=== PATIENT | female | born 1955 | race Caucasian/White ===

== ENCOUNTER → 2016-06-04 | Outpatient (REF) | payer OTHER ==
[~2016-06-04] MED LIST: /BACL20TA; /BACL20TA OR; /ESCI20TA OR; /ESOM40CA; /ROPI5TA PO; /SUCR1TA OR; ABIL5TAB; ADV250INH INH; ADVAIR INH; ALBU83IN INH; AMLO10TAB OR; AZEL0.055; BABY81CH OR; BACT800T5 PO; BUDESONIDE; BUSP10TA2 OR; CALC600T7 PO; CLON0.5T OR; DEXI30CA PO; DEXILANT OR; DIOV160T5 OR; DIOV80TA OR; DULO20CA; EPI PEN; EPI PEN INJ; EPIN0.3I6 INJ; FLECTOR PATCH; GINKGO BILOBA PO; HYDR-3713 PO; IBUP800T; IMIT100T OR; K-TA10TA OR; KAPIDEX OR; KLON0.5T PO; LASI40TA PO; LEVO112T3 OR; LEVO88TA2 PO; LIDO1DIS2 TD; LIDO5DIS; LORA2TAB; MAGN400C2 PO; MICR10CA PO; NAPR500T OR; NAPR500T81 PO; NASONEX; NEUR300C OR; NEUR600T PO; PAXI10TA OR; POTA75TA PO; PROAAER INH; PROAIR INH; SAVE25TA PO; SUMA100T2 PO; Savella OR; TOPI100T OR; TOPR50TA OR; TORS20TA2 PO; TRAM100T13 PO; TYLE650T30 PO; TYLENOL #3 OR; ULTR200T; ULTR300T OR; ULTR50TA PO; VERA180T9 OR; VICO5TAB16 PO; VIT D 2000 OR; VITA500C OR; VITAMIN D50000 UNT OR; VOLT1GEL EX; ZOFR20TA PO; ZONI100C2 PO; [UNRECOGNIZED DRUG - CODE] PO; [UNRECOGNIZED DRUG - OTHER]; pro air INH; quinine PO
[2016-06-04 14:02] LABS: BACTERIA, URINE SMALL AMOUNT; CALCIUM OXALATE CRYSTALS,URINE MOD AMOUNT /hpf; HYALINE CAST, URINE NONE SEEN /lpf (0-1); RBC, URINE NONE SEEN /hpf (0-3); SQUAMOUS EPITHELIAL CELL URINE MOD AMOUNT /hpf (SMALL AMT); WBC, URINE NONE SEEN /hpf (0-3)
[2016-06-04 14:03] LABS: MICROSCOPIC EXAM PERFORMED
== END ==
LOC: M LAB REF 13:25
PROVIDERS: ATTEND Internal Medicine Nephrology
DX: R30.0 Dysuria (principal)

== ENCOUNTER → 2016-08-04 | Outpatient (CLI) | payer MEDICARE, OTHER | LOC: M WHC 15:04 | PROVIDERS: ATTEND Internal Medicine | DX: M81.0 Age-related osteoporosis without current pathological fracture (principal) ==

== ENCOUNTER → 2016-10-21 | Outpatient (REF) | payer MEDICARE, OTHER ==
[2016-10-21 20:19] LABS: FREE T4 1.16 NG/DL (0.76-1.46)
== END ==
LOC: M LAB REF 17:02
PROVIDERS: ATTEND Internal Medicine Nephrology
DX: R25.1 Tremor, unspecified (principal)

== ENCOUNTER → 2017-01-11 | Outpatient (CLI) | payer MEDICARE, OTHER ==
[~2017-01-11] MED LIST changes: +METHACHOLINE KIT (J7674) INH ONE
--- NOTE | 2017-01-11 09:06 | PFTRPT ---
Tech: Chrystal SUGGS RRT Age: 61 Sex: Female Race: Height: 64.00 Inches Weight: 243.00 Lbs BSA: 2.12 Diagnosis: R06.02 METHACHOLINE CHALLENGE REPORT ORDERING PROVIDER: PIERO Hunter DATE OF SERVICE: 01/11/17 INTERPRETATION: Excellent technical quality. Under protocol, methacholine was administered. At a dose of 0.25 mg (1.375 CDUs), a 23% decline in the FEV1 was noted. The PC20 of 0.09 is significant. Flow rates did return to baseline post bronchodilator administration. IMPRESSION: Positive methacholine challenge study. MTDD
== END ==
LOC: M CARPUL 07:59
PROVIDERS: ATTEND Nurse Practitioner Adult Health
DX: R06.02 Shortness of breath (principal)
CPT/HCPCS: 94070; 95070; J7674

== ENCOUNTER 2017-04-04 16:24 | Emergency (ER) | payer MEDICARE, OTHER | END 2017-04-04 19:00 | disposition home or self-care (01) | LOC: M ED 16:24 | DX: R59.0 Localized enlarged lymph nodes (principal); L02.214 Cutaneous abscess of groin; J44.9 Chronic obstructive pulmonary disease, unspecified; J45.909 Unspecified asthma, uncomplicated; I10 Essential (primary) hypertension; G43.909 Migraine, unspecified, not intractable, without status migrainosus; R56.9 Unspecified convulsions; E03.9 Hypothyroidism, unspecified; F32.9 Major depressive disorder, single episode, unspecified; F41.9 Anxiety disorder, unspecified; Z91.041 Radiographic dye allergy status; Z88.2 Allergy status to sulfonamides; Z88.1 Allergy status to other antibiotic agents; Z88.0 Allergy status to penicillin; Z88.8 Allergy status to other drugs, medicaments and biological substances; Z91.013 Allergy to seafood; Z91.030 Bee allergy status; Z79.899 Other long term (current) drug therapy; Z79.82 Long term (current) use of aspirin | CPT/HCPCS: 76857 ==

== ENCOUNTER → 2017-06-10 | Outpatient (CLI) | payer MEDICARE, OTHER | LOC: M RAD 15:45 | DX: I12.9 Hypertensive chronic kidney disease with stage 1 through stage 4 chronic kidney disease, or unspecified chronic kidney disease (principal); N18.3 Chronic kidney disease, stage 3 (moderate); R39.11 Hesitancy of micturition | CPT/HCPCS: 76857 ==

== ENCOUNTER → 2017-06-16 | Outpatient (REF) | payer MEDICARE, OTHER | LOC: M SFHCPLAZ 11:52 | DX: A49.02 Methicillin resistant Staphylococcus aureus infection, unspecified site (principal) | CPT/HCPCS: 87081 ==

== ENCOUNTER → 2017-07-21 | Outpatient (REF) | payer MEDICARE, OTHER | LOC: M SFHCPLAZ 13:05 | DX: A49.02 Methicillin resistant Staphylococcus aureus infection, unspecified site (principal); Z22.322 Carrier or suspected carrier of Methicillin resistant Staphylococcus aureus | CPT/HCPCS: 87186 ==

== ENCOUNTER → 2017-08-29 | Outpatient (REF) | payer MEDICARE | LOC: M SFHCPLAZ 11:35 | DX: A49.02 Methicillin resistant Staphylococcus aureus infection, unspecified site (principal) | CPT/HCPCS: 87081 ==

== ENCOUNTER → 2017-11-07 | Outpatient (REF) | payer MEDICARE, OTHER | LOC: M SFHCPLAZ 12:11 | DX: Z22.322 Carrier or suspected carrier of Methicillin resistant Staphylococcus aureus (principal) | CPT/HCPCS: 87081 ==

== ENCOUNTER → 2017-11-14 | Outpatient (REF) | payer MEDICARE, OTHER ==
[2017-11-16 14:44] LABS: HPV HYBRID CAPTURE II Negative (Negative)
== END ==
LOC: M LAB REF 18:17
DX: Z12.72 Encounter for screening for malignant neoplasm of vagina (principal)
CPT/HCPCS: G0123

== ENCOUNTER 2018-02-22 06:43 | Day surgery (SDC) | payer MEDICARE, OTHER ==
[~2018-02-22] VITALS: Ht 162.6 cm; Wt 112.0 kg
[~2018-02-22 06:43] MED LIST changes: +ABIL1TAB13 PO; +ALIG4CAP PO; +AMLO10TA5 PO; +ARIP240S PO; +ASPI81CH32 PO; +ATOR1TAB19 PO; +ATOR1TAB21 PO; +BACL10TA2 PO; +BREO1INH3 INH; +CALCTAB29 PO; +CLON0.5T8 PO; +CYCL10TA PO; +EPIP0.3I2 IJ; +FISH1000 PO; +GABA600T4 PO; +HYDR12.55 PO; +IMIT100T PO; +IRBE150T12 PO; +LIDO5CRE6 EX; +LIDO5TD TD; +LOVA1CAP17 PO; -METHACHOLINE KIT (J7674) INH ONE; +METO25TA4 PO; +MULT1TAB19 PO; +OMEP20CA3 PO; +PRIM250T8 PO; +PRIM50TA6 PO; +PROAAER10 INH; +RABE1TAB PO; +SPIR-10 PO; +TETR1CAP2 PO; +TOPI100T9 PO; +TRAM50TA2 PO; +VITA200048 PO; +VOLT1GEL15 TD; -ZOFR20TA PO; +ZOFR4TAB16 PO; +duoneb INH
[2018-02-22] MEDS ORDERED: NS 1,000 ML IV SCH (06:45)
[2018-02-22] MEDS ORDERED: LIDOCAINE 2% INJ 100 MG/5 ML SDV (FOR ANES.) As Ordered ONE (07:38)
[2018-02-22] MEDS ORDERED: PROPOFOL 200 MG/20 ML VIAL As Ordered ONE (07:38)
[2018-02-22] MEDS ORDERED: fentaNYL 100 MCG/2 ML INJECTION (J3010) As Ordered ONE (07:38)
--- NOTE | 2018-02-22 07:46 | ROOR ---
Patient Name: Kelli Black Procedure Date: 02/22/2018 7:30 AM Date of : 1955 Age: 62 Room: [facility] Gender: Female Note Status: Finalized Procedure: Upper Endoscopy + Biopsies Indications: Heartburn, Exclusion of Day's esophagus Providers: Karri Grayson MD Referring MD: DOROTHY DE LA CRUZ MD Requesting Provider: Medicines: Monitored Anesthesia Care Complications: No immediate complications. Procedure: Pre-Anesthesia Assessment: - The heart rate, respiratory rate, oxygen saturations, blood pressure, adequacy of pulmonary ventilation, and response to care were monitored throughout the procedure. The Endoscope was introduced through the mouth, and advanced to the second part of duodenum. The upper GI endoscopy was accomplished without difficulty. The patient tolerated the procedure well. Findings: The Z-line was regular and was found 40 cm from the incisors. Multiple biopsies were obtained with cold forceps for evaluation to rule out Day's Esophagus randomly at the gastroesophageal junction. No other significant abnormalities were identified in a careful examination of the stomach. The exam of the duodenum was otherwise normal. Impression: - Z-line regular, 40 cm from the incisors. - Multiple biopsies were obtained at the gastroesophageal junction. - The examination was otherwise normal. Recommendation: - Patient has a contact number available for emergencies. The signs and symptoms of potential delayed complications were discussed with the patient. Return to normal activities tomorrow. Written discharge instructions were provided to the patient. - High fiber diet. - Discharge patient to home. - Continue present medications. - Await pathology results. - Telephone GI clinic for pathology results in 1 week. - Check Portal Online for Path [email or web address] - Return to referring physician. - The findings and recommendations were discussed with the patient's family. Karri Grayson MD Karri Grayson MD 02/22/2018 7:45:49 AM This report has been signed electronically. Number of Addenda: 0 Note Initiated On: 02/22/2018 7:30 AM Estimated Blood Loss: Estimated blood loss: none.
--- NOTE | 2018-02-22 08:01 | ROOR ---
Patient Name: Kelli Black Procedure Date: 02/22/2018 7:32 AM Date of : 1955 Age: 62 Room: [facility] Gender: Female Note Status: Finalized Procedure: Total Colonoscopy to Cecum Indications: High risk colon cancer surveillance: Personal history of colonic polyps Providers: Karri Grayson MD Referring MD: DOROTHY DE LA CRUZ MD Requesting Provider: Medicines: Monitored Anesthesia Care Complications: No immediate complications. Procedure: Pre-Anesthesia Assessment: - The heart rate, respiratory rate, oxygen saturations, blood pressure, adequacy of pulmonary ventilation, and response to care were monitored throughout the procedure. The Colonoscope was introduced through the anus and advanced to the cecum, identified by appendiceal orifice and ileocecal valve. The colonoscopy was performed without difficulty. The patient tolerated the procedure well. The quality of the bowel preparation was excellent. Findings: The perianal and digital rectal examinations were normal. Non-bleeding internal hemorrhoids were found during retroflexion. The hemorrhoids were small and Grade I (internal hemorrhoids that do not prolapse). No other significant abnormalities were identified in a careful examination of the remainder of the colon. The exam was otherwise without abnormality on direct and retroflexion views. Impression: - Non-bleeding internal hemorrhoids. - The examination was otherwise normal on direct and retroflexion views. - No specimens collected. - The exam was otherwise normal to the cecum. Recommendation: - Patient has a contact number available for emergencies. The signs and symptoms of potential delayed complications were discussed with the patient. Return to normal activities tomorrow. Written discharge instructions were provided to the patient. - High fiber diet. - Discharge patient to home. - Continue present medications. - Repeat colonoscopy in 5 years for surveillance. - Return to referring physician. - Telephone GI clinic for pathology results in 1 week. - Check Portal Online for Path Results.([email or web address]) - The findings and recommendations were discussed with the patient's family. Karri Grayson MD Karri Grayson MD 02/22/2018 8:01:38 AM This report has been signed electronically. Number of Addenda: 0 Note Initiated On: 02/22/2018 7:32 AM Estimated Blood Loss: Estimated blood loss: none.
[2018-02-22 08:30] VITALS: BP 144/78
== END 2018-02-22 08:43 | disposition home or self-care (01) ==
LOC: M OPP 06:43
PROVIDERS: ATTEND Internal Medicine Gastroenterology
DX: Z86.010 Personal history of colon polyps (principal); K64.0 First degree hemorrhoids; R12 Heartburn; I10 Essential (primary) hypertension; M12.9 Arthropathy, unspecified; G43.909 Migraine, unspecified, not intractable, without status migrainosus; G47.9 Sleep disorder, unspecified; Z79.82 Long term (current) use of aspirin; Z79.899 Other long term (current) drug therapy; Z88.0 Allergy status to penicillin; Z88.1 Allergy status to other antibiotic agents; Z88.2 Allergy status to sulfonamides; Z88.6 Allergy status to analgesic agent; Z88.8 Allergy status to other drugs, medicaments and biological substances; Z91.040 Latex allergy status; Z91.041 Radiographic dye allergy status; Z91.013 Allergy to seafood
CPT/HCPCS: 36415; 43239; 84132; 88305; G0105; J3010

== ENCOUNTER 2018-08-23 22:09 | Emergency (ER) | payer MEDICARE, OTHER ==
[~2018-08-23] VITALS: Ht 162.6 cm; Wt 108.2 kg
[~2018-08-23 22:09] MED LIST changes: -/BACL20TA; -/BACL20TA OR; -/ESCI20TA OR; -/ESOM40CA; -/ROPI5TA PO; -/SUCR1TA OR; -ASPI81CH32 PO; +ASPI81CH33 PO; +BACL1TAB9; +BACL1TAB9 OR; +CYMB1CAP4; -DULO20CA; +EPIN0.3A INJ; -EPIN0.3I6 INJ; +LEXA1TAB2 OR; +METO-743 OR; +NEXI1CAP3; -OMEP20CA3 PO; +OMEP20CA4 PO; +REQU1TAB15 PO; +SUCR1TAB56 OR; -TOPR50TA OR; -VICO5TAB16 PO; +VICO5TAB17 PO
[2018-08-23 22:51] LABS: BASO % 0.2 % (0.0-1.0); HEMATOCRIT 40.8 % (36.0-47.0); HEMOGLOBIN 14.2 g/dl (12.0-15.5); LYMPH # 0.5 10^3/uL (1.5-4.5); LYMPH % 8.6 % (24.0-44.0); MEAN CORPUSCULAR HEMOGLOBIN 32.6 pg (27.0-33.0); MEAN CORPUSCULAR HGB CONC 34.8 g/dl (32.0-36.5); MEAN CORPUSCULAR VOLUME 93.6 fl (80.0-96.0); MONO # 0.1 10^3/uL (0.0-0.8); MONO % 1.2 % (0.0-5.0); NEUTROPHILS # 5.2 10^3/uL (1.8-7.7); NEUTROPHILS % 89.7 % (36.0-66.0); PLATELET COUNT, AUTOMATED 174 10^3/uL (150-450); RED BLOOD COUNT 4.36 10^6/uL (4.00-5.40); WHITE BLOOD COUNT 5.8 10^3/uL (4.0-10.0)
[2018-08-23] MEDS ORDERED: NS 1,000 ML IV SCH (22:52)
[2018-08-23] MEDS ORDERED: MORPHINE 4 MG/ML 1ML VIAL/SYRINGE (J2270) IV ONE ×2 (23:00→23:45)
[2018-08-23 23:15] LABS: ALBUMIN 3.7 GM/DL (3.2-5.2); ALT/SGPT 54 U/L (12-78); AMYLASE 48 U/L (25-115); BILIRUBIN,DIRECT 0.2 MG/DL (0.0-0.2); BILIRUBIN,TOTAL 0.5 MG/DL (0.2-1.0); BLOOD UREA NITROGEN 13 MG/DL (7-18); CALCIUM LEVEL 9.3 MG/DL (8.8-10.2); CARBON DIOXIDE LEVEL 25 MEQ/L (21-32); CHLORIDE LEVEL 105 MEQ/L (98-107); CPK CREATINE PHOSPHOKINASE 222 U/L (26-192); GLOMERULAR FILTRATION RATE 48.5 (>45); GLUCOSE, FASTING 144 MG/DL (70-100); LIPASE 269 U/L (73-393); MB/CK RELATIVE INDEX 1.35 (< OR =4); POTASSIUM SERUM 3.6 MEQ/L (3.5-5.1); SODIUM LEVEL 140 MEQ/L (136-145); TOTAL PROTEIN 6.9 GM/DL (6.4-8.2); TROPONIN I < 0.02 NG/ML (< 0.10)
[2018-08-23] MEDS ORDERED: PANTOPRAZOLE 40MG INJ (PROTONIX) (C9113) IV ONE (23:45)
--- NOTE | 2018-08-24 01:05 | REPVR ---
EXAM: CT Abdomen and Pelvis Without Contrast EXAM DATE/TIME: 08/23/2018 11:27 PM CLINICAL HISTORY: 63 years old, female; Abdominal pain; Generalized; Additional Info: epigastric pain rad to back TECHNIQUE: Imaging protocol: Axial computed tomography images of the abdomen and pelvis without contrast. Coronal and sagittal reformatted images were created and reviewed. Radiation optimization: All CT scans at this facility use at least one of these dose optimization techniques: automated exposure control; mA and/or kV adjustment per patient size (includes targeted exams where dose is matched to clinical indication); or iterative reconstruction. COMPARISON: CT ABD PELVIS W/O CONTRAST 09/24/2013 11:24 PM FINDINGS: Liver: Normal. No mass. Gallbladder and bile ducts: Status post cholecystectomy. No biliary ductal dilatation. Pancreas: Normal. No ductal dilation. Spleen: Normal. No splenomegaly. Adrenals: Normal. No mass. Kidneys and ureters: No hydronephrosis. Hypodense lesion in the upper pole left kidney measuring 9 mm. Consistent with cyst. Stomach and bowel: Normal. No obstruction. No mucosal thickening. Appendix: The appendix is not seen. However, there is no evidence of appendicitis. Intraperitoneal space: Normal. No free air. No significant fluid collection. Vasculature: Mild atherosclerotic disease. No aortic aneurysm. Lymph nodes: Normal. No enlarged lymph nodes. Bladder: Unremarkable as visualized. Reproductive: Status post hysterectomy. Bones/joints: No acute fracture. No dislocation. Mild degenerative spine. Soft tissues: Unremarkable. IMPRESSION: 1. No CT evidence to suggest source of epigastric pain. 2. Cyst in the upper pole of the left kidney. No change from prior. No followup is necessary. 3. Additional findings as described. COMMENT: Consistent with the [place] [employer]'s Incidental Findings Committee Report (J Am Lilibeth Radiol 2010): Unless the patient's specific circumstances suggest otherwise, any liver lesion 0.5 cm or less, any cystic kidney lesion less than 1.0 cm, and/or any adrenal lesion 1.0 cm or less not otherwise characterized in this report as possessing suspicious or indeterminate imaging features is/are highly likely to be benign and do not require follow-up imaging or biopsy. Electronically signed by: Kriss Willett On 08/24/2018 01:05:21 AM
[2018-08-24 02:09] VITALS: BP 133/62
--- NOTE | 2018-08-24 05:43 | ECGEPIP ---
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
== END 2018-08-24 02:11 | disposition home or self-care (01) ==
LOC: M ED 22:09
DX: R10.13 Epigastric pain (principal); R00.1 Bradycardia, unspecified; K85.90 Acute pancreatitis without necrosis or infection, unspecified; N28.1 Cyst of kidney, acquired; I10 Essential (primary) hypertension; E55.9 Vitamin D deficiency, unspecified; J45.909 Unspecified asthma, uncomplicated; N25.81 Secondary hyperparathyroidism of renal origin; M51.26 Other intervertebral disc displacement, lumbar region; F44.5 Conversion disorder with seizures or convulsions; Z79.82 Long term (current) use of aspirin; Z79.899 Other long term (current) drug therapy; Z91.041 Radiographic dye allergy status; Z88.0 Allergy status to penicillin; Z88.2 Allergy status to sulfonamides; Z88.8 Allergy status to other drugs, medicaments and biological substances; Z91.030 Bee allergy status; Z91.013 Allergy to seafood; Z88.1 Allergy status to other antibiotic agents; Z91.89 Other specified personal risk factors, not elsewhere classified
CPT/HCPCS: 36415; 74176; 74183; 80048; 80076; 82150; 82550; 82553; 83690; 84484; 85025; 93005; 93041; 96374; 96375; 99285; A9576; C9113; J2270

== ENCOUNTER → 2018-08-24 | Outpatient (CLI) | payer MEDICARE, OTHER ==
[~2018-08-24] MED LIST changes: +PROHANCE 279.3MG/ML 5ML VIAL (A9576) As Ordered ONE
== END ==
LOC: M RAD 12:57
PROVIDERS: ATTEND Internal Medicine Gastroenterology
DX: K85.90 Acute pancreatitis without necrosis or infection, unspecified (principal)

== ENCOUNTER 2018-09-20 11:33 | Day surgery (SDC) | payer MEDICARE, OTHER ==
[~2018-09-20] VITALS: Ht 162.6 cm; Wt 101.6 kg
[~2018-09-20 11:33] MED LIST changes: +BUPR150T3 PO; +MULT1TAB55 PO; +NS 1,000 ML IV ONE; +OYST500C PO; -PROHANCE 279.3MG/ML 5ML VIAL (A9576) As Ordered ONE
[2018-09-20] MEDS ORDERED: LIDOCAINE 2% INJ 100 MG/5 ML SDV (FOR ANES.) As Ordered ONE (12:36)
[2018-09-20] MEDS ORDERED: PROPOFOL 200 MG/20 ML VIAL As Ordered ONE (12:36)
[2018-09-20] MEDS ORDERED: fentaNYL 100 MCG/2 ML INJECTION (J3010) As Ordered ONE (12:37)
--- NOTE | 2018-09-20 12:55 | ROOR ---
Patient Name: Kelli Black Procedure Date: 09/20/2018 12:39 PM Date of : 1955 Age: 63 Room: [facility] Gender: Female Note Status: Digital Forensic Analyst Override Procedure: Upper Endoscopy + Biopsies Indications: Dysphagia Providers: Karri Grayson MD Referring MD: GEORGI GLOVER MD Requesting Provider: Medicines: Monitored Anesthesia Care Complications: No immediate complications. Procedure: Pre-Anesthesia Assessment: - The heart rate, respiratory rate, oxygen saturations, blood pressure, adequacy of pulmonary ventilation, and response to care were monitored throughout the procedure. The Endoscope was introduced through the mouth, and advanced to the second part of duodenum. The upper GI endoscopy was accomplished without difficulty. The patient tolerated the procedure well. Findings: The Z-line was variable and was found 40 cm from the incisors. Multiple biopsies were obtained with cold forceps for evaluation to rule out Day's Esophagus randomly at the gastroesophageal junction. No other significant abnormalities were identified in a careful examination of the stomach. Biopsies were taken with a cold forceps in the gastric antrum for Helicobacter pylori testing. The exam of the duodenum was otherwise normal. Impression: - Z-line variable, 40 cm from the incisors. - Multiple biopsies were obtained at the gastroesophageal junction. - Biopsies were taken with a cold forceps for Helicobacter pylori testing. - The examination was otherwise normal. Recommendation: - Patient has a contact number available for emergencies. The signs and symptoms of potential delayed complications were discussed with the patient. Return to normal activities tomorrow. Written discharge instructions were provided to the patient. - High fiber diet. - Discharge patient to home. - Continue present medications. - Await pathology results. - Telephone GI clinic for pathology results in 1 week. - Return to referring physician. - The findings and recommendations were discussed with the patient's family. Karri Grayson MD Karri Grayson MD 09/20/2018 12:55:10 PM Electronically signed by Karri Grayson MD Number of Addenda: 0 Note Initiated On: 09/20/2018 12:39 PM Estimated Blood Loss: Estimated blood loss: none.
[2018-09-20 13:20] VITALS: BP 125/82
== END 2018-09-20 13:29 | disposition home or self-care (01) ==
LOC: M OPP 11:33
PROVIDERS: ATTEND Internal Medicine Gastroenterology
DX: K22.8 Other specified diseases of esophagus (principal); R13.10 Dysphagia, unspecified; Z79.82 Long term (current) use of aspirin; Z79.891 Long term (current) use of opiate analgesic; Z79.899 Other long term (current) drug therapy; Z88.0 Allergy status to penicillin; Z88.2 Allergy status to sulfonamides; Z88.1 Allergy status to other antibiotic agents; Z88.8 Allergy status to other drugs, medicaments and biological substances; Z91.041 Radiographic dye allergy status; Z91.030 Bee allergy status; Z91.048 Other nonmedicinal substance allergy status; Z91.013 Allergy to seafood
CPT/HCPCS: 43239; 88305; J3010

== ENCOUNTER → 2018-12-04 | Outpatient (REF) | payer MEDICARE, OTHER ==
[~2018-12-04] MED LIST changes: -NS 1,000 ML IV ONE
[2018-12-04 12:51] LABS: HEMOGLOBIN A1c 5.6 %
[2018-12-04 13:09] LABS: ALBUMIN 3.7 GM/DL (3.2-5.2); ALT/SGPT 45 U/L (12-78); BILIRUBIN,TOTAL 0.7 MG/DL (0.2-1.0); BLOOD UREA NITROGEN 18 MG/DL (7-18); CALCIUM LEVEL 10.1 MG/DL (8.8-10.2); CARBON DIOXIDE LEVEL 31 MEQ/L (21-32); CHLORIDE LEVEL 106 MEQ/L (98-107); CREATININE FOR GFR 1.18 MG/DL (0.55-1.30); GLOMERULAR FILTRATION RATE 49.4 (>45); GLUCOSE, FASTING 72 MG/DL (70-100); IMMUNOGLOBULIN G 766 MG/DL (681-1648); IMMUNOGLOBULIN M 38.6 MG/DL (40-230); POTASSIUM SERUM 4.1 MEQ/L (3.5-5.1); SODIUM LEVEL 141 MEQ/L (136-145)
[2018-12-04 16:38] LABS: HIV 1&2 SCREEN CENTAUR NEGATIVE (NEGATIVE)
== END ==
LOC: M SFHCPLAZ 10:29
PROVIDERS: ATTEND Internal Medicine Infectious Disease
DX: B37.2 Candidiasis of skin and nail (principal)
CPT/HCPCS: 36415; 80053; 82784; 83036; 87389; G0463

== ENCOUNTER → 2018-12-12 | Outpatient (CLI) | payer OTHER ==
--- NOTE | 2018-12-26 05:35 | ECWPNPC ---
PATIENT NAME: ROZINA HERNANDEZ : 1955 GENDER: FEMALE VISIT DATE: 12/12/2018 DISCHARGE DATE: 12/12/18 1615 VISIT LOCKED DATE TIME: PHYSICIAN: TRINO PEOPLES MD RESOURCE: TRINO PEOPLES MD REASON FOR APPOINTMENT 1. W/C LOW BACK HISTORY OF PRESENT ILLNESS PAIN SCREENING: PATIENT HAS A COMPLAINT OF ACUTE OR CHRONIC PAIN :YES 63 YEAR OLD FEMALE PATIENT WITH A HISTORY OF CHRONIC LOW BACK AND LEG PAIN. THE PATIENT DESCRIBES THE PAIN ACHING, BURNING, TENDER, SHARP, STABBING, SHOOTING, AND INTERMITTENT WITH A PAIN SCORE OF 6-10/10 DEPENDING ON PHYSICAL ACTIVITY. 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 THE PATIENT SAYS WHEN SHE STOOD UP, SHE TRIPPED DUE TO HER FOOT BEING CAUGHT IN PURSE HANDLE THAT RESULTED IN HER BACK INJURY AND A BROKEN ANKLE. THE PATIENT SAYS SHE HAS TRIED PHYSICAL THERAPY IN THE PAST THAT HELPED WITH SOME OF HER PAIN. THE PATIENT STATES HER PAIN IS AFFECTING HER ABILITY TO PERFORM HER DAILY ACTIVITIES SUCH CLEANING, WORKING, AND WALKING. THE PATIENT SAYS SHE HAS DIFFICULTY SLEEPING AND OFTEN WAKES UP WITH SEVERE SPASMS AND ALSO DIFFICULTY MANEUVERING UP AND DOWN STAIRS, SO MUCH SO THAT THEY ARE NOW UPDATING HER HOUSE TO ACCOMMODATE FOR HER DOWNSTAIRS. PATIENT DENIES UNEXPLAINABLE WEIGHT LOSS, FEVER, CHILLS, NEW CHANGES ON HER URINARY OR BOWEL CONTROL. THE PATIENT MENTIONS SHE HAS STAGE 3 KIDNEY DISEASE. FALL RISK SCREENING: SCREENING :NO FALLS REPORTED IN THE LAST YEAR CURRENT MEDICATIONS TAKING LIDODERM 5 % PATCH DIRECTED EXTERNALLY (WORKERS COMP) APPLY 1 PATCH TO PAINFUL AREA OF LOW BACK ON 12 HRS OFF 12 HOURS PRN PAIN. TAKING VITAMIN D 2000 UNIT TABLET 1 CAPSULE ORALLY ONCE DAILY TAKING EPIPEN 2-DUANE 0.3 MG/0.3ML SOLUTION AUTO-INJECTOR INJECTION DIRECTED TAKING CLONAZEPAM 0.5 MG TABLET 0.5 ORALLY 1/2 TAB IN AM AND 1/4 TAB IN PM TAKING IMITREX 100 MG TABLET 1 TABLET NEEDED ORALLY DIRECTED PRN MIGRAINES TAKING PROBIOTIC CAPSULE 1 TAB(S) ORALLY DAILY TAKING 28-0.8 MG TABLET ORALLY DAILY TAKING ASPIRIN EC 81 MG TABLET DELAYED RELEASE 1 TABLET ORALLY ONCE A DAY TAKING ARIPIPRAZOLE 2 MG TABLET 1 TABLET ORALLY ONCE A DAY TAKING ATORVASTATIN CALCIUM 10 MG TABLET 1 TABLET ORALLY ONCE A DAY TAKING LOVAZA 1 GM CAPSULE 2 CAPSULES ORALLY TWICE A DAY TAKING PRIMIDONE 50 MG TABLET ORALLY TAKING GABAPENTIN 600 MG TABLET 1 TABLET ORALLY THREE TIMES A DAY TAKING TRAMADOL HCL 50 MG TABLET 1 TAB ORALLY (CODE D FOR CHRONIC PAIN ) EVERY 4-6 HRS NEEDED MDD3 TAKING TOPIRAMATE 100 MG TABLET 1 TABLET ORALLY DAILY TAKING RABEPRAZOLE SODIUM 20 MG TABLET DELAYED RELEASE 1 TABLET ORALLY BID TAKING IRBESARTAN 150 MG TABLET 1 TABLET ORALLY ONCE A DAY TAKING SPIRONOLACTONE 25 MG TABLET 1 TABLET ORALLY TAKING BREO ELLIPTA 200-25 MCG/INH AEROSOL POWDER BREATH ACTIVATED 1 PUFF INHALATION ONCE A DAY TAKING CALCIUM + D 600-200 MG-UNIT TABLET 1 TABLET ORALLY TWICE A DAY TAKING TORSEMIDE 20 MG TABLET DIRECTED ORALLY TAKING BUPROPION HCL 100 MG TABLET EXTENDED RELEASE 1 TABLET ORALLY DAILY TAKING VOLTAREN 1 % GEL DIRECTED EXTERNALLY TAKING VENTOLIN HFA 90 MCG/ACT AEROSOL SOLUTION 2 PUFFS NEEDED INHALATION EVERY 6 HRS TAKING NYSTATIN [id number] UNIT/GM POWDER 1 APPLICATION TO AFFECTED AREA EXTERNALLY TWICE A DAY, NOTES: NONE RECENT TAKING FISH OIL DOUBLE STRENGTH 1200 MG CAPSULE 1 CAPSULE ORALLY THREE TIMES DAILY NOT-TAKING PROAIR HFA 108 (90 BASE) MCG/ACT AEROSOL SOLUTION 2 PUFFS NEEDED INHALATION QID PRN DISCONTINUED SUMATRIPTAN &CAPSAICIN-MENTHOL 100 & 0.0375-5 MG & % THERAPY PACK DIRECTED COMBINATION DISCONTINUED DIFLUCAN 100 MG TABLET 1 TABLET ORALLY DAILY MEDICATION LIST REVIEWED AND RECONCILED WITH THE PATIENT PAST MEDICAL HISTORY PRIMARY HTN,SECONDARY RENAL HYPERPARATHYROIDISM,CRI STAGE 3,VIT D DEFICIENT,HYPOMAGNISEMIA CKD3, 01/20 RENAL US WITH INCREASED ECHOGENICITY TRAVIS MARCOS EDEMA VIT D DEF HTN HYPOTHYROIDISM ASTHMA, DR [place] 2008, FELL WORKING FOOT TANGLED IN PURSE HANDLES FOR CP CLINIC, WEARS BRACE 05/22 LIVER US DIFFUSE FIBROFATTY INFILTRATION OF THE LIVER 03/22 MRI L SPINE - 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 EPIGASTRIC TENDERNESS - DR JARRETT GI SYR 04/21 L WRIST FX - FISH OBESITY PSEUDOSEIZURES - NEURO/ALI ALLERGIES IV DYE: ANAPHYLAXIS BACTRIM: ANAPHYLAXIS - ALLERGY ERYTHROMYCIN: ANAPHYLAXIS - ALLERGY PENICILLIN (FOR ALLERGIES USE ONLY): HIVES ZITHROMAX: HEADACHES - ALLERGY INDOCIN: HIVES,HEADACHE ZITHROMAX: HIVES IVP DYE: ANAPHYLAXIS - ALLERGY TORADOL: HIVES BEE STINGS: ANAPHYLAXIS - ALLERGY HARD SHELL SEAFOOD: ANAPHYLAXIS - ALLERGY BIAXIN: HALLUCINATIONS MUSCLE RELAXERS: SHAKES - SIDE EFFECTS SULFA (FOR ALLERGY USE ONLY): HIVES - ALLERGY LASIX: SWELLING - SIDE EFFECTS BACTROBAN OINTMENT: CAUSES YEAST INFECTION - SIDE EFFECTS SURGICAL HISTORY HYSTERECTOMY,CHOLECYSTECTOMY,INGUINAL HERNIA,RIGHT,COLONOSCOPY,POLYPECTOMYX2,TONSILLECTOMY TENDON REPAIR LEFT WRIST/L THUMB 05/04/2016 RIGHT HAND CARPAL TUNNEL SURGERY 2019 FAMILY HISTORY FATHER: DIAGNOSED WITH DIABETES, HYPERTENSION, UNSPECIFIED HEART DISEASE MOTHER: DIABETES, HYPERTENSION, UNSPECIFIED HEART DISEASE SIBLINGS: DIABETES SOCIAL HISTORY GENERAL: TOBACCO USE ARE YOU A:NONSMOKER HIV / HEP-C SCREENING HIV TEST OFFERED TO PATIENT:NO HEP-C TEST OFFERED TO PATIENT:NO OTHERS AT HOME: SPOUSE. EDUCATION LEVEL OF EDUCATION:COLLEGE DIET: REGULAR. LANGUAGE LANGUAGES SPOKEN:MALAYSIAN DOMESTIC VIOLENCE DO YOU FEEL SAFE IN YOUR ENVIRONMENT?YES RECREATIONAL DRUG USE DRUG USE?NO EXERCISE: NONE. LEARNING BARRIERS / SPECIAL NEEDS BARRIERS TO LEARNING?NO HEARING IMPAIRED?NO VISION IMPAIRED?YES COGNITIVELY IMPAIRED?NO :CORRECTIVE LENSES READINESS TO LEARN?YES LEARNING PREFERENCES?NO LEARNING CAPABILITIES PRESENT?YES EMOTIONAL BARRIERS?NO SPECIAL DEVICES?YES :CANE PEARL PELLER NEEDED?NO PAIN CLINIC PFS, CLERGY, PUBLIC HEALTH REFERRALS PFS REFERRAL NEEDED?NO CLERGY REFERRAL NEEDED?NO PUBLIC HEALTH REFERRAL NEEDED?NO WAS THE PROVIDER NOTIFIED OF ANY PERTINENT INFO?NO HAS THE PATIENT BEEN EDUCATED REGARDING HIS/HER PLAN OF CARE?YES HAS THE PATIENT BEEN EDUCATED REGARDING PAIN, THE RISK FOR PAIN, THE IMPORTANCE OF EFFECTIVE PAIN MANAGEMENT, AND THE PAIN ASSESSMENT PROCESS?YES LATEX QUESTIONNAIRE LATEX ALLERGY : HAVE YOU EVER DEVELOPED ANY TYPE OF REACTION AFTER HANDLING LATEX PRODUCTS SUCH RUBBER GLOVES, CONDOMS, DIAPHRAGMS, BALLOONS, SOCKS, OR UNDERWEAR?NO LATEX ALLERGY : HAVE YOU EVER DEVELOPED ANY TYPE OF REACTION DURING OR AFTER DENTAL APPOINTMENT, VAGINAL/RECTAL EXAMINATION, SURGICAL PROCEDURE, OR ANY OTHER EXPOSURE?NO LATEX RISK : HAVE YOU EVER HAD ANY DIFFICULTY BREATHING OR HIVES AFTER EATING OR HANDLING ANY FRUITS, OR VEGETABLES; SUCH KIWI, BANANAS, STONE FRUITS, OR CHESTNUTSNO LATEX RISK : DO YOU HAVE A PREVIOUS PERSONAL HISTORY OF MORE THAN NINE SURGERIES, SPINA BIFIDA, OR REPEATED CATHERIZATIONS? NO LATEX RISK : ARE YOU FREQUENTLY EXPOSED TO LATEX PRODUCTS IN YOUR OCCUPATION?NO DATE ASKED : 12/04/2018 CAFFEINE CAFFEINE USE?NO ADVANCE DIRECTIVE ADVANCE DIRECTIVE DISCUSSED WITH PATIENT:YES PT HAS HCP FOR LEVON HERNANDEZ RASTAFARIAN [id number] [facility] MARITAL STATUS: . ALCOHOL SCREENING DID YOU HAVE A DRINK CONTAINING ALCOHOL IN THE PAST YEAR?YES HOW OFTEN DID YOU HAVE SIX OR MORE DRINKS ON ONE OCCASION IN THE PAST YEAR?NEVER (0 POINTS) HOW MANY DRINKS DID YOU HAVE ON A TYPICAL DAY WHEN YOU WERE DRINKING IN THE PAST YEAR?1 OR 2 (0 POINTS) HOW OFTEN DID YOU HAVE A DRINK CONTAINING ALCOHOL IN THE PAST YEAR?MONTHLY OR LESS (1 POINT) POINTS1 INTERPRETATIONNEGATIVE OCCUPATION: RETIRED. SEXUAL HX HAD SEX IN THE LAST 12 MONTHS (VAGINAL, ORAL, OR ANAL)?YES WITHMEN ONLY HAVE YOU EVER HAD AN STD?NO HOSPITALIZATION/MAJOR DIAGNOSTIC PROCEDURE SURG RELATED REVIEW OF SYSTEMS REVIEWED BY: PROVIDER: TRINO PEOPLES MD . CONSTITUTIONAL: ANY CHANGE IN YOUR MEDICAL CONDITION? NO . CHILLS NO . FEVER NO . INFECTION: DO YOU HAVE NEW INFECTIONS? NO . DO YOU HAVE HISTORY OF MRSA? YES, PT HAS HISTORY OF MRSA A FEW YEARS AGO IN WOUND IN GROIN AREA. , STATES SHE WAS TREATED BY DR. REHMAN, AND WAS CLEARED AFTER TESTING X3. . MUSCULOSKELETAL: ANY NEW PATTERNS OF PAIN OR NUMBNESS? YES, PT COMPLAINS OF INCREASING INTENSITY OF PAIN AND ALSO INCREASING NUMBER OF "MERLY HORSE CRAMPING" . SYTEMIC LUPUS NO . GASTROENTEROLOGY: ANY NEW CHANGE IN BOWEL CONTROL? NO . BARRETTS ESOPHAGUS NO . CIRRHOSIS NO . HEPATITIS NO . LIVER FAILURE NO . ACID REFLUX NO . UNEXPLAINED WEIGHT LOSS NO . GENITOURINARY: ANY NEW CHANGE IN BLADDER CONTROL? NO . IS THERE A CHANCE YOU COULD BE ? NO . HEMATOLOGY/LYMPH: DO YOU TAKE ANY BLOOD THINNERS? (FOR EXAMPLE- COUMADIN, PLAVIX, AGGRENOX, PLATEL, PRADAXA, OR XARELTO) NO . WHEN WAS YOUR LAST DOSE? DATE: TIME: . LOW PLATELET COUNT NO . SICKLE CELL DISEASE NO . VON WILLIEBRANDS NO . FACTOR V LEIDEN NO . THALLASEMIA NO . ANEMIA NO . EASY BRUISING NO . NEUROLOGY: HAVE YOU FALLEN IN THE PAST 12 MONTHS? NO . ANY NEW EXTREMITY NUMBNESS OR WEAKNESS? NO . HEAD INJURY NO . DEMENTIA NO . CEREBRAL PALSY NO . MULTIPLE SCLEROSIS NO . DIZZINESS NO . HEADACHE PT STATES SHE GETS FREQUENT HEADACHES . STROKES NO . VERTIGO NO . CARDIOLOGY: DO YOU HAVE A PACEMAKER OR DEFIBRILLATOR? NO . ANGINA NO . HEART ATTACK NO . HEART SURGERY NO . CONGESTIVE HEART FAILURE/FLUID OVERLOAD NO . CHEST PAIN NO . HIGH BLOOD PRESSURE NO . IRREGULAR HEART BEAT NO . RESPIRATORY: HAVE YOU BEEN SICK IN THE PAST WEEK? NO . FEVER NO . FLU LIKE SYMPTOMS? NO . CPAP YES, PT STATES SHE IS RECENTLY DIAGNOSED WITH SLEEP APNEA AND HAS CPAP MACHINE THAT SHE GOT 4 DAYS AGO, AND STATES SHE HAS BEEN USING IT NIGHTLY . BYPAP NO . ASTHMA YES . EMPHYSEMA NO . CHRONIC LUNG DISEASES NO . SHORTNESS OF BREATH ON EXERTION NO . COUGH NO . SNORING NO . INTEGUMENTARY: DO YOU HAVE ANY RASHES OR OPEN SORES? NO . ALLERGIC/IMMUNO: ARE YOU ALLERGIC TO IV DYE? YES . ANY NEW ALLERGIES? NO . PSYCHIATRIC: DO YOU HAVE THOUGHTS OF HURTING YOURSELF OR SOMEONE ELSE? NO . ARE YOU ABUSED, NEGLECTED, OR IN AN UNSAFE ENVIRONMENT? NO . ENDOCRINOLOGY: ARE YOU DIABETIC? NO . THYROID DISORDER NO . OTHER: DO YOU NEED ANY PRESCRIPTIONS? YES, LIDODERM PATCHES . IF YES, PLEASE LIST: ____ . ANY NEW PROBLEMS WITH YOUR MEDICATIONS? NO . WHEN DID YOU LAST EAT? ____ . WHEN DID YOU LAST DRINK? ____ . WHAT DID YOU LAST DRINK? ____ . NAME OF PERSON DRIVING YOU HOME? ____ . DO YOU HAVE ANY OTHER QUESTIONS OR CONCERNS NO . VITAL SIGNS WT 226.8 LBS, HT 64 IN, BMI 38.93 INDEX, BP 129/71 MM HG, HR 78 /MIN, RR 18 /MIN, TEMP 97.0 F, OXYGEN SAT % 98%, NA INITIALS SC 14:04, REVIEWED BY: BV. EXAMINATION GENERAL EXAMINATION: PATIENT IS ALERT O X 3 AND COOPERATIVE. ANTALGIC WALK. PATIENT IS LIMPING FROM THE LEFT LEG. SEVERE TENDERNESS OVER THE LOW BACK. PAIN INCREASES OVER THE LUMBAR FACET JOINTS WITH EXTENSION AND LATERAL ROTATION OF THE BACK. MRI OF THE LUMBAR SPINE DONE ON 10/23/2015 SHOWS FACET ARTHROPATHY CHANGES. ASSESSMENTS SPONDYLOSIS WITHOUT MYELOPATHY OR RADICULOPATHY, LUMBAR REGION - M47.816 (PRIMARY) TREATMENT SPONDYLOSIS WITHOUT MYELOPATHY OR RADICULOPATHY, LUMBAR REGION CLINICAL NOTES: WE DISCUSSED SEVERAL ISSUES WITH MS. HERNANDEZ'S PAIN MANAGEMENT CASE. THE PATIENT IS HAVING DIFFICULTY SLEEPING AT NIGHT DUE TO INCREASING PAIN AND SPASTICITY. DUE TO THE LUMBAR SPONDYLOSIS AND ACUTE PAIN OVER THE LAST MONTH, I WOULD LIKE TO MOVE FORWARD WITH A BILATERAL L4-L5 AND L5-S1 THERAPEUTIC LUMBAR FACET BLOCK AT THIS TIME. WE DISCUSSED THE BENEFITS, RISKS, AND ALTERNATIVES OF THE INJECTION AND THE PATIENT WOULD LIKE TO PROCEED. THE PATIENT WILL FOLLOW UP IN SEVERAL WEEKS AFTER HER INJECTION TO SEE HOW IT IS HELPING WITH HER PAIN. DEPENDING ON THE RESULTS OF THE PROCEDURE, I MAY CONSIDER REQUESTING AN UPDATED MRI IN THE FUTURE. I WILL START THE PATIENT ON TIZANIDINE 2 MG 1-2 TABLETS TO BE TAKEN AT NIGHT TO HELP WITH INCREASING ACUTE PAIN AND SPASTICITY. THE PATIENT WILL CONTINUE WITH 2-3 LIDODERM PATCHES DAILY THAT IS HELPING WITH HER PAIN. THE PATIENT WILL FOLLOW UP WITH THE NURSE PRACTITIONER IN 6 WEEKS TO SEE HOW THE INJECTION IS HELPING WITH HER PAIN. INSTRUCTIONS WERE GIVEN, QUESTIONS WERE ANSWERED, PATIENT REPORTS UNDERSTANDING AND AGREES WITH THE PLAN. I, SANIA MALONE, DOCUMENTED THE ABOVE INFORMATION ACTING A SCRIBE FOR DR. PEOPLES. I HAVE REVIEWED THE ABOVE DOCUMENT, WRITTEN BY SANIA CAMPOS AND I VERIFY THAT IT IS ACCURATE. . OTHERS START TIZANIDINE HCL TABLET, 2 MG, 1 TABLET NEEDED, ORALLY FOR SPAMS AND PAIN, BEFORE BEDTIME MAY REPEAT IN 4 HRS MDD2 (WORKERS COMP), 15 DAYS, 25, REFILLS 0 CONTINUE LIDODERM PATCH, 5 %, DIRECTED, EXTERNALLY (WORKERS COMP), APPLY 3 PATCH TO PAINFUL AREA OF LOW BACK ON 12 HRS OFF 12 HOURS PRN PAIN., 30 DAYS, 90, REFILLS 1 PROCEDURES PN WORKMANS' COMP OPINION IN YOUR OPINION, WAS THE INCIDENT THAT THE PATIENT DESCRIBED THE COMPETENT MEDICAL CAUSE OF THIS INJURY/ILLNESS? YES ARE THE PATIENT'S COMPLAINTS CONSISTENT WITH HIS/HER HISTORY OF THE INJURY/ILLNESS? YES IS THE PATIENT'S HISTORY OF THE INJURY/ILLNESS CONSISTENT WITH YOUR OBJECTIVE FINDING? YES WHAT IS THE PERCENTAGE OF TEMPORARY IMPAIRMENT? MARKED = 75% IS THE PATIENT WORKING? NO DOCTOR ON SITE: TRINO BYRD MD PREVENTIVE MEDICINE PAIN CLINIC TEACHING: MEDICATIONS PRINTED INFORMATION ON TIZANIDINE GIVEN TO AND REVIEWED WITH PT AND SHE VERBALIZED UNDERSTANDING. AD. PROCEDURE TEACHING PT DECLINED PRINTED INFORMATION ON THERAPEUTIC FACET BLOCK STATING SHE HAS HAD THEM AND IS FAMILIAR WITH IT. PRINTED PRE-PROCEDURE INSTRUCTIONS GIVEN TO AND REVIEWED WITH PT AND SHE VERBALIZED UNDERSTANDING.. PROCEDURE CODES FA211 ESTABILISHED PATIENT [facility] FACILITY CHARGE [id number] CURRENT MEDS W/DOSAGES DOCUMENTED [id number] PAIN ASSESS POS TOOL F/U PLAN DOC DISPOSITION & COMMUNICATION FOLLOW UP REASON: JANE L4-L5, L5-S1 LTFB, F/U TECHNICAL ILLUSTRATOR 6 WEEKS ELECTRONICALLY SIGNED BY TRINO PEOPLES MD, MD ON 12/25/2018 AT 05:27 PM EST DISCLAIMER : THIS IS A VISIT SUMMARY EXTRACTED FROM THE [employer] CHART. IT IS NOT A COPY OF THE [employer] PROGRESS NOTE. HARRIET
== END ==
LOC: M PAIN 14:00
PROVIDERS: ATTEND Anesthesiology
DX: M47.816 Spondylosis without myelopathy or radiculopathy, lumbar region (principal); G89.29 Other chronic pain; I10 Essential (primary) hypertension; E55.9 Vitamin D deficiency, unspecified; J45.909 Unspecified asthma, uncomplicated; Z88.0 Allergy status to penicillin; Z88.1 Allergy status to other antibiotic agents; Z88.2 Allergy status to sulfonamides; Z88.6 Allergy status to analgesic agent; Z88.8 Allergy status to other drugs, medicaments and biological substances; Z91.041 Radiographic dye allergy status; Z86.14 Personal history of Methicillin resistant Staphylococcus aureus infection; Z79.82 Long term (current) use of aspirin; Z79.51 Long term (current) use of inhaled steroids; Z79.899 Other long term (current) drug therapy

== ENCOUNTER → 2019-01-18 | Outpatient (CLI) | payer OTHER ==
[~2019-01-18] MED LIST changes: +CLON0.5T2 PO; -CLON0.5T8 PO; +OMEP-172 PO; -OMEP20CA4 PO
--- NOTE | 2019-01-20 03:48 | ECWPNPC ---
PATIENT NAME: ROZINA HERNANDEZ : 1955 GENDER: FEMALE VISIT DATE: 01/18/2019 DISCHARGE DATE: 01/18/19 1234 VISIT LOCKED DATE TIME: PHYSICIAN: LEVON GLOVER RESOURCE: LEVON GLOVER REASON FOR APPOINTMENT 1. W/C LOW BACK HISTORY OF PRESENT ILLNESS HISTORY OF PRESENT ILLNESS: PAIN THE PATIENT DESCRIBES THE PAIN... FALL RISK SCREENING: SCREENING :NO FALLS REPORTED IN THE LAST YEAR PAIN SCREENING: PATIENT HAS A COMPLAINT OF ACUTE OR CHRONIC PAIN :YES 63 YEAR OLD FEMALE PATIENT WITH A HISTORY OF CHRONIC LOW BACK AND LEG PAIN. THE PATIENT DESCRIBES THE PAIN ACHING, SORE SHOOTING,TENDER AND CONTINOUS WITH A PAIN SCORE OF 9/10 DEPENDING ON PHYSICAL ACTIVITY. 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 THE PATIENT SAYS WHEN SHE STOOD UP, SHE TRIPPED DUE TO HER FOOT BEING CAUGHT IN PURSE HANDLE THAT RESULTED IN HER BACK INJURY AND A BROKEN ANKLE. THE PATIENT SAYS SHE HAS TRIED PHYSICAL THERAPY IN THE PAST THAT HELPED WITH SOME OF HER PAIN. THE PATIENT STATES HER PAIN IS AFFECTING HER ABILITY TO PERFORM HER DAILY ACTIVITIES SUCH CLEANING, WORKING, AND WALKING. THE PATIENT SAYS SHE HAS DIFFICULTY SLEEPING AND OFTEN WAKES UP WITH SEVERE SPASMS AND ALSO DIFFICULTY MANEUVERING UP AND DOWN STAIRS, SO MUCH SO THAT THEY ARE NOW UPDATING HER HOUSE TO ACCOMMODATE FOR HER DOWNSTAIRS. PATIENT DENIES UNEXPLAINABLE WEIGHT LOSS, FEVER, CHILLS, NEW CHANGES ON HER URINARY OR BOWEL CONTROL. THE PATIENT MENTIONS SHE HAS STAGE 3 KIDNEY DISEASE. CURRENT MEDICATIONS TAKING VITAMIN D 2000 UNIT TABLET 1 CAPSULE ORALLY ONCE DAILY TAKING EPIPEN 2-DUANE 0.3 MG/0.3ML SOLUTION AUTO-INJECTOR INJECTION DIRECTED TAKING CLONAZEPAM 0.5 MG TABLET 0.5 ORALLY 1/2 TAB IN AM AND 1/4 TAB IN PM TAKING IMITREX 100 MG TABLET 1 TABLET NEEDED ORALLY DIRECTED PRN MIGRAINES TAKING PROBIOTIC CAPSULE 1 TAB(S) ORALLY DAILY TAKING 28-0.8 MG TABLET ORALLY DAILY TAKING ASPIRIN EC 81 MG TABLET DELAYED RELEASE 1 TABLET ORALLY ONCE A DAY TAKING ARIPIPRAZOLE 2 MG TABLET 1 TABLET ORALLY ONCE A DAY TAKING ATORVASTATIN CALCIUM 10 MG TABLET 1 TABLET ORALLY ONCE A DAY TAKING LOVAZA 1 GM CAPSULE 2 CAPSULES ORALLY TWICE A DAY TAKING PRIMIDONE 50 MG TABLET ORALLY TAKING GABAPENTIN 600 MG TABLET 1 TABLET ORALLY THREE TIMES A DAY TAKING TRAMADOL HCL 50 MG TABLET 1 TAB ORALLY (CODE D FOR CHRONIC PAIN ) EVERY 4-6 HRS NEEDED MDD3 TAKING TOPIRAMATE 100 MG TABLET 1 TABLET ORALLY DAILY TAKING RABEPRAZOLE SODIUM 20 MG TABLET DELAYED RELEASE 1 TABLET ORALLY BID TAKING IRBESARTAN 150 MG TABLET 1 TABLET ORALLY ONCE A DAY TAKING SPIRONOLACTONE 25 MG TABLET 1 TABLET ORALLY TAKING BREO ELLIPTA 200-25 MCG/INH AEROSOL POWDER BREATH ACTIVATED 1 PUFF INHALATION ONCE A DAY TAKING CALCIUM + D 600-200 MG-UNIT TABLET 1 TABLET ORALLY TWICE A DAY TAKING TORSEMIDE 20 MG TABLET DIRECTED ORALLY TAKING BUPROPION HCL 100 MG TABLET EXTENDED RELEASE 1 TABLET ORALLY DAILY TAKING VOLTAREN 1 % GEL DIRECTED EXTERNALLY TAKING VENTOLIN HFA 90 MCG/ACT AEROSOL SOLUTION 2 PUFFS NEEDED INHALATION EVERY 6 HRS TAKING NYSTATIN [id number] UNIT/GM POWDER 1 APPLICATION TO AFFECTED AREA EXTERNALLY TWICE A DAY, NOTES: NONE RECENT TAKING FISH OIL DOUBLE STRENGTH 1200 MG CAPSULE 1 CAPSULE ORALLY THREE TIMES DAILY TAKING TIZANIDINE HCL 2 MG TABLET 1 TABLET NEEDED ORALLY FOR SPAMS AND PAIN BEFORE BEDTIME MAY REPEAT IN 4 HRS MDD2 (WORKERS COMP) TAKING LIDODERM 5 % PATCH DIRECTED EXTERNALLY (WORKERS COMP) APPLY 3 PATCH TO PAINFUL AREA OF LOW BACK ON 12 HRS OFF 12 HOURS PRN PAIN. NOT-TAKING PROAIR HFA 108 (90 BASE) MCG/ACT AEROSOL SOLUTION 2 PUFFS NEEDED INHALATION QID PRN MEDICATION LIST REVIEWED AND RECONCILED WITH THE PATIENT PAST MEDICAL HISTORY PRIMARY HTN,SECONDARY RENAL HYPERPARATHYROIDISM,CRI STAGE 3,VIT D DEFICIENT,HYPOMAGNISEMIA CKD3, 01/20 RENAL US WITH INCREASED ECHOGENICITY TRAVIS MARCOS EDEMA VIT D DEF HTN HYPOTHYROIDISM ASTHMA, DR CILNTON 2008, FELL WORKING FOOT TANGLED IN PURSE HANDLES FOR CP CLINIC, WEARS BRACE 05/22 LIVER US DIFFUSE FIBROFATTY INFILTRATION OF THE LIVER 03/22 MRI L SPINE - 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 EPIGASTRIC TENDERNESS - DR JARRETT GI SYR 04/21 L WRIST FX - FISH OBESITY PSEUDOSEIZURES - NEURO/ALI ALLERGIES IV DYE: ANAPHYLAXIS BACTRIM: ANAPHYLAXIS - ALLERGY ERYTHROMYCIN: ANAPHYLAXIS - ALLERGY PENICILLIN (FOR ALLERGIES USE ONLY): HIVES ZITHROMAX: HEADACHES - ALLERGY INDOCIN: HIVES,HEADACHE ZITHROMAX: HIVES IVP DYE: ANAPHYLAXIS - ALLERGY TORADOL: HIVES BEE STINGS: ANAPHYLAXIS - ALLERGY HARD SHELL SEAFOOD: ANAPHYLAXIS - ALLERGY BIAXIN: HALLUCINATIONS MUSCLE RELAXERS: SHAKES - SIDE EFFECTS SULFA (FOR ALLERGY USE ONLY): HIVES - ALLERGY LASIX: SWELLING - SIDE EFFECTS BACTROBAN OINTMENT: CAUSES YEAST INFECTION - SIDE EFFECTS SURGICAL HISTORY HYSTERECTOMY,CHOLECYSTECTOMY,INGUINAL HERNIA,RIGHT,COLONOSCOPY,POLYPECTOMYX2,TONSILLECTOMY TENDON REPAIR LEFT WRIST/L THUMB 05/04/2016 RIGHT HAND CARPAL TUNNEL SURGERY 2019 FAMILY HISTORY FATHER: DIAGNOSED WITH DIABETES, HYPERTENSION, UNSPECIFIED HEART DISEASE MOTHER: DIABETES, HYPERTENSION, UNSPECIFIED HEART DISEASE SIBLINGS: DIABETES SOCIAL HISTORY GENERAL: TOBACCO USE ARE YOU A:NONSMOKER HIV / HEP-C SCREENING HIV TEST OFFERED TO PATIENT:NO HEP-C TEST OFFERED TO PATIENT:NO OTHERS AT HOME: SPOUSE. EDUCATION LEVEL OF EDUCATION:COLLEGE DIET: REGULAR. LANGUAGE LANGUAGES SPOKEN:WOLOF DOMESTIC VIOLENCE DO YOU FEEL SAFE IN YOUR ENVIRONMENT?YES RECREATIONAL DRUG USE DRUG USE?NO EXERCISE: NONE. 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 PAIN CLINIC PFS, CLERGY, PUBLIC HEALTH REFERRALS PFS REFERRAL NEEDED?NO CLERGY REFERRAL NEEDED?NO PUBLIC HEALTH REFERRAL NEEDED?NO WAS THE PROVIDER NOTIFIED OF ANY PERTINENT INFO?YES HAS THE PATIENT BEEN EDUCATED REGARDING HIS/HER PLAN OF CARE?YES HAS THE PATIENT BEEN EDUCATED REGARDING PAIN, THE RISK FOR PAIN, THE IMPORTANCE OF EFFECTIVE PAIN MANAGEMENT, AND THE PAIN ASSESSMENT PROCESS?YES LATEX QUESTIONNAIRE LATEX ALLERGY : HAVE YOU EVER DEVELOPED ANY TYPE OF REACTION AFTER HANDLING LATEX PRODUCTS SUCH RUBBER GLOVES, CONDOMS, DIAPHRAGMS, BALLOONS, SOCKS, OR UNDERWEAR?NO LATEX ALLERGY : HAVE YOU EVER DEVELOPED ANY TYPE OF REACTION DURING OR AFTER DENTAL APPOINTMENT, VAGINAL/RECTAL EXAMINATION, SURGICAL PROCEDURE, OR ANY OTHER EXPOSURE?NO LATEX RISK : HAVE YOU EVER HAD ANY DIFFICULTY BREATHING OR HIVES AFTER EATING OR HANDLING ANY FRUITS, OR VEGETABLES; SUCH KIWI, BANANAS, STONE FRUITS, OR CHESTNUTSNO LATEX RISK : DO YOU HAVE A PREVIOUS PERSONAL HISTORY OF MORE THAN NINE SURGERIES, SPINA BIFIDA, OR REPEATED CATHERIZATIONS? NO LATEX RISK : ARE YOU FREQUENTLY EXPOSED TO LATEX PRODUCTS IN YOUR OCCUPATION?NO DATE ASKED : 01/18/2019 CAFFEINE CAFFEINE USE?NO ADVANCE DIRECTIVE ADVANCE DIRECTIVE DISCUSSED WITH PATIENT:YES PT HAS HCP FOR LEVON HERNANDEZ YAZDANISM [id number] [facility] MARITAL STATUS: . ALCOHOL SCREENING DID YOU HAVE A DRINK CONTAINING ALCOHOL IN THE PAST YEAR?YES HOW OFTEN DID YOU HAVE SIX OR MORE DRINKS ON ONE OCCASION IN THE PAST YEAR?NEVER (0 POINTS) HOW MANY DRINKS DID YOU HAVE ON A TYPICAL DAY WHEN YOU WERE DRINKING IN THE PAST YEAR?1 OR 2 (0 POINTS) HOW OFTEN DID YOU HAVE A DRINK CONTAINING ALCOHOL IN THE PAST YEAR?MONTHLY OR LESS (1 POINT) POINTS1 INTERPRETATIONNEGATIVE OCCUPATION: RETIRED. SEXUAL HX HAD SEX IN THE LAST 12 MONTHS (VAGINAL, ORAL, OR ANAL)?YES WITHMEN ONLY HAVE YOU EVER HAD AN STD?NO REVIEWED WITH PATIENT DS 01-18-19. HOSPITALIZATION/MAJOR DIAGNOSTIC PROCEDURE SURG RELATED REVIEW OF SYSTEMS REVIEWED BY: PROVIDER: JULIUS LORA . CONSTITUTIONAL: ANY CHANGE IN YOUR MEDICAL CONDITION? YES, PT HAVING SHOULDER SURGERY DUE TO TENDON TEAR WITH DR WEATHERS IN THE NEXT MONTH . CHILLS NO . FEVER NO . INFECTION: DO YOU HAVE NEW INFECTIONS? NO . DO YOU HAVE HISTORY OF MRSA? NO . MUSCULOSKELETAL: ANY NEW PATTERNS OF PAIN OR NUMBNESS? NO . GASTROENTEROLOGY: ANY NEW CHANGE IN BOWEL CONTROL? NO . GENITOURINARY: ANY NEW CHANGE IN BLADDER CONTROL? NO . IS THERE A CHANCE YOU COULD BE ? NO . HEMATOLOGY/LYMPH: DO YOU TAKE ANY BLOOD THINNERS? (FOR EXAMPLE- COUMADIN, PLAVIX, AGGRENOX, PLATEL, PRADAXA, OR XARELTO) YES ASA 81 MG . WHEN WAS YOUR LAST DOSE? DATE: TIME: . NEUROLOGY: HAVE YOU FALLEN IN THE PAST 12 MONTHS? NO . ANY NEW EXTREMITY NUMBNESS OR WEAKNESS? YES, PT STATES THAT SHE IS HAVING NEW PAIN IN LOW BACK RADIATING DOWN BOTH LEGS AND CAUSING CRAMPING IN BOTH TOES . CARDIOLOGY: DO YOU HAVE A PACEMAKER OR DEFIBRILLATOR? NO . RESPIRATORY: HAVE YOU BEEN SICK IN THE PAST WEEK? NO . FEVER NO . FLU LIKE SYMPTOMS? NO . COUGH NO . INTEGUMENTARY: DO YOU HAVE ANY RASHES OR OPEN SORES? NO . ALLERGIC/IMMUNO: ARE YOU ALLERGIC TO IV DYE? YES . ANY NEW ALLERGIES? NO NO NEW ALLERGIES . PSYCHIATRIC: DO YOU HAVE THOUGHTS OF HURTING YOURSELF OR SOMEONE ELSE? NO . ARE YOU ABUSED, NEGLECTED, OR IN AN UNSAFE ENVIRONMENT? NO . ENDOCRINOLOGY: ARE YOU DIABETIC? NO . OTHER: DO YOU NEED ANY PRESCRIPTIONS? NO . IF YES, PLEASE LIST: ____ . ANY NEW PROBLEMS WITH YOUR MEDICATIONS? NO . WHEN DID YOU LAST EAT? ____ . WHEN DID YOU LAST DRINK? ____ . WHAT DID YOU LAST DRINK? ____ . NAME OF PERSON DRIVING YOU HOME? ____ . DO YOU HAVE ANY OTHER QUESTIONS OR CONCERNS PT STATES THAT SHE IS RECEIVING INJECTIONS FROM MD PELAEZ IN HEAD FOR MIGRAINES, STEROIDS AND BOTOX . VITAL SIGNS WT 248.0 LBS, HT 64 IN, BMI 42.56 INDEX, BP 143/66 MM HG, HR 54 /MIN, RR 18 /MIN, TEMP 96.8 F, OXYGEN SAT % 100%, SAFE IN ENV? (Y/N) Y, NA INITIALS AW 1157, REVIEWED BY: VINEET. EXAMINATION GENERAL EXAMINATION: GENERALNO ACUTE DISTRESS, WELL NOURISHED AND HYDRATED. PSYCHAPPROPRIATE MOOD AND AFFECT . LUNGS:CLEAR TO AUSCULTATION BILATERALLY, NO WHEEZES, RHONCHI, RALES. HEART:NO MURMURS, REGULAR RATE AND RHYTHM. ASSESSMENTS INTERVERTEBRAL DISC DISORDERS WITH RADICULOPATHY, LUMBAR REGION - M51.16 (PRIMARY) TREATMENT INTERVERTEBRAL DISC DISORDERS WITH RADICULOPATHY, LUMBAR REGION REFILL TIZANIDINE HCL TABLET, 2 MG, 1 TABLET NEEDED, ORALLY FOR SPAMS AND PAIN, BEFORE BEDTIME MAY REPEAT IN 4 HRS MDD2 (WORKERS COMP), 15 DAYS, 25, REFILLS 0 REFILL LIDODERM PATCH, 5 %, DIRECTED, EXTERNALLY (WORKERS COMP), APPLY 3 PATCH TO PAINFUL AREA OF LOW BACK ON 12 HRS OFF 12 HOURS PRN PAIN., 30 DAYS, 90, REFILLS 1 CLINICAL NOTES: 63-YEAR-OLD FEMALE IN FOR WORKER'S COMP. CHRONIC PAIN FOLLOW-UP. GIVEN PRESENTING SYMPTOMS AND RESULTS OF PHYSICAL EXAMINATION RECOMMENDED CONTINUATION CURRENT MEDICATION REGIMEN WITH FOLLOW-UP IN 2 MONTHS. PATIENT HAS EXPRESSED UNDERSTANDING OF AND WAS IN AGREEMENT WITH TREATMENT PLAN. GIVEN TIME TO ASK QUESTIONS AND EXPRESS CONCERNS. PROCEDURES PN WORKMANS' COMP OPINION IN YOUR OPINION, WAS THE INCIDENT THAT THE PATIENT DESCRIBED THE COMPETENT MEDICAL CAUSE OF THIS INJURY/ILLNESS? YES ARE THE PATIENT'S COMPLAINTS CONSISTENT WITH HIS/HER HISTORY OF THE INJURY/ILLNESS? YES IS THE PATIENT'S HISTORY OF THE INJURY/ILLNESS CONSISTENT WITH YOUR OBJECTIVE FINDING? YES WHAT IS THE PERCENTAGE OF TEMPORARY IMPAIRMENT? MARKED = 75% IS THE PATIENT WORKING? NO DOCTOR ON SITE: TRINO BYRD MD [facility] PAIN CLINIC TEACHING: MEDITATION DISCUSSED AND REVIEWED MEDICATION ROUTINE WITH PT, PT ACKNOWLEDGED UNDERSTANING AND WILL CONTINUE WITH CURRENT MED PLAN. THE PATIENT HAS BEEN EDUCATED REGARDING PAIN, THE RISK FOR PAIN, THE IMPORTANCE OF EFFECTIVE PAIN MANAGEMENT, AND THE PAIN ASSESSMENT PROCESS. : REVIEWED AND DISCUSSED PLAN OF CARE WITH PT, PT ACKNOWLEDGED UNDERSTANDING. PT IS TO POSTPONE LOW BACK INJECTIONS FOR 1 MONTH AFTER SHOULDER SURGERY AND HAVE CLEARANCE FROM SURGEON TO RECEIVE INJECTIONS. PROCEDURE CODES FA211 ESTABILISHED PATIENT [facility] CHARGE DISPOSITION & COMMUNICATION FOLLOW UP 2 MONTHS (REASON: BACK PAIN WORKER'S COMP.) ELECTRONICALLY SIGNED BY JERRY SARAVIA ON 01/19/2019 AT 03:22 PM EST DISCLAIMER : THIS IS A VISIT SUMMARY EXTRACTED FROM THE [employer] CHART. IT IS NOT A COPY OF THE [employer] PROGRESS NOTE. HARRIET
== END ==
LOC: M PAIN 11:00
PROVIDERS: ATTEND Family Medicine
DX: M51.16 Intervertebral disc disorders with radiculopathy, lumbar region (principal); G89.29 Other chronic pain; I10 Essential (primary) hypertension; E55.9 Vitamin D deficiency, unspecified; J45.909 Unspecified asthma, uncomplicated; Z88.0 Allergy status to penicillin; Z88.1 Allergy status to other antibiotic agents; Z88.2 Allergy status to sulfonamides; Z88.6 Allergy status to analgesic agent; Z88.8 Allergy status to other drugs, medicaments and biological substances; Z91.013 Allergy to seafood; Z91.030 Bee allergy status; Z91.041 Radiographic dye allergy status; E66.01 Morbid (severe) obesity due to excess calories; Z68.41 Body mass index [BMI] 40.0-44.9, adult; Z79.82 Long term (current) use of aspirin; Z79.51 Long term (current) use of inhaled steroids; Z79.899 Other long term (current) drug therapy

== ENCOUNTER → 2019-01-19 | Outpatient (REF) | payer MEDICARE, OTHER | LOC: M LAB REF 13:05 | PROVIDERS: ATTEND Otolaryngology | DX: R49.0 Dysphonia (principal) ==

== ENCOUNTER 2019-02-02 11:01 | Outpatient (RCR) | payer MEDICARE, OTHER | END 2019-02-06 | LOC: M ST 11:01 | PROVIDERS: ATTEND Otolaryngology | DX: Z51.89 Encounter for other specified aftercare (principal); R49.0 Dysphonia ==

== ENCOUNTER → 2019-02-12 | Outpatient (CLI) | payer MEDICARE, OTHER ==
--- NOTE | 2019-02-13 10:49 | REP ---
COOKIE SWALLOW The procedure was performed under the direct supervision of Dr. Oseguera. The procedure was performed with Kellie Navarro from speech pathology present. 5 ml aliquots of thin, pudding, mixed fruit, soft and solid consistency barium was administered. With thin consistency barium there is laryngeal penetration. The detailed report of this examination will be provided by speech pathology. 1.4 minutes of fluoroscopy time was utilized for this procedure. Electronically Signed by HOWARD Dudley 02/13/2019 08:16 A Electronically Signed by Riccardo Oseguera MD 02/13/2019 10:40 A
== END ==
LOC: M ST 11:09
PROVIDERS: ATTEND Otolaryngology
DX: R49.0 Dysphonia (principal)

== ENCOUNTER 2019-02-13 13:00 | Outpatient (RCR) | payer MEDICARE, OTHER ==
[~2019-02-13 13:00] MED LIST changes: -OMEP-172 PO; +OMEP1CAP73 PO; +ZONI100C17 PO; -ZONI100C2 PO
== END 2019-03-09 ==
LOC: M ST 13:00
PROVIDERS: ATTEND Otolaryngology
DX: R49.0 Dysphonia (principal)

== ENCOUNTER → 2019-03-16 | Outpatient (CLI) | payer MEDICARE, OTHER ==
[~2019-03-16] MED LIST changes: +PROHANCE 279.3MG/ML 5ML VIAL (A9576) As Ordered ONE
--- NOTE | 2019-03-19 08:48 | REP ---
MRI abdomen pancreas without and with intravenous gadolinium: History: Recurrent pancreatitis. Comparison CT study August 23, 2018. Comparison MRI exam August 24, 2018. Technique: Axial and coronal T1 and T2-weighted scans include spin-echo, fast spin echo, in and [id number], and dynamically acquired sequential post contrast images. Contrast enhancement dose is 10 ml of intravenous ProHance. MRI findings: T2-weighted scans demonstrate several small cortical cysts affecting the kidneys. The largest of these is at the upper pole on the left measuring 14 mm. These are unchanged. There is a proteinaceous cyst in the upper pole on the right measuring 7 mm. This is also unchanged and is seen SFA hyperdense cyst on CT study. No renal mass lesion is observed. The spleen is normal in size homogeneous in texture. No liver mass lesion is visible. There is no evidence of ascites. Normal adrenal glands are seen bilaterally. No biliary ductal dilation is observed. Gallbladder surgically absent. The pancreatic duct is normal in caliber course. No evidence pancreatic mass or cyst is seen. No peripancreatic edema is observed. Dynamically acquired sequential post contrast images show no area of abnormal enhancement in the pancreas. No retroperitoneal mass or adenopathy. Impression: No evidence of pancreatic lesion or peripancreatic edema. No biliary or pancreatic ductal dilation. Multiple small cortical renal cysts bilaterally as before. Electronically Signed by Riccardo Oseguera MD 03/19/2019 05:23 P
== END ==
LOC: M RAD 16:57
PROVIDERS: ATTEND Internal Medicine
DX: R10.10 Upper abdominal pain, unspecified (principal); K85.90 Acute pancreatitis without necrosis or infection, unspecified; N28.1 Cyst of kidney, acquired
CPT/HCPCS: 74183; A9576

== ENCOUNTER 2019-04-02 08:30 | Outpatient (RCR) | payer MEDICARE, OTHER ==
[~2019-04-02 08:30] MED LIST changes: -IRBE150T12 PO; +IRBE150T7 PO; -PROHANCE 279.3MG/ML 5ML VIAL (A9576) As Ordered ONE
== END 2019-04-07 ==
LOC: M ST 08:30
PROVIDERS: ATTEND Otolaryngology
DX: R49.0 Dysphonia (principal); Z47.89 Encounter for other orthopedic aftercare

== ENCOUNTER → 2019-04-04 | Outpatient (CLI) | payer MEDICARE, OTHER ==
[~2019-04-04] MED LIST changes: +E-Z-GAS II EFFERVESCENT PACKET (SODIUM BICARB./CITRIC ACID/SIMETHICONE) As Ordered ONE; +E-Z-HD 98% w/w 340GM SUSP BTL As Ordered ONE; +E-Z-PAQUE 96% w/w SUSP 176GM BTL As Ordered ONE
--- NOTE | 2019-04-04 19:34 | REP ---
Examination Requested: Esophagram Barium Swallow Reason For Exam/Comment: Dysphonia Esophagram: The procedure was performed HOWARD Loving, under the direct supervision of Dr. Oseguera. The images were reviewed with Dr. Oseguera. A single PA chest x-ray is submitted as a sprayer operator film. The superior mediastinal structures are midline. The heart size is within normal limits. The lungs are clear. Liquid barium and gas producing granules were given in the erect position as well as liquid barium in the prone oblique position, in order to perform a double contrast esophagram examination. Oral and pharyngeal stages of the examination were unremarkable. Esophageal transport is efficient and there is no esophagitis, stricture, or mucosal ring noted. There is no hiatal hernia noted. Gastroesophageal reflux was not visualized throughout the course of the exam. Impression: 1. Unremarkable esophagram. 0.4 minutes of fluoroscopy time was utilized for this procedure. Some fluoroscopic images are performed with last image hold technology. These images require no additional radiation. Reviewed by HOWARD Sidhu 04/04/2019 03:21 P Electronically Signed by Riccardo Oseguera MD 04/04/2019 07:25 P
== END ==
LOC: M RAD 07:23
PROVIDERS: ATTEND Otolaryngology
DX: R49.0 Dysphonia (principal)

== ENCOUNTER 2019-04-10 12:08 | Outpatient (RCR) | payer MEDICARE, OTHER ==
[~2019-04-10 12:08] MED LIST changes: +CYCL-707 PO; -CYCL10TA PO; -E-Z-GAS II EFFERVESCENT PACKET (SODIUM BICARB./CITRIC ACID/SIMETHICONE) As Ordered ONE; -E-Z-HD 98% w/w 340GM SUSP BTL As Ordered ONE; -E-Z-PAQUE 96% w/w SUSP 176GM BTL As Ordered ONE
== END 2019-05-08 ==
LOC: M ST 12:08
PROVIDERS: ATTEND Otolaryngology
DX: R49.0 Dysphonia (principal)

== ENCOUNTER → 2019-04-19 | Outpatient (CLI) | payer OTHER ==
[~2019-04-19] MED LIST changes: +BUPIVACAINE HCL 0.25% 30 ML VIAL As Ordered ONE; -CYCL-707 PO; +CYCL10TA PO; +LIDOCAINE 1% SDV INJ 30 ML VIAL As Ordered ONE; +TRIAMCINOLONE ACETONIDE SUSP 40 MG/ML VIAL (J3301) As Ordered ONE; +diazePAM 5 MG TAB As Ordered ONE; +oxyCODONE 5MG TAB As Ordered ONE
--- NOTE | 2019-04-19 13:50 | REP ---
Partial lumbar spine series: Four views . History: Injection procedure for pain. 24 seconds of fluoroscopy time is reported. Findings: A sequence of four fluoroscopically obtained last image hold procedural spot radiographs of the lumbar spine document needle position and contrast injection associated with injection procedure. Electronically Signed by Riccardo Oseguera MD 04/19/2019 01:41 P
--- NOTE | 2019-05-01 04:27 | ECWPNPC ---
PATIENT NAME: ROZINA HERNANDEZ : 1955 GENDER: FEMALE VISIT DATE: 04/19/2019 DISCHARGE DATE: 04/19/19 1404 VISIT LOCKED DATE TIME: PHYSICIAN: TRINO PEOPLES MD RESOURCE: TRINO PEOPLES MD REASON FOR APPOINTMENT 1. BILATERAL THERAPEUTIC FACET W/C HISTORY OF PRESENT ILLNESS HISTORY OF PRESENT ILLNESS: PAIN THE PATIENT DESCRIBES THE PAIN... FALL RISK SCREENING: SCREENING :NO FALLS REPORTED IN THE LAST YEAR CURRENT MEDICATIONS TAKING VITAMIN D 25 MCG (1000 UT) TABLET 1 CAPSULE ORALLY ONCE DAILY, NOTES: 04/18 799 TAKING EPIPEN 2-DUANE 0.3 MG/0.3ML SOLUTION AUTO-INJECTOR INJECTION DIRECTED, NOTES: NONE RECENT TAKING CLONAZEPAM 0.5 MG TABLET 0.5 ORALLY 1/2 TAB IN AM AND 1/4 TAB IN PM, NOTES: 04/17 1499 TAKING IMITREX 100 MG TABLET 1 TABLET NEEDED ORALLY DIRECTED PRN MIGRAINES, NOTES: NONE RECENT TAKING PROBIOTIC CAPSULE 1 TAB(S) ORALLY DAILY, NOTES: 04/18 799 TAKING 28-0.8 MG TABLET ORALLY DAILY, NOTES: 04/18 799 TAKING ASPIRIN EC 81 MG TABLET DELAYED RELEASE 1 TABLET ORALLY ONCE A DAY, NOTES: 04/19 399 TAKING ATORVASTATIN CALCIUM 10 MG TABLET 1 TABLET ORALLY ONCE A DAY, NOTES: 04/18 1999 TAKING LOVAZA 1 GM CAPSULE 2 CAPSULES ORALLY TWICE A DAY, NOTES: 04/18 1999 TAKING PRIMIDONE 50 MG TABLET ORALLY BID, NOTES: 04/18 1999 TAKING TOPIRAMATE 100 MG TABLET 1 TABLET ORALLY DAILY, NOTES: 04/18 1999 TAKING RABEPRAZOLE SODIUM 20 MG TABLET DELAYED RELEASE 1 TABLET ORALLY 2 TBS IN ,/1 TAB IN PM, NOTES: 04/18 1999 TAKING IRBESARTAN 150 MG TABLET 1 TABLET ORALLY ONCE A DAY, NOTES: 04/18 1999 TAKING SPIRONOLACTONE 25 MG TABLET 1 TABLET ORALLY DAILY, NOTES: 04/18 799 TAKING CALCIUM + D 600-200 MG-UNIT TABLET 1 TABLET ORALLY TWICE A DAY, NOTES: 04/18 799 TAKING TORSEMIDE 20 MG TABLET DIRECTED ORALLY 1 TAB Q OTHER DAY,1/2 TAB Q OTHER DAY, NOTES: 04/17 1499 TAKING VOLTAREN 1 % GEL DIRECTED EXTERNALLY PRN, NOTES: 04/17 1499 TAKING VENTOLIN HFA 90 MCG/ACT AEROSOL SOLUTION 2 PUFFS NEEDED INHALATION EVERY 6 HRS, NOTES: NONE RECENT TAKING NYSTATIN [id number] UNIT/GM POWDER 1 APPLICATION TO AFFECTED AREA EXTERNALLY TWICE A DAY, NOTES: NONE RECENT TAKING FISH OIL DOUBLE STRENGTH 1200 MG CAPSULE 1 CAPSULE ORALLY THREE TIMES DAILY, NOTES: 04/18 799 TAKING TIZANIDINE HCL 2 MG TABLET 1 TABLET NEEDED ORALLY FOR SPAMS AND PAIN BEFORE BEDTIME MAY REPEAT IN 4 HRS MDD2 (WORKERS COMP), NOTES: NONE RECENT TAKING TRAMADOL HCL 50 MG TABLET 1 TAB ORALLY (CODE D FOR CHRONIC PAIN ) EVERY 4-6 HRS NEEDED MDD3, NOTES: NONE RECENT TAKING LIDODERM 5 % PATCH DIRECTED EXTERNALLY (WORKERS COMP) APPLY 3 PATCH TO PAINFUL AREA OF LOW BACK ON 12 HRS OFF 12 HOURS PRN PAIN., NOTES: 04/16 TAKING LYRICA 75 MG CAPSULE 1 CAPSULE ORALLY BID, NOTES: 04/19 399 TAKING VITAMIN E 400 UNIT CAPSULE 1 CAPSULE ORALLY ONCE A DAY, NOTES: 04/18 799 TAKING IPRATROPIUM-ALBUTEROL 0.5-2.5 (3) MG/3ML SOLUTION 3 ML NEEDED INHALATION EVERY 6 HRS, NOTES: NONE RECENT TAKING ADVAIR HFA 230-21 MCG/ACT AEROSOL 2 PUFFS INHALATION TWICE A DAY, NOTES: 04/19 399 TAKING BUSPIRONE HCL 5 MG TABLET 1 TABLET ORALLY DAILY, NOTES: 04/18 799 NOT-TAKING ARIPIPRAZOLE 2 MG TABLET 1 TABLET ORALLY ONCE A DAY NOT-TAKING GABAPENTIN 600 MG TABLET 1 TABLET ORALLY THREE TIMES A DAY NOT-TAKING BREO ELLIPTA 200-25 MCG/INH AEROSOL POWDER BREATH ACTIVATED 1 PUFF INHALATION ONCE A DAY NOT-TAKING BUPROPION HCL 100 MG TABLET EXTENDED RELEASE 1 TABLET ORALLY DAILY DISCONTINUED PROAIR HFA 108 (90 BASE) MCG/ACT AEROSOL SOLUTION 2 PUFFS NEEDED INHALATION QID PRN, NOTES: DUPLICATE MEDICATION LIST REVIEWED AND RECONCILED WITH THE PATIENT PAST MEDICAL HISTORY PRIMARY HTN,SECONDARY RENAL HYPERPARATHYROIDISM,CRI STAGE 3,VIT D DEFICIENT,HYPOMAGNISEMIA CKD3, 01/20 RENAL US WITH INCREASED ECHOGENICITY TRAVIS MARCOS EDEMA VIT D DEF HTN HYPOTHYROIDISM ASTHMA, DR [place] 2008, FELL WORKING FOOT TANGLED IN PURSE HANDLES FOR CP CLINIC, WEARS BRACE 05/22 LIVER US DIFFUSE FIBROFATTY INFILTRATION OF THE LIVER 03/22 MRI L SPINE - 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 EPIGASTRIC TENDERNESS - DR JARRETT GI SYR /15 L WRIST FX - FISH OBESITY PSEUDOSEIZURES - NEURO/ALI ALLERGIES IV DYE: ANAPHYLAXIS BACTRIM: ANAPHYLAXIS - ALLERGY ERYTHROMYCIN: ANAPHYLAXIS - ALLERGY PENICILLIN (FOR ALLERGIES USE ONLY): HIVES ZITHROMAX: HEADACHES - ALLERGY INDOCIN: HIVES,HEADACHE - ALLERGY ZITHROMAX: HIVES - ALLERGY IVP DYE: ANAPHYLAXIS - ALLERGY TORADOL: HIVES - ALLERGY BEE STINGS: ANAPHYLAXIS - ALLERGY HARD SHELL SEAFOOD: ANAPHYLAXIS - ALLERGY BIAXIN: HALLUCINATIONS - SIDE EFFECTS MUSCLE RELAXERS: SHAKES - SIDE EFFECTS SULFA (FOR ALLERGY USE ONLY): HIVES - ALLERGY LASIX: SWELLING - SIDE EFFECTS BACTROBAN OINTMENT: CAUSES YEAST INFECTION - SIDE EFFECTS LATEX: HIVES, BLISTERS - ALLERGY SURGICAL HISTORY HYSTERECTOMY,CHOLECYSTECTOMY,INGUINAL HERNIA,RIGHT,COLONOSCOPY,POLYPECTOMYX2,TONSILLECTOMY TENDON REPAIR LEFT WRIST/L THUMB 05/04/2016 RIGHT HAND CARPAL TUNNEL SURGERY/ TENDON REPAIR RIGHT WRIST/RIGHT THUMB 2019 ARTHROSCOPY LEFT SHOULDER 02/2019 FAMILY HISTORY FATHER: 84 YRS, DIAGNOSED WITH DIABETES, HYPERTENSION, UNSPECIFIED HEART DISEASE MOTHER: 77 YRS, COPD, DIABETES, HYPERTENSION SIBLINGS: , DIABETES 1DAUGHTER(S) - HEALTHY. 1 SISTER FORM BICYCLE ACCIDENT. SOCIAL HISTORY GENERAL: TOBACCO USE ARE YOU A:NONSMOKER HIV / HEP-C SCREENING HIV TEST OFFERED TO PATIENT:NO HEP-C TEST OFFERED TO PATIENT:NO OTHERS AT HOME: SPOUSE. EDUCATION LEVEL OF EDUCATION:COLLEGE DIET: REGULAR. LANGUAGE LANGUAGES SPOKEN:HEBREW DOMESTIC VIOLENCE DO YOU FEEL SAFE IN YOUR ENVIRONMENT?YES RECREATIONAL DRUG USE DRUG USE?NO EXERCISE: NONE. 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 NEEDED?NO PAIN CLINIC PFS, CLERGY, PUBLIC HEALTH REFERRALS PFS REFERRAL NEEDED?NO CLERGY REFERRAL NEEDED?NO PUBLIC HEALTH REFERRAL NEEDED?NO HAS THE PATIENT BEEN EDUCATED REGARDING HIS/HER PLAN OF CARE?YES HAS THE PATIENT BEEN EDUCATED REGARDING PAIN, THE RISK FOR PAIN, THE IMPORTANCE OF EFFECTIVE PAIN MANAGEMENT, AND THE PAIN ASSESSMENT PROCESS?YES LATEX QUESTIONNAIRE LATEX ALLERGY : HAVE YOU EVER DEVELOPED ANY TYPE OF REACTION AFTER HANDLING LATEX PRODUCTS SUCH RUBBER GLOVES, CONDOMS, DIAPHRAGMS, BALLOONS, SOCKS, OR UNDERWEAR?YES KNOWN LATEX ALLERGY - PLEASE INDICATE : HIVES FROM LATEX LATEX ALLERGY : HAVE YOU EVER DEVELOPED ANY TYPE OF REACTION DURING OR AFTER DENTAL APPOINTMENT, VAGINAL/RECTAL EXAMINATION, SURGICAL PROCEDURE, OR ANY OTHER EXPOSURE?NO LATEX RISK : HAVE YOU EVER HAD ANY DIFFICULTY BREATHING OR HIVES AFTER EATING OR HANDLING ANY FRUITS, OR VEGETABLES; SUCH KIWI, BANANAS, STONE FRUITS, OR CHESTNUTSNO LATEX RISK : DO YOU HAVE A PREVIOUS PERSONAL HISTORY OF MORE THAN NINE SURGERIES, SPINA BIFIDA, OR REPEATED CATHERIZATIONS? NO LATEX RISK : ARE YOU FREQUENTLY EXPOSED TO LATEX PRODUCTS IN YOUR OCCUPATION?NO DATE ASKED : 04/19/2019 CAFFEINE CAFFEINE USE?NO ADVANCE DIRECTIVE ADVANCE DIRECTIVE DISCUSSED WITH PATIENT:YES PT HAS HCP FOR LEVON HERNANDEZ [facility] [id number] [facility] MARITAL STATUS: . ALCOHOL SCREENING DID YOU HAVE A DRINK CONTAINING ALCOHOL IN THE PAST YEAR?YES HOW OFTEN DID YOU HAVE SIX OR MORE DRINKS ON ONE OCCASION IN THE PAST YEAR?NEVER (0 POINTS) HOW MANY DRINKS DID YOU HAVE ON A TYPICAL DAY WHEN YOU WERE DRINKING IN THE PAST YEAR?1 OR 2 (0 POINTS) HOW OFTEN DID YOU HAVE A DRINK CONTAINING ALCOHOL IN THE PAST YEAR?MONTHLY OR LESS (1 POINT) POINTS1 INTERPRETATIONNEGATIVE OCCUPATION: RETIRED. SEXUAL HX HAD SEX IN THE LAST 12 MONTHS (VAGINAL, ORAL, OR ANAL)?YES WITHMEN ONLY HAVE YOU EVER HAD AN STD?NO REVIEWED WITH PATIENT DS REVIEWED WITH PT. AD. HOSPITALIZATION/MAJOR DIAGNOSTIC PROCEDURE SURG RELATED REVIEW OF SYSTEMS REVIEWED BY: PROVIDER: . CONSTITUTIONAL: ANY CHANGE IN YOUR MEDICAL CONDITION? YES, SURGERY ON LEFT SHOULDER IN FEB 2019 . CHILLS NO . FEVER NO . INFECTION: DO YOU HAVE NEW INFECTIONS? NO . DO YOU HAVE HISTORY OF MRSA? YES, RIGHT GROIN 2 YEARS AGO, HAS HAD 3 NEG CULTURES . MUSCULOSKELETAL: ANY NEW PATTERNS OF PAIN OR NUMBNESS? YES,DUE TO SUGERY IN LEFT SHOULDER AND BILATERAL WRISTS . GASTROENTEROLOGY: ANY NEW CHANGE IN BOWEL CONTROL? NO . GENITOURINARY: ANY NEW CHANGE IN BLADDER CONTROL? NO . IS THERE A CHANCE YOU COULD BE ? NO . HEMATOLOGY/LYMPH: DO YOU TAKE ANY BLOOD THINNERS? (FOR EXAMPLE- COUMADIN, PLAVIX, AGGRENOX, PLATEL, PRADAXA, OR XARELTO) NO . WHEN WAS YOUR LAST DOSE? DATE: TIME: . NEUROLOGY: HAVE YOU FALLEN IN THE PAST 12 MONTHS? NO . ANY NEW EXTREMITY NUMBNESS OR WEAKNESS? NO . CARDIOLOGY: DO YOU HAVE A PACEMAKER OR DEFIBRILLATOR? NO . RESPIRATORY: HAVE YOU BEEN SICK IN THE PAST WEEK? NO . FEVER NO . FLU LIKE SYMPTOMS? NO . COUGH NO . INTEGUMENTARY: DO YOU HAVE ANY RASHES OR OPEN SORES? NO . ALLERGIC/IMMUNO: ARE YOU ALLERGIC TO IV DYE? YES . ANY NEW ALLERGIES? YES, LASIX . PSYCHIATRIC: DO YOU HAVE THOUGHTS OF HURTING YOURSELF OR SOMEONE ELSE? NO . ARE YOU ABUSED, NEGLECTED, OR IN AN UNSAFE ENVIRONMENT? NO . ENDOCRINOLOGY: ARE YOU DIABETIC? NO . OTHER: DO YOU NEED ANY PRESCRIPTIONS? NO . IF YES, PLEASE LIST: ____ . ANY NEW PROBLEMS WITH YOUR MEDICATIONS? NO . WHEN DID YOU LAST EAT? 04/17 2029 . WHEN DID YOU LAST DRINK? 04/19 399 . WHAT DID YOU LAST DRINK? WATER . NAME OF PERSON DRIVING YOU HOME? LEVON- . DO YOU HAVE ANY OTHER QUESTIONS OR CONCERNS NO . VITAL SIGNS WT 225.4 LBS, HT 64 IN, BMI 38.69 INDEX, BP 135/60 MM HG, HR 55 /MIN, RR 18 /MIN, TEMP 96.0 F, OXYGEN SAT % 99%, NA INITIALS AW 1103, REVIEWED BY: AD. ASSESSMENTS SPONDYLOSIS WITHOUT MYELOPATHY OR RADICULOPATHY, LUMBAR REGION - M47.816 (PRIMARY) SPONDYLOSIS WITHOUT MYELOPATHY OR RADICULOPATHY, LUMBOSACRAL REGION - M47.817 TREATMENT SPONDYLOSIS WITHOUT MYELOPATHY OR RADICULOPATHY, LUMBAR REGION [facility] FACET BLOCK (PAIN)[id number] PROCEDURES PN WORKMANS' COMP OPINION IN YOUR OPINION, WAS THE INCIDENT THAT THE PATIENT DESCRIBED THE COMPETENT MEDICAL CAUSE OF THIS INJURY/ILLNESS? YES ARE THE PATIENT'S COMPLAINTS CONSISTENT WITH HIS/HER HISTORY OF THE INJURY/ILLNESS? YES IS THE PATIENT'S HISTORY OF THE INJURY/ILLNESS CONSISTENT WITH YOUR OBJECTIVE FINDING? YES WHAT IS THE PERCENTAGE OF TEMPORARY IMPAIRMENT? MARKED = 75% IS THE PATIENT WORKING? NO DOCTOR ON SITE: TRINO BYRD MD PN LUMBAR FACET BLOCK THERAPEUTIC PRE PROCEDURE DIAGNOSIS LUMBAR SPONDYLOSIS, LUMBOSACRAL SPONDYLOSIS POST PROCEDURE DIAGNOSIS LUMBAR SPONDYLOSIS, LUMBOSACRAL SPONDYLOSIS PROCEDURE BILATERAL L4-L5 AND L5-S1 LUMBAR FACET THERAPEUTIC BLOCK SURGEON DR. TRINO PEOPLES YEAST TENDER NONE ANESTHESIA LOCAL PRE PROCEDURE NOTE THE PATIENT HAS A HISTORY OF CHRONIC LOW BACK PAIN. I EVALUATED THE PATIENT AND REVIEWED THE CHART. I WENT OVER THE RISKS, ALTERNATIVES, AND BENEFITS ASSOCIATED WITH THIS PROCEDURE. THE PATIENT WOULD LIKE TO PROCEED AND GIVES CONSENT TO PERFORM THE PROCEDURE. THE PATIENT DENIES UNEXPLAINABLE WEIGHT LOSS, FEVER, CHILLS, OR NEW CHANGES IN URINARY OR BOWEL CONTROL DESCRIPTION OF PROCEDURE THE PATIENT WAS BROUGHT TO THE PROCEDURE ROOM AND PLACED IN THE PRONE POSITION. THE LUMBOSACRAL AREA WAS CLEANED WITH CHLORAPREP SOLUTION AND DRAPED ASEPTICALLY. THE PROCEDURE WAS DONE UNDER STERILE CONDITIONS. I CHECKED LATERALITY AND THE LEVEL WHERE THE PROCEDURE WAS GOING TO BE PERFORMED WITH THE PATIENT AND THE SUPPORTING STAFF AT THE MOMENT OF THE TIME OUT IN THE PROCEDURE ROOM. UNDER FLUOROSCOPIC GUIDANCE, THE TARGET POINT WAS SELECTED AT THE RIGHT AND LEFT L4-L5 AND RIGHT AND LEFT L5-S1 FACET JOINTS. TARGET POINT WAS SELECTED AFTER LATERAL ROTATION AND TILT OF THE MAGNIFIER OF THE C-ARM. LIDOCAINE 0.5% WAS USED TO NUMB THE SKIN AND THE SUBCUTANEOUS TISSUE BELOW IT. SPINAL NEEDLES, 22-GAUGE, WERE ADVANCED UNDER FLUOROSCOPIC GUIDANCE AND FOLLOWING PATIENT FEEDBACK UNTIL THE TARGETS WERE TOUCHED. THE POSITION OF THE NEEDLES WAS VERIFIED WITH AP AND LATERAL VIEWS. AFTER PROPER POSITION OF THE NEEDLES WAS ACHIEVED, ISOVUE-M DYE 30% 0.1 ML WAS INJECTED SHOWING ADEQUATE SPREAD OF THE DYE. THEN A SOLUTION OF 1.9 ML OF BUPIVACAINE 0.125% OF KENALOG 10 MG WAS INJECTED AT EACH SITE. THERE WAS NO EVIDENCE OF BLOOD, PARESTHESIA OR CEREBROSPINAL FLUID DURING THE PROCEDURE. THE PATIENT WAS SENT TO THE RECOVERY ROOM. THE PATIENT WAS MOVING THE EXTREMITIES AND DOING WELL. THERE WAS NO COMPLICATION DURING THE PROCEDURE. FLUOROSCOPY TIME WAS 24 SECONDS POST PROCEDURE NOTE THE PATIENT WILL BE SEEN IN A FOLLOW UP IN THE NEXT FEW WEEKS. I AM LOOKING FOR LONG LASTING PAIN RELIEF FOR THE PATIENT WITH THIS PROCEDURE. INSTRUCTIONS WERE GIVEN, QUESTIONS WERE ANSWERED, AND THE PATIENT EXPRESSED UNDERSTANDING AND AGREES WITH THE PLAN. I, SANIA MAOLNE, DOCUMENTED THE ABOVE INFORMATION ACTING A SCRIBE FOR DR. PEOPLES. I HAVE REVIEWED THE ABOVE DOCUMENT, WRITTEN BY SANIA MALONE SCRIBEnzo AND I VERIFY THAT IT IS ACCURATE. PROCEDURE CODES 61643 INJ PARAVERT F JNT L/S 1 LEV, MODIFIERS: 50 [id number] INJ PARAVERT F JNT L/S 2 LEV, MODIFIERS: 50 [id number] RADXPS IN END [id number] PXD DISPOSITION & COMMUNICATION FOLLOW UP 3 WEEKS ELECTRONICALLY SIGNED BY TRINO PEOPLES MD, MD ON 04/30/2019 AT 01:13 PM EDT DISCLAIMER : THIS IS A VISIT SUMMARY EXTRACTED FROM THE [employer] CHART. IT IS NOT A COPY OF THE [employer] PROGRESS NOTE. MTDD
== END ==
LOC: M PAIN 10:30
PROVIDERS: ATTEND Anesthesiology
DX: M47.816 Spondylosis without myelopathy or radiculopathy, lumbar region (principal); M47.817 Spondylosis without myelopathy or radiculopathy, lumbosacral region; I12.9 Hypertensive chronic kidney disease with stage 1 through stage 4 chronic kidney disease, or unspecified chronic kidney disease; N18.9 Chronic kidney disease, unspecified; E03.9 Hypothyroidism, unspecified; Z79.82 Long term (current) use of aspirin; Z79.891 Long term (current) use of opiate analgesic; Z79.899 Other long term (current) drug therapy; Z88.0 Allergy status to penicillin; Z88.1 Allergy status to other antibiotic agents; Z88.2 Allergy status to sulfonamides; Z88.8 Allergy status to other drugs, medicaments and biological substances; Z91.013 Allergy to seafood; Z91.030 Bee allergy status; Z91.040 Latex allergy status; Z91.041 Radiographic dye allergy status
CPT/HCPCS: 64493; 64494; J3301

== ENCOUNTER → 2019-05-03 | Outpatient (CLI) | payer OTHER ==
[~2019-05-03] MED LIST changes: -BUPIVACAINE HCL 0.25% 30 ML VIAL As Ordered ONE; -LIDOCAINE 1% SDV INJ 30 ML VIAL As Ordered ONE; -TRIAMCINOLONE ACETONIDE SUSP 40 MG/ML VIAL (J3301) As Ordered ONE; -diazePAM 5 MG TAB As Ordered ONE; -oxyCODONE 5MG TAB As Ordered ONE
--- NOTE | 2019-05-10 03:41 | ECWPNPC ---
PATIENT NAME: ROZINA HERNANDEZ : 1955 GENDER: FEMALE VISIT DATE: 05/03/2019 DISCHARGE DATE: 05/03/19 1056 VISIT LOCKED DATE TIME: PHYSICIAN: LEVON GLOVER RESOURCE: LEVON GLOVER REASON FOR APPOINTMENT 1. POST W/C HISTORY OF PRESENT ILLNESS HISTORY OF PRESENT ILLNESS: PAIN THE PATIENT DESCRIBES THE PAIN... 63-YEAR-OLD FEMALE IN FOR FACET BLOCK FOLLOW-UP. SHE RATES HER PAIN PREPROCEDURE 7-10 OUT OF 10 AND POST PROCEDURE AT A 0 OUT OF 10. SHE FURTHER STATES THE PROCEDURE CONTINUES TO HELP HER TODAY. 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 THE PATIENT SAYS WHEN SHE STOOD UP, SHE TRIPPED DUE TO HER FOOT BEING CAUGHT IN PURSE HANDLE THAT RESULTED IN HER BACK INJURY AND A BROKEN ANKLE. THE PATIENT SAYS SHE HAS TRIED PHYSICAL THERAPY IN THE PAST THAT HELPED WITH SOME OF HER PAIN. THE PATIENT STATES HER PAIN IS AFFECTING HER ABILITY TO PERFORM HER DAILY ACTIVITIES SUCH CLEANING, WORKING, AND WALKING. FALL RISK SCREENING: SCREENING :NO FALLS REPORTED IN THE LAST YEAR CURRENT MEDICATIONS TAKING VITAMIN D 25 MCG (1000 UT) TABLET 1 CAPSULE ORALLY ONCE DAILY TAKING EPIPEN 2-DUANE 0.3 MG/0.3ML SOLUTION AUTO-INJECTOR INJECTION DIRECTED TAKING CLONAZEPAM 0.5 MG TABLET 0.5 ORALLY 1/2 TAB IN AM AND 1/4 TAB IN PM TAKING IMITREX 100 MG TABLET 1 TABLET NEEDED ORALLY DIRECTED PRN MIGRAINES TAKING PROBIOTIC CAPSULE 1 TAB(S) ORALLY DAILY TAKING 28-0.8 MG TABLET ORALLY DAILY TAKING ASPIRIN EC 81 MG TABLET DELAYED RELEASE 1 TABLET ORALLY ONCE A DAY TAKING ATORVASTATIN CALCIUM 10 MG TABLET 1 TABLET ORALLY ONCE A DAY TAKING LOVAZA 1 GM CAPSULE 2 CAPSULES ORALLY TWICE A DAY TAKING PRIMIDONE 50 MG TABLET ORALLY BID TAKING TOPIRAMATE 100 MG TABLET 1 TABLET ORALLY DAILY TAKING RABEPRAZOLE SODIUM 20 MG TABLET DELAYED RELEASE 1 TABLET ORALLY 2 TBS IN ,/1 TAB IN PM TAKING IRBESARTAN 150 MG TABLET 1 TABLET ORALLY ONCE A DAY TAKING SPIRONOLACTONE 25 MG TABLET 1 TABLET ORALLY DAILY TAKING CALCIUM + D 600-200 MG-UNIT TABLET 1 TABLET ORALLY TWICE A DAY TAKING TORSEMIDE 20 MG TABLET DIRECTED ORALLY 1 TAB Q OTHER DAY,1/2 TAB Q OTHER DAY TAKING VOLTAREN 1 % GEL DIRECTED EXTERNALLY PRN TAKING VENTOLIN HFA 90 MCG/ACT AEROSOL SOLUTION 2 PUFFS NEEDED INHALATION EVERY 6 HRS TAKING NYSTATIN [id number] UNIT/GM POWDER 1 APPLICATION TO AFFECTED AREA EXTERNALLY TWICE A DAY TAKING FISH OIL DOUBLE STRENGTH 1200 MG CAPSULE 1 CAPSULE ORALLY THREE TIMES DAILY TAKING TIZANIDINE HCL 2 MG TABLET 1 TABLET NEEDED ORALLY FOR SPAMS AND PAIN BEFORE BEDTIME MAY REPEAT IN 4 HRS MDD2 (WORKERS COMP) TAKING TRAMADOL HCL 50 MG TABLET 1 TAB ORALLY (CODE D FOR CHRONIC PAIN ) EVERY 4-6 HRS NEEDED MDD3 TAKING LIDODERM 5 % PATCH DIRECTED EXTERNALLY (WORKERS COMP) APPLY 3 PATCH TO PAINFUL AREA OF LOW BACK ON 12 HRS OFF 12 HOURS PRN PAIN. TAKING LYRICA 75 MG CAPSULE 1 CAPSULE ORALLY BID TAKING VITAMIN E 400 UNIT CAPSULE 1 CAPSULE ORALLY ONCE A DAY TAKING IPRATROPIUM-ALBUTEROL 0.5-2.5 (3) MG/3ML SOLUTION 3 ML NEEDED INHALATION EVERY 6 HRS TAKING ADVAIR HFA 230-21 MCG/ACT AEROSOL 2 PUFFS INHALATION TWICE A DAY TAKING BUSPIRONE HCL 5 MG TABLET 1 TABLET ORALLY DAILY NOT-TAKING ARIPIPRAZOLE 2 MG TABLET 1 TABLET ORALLY ONCE A DAY NOT-TAKING GABAPENTIN 600 MG TABLET 1 TABLET ORALLY THREE TIMES A DAY NOT-TAKING BREO ELLIPTA 200-25 MCG/INH AEROSOL POWDER BREATH ACTIVATED 1 PUFF INHALATION ONCE A DAY NOT-TAKING BUPROPION HCL 100 MG TABLET EXTENDED RELEASE 1 TABLET ORALLY DAILY MEDICATION LIST REVIEWED AND RECONCILED WITH THE PATIENT PAST MEDICAL HISTORY PRIMARY HTN,SECONDARY RENAL HYPERPARATHYROIDISM,CRI STAGE 3,VIT D DEFICIENT,HYPOMAGNISEMIA CKD3, 01/20 RENAL US WITH INCREASED ECHOGENICITY TRAVIS MARCOS EDEMA VIT D DEF HTN HYPOTHYROIDISM ASTHMA, DR [place] 2008, FELL WORKING FOOT TANGLED IN PURSE HANDLES FOR CP CLINIC, WEARS BRACE 05/22 LIVER US DIFFUSE FIBROFATTY INFILTRATION OF THE LIVER 03/22 MRI L SPINE - 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 EPIGASTRIC TENDERNESS - DR JARRETT GI SYR 04/21 L WRIST FX - FISH OBESITY PSEUDOSEIZURES - NEURO/ALI ALLERGIES IV DYE: ANAPHYLAXIS BACTRIM: ANAPHYLAXIS - ALLERGY ERYTHROMYCIN: ANAPHYLAXIS - ALLERGY PENICILLIN (FOR ALLERGIES USE ONLY): HIVES ZITHROMAX: HEADACHES - ALLERGY INDOCIN: HIVES,HEADACHE - ALLERGY ZITHROMAX: HIVES - ALLERGY IVP DYE: ANAPHYLAXIS - ALLERGY TORADOL: HIVES - ALLERGY BEE STINGS: ANAPHYLAXIS - ALLERGY HARD SHELL SEAFOOD: ANAPHYLAXIS - ALLERGY BIAXIN: HALLUCINATIONS - SIDE EFFECTS MUSCLE RELAXERS: SHAKES - SIDE EFFECTS SULFA (FOR ALLERGY USE ONLY): HIVES - ALLERGY LASIX: SWELLING - SIDE EFFECTS BACTROBAN OINTMENT: CAUSES YEAST INFECTION - SIDE EFFECTS LATEX: HIVES, BLISTERS - ALLERGY SURGICAL HISTORY HYSTERECTOMY,CHOLECYSTECTOMY,INGUINAL HERNIA,RIGHT,COLONOSCOPY,POLYPECTOMYX2,TONSILLECTOMY TENDON REPAIR LEFT WRIST/L THUMB 05/04/2016 RIGHT HAND CARPAL TUNNEL SURGERY/ TENDON REPAIR RIGHT WRIST/RIGHT THUMB 2019 ARTHROSCOPY LEFT SHOULDER 02/2019 FAMILY HISTORY FATHER: 84 YRS, DIAGNOSED WITH HYPERTENSION, UNSPECIFIED HEART DISEASE, DIABETES MOTHER: 77 YRS, COPD, DIABETES, HYPERTENSION SIBLINGS: , DIABETES 1DAUGHTER(S) - HEALTHY. 1 SISTER FORM BICYCLE ACCIDENT. SOCIAL HISTORY GENERAL: TOBACCO USE ARE YOU A:NONSMOKER HIV / HEP-C SCREENING HIV TEST OFFERED TO PATIENT:NO HEP-C TEST OFFERED TO PATIENT:NO OTHERS AT HOME: SPOUSE. EDUCATION LEVEL OF EDUCATION:COLLEGE DIET: REGULAR. LANGUAGE LANGUAGES SPOKEN:SYRIAN DOMESTIC VIOLENCE DO YOU FEEL SAFE IN YOUR ENVIRONMENT?YES NEW PATIENT PAIN DIARY TODAY'S VISIT 05/03/2019 PATIENT DESCRIBES PAIN :OTHER NO PAIN CURRENTLY IS THERE A CHANCE YOU COULD BE ?NO HAVE YOU BEEN SICK IN THE LAST WEEK (COLD, COUGH, FEVER, FLU, ETC)NO DO YOU TAKE ANY BLOOD THINNERS?NO DO YOU HAVE ANY RASHES OR OPEN SORES?NO ANY CHANGE IN BOWEL OR BLADDER CONTROL?NO ARE YOU ALLERGIC TO SHELLFISH OR IV DYE?YES ARE YOU DIABETIC?NO DO YOU HAVE A PACEMAKER OR DEFIBRILLATOR?NO ANY NEW PROBLEMS WITH MEDICINES OR NEW ALLERGIESNO ANY NEW PATTERNS OF PAIN OR NUMBNESS?NO ANY CHANGE IN YOUR MEDICAL CONDITION?NO HAVE YOU FALLEN IN THE LAST 6 MONTHS?NO DO YOU USE ANY TYPE OF TOBACCO (SMOKE, SMOKELESS, CHEW, ETC.)NO ARE YOU ABUSED, NEGLECTED, OR IN AN UNSAFE ENVIRONMENT?NO DO YOU HAVE THOUGHTS OF HURTING YOURSELF OR SOMEONE ELSE?NO DO YOU NEED ANY PRESCRIPTIONS?NO DO YOU HAVE ANY OTHER QUESTIONS OR CONCERNS?NO INTENSITY SCALE REVIEWEDNUMBER RECREATIONAL DRUG USE DRUG USE?NO EXERCISE: NONE. LEARNING BARRIERS / SPECIAL NEEDS BARRIERS TO LEARNING?NO HEARING IMPAIRED?NO VISION IMPAIRED?YES COGNITIVELY IMPAIRED?NO :CORRECTIVE LENSES READINESS TO LEARN?YES LEARNING PREFERENCES?NO LEARNING CAPABILITIES PRESENT?YES EMOTIONAL BARRIERS?NO SPECIAL DEVICES?YES :CANE, BRACE LEFT ANLKLE BRACE DIVERSITY SPECIALIST NEEDED?NO PAIN CLINIC PFS, CLERGY, PUBLIC HEALTH REFERRALS PFS REFERRAL NEEDED?NO CLERGY REFERRAL NEEDED?NO PUBLIC HEALTH REFERRAL NEEDED?NO WAS THE PROVIDER NOTIFIED OF ANY PERTINENT INFO?YES HAS THE PATIENT BEEN EDUCATED REGARDING HIS/HER PLAN OF CARE?YES HAS THE PATIENT BEEN EDUCATED REGARDING PAIN, THE RISK FOR PAIN, THE IMPORTANCE OF EFFECTIVE PAIN MANAGEMENT, AND THE PAIN ASSESSMENT PROCESS?YES LATEX QUESTIONNAIRE LATEX ALLERGY : HAVE YOU EVER DEVELOPED ANY TYPE OF REACTION AFTER HANDLING LATEX PRODUCTS SUCH RUBBER GLOVES, CONDOMS, DIAPHRAGMS, BALLOONS, SOCKS, OR UNDERWEAR?YES KNOWN LATEX ALLERGY - PLEASE INDICATE : HIVES FROM LATEX LATEX ALLERGY : HAVE YOU EVER DEVELOPED ANY TYPE OF REACTION DURING OR AFTER DENTAL APPOINTMENT, VAGINAL/RECTAL EXAMINATION, SURGICAL PROCEDURE, OR ANY OTHER EXPOSURE?NO LATEX RISK : HAVE YOU EVER HAD ANY DIFFICULTY BREATHING OR HIVES AFTER EATING OR HANDLING ANY FRUITS, OR VEGETABLES; SUCH KIWI, BANANAS, STONE FRUITS, OR CHESTNUTSNO LATEX RISK : DO YOU HAVE A PREVIOUS PERSONAL HISTORY OF MORE THAN NINE SURGERIES, SPINA BIFIDA, OR REPEATED CATHERIZATIONS? NO LATEX RISK : ARE YOU FREQUENTLY EXPOSED TO LATEX PRODUCTS IN YOUR OCCUPATION?NO DATE ASKED : 05/03/2019 CAFFEINE CAFFEINE USE?NO ADVANCE DIRECTIVE ADVANCE DIRECTIVE DISCUSSED WITH PATIENT:YES PT HAS HCP FOR LEVON HERNANDEZ BUDDHIST [id number] [facility] W[facility] MARITAL STATUS: . ALCOHOL SCREENING DID YOU HAVE A DRINK CONTAINING ALCOHOL IN THE PAST YEAR?YES HOW OFTEN DID YOU HAVE SIX OR MORE DRINKS ON ONE OCCASION IN THE PAST YEAR?NEVER (0 POINTS) HOW MANY DRINKS DID YOU HAVE ON A TYPICAL DAY WHEN YOU WERE DRINKING IN THE PAST YEAR?1 OR 2 (0 POINTS) HOW OFTEN DID YOU HAVE A DRINK CONTAINING ALCOHOL IN THE PAST YEAR?MONTHLY OR LESS (1 POINT) POINTS1 INTERPRETATIONNEGATIVE OCCUPATION: RETIRED. SEXUAL HX HAD SEX IN THE LAST 12 MONTHS (VAGINAL, ORAL, OR ANAL)?YES WITHMEN ONLY HAVE YOU EVER HAD AN STD?NO HOSPITALIZATION/MAJOR DIAGNOSTIC PROCEDURE SURG RELATED REVIEW OF SYSTEMS REVIEWED BY: PROVIDER: JULIUS GLOVER GRAPHIC DESIGN SPECIALIST-C . CONSTITUTIONAL: ANY CHANGE IN YOUR MEDICAL CONDITION? NO . CHILLS NO . FEVER NO . INFECTION: DO YOU HAVE NEW INFECTIONS? NO . DO YOU HAVE HISTORY OF MRSA? NO . MUSCULOSKELETAL: ANY NEW PATTERNS OF PAIN OR NUMBNESS? NO . GASTROENTEROLOGY: ANY NEW CHANGE IN BOWEL CONTROL? NO . GENITOURINARY: ANY NEW CHANGE IN BLADDER CONTROL? NO . IS THERE A CHANCE YOU COULD BE ? NO . HEMATOLOGY/LYMPH: DO YOU TAKE ANY BLOOD THINNERS? (FOR EXAMPLE- COUMADIN, PLAVIX, AGGRENOX, PLATEL, PRADAXA, OR XARELTO) NO . WHEN WAS YOUR LAST DOSE? DATE: TIME: . NEUROLOGY: HAVE YOU FALLEN IN THE PAST 12 MONTHS? NO . ANY NEW EXTREMITY NUMBNESS OR WEAKNESS? NO . CARDIOLOGY: DO YOU HAVE A PACEMAKER OR DEFIBRILLATOR? NO . RESPIRATORY: HAVE YOU BEEN SICK IN THE PAST WEEK? NO . FEVER NO . FLU LIKE SYMPTOMS? NO . COUGH NO . INTEGUMENTARY: DO YOU HAVE ANY RASHES OR OPEN SORES? NO . ALLERGIC/IMMUNO: ARE YOU ALLERGIC TO IV DYE? NO . ANY NEW ALLERGIES? LATEX SENSITIVITY . PSYCHIATRIC: DO YOU HAVE THOUGHTS OF HURTING YOURSELF OR SOMEONE ELSE? NO . ARE YOU ABUSED, NEGLECTED, OR IN AN UNSAFE ENVIRONMENT? NO . ENDOCRINOLOGY: ARE YOU DIABETIC? NO . OTHER: DO YOU NEED ANY PRESCRIPTIONS? NO . IF YES, PLEASE LIST: ____ . ANY NEW PROBLEMS WITH YOUR MEDICATIONS? NO . WHEN DID YOU LAST EAT? ____ . WHEN DID YOU LAST DRINK? ____ . WHAT DID YOU LAST DRINK? ____ . NAME OF PERSON DRIVING YOU HOME? ____ . DO YOU HAVE ANY OTHER QUESTIONS OR CONCERNS NO . EXAMINATION GENERAL EXAMINATION: GENERALNO ACUTE DISTRESS, WELL NOURISHED AND HYDRATED. PSYCHAPPROPRIATE MOOD AND AFFECT . LUNGS:CLEAR TO AUSCULTATION BILATERALLY, NO WHEEZES, RHONCHI, RALES. HEART:NO MURMURS, REGULAR RATE AND RHYTHM. ASSESSMENTS SPONDYLOSIS WITHOUT MYELOPATHY OR RADICULOPATHY, LUMBOSACRAL REGION - M47.817 (PRIMARY) TREATMENT SPONDYLOSIS WITHOUT MYELOPATHY OR RADICULOPATHY, LUMBOSACRAL REGION CLINICAL NOTES: 61-YEAR-OLD FEMALE IN FOR POST FACET BLOCK FOLLOW-UP. GIVEN PRESENTING SYMPTOMS AND RESULTS OF PHYSICAL EXAMINATION RECOMMEND FOLLOW UP IN 2 MONTHS. WILL START PATIENT ON TRAMADOL NEEDED FOR PAIN. PATIENT HAS EXPRESSED UNDERSTANDING OF AND WAS IN AGREEMENT WITH TREATMENT PLAN. GIVEN TIME TO ASK QUESTIONS AND EXPRESS CONCERNS., ISTOP REGISTRY REVIEWED AND DEMONSTRATES COMPLLIANCE. (REF # [id number] ) BRINGS IN MEDICATIONS WHICH IS APPROPRIATE FOR WHAT WAS DISPENSED. RECENT URINE TOXICOLOGY REVIEWED. NO UNAUTHORIZED MEDICATIONS. NO ILLICIT SUBSTANCES AND PRESCRIBED MEDICATIONS WERE PRESENT. OTHERS START TRAMADOL HCL TABLET, 50 MG, 1 TAB, ORALLY (CODE D FOR CHRONIC PAIN ), DAILY NEEDED, 30 DAYS, 30 PROCEDURES PN WORKMANS' COMP OPINION IN YOUR OPINION, WAS THE INCIDENT THAT THE PATIENT DESCRIBED THE COMPETENT MEDICAL CAUSE OF THIS INJURY/ILLNESS? YES ARE THE PATIENT'S COMPLAINTS CONSISTENT WITH HIS/HER HISTORY OF THE INJURY/ILLNESS? YES IS THE PATIENT'S HISTORY OF THE INJURY/ILLNESS CONSISTENT WITH YOUR OBJECTIVE FINDING? YES WHAT IS THE PERCENTAGE OF TEMPORARY IMPAIRMENT? MARKED = 75% IS THE PATIENT WORKING? NO DOCTOR ON SITE: TRINO BYRD MD PREVENTIVE MEDICINE PAIN CLINIC TEACHING: THE PATIENT HAS BEEN EDUCATED REGARDING PAIN, THE RISK FOR PAIN, THE IMPORTANCE OF EFFECTIVE PAIN MANAGEMENT, AND THE PAIN ASSESSMENT PROCESS. : REVIEWED WRITTEN AND VERBAL INSTRUCTIONS FOR TRAMADOL AND DISCHARGE INSTRUCTIONS, PT ACKNOWLEDGED UNDERSTANING. DS PROCEDURE CODES [id number] ESTABILISHED PATIENT [facility] CHARGE DISPOSITION & COMMUNICATION FOLLOW UP 2 MONTHS (REASON: BACK PAIN WORKERS COMP) ELECTRONICALLY SIGNED BY JERRY SARAVIA ON 05/09/2019 AT 12:58 PM EDT DISCLAIMER : THIS IS A VISIT SUMMARY EXTRACTED FROM THE [employer] CHART. IT IS NOT A COPY OF THE [employer] PROGRESS NOTE. HARRIET
== END ==
LOC: M PAIN 09:30
PROVIDERS: ATTEND Family Medicine
DX: M47.817 Spondylosis without myelopathy or radiculopathy, lumbosacral region (principal); I12.9 Hypertensive chronic kidney disease with stage 1 through stage 4 chronic kidney disease, or unspecified chronic kidney disease; N18.3 Chronic kidney disease, stage 3 (moderate); N25.81 Secondary hyperparathyroidism of renal origin; E55.9 Vitamin D deficiency, unspecified; E83.42 Hypomagnesemia; E03.9 Hypothyroidism, unspecified; J45.909 Unspecified asthma, uncomplicated; E66.9 Obesity, unspecified; Z79.82 Long term (current) use of aspirin; Z79.891 Long term (current) use of opiate analgesic; Z79.899 Other long term (current) drug therapy; Z88.1 Allergy status to other antibiotic agents; Z88.2 Allergy status to sulfonamides; Z88.0 Allergy status to penicillin; Z88.8 Allergy status to other drugs, medicaments and biological substances; Z91.030 Bee allergy status

== ENCOUNTER → 2019-05-08 | Outpatient (REF) | payer MEDICARE | LOC: M LAB REF 12:30 | PROVIDERS: ATTEND Internal Medicine Endocrinology, Diabetes & Metabolism | DX: E04.2 Nontoxic multinodular goiter (principal) ==

== ENCOUNTER → 2019-06-21 | Outpatient (CLI) | payer OTHER ==
[~2019-06-21] MED LIST changes: +CYCL-707 PO; -CYCL10TA PO
--- NOTE | 2019-06-23 00:47 | ECWPNPC ---
PATIENT NAME: ROZINA HERNANDEZ : 1955 GENDER: FEMALE VISIT DATE: 06/21/2019 DISCHARGE DATE: 06/21/19 1015 VISIT LOCKED DATE TIME: PHYSICIAN: LEVON GLOVER RESOURCE: LEVON GLOVER REASON FOR APPOINTMENT 1. 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 64-YEAR-OLD FEMALE IN FOR CHRONIC PAIN FOLLOW-UP. SHE RATES HER PAIN CURRENTLY AT A 6 OUT OF 10 AND DESCRIBES IT SHARP, AND ACHING. SHE FEELS HER MEDICATIONS ARE WORKING WELL AND DENIES MED SIDE EFFECTS AT THIS TIME. 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 THE PATIENT SAYS WHEN SHE STOOD UP, SHE TRIPPED DUE TO HER FOOT BEING CAUGHT IN PURSE HANDLE THAT RESULTED IN HER BACK INJURY AND A BROKEN ANKLE. FALL RISK SCREENING: SCREENING :NO FALLS REPORTED IN THE LAST YEAR CURRENT MEDICATIONS TAKING VITAMIN D 25 MCG (1000 UT) TABLET 1 CAPSULE ORALLY ONCE DAILY TAKING EPIPEN 2-DUANE 0.3 MG/0.3ML SOLUTION AUTO-INJECTOR INJECTION DIRECTED TAKING CLONAZEPAM 0.5 MG TABLET 0.5 ORALLY 1/2 TAB IN AM AND 1/4 TAB IN PM TAKING IMITREX 100 MG TABLET 1 TABLET NEEDED ORALLY DIRECTED PRN MIGRAINES TAKING PROBIOTIC CAPSULE 1 TAB(S) ORALLY DAILY TAKING 28-0.8 MG TABLET ORALLY DAILY TAKING ASPIRIN EC 81 MG TABLET DELAYED RELEASE 1 TABLET ORALLY ONCE A DAY TAKING ATORVASTATIN CALCIUM 10 MG TABLET 1 TABLET ORALLY ONCE A DAY TAKING LOVAZA 1 GM CAPSULE 2 CAPSULES ORALLY TWICE A DAY TAKING PRIMIDONE 50 MG TABLET ORALLY BID TAKING TOPIRAMATE 100 MG TABLET 1 TABLET ORALLY DAILY TAKING RABEPRAZOLE SODIUM 20 MG TABLET DELAYED RELEASE 1 TABLET ORALLY 2 TBS IN ,/1 TAB IN PM TAKING IRBESARTAN 150 MG TABLET 1 TABLET ORALLY ONCE A DAY TAKING SPIRONOLACTONE 25 MG TABLET 1 TABLET ORALLY DAILY TAKING CALCIUM + D 600-200 MG-UNIT TABLET 1 TABLET ORALLY TWICE A DAY TAKING TORSEMIDE 20 MG TABLET DIRECTED ORALLY 1 TAB Q OTHER DAY,1/2 TAB Q OTHER DAY TAKING VOLTAREN 1 % GEL DIRECTED EXTERNALLY PRN TAKING VENTOLIN HFA 90 MCG/ACT AEROSOL SOLUTION 2 PUFFS NEEDED INHALATION EVERY 6 HRS TAKING NYSTATIN 552259 UNIT/GM POWDER 1 APPLICATION TO AFFECTED AREA EXTERNALLY TWICE A DAY TAKING FISH OIL DOUBLE STRENGTH 1200 MG CAPSULE 1 CAPSULE ORALLY THREE TIMES DAILY TAKING TIZANIDINE HCL 2 MG TABLET 1 TABLET NEEDED ORALLY FOR SPAMS AND PAIN BEFORE BEDTIME MAY REPEAT IN 4 HRS MDD2 (WORKERS COMP) TAKING LIDODERM 5 % PATCH DIRECTED EXTERNALLY (WORKERS COMP) APPLY 3 PATCH TO PAINFUL AREA OF LOW BACK ON 12 HRS OFF 12 HOURS PRN PAIN. TAKING LYRICA 100 MG CAPSULE 1 CAPSULE ORALLY BID TAKING VITAMIN E 400 UNIT CAPSULE 1 CAPSULE ORALLY ONCE A DAY TAKING IPRATROPIUM-ALBUTEROL 0.5-2.5 (3) MG/3ML SOLUTION 3 ML NEEDED INHALATION EVERY 6 HRS TAKING ADVAIR HFA 230-21 MCG/ACT AEROSOL 2 PUFFS INHALATION TWICE A DAY TAKING BUSPIRONE HCL 5 MG TABLET 1 TABLET ORALLY DAILY TAKING TRAMADOL HCL 50 MG TABLET 1 TAB ORALLY (CODE D FOR CHRONIC PAIN ) DAILY NEEDED NOT-TAKING ARIPIPRAZOLE 2 MG TABLET 1 TABLET ORALLY ONCE A DAY NOT-TAKING GABAPENTIN 600 MG TABLET 1 TABLET ORALLY THREE TIMES A DAY NOT-TAKING BREO ELLIPTA 200-25 MCG/INH AEROSOL POWDER BREATH ACTIVATED 1 PUFF INHALATION ONCE A DAY NOT-TAKING BUPROPION HCL 100 MG TABLET EXTENDED RELEASE 1 TABLET ORALLY DAILY MEDICATION LIST REVIEWED AND RECONCILED WITH THE PATIENT PAST MEDICAL HISTORY PRIMARY HTN,SECONDARY RENAL HYPERPARATHYROIDISM,CRI STAGE 3,VIT D DEFICIENT,HYPOMAGNISEMIA CKD3, 01/20 RENAL US WITH INCREASED ECHOGENICITY TRAVIS MARCOS EDEMA VIT D DEF HTN HYPOTHYROIDISM ASTHMA, DR [place] 2008, FELL WORKING FOOT TANGLED IN PURSE HANDLES FOR CP CLINIC, WEARS BRACE 05/22 LIVER US DIFFUSE FIBROFATTY INFILTRATION OF THE LIVER 03/22 MRI L SPINE - 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 EPIGASTRIC TENDERNESS - DR JARRETT GI SYR 04/21 L WRIST FX - FISH OBESITY PSEUDOSEIZURES - NEURO/ALI ALLERGIES IV DYE: ANAPHYLAXIS BACTRIM: ANAPHYLAXIS - ALLERGY ERYTHROMYCIN: ANAPHYLAXIS - ALLERGY PENICILLIN (FOR ALLERGIES USE ONLY): HIVES ZITHROMAX: HEADACHES - ALLERGY INDOCIN: HIVES,HEADACHE - ALLERGY ZITHROMAX: HIVES - ALLERGY IVP DYE: ANAPHYLAXIS - ALLERGY TORADOL: HIVES - ALLERGY BEE STINGS: ANAPHYLAXIS - ALLERGY HARD SHELL SEAFOOD: ANAPHYLAXIS - ALLERGY BIAXIN: HALLUCINATIONS - SIDE EFFECTS MUSCLE RELAXERS: SHAKES - SIDE EFFECTS SULFA (FOR ALLERGY USE ONLY): HIVES - ALLERGY LASIX: SWELLING - SIDE EFFECTS BACTROBAN OINTMENT: CAUSES YEAST INFECTION - SIDE EFFECTS LATEX: HIVES, BLISTERS - ALLERGY SURGICAL HISTORY HYSTERECTOMY,CHOLECYSTECTOMY,INGUINAL HERNIA,RIGHT,COLONOSCOPY,POLYPECTOMYX2,TONSILLECTOMY TENDON REPAIR LEFT WRIST/L THUMB 05/04/2016 RIGHT HAND CARPAL TUNNEL SURGERY/ TENDON REPAIR RIGHT WRIST/RIGHT THUMB 2019 ARTHROSCOPY LEFT SHOULDER 02/2019 FAMILY HISTORY FATHER: 84 YRS, DIAGNOSED WITH DIABETES, HYPERTENSION, UNSPECIFIED HEART DISEASE MOTHER: 77 YRS, COPD, DIABETES, HYPERTENSION SIBLINGS: , DIABETES 1DAUGHTER(S) - HEALTHY. 1 SISTER FORM BICYCLE ACCIDENT. SOCIAL HISTORY GENERAL: TOBACCO USE ARE YOU A:NONSMOKER LATEX QUESTIONNAIRE LATEX ALLERGY : HAVE YOU EVER DEVELOPED ANY TYPE OF REACTION AFTER HANDLING LATEX PRODUCTS SUCH RUBBER GLOVES, CONDOMS, DIAPHRAGMS, BALLOONS, SOCKS, OR UNDERWEAR?YES KNOWN LATEX ALLERGY LATEX ALLERGY : HAVE YOU EVER DEVELOPED ANY TYPE OF REACTION DURING OR AFTER DENTAL APPOINTMENT, VAGINAL/RECTAL EXAMINATION, SURGICAL PROCEDURE, OR ANY OTHER EXPOSURE?NO - PLEASE INDICATE : HIVES FROM LATEX DATE ASKED : 05/03/2019 LATEX RISK : HAVE YOU EVER HAD ANY DIFFICULTY BREATHING OR HIVES AFTER EATING OR HANDLING ANY FRUITS, OR VEGETABLES; SUCH KIWI, BANANAS, STONE FRUITS, OR CHESTNUTSNO LATEX RISK : DO YOU HAVE A PREVIOUS PERSONAL HISTORY OF MORE THAN NINE SURGERIES, SPINA BIFIDA, OR REPEATED CATHERIZATIONS? NO LATEX RISK : ARE YOU FREQUENTLY EXPOSED TO LATEX PRODUCTS IN YOUR OCCUPATION?NO ALCOHOL SCREENING DID YOU HAVE A DRINK CONTAINING ALCOHOL IN THE PAST YEAR?YES HOW OFTEN DID YOU HAVE SIX OR MORE DRINKS ON ONE OCCASION IN THE PAST YEAR?NEVER (0 POINTS) HOW MANY DRINKS DID YOU HAVE ON A TYPICAL DAY WHEN YOU WERE DRINKING IN THE PAST YEAR?1 OR 2 (0 POINTS) HOW OFTEN DID YOU HAVE A DRINK CONTAINING ALCOHOL IN THE PAST YEAR?MONTHLY OR LESS (1 POINT) POINTS1 INTERPRETATIONNEGATIVE RECREATIONAL DRUG USE DRUG USE?NO CAFFEINE CAFFEINE USE?NO SEXUAL HX HAD SEX IN THE LAST 12 MONTHS (VAGINAL, ORAL, OR ANAL)?YES WITHMEN ONLY HAVE YOU EVER HAD AN STD?NO HIV / HEP-C SCREENING HIV TEST OFFERED TO PATIENT:NO HEP-C TEST OFFERED TO PATIENT:NO SHINTO [id number] TENRIISM LANGUAGE LANGUAGES SPOKEN:LATVIAN EDUCATION LEVEL OF EDUCATION:COLLEGE LEARNING BARRIERS / SPECIAL NEEDS BARRIERS TO LEARNING?NO HEARING IMPAIRED?NO VISION IMPAIRED?YES COGNITIVELY IMPAIRED?NO :CORRECTIVE LENSES READINESS TO LEARN?YES LEARNING PREFERENCES?NO LEARNING CAPABILITIES PRESENT?YES EMOTIONAL BARRIERS?NO SPECIAL DEVICES?YES :CANE, BRACE LEFT ANLKLE BRACE LEGAL RECEPTIONIST NEEDED?NO 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 DIET: REGULAR. EXERCISE: NONE. MARITAL STATUS: . OTHERS AT HOME: SPOUSE. NEW PATIENT PAIN DIARY TODAY'S VISIT 05/03/2019 PATIENT DESCRIBES PAIN :OTHER NO PAIN CURRENTLY IS THERE A CHANCE YOU COULD BE ?NO HAVE YOU BEEN SICK IN THE LAST WEEK (COLD, COUGH, FEVER, FLU, ETC)NO DO YOU TAKE ANY BLOOD THINNERS?NO DO YOU HAVE ANY RASHES OR OPEN SORES?NO ANY CHANGE IN BOWEL OR BLADDER CONTROL?NO ARE YOU ALLERGIC TO SHELLFISH OR IV DYE?YES ARE YOU DIABETIC?NO DO YOU HAVE A PACEMAKER OR DEFIBRILLATOR?NO ANY NEW PROBLEMS WITH MEDICINES OR NEW ALLERGIESNO ANY NEW PATTERNS OF PAIN OR NUMBNESS?NO ANY CHANGE IN YOUR MEDICAL CONDITION?NO HAVE YOU FALLEN IN THE LAST 6 MONTHS?NO DO YOU USE ANY TYPE OF TOBACCO (SMOKE, SMOKELESS, CHEW, ETC.)NO ARE YOU ABUSED, NEGLECTED, OR IN AN UNSAFE ENVIRONMENT?NO DO YOU HAVE THOUGHTS OF HURTING YOURSELF OR SOMEONE ELSE?NO DO YOU NEED ANY PRESCRIPTIONS?NO DO YOU HAVE ANY OTHER QUESTIONS OR CONCERNS?NO INTENSITY SCALE REVIEWEDNUMBER PAIN CLINIC PFS, CLERGY, PUBLIC HEALTH REFERRALS PFS REFERRAL NEEDED?NO CLERGY REFERRAL NEEDED?NO PUBLIC HEALTH REFERRAL NEEDED?NO WAS THE PROVIDER NOTIFIED OF ANY PERTINENT INFO?YES HAS THE PATIENT BEEN EDUCATED REGARDING HIS/HER PLAN OF CARE?YES HAS THE PATIENT BEEN EDUCATED REGARDING PAIN, THE RISK FOR PAIN, THE IMPORTANCE OF EFFECTIVE PAIN MANAGEMENT, AND THE PAIN ASSESSMENT PROCESS?YES ADVANCE DIRECTIVE ADVANCE DIRECTIVE DISCUSSED WITH PATIENT:YES PT HAS HCP FOR [facility] HOSPITALIZATION/MAJOR DIAGNOSTIC PROCEDURE SURG RELATED REVIEW OF SYSTEMS REVIEWED BY: PROVIDER: JULIUS GLOVER CT MRI TECHNOLOGIST-C . CONSTITUTIONAL: ANY CHANGE IN YOUR MEDICAL CONDITION? NO . CHILLS NO . FEVER NO . INFECTION: DO YOU HAVE NEW INFECTIONS? NO . DO YOU HAVE HISTORY OF MRSA? NO . MUSCULOSKELETAL: ANY NEW PATTERNS OF PAIN OR NUMBNESS? NO . GASTROENTEROLOGY: ANY NEW CHANGE IN BOWEL CONTROL? NO . GENITOURINARY: ANY NEW CHANGE IN BLADDER CONTROL? NO . IS THERE A CHANCE YOU COULD BE ? NO . HEMATOLOGY/LYMPH: DO YOU TAKE ANY BLOOD THINNERS? (FOR EXAMPLE- COUMADIN, PLAVIX, AGGRENOX, PLATEL, PRADAXA, OR XARELTO) NO . WHEN WAS YOUR LAST DOSE? DATE: TIME: . NEUROLOGY: HAVE YOU FALLEN IN THE PAST 12 MONTHS? NO . ANY NEW EXTREMITY NUMBNESS OR WEAKNESS? NO . CARDIOLOGY: DO YOU HAVE A PACEMAKER OR DEFIBRILLATOR? NO . RESPIRATORY: HAVE YOU BEEN SICK IN THE PAST WEEK? NO . FEVER NO . FLU LIKE SYMPTOMS? NO . COUGH NO . INTEGUMENTARY: DO YOU HAVE ANY RASHES OR OPEN SORES? NO . ALLERGIC/IMMUNO: ARE YOU ALLERGIC TO IV DYE? YES, IODINE CONTRAST . ANY NEW ALLERGIES? NO . PSYCHIATRIC: DO YOU HAVE THOUGHTS OF HURTING YOURSELF OR SOMEONE ELSE? NO . ARE YOU ABUSED, NEGLECTED, OR IN AN UNSAFE ENVIRONMENT? NO . ENDOCRINOLOGY: ARE YOU DIABETIC? NO . OTHER: DO YOU NEED ANY PRESCRIPTIONS? YES, REFILL TRAMADOL . IF YES, PLEASE LIST: ____ . ANY NEW PROBLEMS WITH YOUR MEDICATIONS? NO . WHEN DID YOU LAST EAT? ____ . WHEN DID YOU LAST DRINK? ____ . WHAT DID YOU LAST DRINK? ____ . NAME OF PERSON DRIVING YOU HOME? ____ . DO YOU HAVE ANY OTHER QUESTIONS OR CONCERNS NO . EXAMINATION GENERAL EXAMINATION: GENERALNO ACUTE DISTRESS, WELL NOURISHED AND HYDRATED. PSYCHAPPROPRIATE MOOD AND AFFECT , ORIENTED X 3. ASSESSMENTS SPONDYLOSIS WITHOUT MYELOPATHY OR RADICULOPATHY, LUMBOSACRAL REGION - M47.817 (PRIMARY) TREATMENT SPONDYLOSIS WITHOUT MYELOPATHY OR RADICULOPATHY, LUMBOSACRAL REGION REFILL TRAMADOL HCL TABLET, 50 MG, 1 TAB, ORALLY (CODE D FOR CHRONIC PAIN ), DAILY NEEDED, 30 DAYS, 30 CLINICAL NOTES: 64-YEAR-OLD FEMALE IN FOR CHRONIC PAIN FOLLOW-UP. GIVEN PRESENTING SYMPTOMS RECOMMEND FOLLOW-UP IN CLINIC IN ONE MONTH TO DISCUSS FACET BLOCK. PATIENT HAS EXPRESSED UNDERSTANDING OF AND WAS IN AGREEMENT WITH TREATMENT PLAN. GIVEN TIME TO ASK QUESTIONS AND EXPRESS CONCERNS. , [employer] REGISTRY REVIEWED AND DEMONSTRATES COMPLLIANCE. (REF # [id number]) BRINGS IN MEDICATIONS WHICH IS APPROPRIATE FOR WHAT WAS DISPENSED. RECENT URINE TOXICOLOGY REVIEWED. NO UNAUTHORIZED MEDICATIONS. NO ILLICIT SUBSTANCES AND PRESCRIBED MEDICATIONS WERE PRESENT. OTHERS NOTES: [id number] NOT OBTAINED DUE TO VIRTUAL VISIT, PRE-SCREENING COMPLETED 06/20/19, NA. PROCEDURES PN WORKMANS' COMP OPINION IN YOUR OPINION, WAS THE INCIDENT THAT THE PATIENT DESCRIBED THE COMPETENT MEDICAL CAUSE OF THIS INJURY/ILLNESS? YES ARE THE PATIENT'S COMPLAINTS CONSISTENT WITH HIS/HER HISTORY OF THE INJURY/ILLNESS? YES IS THE PATIENT'S HISTORY OF THE INJURY/ILLNESS CONSISTENT WITH YOUR OBJECTIVE FINDING? YES WHAT IS THE PERCENTAGE OF TEMPORARY IMPAIRMENT? MARKED = 75% IS THE PATIENT WORKING? NO DOCTOR ON SITE: TRINO BYRD MD DISPOSITION & COMMUNICATION FOLLOW UP 4 WEEKS (REASON: BACK PAIN, IN CLINIC) ELECTRONICALLY SIGNED BY JERRY SARAVIA ON 06/22/2019 AT 08:25 AM EDT DISCLAIMER : THIS IS A VISIT SUMMARY EXTRACTED FROM THE [employer] CHART. IT IS NOT A COPY OF THE [employer] PROGRESS NOTE. HARRIET
== END ==
LOC: M PAIN 09:15 → M TMPAIN 09:15
PROVIDERS: ATTEND Family Medicine
DX: M47.817 Spondylosis without myelopathy or radiculopathy, lumbosacral region (principal); Z79.82 Long term (current) use of aspirin; Z79.891 Long term (current) use of opiate analgesic; Z79.899 Other long term (current) drug therapy; Z88.0 Allergy status to penicillin; Z88.1 Allergy status to other antibiotic agents; Z88.2 Allergy status to sulfonamides; Z88.5 Allergy status to narcotic agent; Z88.8 Allergy status to other drugs, medicaments and biological substances; Z91.013 Allergy to seafood; Z91.030 Bee allergy status; Z91.040 Latex allergy status

== ENCOUNTER → 2019-07-17 | Outpatient (CLI) | payer OTHER ==
--- NOTE | 2019-07-19 02:13 | ECWPNPC ---
PATIENT NAME: ROZINA HERNANDEZ : 1955 GENDER: FEMALE VISIT DATE: 07/17/2019 DISCHARGE DATE: 07/17/19 1052 VISIT LOCKED DATE TIME: PHYSICIAN: LEVON GLOVER RESOURCE: LEVON GLOVER REASON FOR APPOINTMENT 1. W/C BACK PAIN-IN CLINIC HISTORY OF PRESENT ILLNESS GENERAL: -. PAIN SCREENING: PATIENT HAS A COMPLAINT OF ACUTE OR CHRONIC PAIN :YES LOCATION OF PAIN:LOW BACK INTENSITY OF PAIN (SCALE OF 1 TO 10):6 WHAT DOES YOUR PAIN FEEL LIKE:ACHING, BURNING, SHARP, STABBING DURATION:CONTINOUS, CONSTANT, ALL DAY PAIN IS INCREASED BY:ACTIVITIES, PROLONGED STANDING PAIN IS DECREASED BY:USE OF PAIN MEDICATIONS ICE PACK PAIN HAS INTERFERED WITH THE FOLLOWING:BATHING/DRESSING, MOOD, WALKING ABILITY, HOUSEWORK, RELATIONSHIP WITH OTHERS, ENJOYMENT OF LIFE PLAN/GOALS/TREATMENT/INTERVENTION/FOLLOW UP:SEE PLAN FALL RISK SCREENING: SCREENING :NO FALLS REPORTED IN THE LAST YEAR NURSING NOTE: -. DEPRESSION SCREENING: PHQ-2 (2015 EDITION) LITTLE INTEREST OR PLEASURE IN DOING THINGS?NOT AT ALL FEELING DOWN, DEPRESSED, OR HOPELESS?NOT AT ALL TOTAL SCORE0 PAIN CENTER INTAKE QUESTIONS: DO YOU HAVE A HISTORY OF MRSA? :NO DO YOU TAKE A BLOOD THINNERS? :NO DO YOU HAVE ANY BLEEDING DISORDERS? :NO ANY NEW NUMBNESS OR WEAKNESS IN YOUR LEGS OR ARMS? :NO ANY PACEMAKER,DEFIBRILLATOR, OR DORSAL COLUMN STIMULATOR? :NO DO YOU HAVE ANY RASHES OR OPEN SORES? :NO ARE YOU ALLERGIC TO IV DYE? :NO ARE YOU DIABETIC? :NO ANY NEW PROBLEMS WITH YOUR MEDICATIONS? :NO HAVE YOU RECEIVED A VACCINE IN THE PAST 30 DAYS? :NO DO YOU PLAN TO RECEIVE A VACCINE IN THE NEXT 21 DAYS? :NO DO YOU NEED ANY PRESCRIPTION? :NO DO YOU TAKE ANY IMMUNOSUPPRESSIVE MEDICATIONS? :NO IS THERE A CHANCE YOU COULD BE ? :NO ARE YOU BREAST FEEDING? :NO HISTORY OF PRESENT ILLNESS: PAIN THE PATIENT DESCRIBES THE PAINDURING THE LAST MONTH SEVERITY - PAIN SCORE OF5/10, 6/10 LOCATIONSLOWER BACK QUALITYACHING , SHARP DURATIONCONSTANT, INTERMITTENT PAIN IS INCREASED BY:ACTIVITIES, PROLONGED STANDING PAIN IS DECREASED BY:USE OF PAIN MEDICATIONS, SITTING TYLENOL, TRAMADOL, HEATING PAD 64-YEAR-OLD FEMALE IN FOR CHRONIC PAIN FOLLOW-UP. SHE RATES HER PAIN CURRENTLY AT A 6 OUT OF 10 AND DESCRIBES IT SHARP, ACHING, AND BURNING. SHE FEELS HER MEDICATIONS ARE WORKING WELL AND DENIES MED SIDE EFFECTS AT THIS TIME. PATIENT HAS HAD LUMBAR THERAPEUTIC FACET BLOCKS IN THE PAST WITH GOOD RESULTS TO INCLUDE INCREASED FUNCTIONALITY AND A DECREASE IN PAIN. 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 THE PATIENT SAYS WHEN SHE STOOD UP, SHE TRIPPED DUE TO HER FOOT BEING CAUGHT IN PURSE HANDLE THAT RESULTED IN HER BACK INJURY AND A BROKEN ANKLE. CURRENT MEDICATIONS TAKING VITAMIN D 25 MCG (1000 UT) TABLET 1 CAPSULE ORALLY ONCE DAILY TAKING EPIPEN 2-DUANE 0.3 MG/0.3ML SOLUTION AUTO-INJECTOR INJECTION DIRECTED TAKING CLONAZEPAM 0.5 MG TABLET 0.5 ORALLY 1/2 TAB IN AM AND 1/4 TAB IN PM TAKING IMITREX 100 MG TABLET 1 TABLET NEEDED ORALLY DIRECTED PRN MIGRAINES TAKING PROBIOTIC CAPSULE 1 TAB(S) ORALLY DAILY TAKING 28-0.8 MG TABLET ORALLY DAILY TAKING ASPIRIN EC 81 MG TABLET DELAYED RELEASE 1 TABLET ORALLY ONCE A DAY TAKING ATORVASTATIN CALCIUM 10 MG TABLET 1 TABLET ORALLY ONCE A DAY TAKING LOVAZA 1 GM CAPSULE 2 CAPSULES ORALLY TWICE A DAY TAKING PRIMIDONE 50 MG TABLET ORALLY BID TAKING TOPIRAMATE 100 MG TABLET 1 TABLET ORALLY DAILY TAKING RABEPRAZOLE SODIUM 20 MG TABLET DELAYED RELEASE 1 TABLET ORALLY 2 TBS IN ,/1 TAB IN PM TAKING IRBESARTAN 150 MG TABLET 1 TABLET ORALLY ONCE A DAY TAKING SPIRONOLACTONE 25 MG TABLET 1 TABLET ORALLY DAILY TAKING CALCIUM + D 600-200 MG-UNIT TABLET 1 TABLET ORALLY TWICE A DAY TAKING TORSEMIDE 20 MG TABLET DIRECTED ORALLY 1 TAB Q OTHER DAY,1/2 TAB Q OTHER DAY TAKING VOLTAREN 1 % GEL DIRECTED EXTERNALLY PRN TAKING VENTOLIN HFA 90 MCG/ACT AEROSOL SOLUTION 2 PUFFS NEEDED INHALATION EVERY 6 HRS TAKING NYSTATIN 328166 UNIT/GM POWDER 1 APPLICATION TO AFFECTED AREA EXTERNALLY TWICE A DAY TAKING FISH OIL DOUBLE STRENGTH 1200 MG CAPSULE 1 CAPSULE ORALLY THREE TIMES DAILY TAKING TIZANIDINE HCL 2 MG TABLET 1 TABLET NEEDED ORALLY FOR SPAMS AND PAIN BEFORE BEDTIME MAY REPEAT IN 4 HRS MDD2 (WORKERS COMP) TAKING LIDODERM 5 % PATCH DIRECTED EXTERNALLY (WORKERS COMP) APPLY 3 PATCH TO PAINFUL AREA OF LOW BACK ON 12 HRS OFF 12 HOURS PRN PAIN. TAKING LYRICA 100 MG CAPSULE 1 CAPSULE ORALLY BID TAKING VITAMIN E 400 UNIT CAPSULE 1 CAPSULE ORALLY ONCE A DAY TAKING IPRATROPIUM-ALBUTEROL 0.5-2.5 (3) MG/3ML SOLUTION 3 ML NEEDED INHALATION EVERY 6 HRS TAKING ADVAIR HFA 230-21 MCG/ACT AEROSOL 2 PUFFS INHALATION TWICE A DAY TAKING BUSPIRONE HCL 5 MG TABLET 1 TABLET ORALLY DAILY TAKING TRAMADOL HCL 50 MG TABLET 1 TAB ORALLY (CODE D FOR CHRONIC PAIN ) DAILY NEEDED NOT-TAKING ARIPIPRAZOLE 2 MG TABLET 1 TABLET ORALLY ONCE A DAY NOT-TAKING GABAPENTIN 600 MG TABLET 1 TABLET ORALLY THREE TIMES A DAY NOT-TAKING BREO ELLIPTA 200-25 MCG/INH AEROSOL POWDER BREATH ACTIVATED 1 PUFF INHALATION ONCE A DAY NOT-TAKING BUPROPION HCL 100 MG TABLET EXTENDED RELEASE 1 TABLET ORALLY DAILY MEDICATION LIST REVIEWED AND RECONCILED WITH THE PATIENT PAST MEDICAL HISTORY PRIMARY HTN,SECONDARY RENAL HYPERPARATHYROIDISM,CRI STAGE 3,VIT D DEFICIENT,HYPOMAGNISEMIA CKD3, 01/20 RENAL US WITH INCREASED ECHOGENICITY TRAVIS MARCOS EDEMA VIT D DEF HTN HYPOTHYROIDISM ASTHMA, DR [place] 2008, FELL WORKING FOOT TANGLED IN PURSE HANDLES FOR CP CLINIC, WEARS BRACE 05/22 LIVER US DIFFUSE FIBROFATTY INFILTRATION OF THE LIVER 03/22 MRI L SPINE - 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 EPIGASTRIC TENDERNESS - DR JARRETT GI SYR 04/21 L WRIST FX - FISH OBESITY PSEUDOSEIZURES - NEURO/ALI ALLERGIES IV DYE: ANAPHYLAXIS BACTRIM: ANAPHYLAXIS - ALLERGY ERYTHROMYCIN: ANAPHYLAXIS - ALLERGY PENICILLIN (FOR ALLERGIES USE ONLY): HIVES ZITHROMAX: HEADACHES - ALLERGY INDOCIN: HIVES,HEADACHE - ALLERGY ZITHROMAX: HIVES - ALLERGY IVP DYE: ANAPHYLAXIS - ALLERGY TORADOL: HIVES - ALLERGY BEE STINGS: ANAPHYLAXIS - ALLERGY HARD SHELL SEAFOOD: ANAPHYLAXIS - ALLERGY BIAXIN: HALLUCINATIONS - SIDE EFFECTS MUSCLE RELAXERS: SHAKES - SIDE EFFECTS SULFA (FOR ALLERGY USE ONLY): HIVES - ALLERGY LASIX: SWELLING - SIDE EFFECTS BACTROBAN OINTMENT: CAUSES YEAST INFECTION - SIDE EFFECTS LATEX: HIVES, BLISTERS - ALLERGY SURGICAL HISTORY HYSTERECTOMY,CHOLECYSTECTOMY,INGUINAL HERNIA,RIGHT,COLONOSCOPY,POLYPECTOMYX2,TONSILLECTOMY TENDON REPAIR LEFT WRIST/L THUMB 05/04/2016 RIGHT HAND CARPAL TUNNEL SURGERY/ TENDON REPAIR RIGHT WRIST/RIGHT THUMB 2019 ARTHROSCOPY LEFT SHOULDER 02/2019 FAMILY HISTORY FATHER: 84 YRS, DIAGNOSED WITH DIABETES, HYPERTENSION, UNSPECIFIED HEART DISEASE MOTHER: 77 YRS, COPD, DIABETES, HYPERTENSION SIBLINGS: , DIABETES 1DAUGHTER(S) - HEALTHY. 1 SISTER FORM BICYCLE ACCIDENT. SOCIAL HISTORY GENERAL: TOBACCO USE ARE YOU A:NONSMOKER LATEX QUESTIONNAIRE LATEX ALLERGY : HAVE YOU EVER DEVELOPED ANY TYPE OF REACTION AFTER HANDLING LATEX PRODUCTS SUCH RUBBER GLOVES, CONDOMS, DIAPHRAGMS, BALLOONS, SOCKS, OR UNDERWEAR?YES KNOWN LATEX ALLERGY - PLEASE INDICATE : HIVES FROM LATEX LATEX ALLERGY : HAVE YOU EVER DEVELOPED ANY TYPE OF REACTION DURING OR AFTER DENTAL APPOINTMENT, VAGINAL/RECTAL EXAMINATION, SURGICAL PROCEDURE, OR ANY OTHER EXPOSURE?NO LATEX RISK : HAVE YOU EVER HAD ANY DIFFICULTY BREATHING OR HIVES AFTER EATING OR HANDLING ANY FRUITS, OR VEGETABLES; SUCH KIWI, BANANAS, STONE FRUITS, OR CHESTNUTSNO LATEX RISK : DO YOU HAVE A PREVIOUS PERSONAL HISTORY OF MORE THAN NINE SURGERIES, SPINA BIFIDA, OR REPEATED CATHERIZATIONS? NO LATEX RISK : ARE YOU FREQUENTLY EXPOSED TO LATEX PRODUCTS IN YOUR OCCUPATION?NO DATE ASKED : 07/17/2019 ALCOHOL SCREENING DID YOU HAVE A DRINK CONTAINING ALCOHOL IN THE PAST YEAR?YES HOW OFTEN DID YOU HAVE SIX OR MORE DRINKS ON ONE OCCASION IN THE PAST YEAR?NEVER (0 POINTS) HOW MANY DRINKS DID YOU HAVE ON A TYPICAL DAY WHEN YOU WERE DRINKING IN THE PAST YEAR?1 OR 2 (0 POINTS) HOW OFTEN DID YOU HAVE A DRINK CONTAINING ALCOHOL IN THE PAST YEAR?MONTHLY OR LESS (1 POINT) POINTS1 INTERPRETATIONNEGATIVE RECREATIONAL DRUG USE DRUG USE?NO CAFFEINE CAFFEINE USE?NO SEXUAL HX HAD SEX IN THE LAST 12 MONTHS (VAGINAL, ORAL, OR ANAL)?YES WITHMEN ONLY HAVE YOU EVER HAD AN STD?NO HIV / HEP-C SCREENING HIV TEST OFFERED TO PATIENT:NO HEP-C TEST OFFERED TO PATIENT:NO [facility] [id number] LANGUAGE LANGUAGES SPOKEN:LAO EDUCATION LEVEL OF EDUCATION:COLLEGE LEARNING BARRIERS / SPECIAL NEEDS BARRIERS TO LEARNING?NO HEARING IMPAIRED?NO VISION IMPAIRED?YES COGNITIVELY IMPAIRED?NO :CORRECTIVE LENSES READINESS TO LEARN?YES LEARNING PREFERENCES?NO LEARNING CAPABILITIES PRESENT?YES EMOTIONAL BARRIERS?NO SPECIAL DEVICES?YES :CANE, BRACE LEFT ANLKLE BRACE CUT IN WORKER NEEDED?NO 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 DIET: REGULAR. EXERCISE: NONE. MARITAL STATUS: . OTHERS AT HOME: SPOUSE. NEW PATIENT PAIN DIARY TODAY'S VISIT 05/03/2019 PATIENT DESCRIBES PAIN :OTHER NO PAIN CURRENTLY IS THERE A CHANCE YOU COULD BE ?NO HAVE YOU BEEN SICK IN THE LAST WEEK (COLD, COUGH, FEVER, FLU, ETC)NO DO YOU TAKE ANY BLOOD THINNERS?NO DO YOU HAVE ANY RASHES OR OPEN SORES?NO ANY CHANGE IN BOWEL OR BLADDER CONTROL?NO ARE YOU ALLERGIC TO SHELLFISH OR IV DYE?YES ARE YOU DIABETIC?NO DO YOU HAVE A PACEMAKER OR DEFIBRILLATOR?NO ANY NEW PROBLEMS WITH MEDICINES OR NEW ALLERGIESNO ANY NEW PATTERNS OF PAIN OR NUMBNESS?NO ANY CHANGE IN YOUR MEDICAL CONDITION?NO HAVE YOU FALLEN IN THE LAST 6 MONTHS?NO DO YOU USE ANY TYPE OF TOBACCO (SMOKE, SMOKELESS, CHEW, ETC.)NO ARE YOU ABUSED, NEGLECTED, OR IN AN UNSAFE ENVIRONMENT?NO DO YOU HAVE THOUGHTS OF HURTING YOURSELF OR SOMEONE ELSE?NO DO YOU NEED ANY PRESCRIPTIONS?NO DO YOU HAVE ANY OTHER QUESTIONS OR CONCERNS?NO INTENSITY SCALE REVIEWEDNUMBER PAIN CLINIC PFS, CLERGY, PUBLIC HEALTH REFERRALS PFS REFERRAL NEEDED?NO CLERGY REFERRAL NEEDED?NO PUBLIC HEALTH REFERRAL NEEDED?NO WAS THE PROVIDER NOTIFIED OF ANY PERTINENT INFO?YES HAS THE PATIENT BEEN EDUCATED REGARDING HIS/HER PLAN OF CARE?YES HAS THE PATIENT BEEN EDUCATED REGARDING PAIN, THE RISK FOR PAIN, THE IMPORTANCE OF EFFECTIVE PAIN MANAGEMENT, AND THE PAIN ASSESSMENT PROCESS?YES ADVANCE DIRECTIVE ADVANCE DIRECTIVE DISCUSSED WITH PATIENT:YES PT HAS HCP FOR [facility] H[facility]IZATION/MAJOR DIAGNOSTIC PROCEDURE SURG RELATED REVIEW OF SYSTEMS CONSTITUTIONAL: ANY RECENT FEVER OR ILLNESS NO . CHILLS NO . GASTROENTEROLOGY: BOWEL INCONTINENCE NO . ANY NEW CHANGE IN BOWEL CONTROL? NO . ABDOMINAL PAIN NO . CONSTIPATION NO . GENITOURINARY: ANY NEW CHANGE IN BLADDER CONTROL? NO . IS THERE A CHANCE YOU COULD BE ? NO . URINARY INCONTINENCE NO . CARDIOLOGY: CHEST PRESSURE NO . CHEST PAIN NO . RESPIRATORY: COUGH NO . SHORTNESS OF BREATH NO . VITAL SIGNS WT 229.8 LBS, HT 64 IN, BMI 39.44 INDEX, BP 136/63 MM HG, HR 52 /MIN, RR 18 /MIN, TEMP 96.9 F, OXYGEN SAT % 100%, SAFE IN ENV? (Y/N) YES, NA INITIALS IL 10:17, REVIEWED BY: CAR HERNANDEZ LPN. EXAMINATION GENERAL EXAMINATION: GENERALNO ACUTE DISTRESS, WELL NOURISHED AND HYDRATED. PSYCHAPPROPRIATE MOOD AND AFFECT . LUNGS:CLEAR TO AUSCULTATION BILATERALLY, NO WHEEZES, RHONCHI, RALES. HEART:NO MURMURS, REGULAR RATE AND RHYTHM. BACK:POINT TENDER ALONG LUMBAR SPINE, SURROUNDING SKIN SHOWS NO ERYTHEMA, ECCHYMOSIS, INCREASED WARMTH, AND/OR SKIN ERUPTIONS NOTED. . MUSCULOSKELETAL:EQUAL STRENGTH OF THE LOWER EXTREMITIES BILATERALLY . ASSESSMENTS SPONDYLOSIS WITHOUT MYELOPATHY OR RADICULOPATHY, LUMBOSACRAL REGION - M47.817 (PRIMARY) TREATMENT SPONDYLOSIS WITHOUT MYELOPATHY OR RADICULOPATHY, LUMBOSACRAL REGION NOTES: LUMBAR THERAPEUTIC FACET BLOCK BILATERAL L4-L5 L5-S1. CLINICAL NOTES: 64-YEAR-OLD FEMALE IN FOR CHRONIC PAIN FOLLOW-UP. GIVEN PRESENTING SYMPTOMS AND RESULTS OF PHYSICAL EXAMINATION RECOMMENDED BILATERAL THERAPEUTIC FACET BLOCK L4-L5 L5-S1 WITH POSTPROCEDURAL FOLLOW-UP. PATIENT HAS EXPRESSED UNDERSTANDING OF AND WAS IN AGREEMENT WITH TREATMENT PLAN. GIVEN TIME TO ASK QUESTIONS AND EXPRESS CONCERNS. , ISTOP REGISTRY REVIEWED AND DEMONSTRATES COMPLLIANCE. (REF # [id number] ) BRINGS IN MEDICATIONS WHICH IS APPROPRIATE FOR WHAT WAS DISPENSED. RECENT URINE TOXICOLOGY REVIEWED. NO UNAUTHORIZED MEDICATIONS. NO ILLICIT SUBSTANCES AND PRESCRIBED MEDICATIONS WERE PRESENT. OTHERS NOTES: FACET JOINT INJECTION MATERIAL WAS PRINTED,FACET JOINT INJECTION MATERIAL WAS PRINTED. PROCEDURES PN WORKMANS' COMP OPINION IN YOUR OPINION, WAS THE INCIDENT THAT THE PATIENT DESCRIBED THE COMPETENT MEDICAL CAUSE OF THIS INJURY/ILLNESS? YES ARE THE PATIENT'S COMPLAINTS CONSISTENT WITH HIS/HER HISTORY OF THE INJURY/ILLNESS? YES IS THE PATIENT'S HISTORY OF THE INJURY/ILLNESS CONSISTENT WITH YOUR OBJECTIVE FINDING? YES WHAT IS THE PERCENTAGE OF TEMPORARY IMPAIRMENT? MARKED = 75% IS THE PATIENT WORKING? NO DOCTOR ON SITE: TRINO BYRD MD DISPOSITION & COMMUNICATION FOLLOW UP POSTPROCEDURE (REASON: BILATERAL THERAPEUTIC LUMBAR FACET L4-L5 L5-S1) ELECTRONICALLY SIGNED BY JERRY SARAVIA ON 07/18/2019 AT 02:08 PM EDT DISCLAIMER : THIS IS A VISIT SUMMARY EXTRACTED FROM THE [employer] CHART. IT IS NOT A COPY OF THE [employer] PROGRESS NOTE. HARRIET
== END ==
LOC: M PAIN 10:00
PROVIDERS: ATTEND Family Medicine
DX: M47.817 Spondylosis without myelopathy or radiculopathy, lumbosacral region (principal)

== ENCOUNTER → 2019-07-31 | Outpatient (CLI) | payer OTHER | LOC: M LABSMTC 10:48 | PROVIDERS: ATTEND Anesthesiology | DX: Z03.818 Encounter for observation for suspected exposure to other biological agents ruled out (principal); Z11.59 Encounter for screening for other viral diseases | CPT/HCPCS: C9803; U0003 ==

== ENCOUNTER → 2019-08-03 | Outpatient (CLI) | payer OTHER ==
[~2019-08-03] MED LIST changes: +BUPIVACAINE HCL 0.25% 30ML VIAL As Ordered ONE; +ISOVUE-M 300 61% 15ML VIAL As Ordered ONE; +LIDOCAINE 1% SDV 30ML VIAL As Ordered ONE; +TRIAMCINOLONE ACETONIDE SUSP 40 MG/ML VIAL (J3301) As Ordered ONE; +diazePAM 5 MG TAB As Ordered ONE; +oxyCODONE 5MG TAB As Ordered ONE
--- NOTE | 2019-08-03 14:31 | REP ---
C-ARM VIEWS LOWER LUMBAR SPINE: CLINICAL HISTORY: Pain. Four C-arm views of lower lumbar spine performed during bilateral lumbar facet injection by Dr. Lowery. Baldwin are seen along the lower lumbar facet joints. 16.4 seconds fluoroscopy time utilized. Electronically Signed by Rashaad Douglas MD 08/03/2019 03:20 P
--- NOTE | 2019-08-04 00:45 | ECWPNPC ---
PATIENT NAME: ROZINA HERNANDEZ : 1955 GENDER: FEMALE VISIT DATE: 08/03/2019 DISCHARGE DATE: 08/03/19 1232 VISIT LOCKED DATE TIME: PHYSICIAN: TRINO PEOPLES MD RESOURCE: TRINO PEOPLES MD REASON FOR APPOINTMENT 1. W/C JANE LFBT L4/L5, L5/S1 PAT DONE HISTORY OF PRESENT ILLNESS GENERAL: -. FALL RISK SCREENING: SCREENING :NO FALLS REPORTED IN THE LAST YEAR PAIN SCREENING: PATIENT HAS A COMPLAINT OF ACUTE OR CHRONIC PAIN :YES LOCATION OF PAIN:MID BACK, LOW BACK INTENSITY OF PAIN (SCALE OF 1 TO 10):6 WHAT DOES YOUR PAIN FEEL LIKE:ACHING, BURNING, CONTINOUS, SHARP, STABBING, TENDER, THROBBING, SORE, SHOOTING NURSING NOTE: -. PAIN CENTER INTAKE QUESTIONS: DO YOU HAVE A HISTORY OF MRSA? :YES HX 3-4 YEARS AGO, CYST IN GROIN, ORI CLEARED HER SINCE DO YOU TAKE A BLOOD THINNERS? :YES ASA 81MG DO YOU HAVE ANY BLEEDING DISORDERS? :NO ANY NEW NUMBNESS OR WEAKNESS IN YOUR LEGS OR ARMS? :NO ANY PACEMAKER,DEFIBRILLATOR, OR DORSAL COLUMN STIMULATOR? :NO DO YOU HAVE ANY RASHES OR OPEN SORES? :NO ARE YOU ALLERGIC TO IV DYE? :YES ARE YOU DIABETIC? :NO ANY NEW PROBLEMS WITH YOUR MEDICATIONS? :NO HAVE YOU RECEIVED A VACCINE IN THE PAST 30 DAYS? :NO DO YOU PLAN TO RECEIVE A VACCINE IN THE NEXT 21 DAYS? :NO DO YOU TAKE ANY IMMUNOSUPPRESSIVE MEDICATIONS? :NO ANY HISTORY OF SEIZURES? 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 :NO DO YOU HAVE SLEEP APNEA? :YES DO YOU WEAR A CPAP?YES ANY RECENT HEAD INJURY? :NO DO YOU HAVE ANY NEW INFECTIONS? :NO IS THERE A CHANCE YOU COULD BE ? :NO ARE YOU BREAST FEEDING? :NO WHEN DID YOU LAST EAT? : -08/02/19 2400 WHEN DID YOU LAST DRINK? : -08/03/2019 1000 WHAT DID YOU LAST DRINK? : -SIP WATER NAME OF PERSON DRIVING YOU HOME? : - - LEVON DO YOU HAVE ANY OTHER QUESTIONS OR CONCERNS? : - CURRENT MEDICATIONS TAKING VITAMIN D 25 MCG (1000 UT) TABLET 1 CAPSULE ORALLY ONCE DAILY, NOTES: 08/02 0430 TAKING EPIPEN 2-DUANE 0.3 MG/0.3ML SOLUTION AUTO-INJECTOR INJECTION DIRECTED, NOTES: > 1 YEAR TAKING CLONAZEPAM 0.5 MG TABLET 0.5 ORALLY 1/2 TAB IN AM AND 1/4 TAB IN PM, NOTES: 08/02 429 TAKING IMITREX 100 MG TABLET 1 TABLET NEEDED ORALLY DIRECTED PRN MIGRAINES, NOTES: > 4 MONTHS TAKING PROBIOTIC CAPSULE 1 TAB(S) ORALLY DAILY, NOTES: 08/02 429 TAKING 28-0.8 MG TABLET ORALLY DAILY, NOTES: 08/02 429 TAKING ASPIRIN EC 81 MG TABLET DELAYED RELEASE 1 TABLET ORALLY ONCE A DAY, NOTES: 08/02 429 TAKING ATORVASTATIN CALCIUM 10 MG TABLET 1 TABLET ORALLY ONCE A DAY, NOTES: 08/02 1999 TAKING LOVAZA 1 GM CAPSULE 2 CAPSULES ORALLY TWICE A DAY, NOTES: 08/02 429 TAKING PRIMIDONE 50 MG TABLET ORALLY BID, NOTES: 08/02 429 TAKING TOPIRAMATE 100 MG TABLET 1 TABLET ORALLY DAILY, NOTES: 08/02 1999 TAKING RABEPRAZOLE SODIUM 20 MG TABLET DELAYED RELEASE 1 TABLET ORALLY 2 TBS IN ,/1 TAB IN PM, NOTES: 08/01 1299 TAKING IRBESARTAN 150 MG TABLET 1 TABLET ORALLY ONCE A DAY, NOTES: 1999 TAKING SPIRONOLACTONE 25 MG TABLET 1 TABLET ORALLY DAILY, NOTES: 08/02 1299 TAKING CALCIUM + D 600-200 MG-UNIT TABLET 1 TABLET ORALLY TWICE A DAY, NOTES: 08/02 429 TAKING TORSEMIDE 20 MG TABLET DIRECTED ORALLY 1 TAB Q OTHER DAY,1/2 TAB Q OTHER DAY, NOTES: 08/02 429 TAKING VOLTAREN 1 % GEL DIRECTED EXTERNALLY PRN, NOTES: 07/29 TAKING VENTOLIN HFA 90 MCG/ACT AEROSOL SOLUTION 2 PUFFS NEEDED INHALATION EVERY 6 HRS, NOTES: > 2 MONTHS TAKING NYSTATIN [id number] UNIT/GM POWDER 1 APPLICATION TO AFFECTED AREA EXTERNALLY TWICE A DAY, NOTES: LAST WEEK TAKING FISH OIL DOUBLE STRENGTH 1200 MG CAPSULE 1 CAPSULE ORALLY THREE TIMES DAILY, NOTES: 08/02 429 TAKING TIZANIDINE HCL 2 MG TABLET 1 TABLET NEEDED ORALLY FOR SPAMS AND PAIN BEFORE BEDTIME MAY REPEAT IN 4 HRS MDD2 (WORKERS COMP), NOTES: > 3 WEEKS TAKING LIDODERM 5 % PATCH DIRECTED EXTERNALLY (WORKERS COMP) APPLY 3 PATCH TO PAINFUL AREA OF LOW BACK ON 12 HRS OFF 12 HOURS PRN PAIN., NOTES: 08/01 TAKING LYRICA 100 MG CAPSULE 1 CAPSULE ORALLY BID, NOTES: 08/02 429 TAKING VITAMIN E 400 UNIT CAPSULE 1 CAPSULE ORALLY ONCE A DAY, NOTES: 08/02 429 TAKING IPRATROPIUM-ALBUTEROL 0.5-2.5 (3) MG/3ML SOLUTION 3 ML NEEDED INHALATION EVERY 6 HRS, NOTES: > 6 MONTHS TAKING ADVAIR HFA 230-21 MCG/ACT AEROSOL 2 PUFFS INHALATION TWICE A DAY, NOTES: 08/02 499 TAKING BUSPIRONE HCL 5 MG TABLET 1 TABLET ORALLY DAILY, NOTES: 08/02 429 TAKING TRAMADOL HCL 50 MG TABLET 1 TAB ORALLY (CODE D FOR CHRONIC PAIN ) DAILY NEEDED, NOTES: 07/31 NOT-TAKING ARIPIPRAZOLE 2 MG TABLET 1 TABLET ORALLY ONCE A DAY NOT-TAKING GABAPENTIN 600 MG TABLET 1 TABLET ORALLY THREE TIMES A DAY NOT-TAKING BREO ELLIPTA 200-25 MCG/INH AEROSOL POWDER BREATH ACTIVATED 1 PUFF INHALATION ONCE A DAY NOT-TAKING BUPROPION HCL 100 MG TABLET EXTENDED RELEASE 1 TABLET ORALLY DAILY MEDICATION LIST REVIEWED AND RECONCILED WITH THE PATIENT PAST MEDICAL HISTORY PRIMARY HTN,SECONDARY RENAL HYPERPARATHYROIDISM,CRI STAGE 3,VIT D DEFICIENT,HYPOMAGNISEMIA CKD3, 01/20 RENAL US WITH INCREASED ECHOGENICITY TRAVIS MARCOS EDEMA VIT D DEF HTN HYPOTHYROIDISM ASTHMA, DR [place] 2008, FELL WORKING FOOT TANGLED IN PURSE HANDLES FOR CP CLINIC, WEARS BRACE 05/22 LIVER US DIFFUSE FIBROFATTY INFILTRATION OF THE LIVER 03/22 MRI L SPINE - 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 EPIGASTRIC TENDERNESS - DR JARRETT GI SYR 04/21 L WRIST FX - FISH OBESITY PSEUDOSEIZURES - NEURO/ALI ALLERGIES IV DYE: ANAPHYLAXIS BACTRIM: ANAPHYLAXIS - ALLERGY ERYTHROMYCIN: ANAPHYLAXIS - ALLERGY PENICILLIN (FOR ALLERGIES USE ONLY): HIVES ZITHROMAX: HEADACHES - ALLERGY INDOCIN: HIVES,HEADACHE - ALLERGY TORADOL: HIVES - ALLERGY BEE STINGS: ANAPHYLAXIS - ALLERGY HARD SHELL SEAFOOD: ANAPHYLAXIS - ALLERGY BIAXIN: HALLUCINATIONS - SIDE EFFECTS MUSCLE RELAXERS: SHAKES - SIDE EFFECTS SULFA (FOR ALLERGY USE ONLY): HIVES - ALLERGY LASIX: SWELLING - SIDE EFFECTS BACTROBAN OINTMENT: CAUSES YEAST INFECTION - SIDE EFFECTS LATEX: HIVES, BLISTERS - ALLERGY SURGICAL HISTORY HYSTERECTOMY,CHOLECYSTECTOMY,INGUINAL HERNIA,RIGHT,COLONOSCOPY,POLYPECTOMYX2,TONSILLECTOMY TENDON REPAIR LEFT WRIST/L THUMB 05/04/2016 RIGHT HAND CARPAL TUNNEL SURGERY/ TENDON REPAIR RIGHT WRIST/RIGHT THUMB 2019 ARTHROSCOPY LEFT SHOULDER 02/2019 FAMILY HISTORY FATHER: 84 YRS, DIAGNOSED WITH DIABETES, HYPERTENSION, UNSPECIFIED HEART DISEASE MOTHER: 77 YRS, COPD, DIABETES, HYPERTENSION SIBLINGS: , DIABETES 1DAUGHTER(S) - HEALTHY. 1 SISTER FORM BICYCLE ACCIDENT. SOCIAL HISTORY GENERAL: TOBACCO USE ARE YOU A:NONSMOKER LATEX QUESTIONNAIRE LATEX ALLERGY : HAVE YOU EVER DEVELOPED ANY TYPE OF REACTION AFTER HANDLING LATEX PRODUCTS SUCH RUBBER GLOVES, CONDOMS, DIAPHRAGMS, BALLOONS, SOCKS, OR UNDERWEAR?YES KNOWN LATEX ALLERGY - PLEASE INDICATE : HIVES FROM LATEX LATEX ALLERGY : HAVE YOU EVER DEVELOPED ANY TYPE OF REACTION DURING OR AFTER DENTAL APPOINTMENT, VAGINAL/RECTAL EXAMINATION, SURGICAL PROCEDURE, OR ANY OTHER EXPOSURE?NO LATEX RISK : HAVE YOU EVER HAD ANY DIFFICULTY BREATHING OR HIVES AFTER EATING OR HANDLING ANY FRUITS, OR VEGETABLES; SUCH KIWI, BANANAS, STONE FRUITS, OR CHESTNUTSNO LATEX RISK : DO YOU HAVE A PREVIOUS PERSONAL HISTORY OF MORE THAN NINE SURGERIES, SPINA BIFIDA, OR REPEATED CATHERIZATIONS? NO LATEX RISK : ARE YOU FREQUENTLY EXPOSED TO LATEX PRODUCTS IN YOUR OCCUPATION?NO DATE ASKED : 08/02/2019 ALCOHOL SCREENING DID YOU HAVE A DRINK CONTAINING ALCOHOL IN THE PAST YEAR?YES HOW OFTEN DID YOU HAVE SIX OR MORE DRINKS ON ONE OCCASION IN THE PAST YEAR?NEVER (0 POINTS) HOW MANY DRINKS DID YOU HAVE ON A TYPICAL DAY WHEN YOU WERE DRINKING IN THE PAST YEAR?1 OR 2 (0 POINTS) HOW OFTEN DID YOU HAVE A DRINK CONTAINING ALCOHOL IN THE PAST YEAR?MONTHLY OR LESS (1 POINT) POINTS1 INTERPRETATIONNEGATIVE RECREATIONAL DRUG USE DRUG USE?NO CAFFEINE CAFFEINE USE?NO SEXUAL HX HAD SEX IN THE LAST 12 MONTHS (VAGINAL, ORAL, OR ANAL)?YES WITHMEN ONLY HAVE YOU EVER HAD AN STD?NO HIV / HEP-C SCREENING HIV TEST OFFERED TO PATIENT:NO HEP-C TEST OFFERED TO PATIENT:NO ROMAN CATHOLIC [id number] CONGREGATIONAL LANGUAGE LANGUAGES SPOKEN:CONGOLESE EDUCATION LEVEL OF EDUCATION:COLLEGE LEARNING BARRIERS / SPECIAL NEEDS BARRIERS TO LEARNING?NO HEARING IMPAIRED?NO VISION IMPAIRED?YES COGNITIVELY IMPAIRED?NO :CORRECTIVE LENSES READINESS TO LEARN?YES LEARNING PREFERENCES?NO LEARNING CAPABILITIES PRESENT?YES EMOTIONAL BARRIERS?NO SPECIAL DEVICES?YES :CANE, BRACE LEFT ANLKLE BRACE CROSSCUTTER NEEDED?NO 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 DIET: REGULAR. EXERCISE: NONE. MARITAL STATUS: . OTHERS AT HOME: SPOUSE. PAIN CLINIC PFS, CLERGY, PUBLIC HEALTH REFERRALS PFS REFERRAL NEEDED?NO CLERGY REFERRAL NEEDED?NO PUBLIC HEALTH REFERRAL NEEDED?NO WAS THE PROVIDER NOTIFIED OF ANY PERTINENT INFO?YES HAS THE PATIENT BEEN EDUCATED REGARDING HIS/HER PLAN OF CARE?YES HAS THE PATIENT BEEN EDUCATED REGARDING PAIN, THE RISK FOR PAIN, THE IMPORTANCE OF EFFECTIVE PAIN MANAGEMENT, AND THE PAIN ASSESSMENT PROCESS?YES ADVANCE DIRECTIVE ADVANCE DIRECTIVE DISCUSSED WITH PATIENT:YES PT HAS HCP FOR [facility] HOSPITALIZATION/MAJOR DIAGNOSTIC PROCEDURE SURG RELATED VITAL SIGNS WT 230.0 LBS, HT 64 IN, BMI 39.48 INDEX, BP 136/61 MM HG, HR 53 /MIN, RR 18 /MIN, TEMP 96.5 F, OXYGEN SAT % 100%, NA INITIALS AW 1045. EXAMINATION GENERAL EXAMINATION: THE PATIENT IS ALERT, ORIENTED TIMES THREE AND COOPERATIVE. HEART SHOWS REGULAR RHYTHM, NO MURMURS AND NO GALLOPS. LUNGS ARE CLEAR TO AUSCULTATION. ASSESSMENTS SPONDYLOSIS WITHOUT MYELOPATHY OR RADICULOPATHY, LUMBAR REGION - M47.816 (PRIMARY) SPONDYLOSIS WITHOUT MYELOPATHY OR RADICULOPATHY, LUMBOSACRAL REGION - M47.817 TREATMENT SPONDYLOSIS WITHOUT MYELOPATHY OR RADICULOPATHY, LUMBAR REGION MEDICATION: VALIUM TAB 10MG ORALLY (DIAZEPAM)JOSH PRATT RN 08/03/2019 11:05:30 AM > VERIFIED ÁNGEL MEZA 08/03/2019 11:10:22 AM > LOT [id number], EXP 01/26 GIVEN LAS MEDICATION: OXYCODONE HCL TAB 10MG ORALLYJOSH PRATT RN 08/03/2019 11:05:53 AM > VERIFIED ÁNGEL MEZA 08/03/2019 11:11:21 AM > LOT [id number] , EXP 03/2021 GIVEN LAS SPONDYLOSIS WITHOUT MYELOPATHY OR RADICULOPATHY, LUMBOSACRAL REGION SMC FACET BLOCK (PAIN)[id number] PROCEDURES PAIN NURSING RECORD PRE-PROCEDURE IV SITE N/A : PT HAS AN ALLERGY TO IVP DYE AND SHELLFISH. DISCUSSED WITH DR. PEOPLES, HE WOULD LIKE TO CHECK WITH RADIOLOGY IF PATIENT HAD DYE DURING THE LAST PROCEDURE. 1142 DR. PEOPLES IN ROOM, VIEWED PREVIOUS STUDY OF 04/26 WHICH APPEARS THAT THERE WAS NO DYE USED AT THAT TIME. NO DYE TO BE USED PER DR. PEOPLES. PROCEDURE IN ROOM 1135, PHYSICIAN IN ROOM 1142, START 1149, FINISH 1154, PHYSICIAN OUT OF ROOM 1156, STEROID KENALOG, O2 N/A, ECG OTHER SINUS BRADYCARDIA, RATE 45-58, DR. PEOPLES NOTIFIED, PATIENT SHIELDED YES, SAFETY STRAP YES, PREP CHLOROPREP, DRESSING TEGADERM LOC: 1. ALERT, ORIENTED RESP: 1. REGULAR, NO DYSPNEA COLOR: 1. PINK SKIN: 1. WARM, DRY POSITION: 1. PRONE VITALS: 1139 48-16 98% 130/60 1145 51-16 96% 124/56 1200 47-16 100% 123/58 1220 52-16 98% 134/58 DISCHARGE: POST PAIN 0, DRESSING SITE DRY AND INTACT, IV N/A, GAIT STEADY, TEACHING COMPLETED, PATIENT ACKNOWLEDGES UNDERSTANDING YES, PATIENT DISCHARGED AT 1230 PN WORKMANS' COMP OPINION IN YOUR OPINION, WAS THE INCIDENT THAT THE PATIENT DESCRIBED THE COMPETENT MEDICAL CAUSE OF THIS INJURY/ILLNESS? YES ARE THE PATIENT'S COMPLAINTS CONSISTENT WITH HIS/HER HISTORY OF THE INJURY/ILLNESS? YES IS THE PATIENT'S HISTORY OF THE INJURY/ILLNESS CONSISTENT WITH YOUR OBJECTIVE FINDING? YES WHAT IS THE PERCENTAGE OF TEMPORARY IMPAIRMENT? MARKED = 75% . IS THE PATIENT WORKING? NO . DOCTOR ON SITE: TRINO BYRD MD PN LUMBAR FACET BLOCK THERAPEUTIC PRE PROCEDURE DIAGNOSIS LUMBAR SPONDYLOSIS, LUMBOSACRAL SPONDYLOSIS POST PROCEDURE DIAGNOSIS LUMBAR SPONDYLOSIS, LUMBOSACRAL SPONDYLOSIS PROCEDURE BILATERAL L4- L5 AND BILATERAL L5-S1 LUMBAR FACET THERAPEUTIC BLOCK SURGEON DR. TRINO PEOPLES VAULT CUSTODIAN NONE ANESTHESIA LOCAL PRE PROCEDURE NOTE THE PATIENT HAS A HISTORY OF CHRONIC LOW BACK PAIN. I EVALUATED THE PATIENT AND REVIEWED THE CHART. I WENT OVER THE RISKS, ALTERNATIVES, AND BENEFITS ASSOCIATED WITH THIS PROCEDURE. I DISCUSSED THAT THE USE OF STEROIDS MAY CONTRIBUTE TO IMMUNOSUPPRESSION OF THE PATIENT'S BODY AGAINST INFECTIONS SUCH COVID-19. THE PATIENT IS AWARE OF THE POTENTIAL COMPLICATIONS ASSOCIATED WITH THIS VIRUS, INCLUDING, BUT NOT LIMITED TO, . I DISCUSSED THE USE OF DEXAMETHASONE INSTEAD OF KENALOG; HOWEVER, THE PATIENT WOULD LIKE TO MOVE FORWARD WITH KENALOG. THE PATIENT WOULD LIKE TO PROCEED AND GIVES CONSENT TO PERFORM THE PROCEDURE. THE PATIENT DENIES UNEXPLAINABLE WEIGHT LOSS, FEVER, CHILLS, OR NEW CHANGES IN URINARY OR BOWEL CONTROL. THE PATIENT IS COVID-19 NEGATIVE DESCRIPTION OF PROCEDURE THE PATIENT WAS BROUGHT TO THE PROCEDURE ROOM AND PLACED IN THE PRONE POSITION. THE LUMBOSACRAL AREA WAS CLEANED WITH CHLORAPREP SOLUTION AND DRAPED ASEPTICALLY. THE PROCEDURE WAS DONE UNDER STERILE CONDITIONS. I CHECKED LATERALITY AND THE LEVEL WHERE THE PROCEDURE WAS GOING TO BE PERFORMED WITH THE PATIENT AND THE SUPPORTING STAFF AT THE MOMENT OF THE TIME OUT IN THE PROCEDURE ROOM. UNDER FLUOROSCOPIC GUIDANCE, THE TARGET POINT WAS SELECTED AT THE LEFT AND RIGHT L4-L5 AND LEFT AND RIGHT L5-S1 FACET JOINT. TARGET POINT WAS SELECTED AFTER LATERAL ROTATION AND TILT OF THE MAGNIFIER OF THE C-ARM. LIDOCAINE 0.5% WAS USED TO NUMB THE SKIN AND THE SUBCUTANEOUS TISSUE BELOW IT. SPINAL NEEDLES, 22-GAUGE, WERE ADVANCED UNDER FLUOROSCOPIC GUIDANCE AND FOLLOWING PATIENT FEEDBACK UNTIL THE TARGETS WERE TOUCHED. THE POSITION OF THE NEEDLES WAS VERIFIED WITH AP AND LATERAL VIEWS. THE PATIENT IS ALLERGIC TO DYE SO NO DYE WAS USED. A SOLUTION OF 1.0 ML OF BUPIVACAINE 0.125% OF KENALOG 40 MG WAS INJECTED AT EACH SITE. THERE WAS NO EVIDENCE OF BLOOD, PARESTHESIA OR CEREBROSPINAL FLUID DURING THE PROCEDURE. THE PATIENT WAS SENT TO THE RECOVERY ROOM. THE PATIENT WAS MOVING THE EXTREMITIES AND DOING WELL. THERE WAS NO COMPLICATION DURING THE PROCEDURE. EBL LESS THAN 5 ML. FLUOROSCOPY TIME WAS 16 SECONDS POST PROCEDURE NOTE THE PATIENT RUNS BRADYCARDIC, CONSIDER IV. CONSIDER AN EPIDURAL ON THE PATIENT. THE PATIENT WILL BE SEEN IN A FOLLOW UP IN THE NEXT FEW WEEKS. I AM LOOKING FOR LONG LASTING RELIEF FOR THE PATIENT WITH THIS INTERVENTION. INSTRUCTIONS WERE GIVEN, QUESTIONS WERE ANSWERED, AND THE PATIENT EXPRESSED UNDERSTANDING AND AGREES WITH THE PLAN. THE PATIENT IS AWARE TO STAY HOME FOR THE NEXT WEEK, IF POSSIBLE, DUE TO COVID-19. IANJALI, DOCUMENTED THE ABOVE INFORMATION ACTING A SCRIBE FOR DR. PEOPLES. I HAVE REVIEWED THE ABOVE DOCUMENT, WRITTEN BY ANJALI MOMIN, MANAGER INPATIENT, AND I VERIFY THAT IT IS ACCURATE PROCEDURE CODES 58369 INJ PARAVERT F JNT L/S 1 LEV, MODIFIERS: 50 [id number] INJ PARAVERT F JNT L/S 2 LEV, MODIFIERS: 50 DISPOSITION & COMMUNICATION FOLLOW UP F/UP WITH SEED SALES MANAGER (REASON: W/C POST JANE LFBT L4-L5, L5-S1) ELECTRONICALLY SIGNED BY TRINO PEOPLES MD, MD ON 08/03/2019 AT 05:16 PM EDT DISCLAIMER : THIS IS A VISIT SUMMARY EXTRACTED FROM THE [employer] Plan CHART. IT IS NOT A COPY OF THE [employer] PROGRESS NOTE. HARRIET
== END ==
LOC: M PAIN 10:30
PROVIDERS: ATTEND Anesthesiology
DX: M47.816 Spondylosis without myelopathy or radiculopathy, lumbar region (principal); M47.817 Spondylosis without myelopathy or radiculopathy, lumbosacral region; Z79.899 Other long term (current) drug therapy; Z79.891 Long term (current) use of opiate analgesic; Z88.0 Allergy status to penicillin; Z88.1 Allergy status to other antibiotic agents; Z88.2 Allergy status to sulfonamides; Z88.8 Allergy status to other drugs, medicaments and biological substances; Z91.013 Allergy to seafood; Z91.030 Bee allergy status; Z91.041 Radiographic dye allergy status
CPT/HCPCS: 64493; 64494; J3301; Q9967

== ENCOUNTER → 2019-08-16 | Outpatient (CLI) | payer OTHER ==
[~2019-08-16] MED LIST changes: -BUPIVACAINE HCL 0.25% 30ML VIAL As Ordered ONE; -ISOVUE-M 300 61% 15ML VIAL As Ordered ONE; -LIDOCAINE 1% SDV 30ML VIAL As Ordered ONE; -TRIAMCINOLONE ACETONIDE SUSP 40 MG/ML VIAL (J3301) As Ordered ONE; -diazePAM 5 MG TAB As Ordered ONE; -oxyCODONE 5MG TAB As Ordered ONE
--- NOTE | 2019-08-18 01:01 | ECWPNPC ---
PATIENT NAME: ROZINA HERNANDEZ : 1955 GENDER: FEMALE VISIT DATE: 08/16/2019 DISCHARGE DATE: 08/16/19 1013 VISIT LOCKED DATE TIME: PHYSICIAN: LEVON GLOVER RESOURCE: LEVON GLOVER REASON FOR APPOINTMENT 1. POST BILAT THERA FACET BLK HISTORY OF PRESENT ILLNESS GENERAL: - 64-YEAR-OLD FEMALE IN FOR POST BILATERAL THERAPEUTIC FACET BLOCK FOLLOW-UP. PATIENT FEELS THE PROCEDURE WAS SUCCESSFUL OVERALL RATING HER PAIN PREPROCEDURE AT A 10 OUT OF 10 AND POSTPROCEDURE AT A 0 OUT OF 10. PATIENT STATES THE PROCEDURE CONTINUES TO HELP HER TODAY RATING HER PAIN AT A 0 OUT OF 10. 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 THE PATIENT SAYS WHEN SHE STOOD UP, SHE TRIPPED DUE TO HER FOOT BEING CAUGHT IN PURSE HANDLE THAT RESULTED IN HER BACK INJURY AND A BROKEN ANKLE. FALL RISK SCREENING: SCREENING :NO FALLS REPORTED IN THE LAST YEAR PAIN SCREENING: PATIENT HAS A COMPLAINT OF ACUTE OR CHRONIC PAIN :NO [id number]/10, [id number]-4, TODAY-0/10 NURSING NOTE: -. PAIN CENTER INTAKE QUESTIONS: DO YOU HAVE A HISTORY OF MRSA? :NO DO YOU TAKE A BLOOD THINNERS? :NO DO YOU HAVE ANY BLEEDING DISORDERS? :NO ANY NEW NUMBNESS OR WEAKNESS IN YOUR LEGS OR ARMS? :NO ANY PACEMAKER,DEFIBRILLATOR, OR DORSAL COLUMN STIMULATOR? :NO DO YOU HAVE ANY RASHES OR OPEN SORES? :NO ARE YOU ALLERGIC TO IV DYE? :YES CT SCAN ARE YOU DIABETIC? :NO ANY NEW PROBLEMS WITH YOUR MEDICATIONS? :NO HAVE YOU RECEIVED A VACCINE IN THE PAST 30 DAYS? :NO DO YOU PLAN TO RECEIVE A VACCINE IN THE NEXT 21 DAYS? :NO DO YOU NEED ANY PRESCRIPTION? :YES TRAMADOL DO YOU TAKE ANY IMMUNOSUPPRESSIVE MEDICATIONS? :NO IS THERE A CHANCE YOU COULD BE ? :NO ARE YOU BREAST FEEDING? :NO CURRENT MEDICATIONS TAKING EPIPEN 2-DUANE 0.3 MG/0.3ML SOLUTION AUTO-INJECTOR INJECTION DIRECTED, NOTES: > 1 YEAR TAKING CLONAZEPAM 0.5 MG TABLET 0.5 ORALLY 1/2 TAB IN AM AND 1/4 TAB IN PM, NOTES: 08/02 429 TAKING IMITREX 100 MG TABLET 1 TABLET NEEDED ORALLY DIRECTED PRN MIGRAINES, NOTES: > 4 MONTHS TAKING PROBIOTIC CAPSULE 1 TAB(S) ORALLY DAILY, NOTES: 08/02 429 TAKING 28-0.8 MG TABLET ORALLY DAILY, NOTES: 08/02 429 TAKING ASPIRIN EC 81 MG TABLET DELAYED RELEASE 1 TABLET ORALLY ONCE A DAY, NOTES: 08/02 429 TAKING ATORVASTATIN CALCIUM 10 MG TABLET 1 TABLET ORALLY ONCE A DAY, NOTES: 08/02 1999 TAKING LOVAZA 1 GM CAPSULE 2 CAPSULES ORALLY TWICE A DAY, NOTES: 08/02 429 TAKING PRIMIDONE 50 MG TABLET ORALLY BID, NOTES: 08/02 429 TAKING TOPIRAMATE 100 MG TABLET 1 TABLET ORALLY DAILY, NOTES: 08/02 1999 TAKING RABEPRAZOLE SODIUM 20 MG TABLET DELAYED RELEASE 1 TABLET ORALLY 2 TBS IN ,/1 TAB IN PM, NOTES: 08/01 1299 TAKING IRBESARTAN 150 MG TABLET 1 TABLET ORALLY ONCE A DAY, NOTES: 1999 TAKING SPIRONOLACTONE 25 MG TABLET 1 TABLET ORALLY DAILY, NOTES: 08/02 1299 TAKING CALCIUM + D 600-200 MG-UNIT TABLET 1 TABLET ORALLY TWICE A DAY, NOTES: 08/02 429 TAKING TORSEMIDE 20 MG TABLET DIRECTED ORALLY 1 TAB Q OTHER DAY,1/2 TAB Q OTHER DAY, NOTES: 08/02 429 TAKING VOLTAREN 1 % GEL DIRECTED EXTERNALLY PRN, NOTES: 07/29 TAKING VENTOLIN HFA 90 MCG/ACT AEROSOL SOLUTION 2 PUFFS NEEDED INHALATION EVERY 6 HRS, NOTES: > 2 MONTHS TAKING NYSTATIN [id number] UNIT/GM POWDER 1 APPLICATION TO AFFECTED AREA EXTERNALLY TWICE A DAY, NOTES: LAST WEEK TAKING FISH OIL DOUBLE STRENGTH 1200 MG CAPSULE 1 CAPSULE ORALLY THREE TIMES DAILY, NOTES: 08/02 429 TAKING TIZANIDINE HCL 2 MG TABLET 1 TABLET NEEDED ORALLY FOR SPAMS AND PAIN BEFORE BEDTIME MAY REPEAT IN 4 HRS MDD2 (WORKERS COMP), NOTES: > 3 WEEKS TAKING LIDODERM 5 % PATCH DIRECTED EXTERNALLY (WORKERS COMP) APPLY 3 PATCH TO PAINFUL AREA OF LOW BACK ON 12 HRS OFF 12 HOURS PRN PAIN., NOTES: 08/01 TAKING LYRICA 100 MG CAPSULE 1 CAPSULE ORALLY BID, NOTES: 08/02 429 TAKING VITAMIN E 400 UNIT CAPSULE 1 CAPSULE ORALLY ONCE A DAY, NOTES: 08/02 429 TAKING IPRATROPIUM-ALBUTEROL 0.5-2.5 (3) MG/3ML SOLUTION 3 ML NEEDED INHALATION EVERY 6 HRS, NOTES: > 6 MONTHS TAKING ADVAIR HFA 230-21 MCG/ACT AEROSOL 2 PUFFS INHALATION TWICE A DAY, NOTES: 08/02 499 TAKING BUSPIRONE HCL 5 MG TABLET 1 TABLET ORALLY DAILY, NOTES: 08/02 429 TAKING TRAMADOL HCL 50 MG TABLET 1 TAB ORALLY (CODE D FOR CHRONIC PAIN ) DAILY NEEDED, NOTES: 07/31 NOT-TAKING VITAMIN D 25 MCG (1000 UT) TABLET 1 CAPSULE ORALLY ONCE DAILY, NOTES: 08/02 429 NOT-TAKING ARIPIPRAZOLE 2 MG TABLET 1 TABLET ORALLY ONCE A DAY NOT-TAKING GABAPENTIN 600 MG TABLET 1 TABLET ORALLY THREE TIMES A DAY NOT-TAKING BREO ELLIPTA 200-25 MCG/INH AEROSOL POWDER BREATH ACTIVATED 1 PUFF INHALATION ONCE A DAY NOT-TAKING BUPROPION HCL 100 MG TABLET EXTENDED RELEASE 1 TABLET ORALLY DAILY MEDICATION LIST REVIEWED AND RECONCILED WITH THE PATIENT PAST MEDICAL HISTORY PRIMARY HTN,SECONDARY RENAL HYPERPARATHYROIDISM,CRI STAGE 3,VIT D DEFICIENT,HYPOMAGNISEMIA CKD3, 01/20 RENAL US WITH INCREASED ECHOGENICITY TRAVIS MARCOS EDEMA VIT D DEF HTN HYPOTHYROIDISM ASTHMA, DR [place] 2008, FELL WORKING FOOT TANGLED IN PURSE HANDLES FOR CP CLINIC, WEARS BRACE 05/22 LIVER US DIFFUSE FIBROFATTY INFILTRATION OF THE LIVER 03/22 MRI L SPINE - 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 EPIGASTRIC TENDERNESS - DR JARRETT GI SYR 04/21 L WRIST FX - FISH OBESITY PSEUDOSEIZURES - NEURO/ALI ALLERGIES IV DYE: ANAPHYLAXIS BACTRIM: ANAPHYLAXIS - ALLERGY ERYTHROMYCIN: ANAPHYLAXIS - ALLERGY PENICILLIN (FOR ALLERGIES USE ONLY): HIVES ZITHROMAX: HEADACHES - ALLERGY INDOCIN: HIVES,HEADACHE - ALLERGY TORADOL: HIVES - ALLERGY BEE STINGS: ANAPHYLAXIS - ALLERGY HARD SHELL SEAFOOD: ANAPHYLAXIS - ALLERGY BIAXIN: HALLUCINATIONS - SIDE EFFECTS MUSCLE RELAXERS: SHAKES - SIDE EFFECTS SULFA (FOR ALLERGY USE ONLY): HIVES - ALLERGY LASIX: SWELLING - SIDE EFFECTS BACTROBAN OINTMENT: CAUSES YEAST INFECTION - SIDE EFFECTS LATEX: HIVES, BLISTERS - ALLERGY SURGICAL HISTORY HYSTERECTOMY,CHOLECYSTECTOMY,INGUINAL HERNIA,RIGHT,COLONOSCOPY,POLYPECTOMYX2,TONSILLECTOMY TENDON REPAIR LEFT WRIST/L THUMB 05/04/2016 RIGHT HAND CARPAL TUNNEL SURGERY/ TENDON REPAIR RIGHT WRIST/RIGHT THUMB 2019 ARTHROSCOPY LEFT SHOULDER 02/2019 FAMILY HISTORY FATHER: 84 YRS, DIAGNOSED WITH HYPERTENSION, UNSPECIFIED HEART DISEASE, DIABETES MOTHER: 77 YRS, COPD, HYPERTENSION, DIABETES SIBLINGS: , DIABETES 1DAUGHTER(S) - HEALTHY. 1 SISTER FORM BICYCLE ACCIDENT. SOCIAL HISTORY GENERAL: TOBACCO USE ARE YOU A:NONSMOKER LATEX QUESTIONNAIRE LATEX ALLERGY : HAVE YOU EVER DEVELOPED ANY TYPE OF REACTION AFTER HANDLING LATEX PRODUCTS SUCH RUBBER GLOVES, CONDOMS, DIAPHRAGMS, BALLOONS, SOCKS, OR UNDERWEAR?YES KNOWN LATEX ALLERGY - PLEASE INDICATE : HIVES FROM LATEX LATEX ALLERGY : HAVE YOU EVER DEVELOPED ANY TYPE OF REACTION DURING OR AFTER DENTAL APPOINTMENT, VAGINAL/RECTAL EXAMINATION, SURGICAL PROCEDURE, OR ANY OTHER EXPOSURE?NO LATEX RISK : HAVE YOU EVER HAD ANY DIFFICULTY BREATHING OR HIVES AFTER EATING OR HANDLING ANY FRUITS, OR VEGETABLES; SUCH KIWI, BANANAS, STONE FRUITS, OR CHESTNUTSNO LATEX RISK : DO YOU HAVE A PREVIOUS PERSONAL HISTORY OF MORE THAN NINE SURGERIES, SPINA BIFIDA, OR REPEATED CATHERIZATIONS? NO LATEX RISK : ARE YOU FREQUENTLY EXPOSED TO LATEX PRODUCTS IN YOUR OCCUPATION?NO DATE ASKED : 08/16/2019 ALCOHOL SCREENING DID YOU HAVE A DRINK CONTAINING ALCOHOL IN THE PAST YEAR?YES HOW OFTEN DID YOU HAVE SIX OR MORE DRINKS ON ONE OCCASION IN THE PAST YEAR?NEVER (0 POINTS) HOW MANY DRINKS DID YOU HAVE ON A TYPICAL DAY WHEN YOU WERE DRINKING IN THE PAST YEAR?1 OR 2 (0 POINTS) HOW OFTEN DID YOU HAVE A DRINK CONTAINING ALCOHOL IN THE PAST YEAR?MONTHLY OR LESS (1 POINT) POINTS1 INTERPRETATIONNEGATIVE RECREATIONAL DRUG USE DRUG USE?NO CAFFEINE CAFFEINE USE?NO SEXUAL HX HAD SEX IN THE LAST 12 MONTHS (VAGINAL, ORAL, OR ANAL)?YES WITHMEN ONLY HAVE YOU EVER HAD AN STD?NO HIV / HEP-C SCREENING HIV TEST OFFERED TO PATIENT:NO HEP-C TEST OFFERED TO PATIENT:NO MOSQUE [id number] WORSHIP LANGUAGE LANGUAGES SPOKEN:CHINESE EDUCATION LEVEL OF EDUCATION:COLLEGE LEARNING BARRIERS / SPECIAL NEEDS BARRIERS TO LEARNING?NO HEARING IMPAIRED?NO VISION IMPAIRED?YES COGNITIVELY IMPAIRED?NO :CORRECTIVE LENSES READINESS TO LEARN?YES LEARNING PREFERENCES?NO LEARNING CAPABILITIES PRESENT?YES EMOTIONAL BARRIERS?NO SPECIAL DEVICES?YES :CANE, BRACE LEFT ANLKLE BRACE PROCUREMENT AGENT NEEDED?NO 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 DIET: REGULAR. EXERCISE: NONE. MARITAL STATUS: . OTHERS AT HOME: SPOUSE. PAIN CLINIC PFS, CLERGY, PUBLIC HEALTH REFERRALS PFS REFERRAL NEEDED?NO CLERGY REFERRAL NEEDED?NO PUBLIC HEALTH REFERRAL NEEDED?NO WAS THE PROVIDER NOTIFIED OF ANY PERTINENT INFO?YES HAS THE PATIENT BEEN EDUCATED REGARDING HIS/HER PLAN OF CARE?YES HAS THE PATIENT BEEN EDUCATED REGARDING PAIN, THE RISK FOR PAIN, THE IMPORTANCE OF EFFECTIVE PAIN MANAGEMENT, AND THE PAIN ASSESSMENT PROCESS?YES ADVANCE DIRECTIVE ADVANCE DIRECTIVE DISCUSSED WITH PATIENT:YES PT HAS HCP FOR [facility] H[facility]PITALIZATION/MAJOR DIAGNOSTIC PROCEDURE SURG RELATED REVIEW OF SYSTEMS CONSTITUTIONAL: ANY RECENT FEVER NO . CHILLS NO . WEIGHT CHANGE OF UNKNOWN REASONS NO . GASTROENTEROLOGY: NEW UNEXPLAINABLE CHANGES IN BOWEL CONTROL NO . CONSTIPATION NO . GENITOURINARY: ANY NEW CHANGE IN BLADDER CONTROL? NO . NEUROLOGY: NEW ONSET DIZZINESS OR NEUROLOGICAL CHANGES NOT MENTIONED NO . NEW NUMBNESS OR PAIN PATTERNS NOT MENTIONED AND PERTINENT TO TODAY'S VISIT NO . CARDIOLOGY: NEW CHEST PRESSURE NO . NEW CHEST PAIN NO . RESPIRATORY: UNEXPLAINABLE COUGH NO . NEW SHORTNESS OF BREATH NO . VITAL SIGNS WT 227 LBS, HT 64 IN, BMI 38.96 INDEX, BP 116/58 MM HG, HR 52 /MIN, RR 17 /MIN, TEMP 96.7 F, OXYGEN SAT % 97, SAFE IN ENV? (Y/N) ESTER. YAKELIN MCDANIEL LPN II @ 9554. EXAMINATION GENERAL EXAMINATION: GENERALNO ACUTE DISTRESS, WELL NOURISHED AND HYDRATED. PSYCHAPPROPRIATE MOOD AND AFFECT . LUNGS:CLEAR TO AUSCULTATION BILATERALLY, NO WHEEZES, RHONCHI, RALES. HEART:NO MURMURS, REGULAR RATE AND RHYTHM. ASSESSMENTS SPONDYLOSIS WITHOUT MYELOPATHY OR RADICULOPATHY, LUMBOSACRAL REGION - M47.817 (PRIMARY) TREATMENT SPONDYLOSIS WITHOUT MYELOPATHY OR RADICULOPATHY, LUMBOSACRAL REGION CLINICAL NOTES: 64-YEAR-OLD FEMALE IN FOR THERAPY BILATERAL FACET BLOCK FOLLOW-UP. GIVEN PRESENTING SYMPTOMS RECOMMEND FOLLOW-UP IN 2 MONTHS. PATIENT HAS EXPRESSED UNDERSTANDING OF AND WAS IN AGREEMENT WITH TREATMENT PLAN. GIVEN TIME TO ASK QUESTIONS AND EXPRESS CONCERNS. , [employer] REGISTRY REVIEWED AND DEMONSTRATES COMPLLIANCE. (REF # [id number] ) BRINGS IN MEDICATIONS WHICH IS APPROPRIATE FOR WHAT WAS DISPENSED. RECENT URINE TOXICOLOGY REVIEWED. NO UNAUTHORIZED MEDICATIONS. NO ILLICIT SUBSTANCES AND PRESCRIBED MEDICATIONS WERE PRESENT. PROCEDURES PN WORKMANS' COMP OPINION IN YOUR OPINION, WAS THE INCIDENT THAT THE PATIENT DESCRIBED THE COMPETENT MEDICAL CAUSE OF THIS INJURY/ILLNESS? YES ARE THE PATIENT'S COMPLAINTS CONSISTENT WITH HIS/HER HISTORY OF THE INJURY/ILLNESS? YES IS THE PATIENT'S HISTORY OF THE INJURY/ILLNESS CONSISTENT WITH YOUR OBJECTIVE FINDING? YES WHAT IS THE PERCENTAGE OF TEMPORARY IMPAIRMENT? MARKED = 75% IS THE PATIENT WORKING? NO DOCTOR ON SITE: TRINO BYRD MD PROCEDURE CODES FA211 ESTABILISHED PATIENT [facility] FACILITY CHARGE DISPOSITION & COMMUNICATION FOLLOW UP 2 MONTHS (REASON: WORKER'S COMP. BACK PAIN) ELECTRONICALLY SIGNED BY JERRY SARAVIA ON 08/17/2019 AT 07:58 AM EDT DISCLAIMER : THIS IS A VISIT SUMMARY EXTRACTED FROM THE [employer] CHART. IT IS NOT A COPY OF THE [employer] PROGRESS NOTE. HARREIT
== END ==
LOC: M PAIN 09:30
PROVIDERS: ATTEND Family Medicine
DX: M47.817 Spondylosis without myelopathy or radiculopathy, lumbosacral region (principal)

== ENCOUNTER → 2019-09-21 | Outpatient (POV) | payer MEDICARE, OTHER ==
[~2019-09-21] MED LIST changes: -AMLO10TA5 PO; +AMLO1TAB25 PO; +BUPIVACAINE HCL 0.25% 10ML VIAL As Ordered ONE; +BUPIVACAINE HCL 0.25% 10ML VIAL ONE; +BUPIVACAINE HCL 0.25% 30ML VIAL As Ordered ONE; +BUPIVACAINE HCL 0.25% 30ML VIAL ONE; +TRIAMCINOLONE ACETONIDE SUSP 40 MG/ML VIAL (J3301) As Ordered ONE; +TRIAMCINOLONE ACETONIDE SUSP 40 MG/ML VIAL (J3301) ONE; +diazePAM 5 MG TAB As Ordered ONE; +diazePAM 5 MG TAB ONE; +oxyCODONE 5MG TAB As Ordered ONE; +oxyCODONE 5MG TAB ONE
== END ==
LOC: M PAIN 09:00
PROVIDERS: ATTEND Anesthesiology
DX: M79.18 Myalgia, other site (principal)

== ENCOUNTER → 2019-09-25 | Outpatient (CLI) | payer MEDICARE, OTHER ==
[~2019-09-25] MED LIST changes: -BUPIVACAINE HCL 0.25% 10ML VIAL As Ordered ONE; -BUPIVACAINE HCL 0.25% 10ML VIAL ONE; -BUPIVACAINE HCL 0.25% 30ML VIAL As Ordered ONE; -BUPIVACAINE HCL 0.25% 30ML VIAL ONE; -TRIAMCINOLONE ACETONIDE SUSP 40 MG/ML VIAL (J3301) As Ordered ONE; -TRIAMCINOLONE ACETONIDE SUSP 40 MG/ML VIAL (J3301) ONE; -diazePAM 5 MG TAB As Ordered ONE; -diazePAM 5 MG TAB ONE; -oxyCODONE 5MG TAB As Ordered ONE; -oxyCODONE 5MG TAB ONE
== END ==
LOC: M PAIN 13:00
PROVIDERS: ATTEND Family Medicine
DX: M46.1 Sacroiliitis, not elsewhere classified (principal)

== ENCOUNTER → 2019-09-26 | Outpatient (REF) ==
[2019-09-26 11:01] LABS: COLLAGEN ADP 87 SECONDS (56-103); COLLAGEN EPINEPHRINE 201 SECONDS (74-162)
== END ==
LOC: M LAB REF 09:12
DX: M46.1 Sacroiliitis, not elsewhere classified (principal)

== ENCOUNTER → 2019-10-11 | Outpatient (REF) | LOC: M LAB REF 11:42 | PROVIDERS: ATTEND Family Medicine | DX: R23.3 Spontaneous ecchymoses (principal) ==

== ENCOUNTER → 2019-10-19 | Outpatient (CLI) | payer MEDICARE, OTHER ==
[2019-10-11 12:18] LABS: COLLAGEN EPINEPHRINE 83 SECONDS (74-162)
== END ==
LOC: M LABSMTC 09:38
PROVIDERS: ATTEND Anesthesiology
DX: R23.3 Spontaneous ecchymoses (principal)
CPT/HCPCS: 85576; C9803; U0003

== ENCOUNTER → 2019-10-23 | Outpatient (CLI) | payer OTHER, MEDICARE | LOC: M PAIN 14:22 | PROVIDERS: ATTEND Family Medicine | DX: M79.18 Myalgia, other site (principal); E55.9 Vitamin D deficiency, unspecified; J45.909 Unspecified asthma, uncomplicated; Z88.0 Allergy status to penicillin; Z88.1 Allergy status to other antibiotic agents; Z88.2 Allergy status to sulfonamides; Z88.6 Allergy status to analgesic agent; Z88.8 Allergy status to other drugs, medicaments and biological substances; Z91.030 Bee allergy status; Z91.041 Radiographic dye allergy status; Z79.82 Long term (current) use of aspirin ==

== ENCOUNTER → 2019-10-24 | Outpatient (CLI) | payer MEDICARE, OTHER ==
[~2019-10-24] MED LIST changes: +BUPIVACAINE HCL 0.25% 30ML VIAL As Ordered ONE; +LIDOCAINE 1% SDV 30ML VIAL As Ordered ONE; +TRIAMCINOLONE ACETONIDE SUSP 40 MG/ML VIAL (J3301) As Ordered ONE; +diazePAM 5 MG TAB As Ordered ONE; +oxyCODONE 5MG TAB As Ordered ONE
--- NOTE | 2019-11-09 08:31 | REP ---
FLUORO GUIDED STUDY: 10/24/19 CLINICAL: Left sacroiliac joint injection. TECHNIQUE: Intraoperative fluoroscopic imaging using portable C-ARM technique. FINDINGS: Two images demonstrate catheter overlying the left sacroiliac joint. Total fluoroscopic time 37 seconds. IMPRESSION: Status post left sacroiliac joint injection. MTDD
== END ==
LOC: M PAIN 08:45
PROVIDERS: ATTEND Anesthesiology
DX: M46.1 Sacroiliitis, not elsewhere classified (principal)

== ENCOUNTER → 2019-11-12 | Outpatient (CLI) | payer MEDICARE, OTHER ==
[~2019-11-12] MED LIST changes: -BUPIVACAINE HCL 0.25% 30ML VIAL As Ordered ONE; -LIDOCAINE 1% SDV 30ML VIAL As Ordered ONE; -TRIAMCINOLONE ACETONIDE SUSP 40 MG/ML VIAL (J3301) As Ordered ONE; -diazePAM 5 MG TAB As Ordered ONE; -oxyCODONE 5MG TAB As Ordered ONE
--- NOTE | 2019-11-14 10:18 | ECWPNPC ---
PATIENT NAME: ROZINA HERNANDEZ : 1955 GENDER: FEMALE VISIT DATE: 11/12/2019 DISCHARGE DATE: 11/12/19 1400 VISIT LOCKED DATE TIME: PHYSICIAN: LEVON GLOVER RESOURCE: LEVON GLOVER REASON FOR APPOINTMENT 1. POST SIJ HISTORY OF PRESENT ILLNESS DEPRESSION SCREENING: PHQ-2 (2015 EDITION) LITTLE INTEREST OR PLEASURE IN DOING THINGS?NOT AT ALL FEELING DOWN, DEPRESSED, OR HOPELESS?NOT AT ALL TOTAL SCORE0 64-YEAR-OLD FEMALE IN FOR POST SIJ FOLLOW-UP. SHE FEELS THE PROCEDURE WAS SUCCESSFUL OVERALL RATING HER PAIN PREPROCEDURE AT A 7 OUT OF 10 AND POSTPROCEDURE AT A 0-2 OUT OF 10. SHE FURTHER STATES THE PROCEDURE CONTINUES TO HELP HER TODAY. 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 THE PATIENT SAYS WHEN SHE STOOD UP, SHE TRIPPED DUE TO HER FOOT BEING CAUGHT IN PURSE HANDLE THAT RESULTED IN HER BACK INJURY AND A BROKEN ANKLE. GENERAL: -. FALL RISK SCREENING: SCREENING :ONE FALL WITH INJURY IN THE PAST YEAR TRIPPED OVER HER DOG 1 WEEK AGO. SPRAINED LEFT ANKLE. PATIENT DID NOT SEEK MEDICAL TREATMENT. PAIN SCREENING: PATIENT HAS A COMPLAINT OF ACUTE OR CHRONIC PAIN :YES LOCATION OF PAIN:LOW BACK, LEFT HIP, RIGHT HIP INTENSITY OF PAIN (SCALE OF 1 TO 10):0 NURSING NOTE: -. PAIN CENTER INTAKE QUESTIONS: DO YOU HAVE A HISTORY OF MRSA? :NO DO YOU TAKE A BLOOD THINNERS? :NO DO YOU HAVE ANY BLEEDING DISORDERS? :NO ANY NEW NUMBNESS OR WEAKNESS IN YOUR LEGS OR ARMS? :NO ANY PACEMAKER,DEFIBRILLATOR, OR DORSAL COLUMN STIMULATOR? :NO DO YOU HAVE ANY RASHES OR OPEN SORES? :NO ARE YOU ALLERGIC TO IV DYE? :YES ARE YOU DIABETIC? :NO ANY NEW PROBLEMS WITH YOUR MEDICATIONS? :NO HAVE YOU RECEIVED A VACCINE IN THE PAST 30 DAYS? :NO DO YOU PLAN TO RECEIVE A VACCINE IN THE NEXT 21 DAYS? :NO DO YOU NEED ANY PRESCRIPTION? :YES JEANNETTE MASON DO YOU TAKE ANY IMMUNOSUPPRESSIVE MEDICATIONS? :NO IS THERE A CHANCE YOU COULD BE ? :NO ARE YOU BREAST FEEDING? :NO CURRENT MEDICATIONS TAKING EPIPEN 2-DUANE 0.3 MG/0.3ML SOLUTION AUTO-INJECTOR INJECTION DIRECTED, NOTES: > 1 YEAR TAKING CLONAZEPAM 0.5 MG TABLET 0.5 ORALLY 1/2 TAB IN AM AND 1/4 TAB IN PM, NOTES: 08/02 429 TAKING IMITREX 100 MG TABLET 1 TABLET NEEDED ORALLY DIRECTED PRN MIGRAINES, NOTES: > 4 MONTHS TAKING PROBIOTIC CAPSULE 1 TAB(S) ORALLY DAILY, NOTES: 08/02 429 TAKING 28-0.8 MG TABLET ORALLY DAILY, NOTES: 08/02 429 TAKING ASPIRIN EC 81 MG TABLET DELAYED RELEASE 1 TABLET ORALLY ONCE A DAY, NOTES: 08/02 429 TAKING ATORVASTATIN CALCIUM 10 MG TABLET 1 TABLET ORALLY ONCE A DAY, NOTES: 08/02 1999 TAKING LOVAZA 1 GM CAPSULE 2 CAPSULES ORALLY TWICE A DAY, NOTES: 08/02 429 TAKING PRIMIDONE 50 MG TABLET ORALLY BID, NOTES: 08/02 429 TAKING TOPIRAMATE 100 MG TABLET 1 TABLET ORALLY DAILY, NOTES: 08/02 1999 TAKING RABEPRAZOLE SODIUM 20 MG TABLET DELAYED RELEASE 1 TABLET ORALLY 2 TBS IN ,/1 TAB IN PM, NOTES: 08/01 1299 TAKING IRBESARTAN 150 MG TABLET 1 TABLET ORALLY ONCE A DAY, NOTES: 1999 TAKING SPIRONOLACTONE 25 MG TABLET 1 TABLET ORALLY DAILY, NOTES: 08/02 1299 TAKING CALCIUM + D 600-200 MG-UNIT TABLET 1 TABLET ORALLY TWICE A DAY, NOTES: 08/02 429 TAKING TORSEMIDE 20 MG TABLET DIRECTED ORALLY 1 TAB Q OTHER DAY,1/2 TAB Q OTHER DAY, NOTES: 08/02 429 TAKING VOLTAREN 1 % GEL DIRECTED EXTERNALLY PRN, NOTES: 07/29 TAKING VENTOLIN HFA 90 MCG/ACT AEROSOL SOLUTION 2 PUFFS NEEDED INHALATION EVERY 6 HRS, NOTES: > 2 MONTHS TAKING NYSTATIN [id number] UNIT/GM POWDER 1 APPLICATION TO AFFECTED AREA EXTERNALLY TWICE A DAY, NOTES: LAST WEEK TAKING FISH OIL DOUBLE STRENGTH 1200 MG CAPSULE 1 CAPSULE ORALLY THREE TIMES DAILY, NOTES: 08/02 429 TAKING TIZANIDINE HCL 2 MG TABLET 1 TABLET NEEDED ORALLY FOR SPAMS AND PAIN BEFORE BEDTIME MAY REPEAT IN 4 HRS MDD2 (WORKERS COMP), NOTES: > 3 WEEKS TAKING LIDODERM 5 % PATCH DIRECTED EXTERNALLY (WORKERS COMP) APPLY 3 PATCH TO PAINFUL AREA OF LOW BACK ON 12 HRS OFF 12 HOURS PRN PAIN., NOTES: 08/01 TAKING LYRICA 100 MG CAPSULE 1 CAPSULE ORALLY BID, NOTES: 08/02 429 TAKING VITAMIN E 400 UNIT CAPSULE 1 CAPSULE ORALLY ONCE A DAY, NOTES: 08/02 429 TAKING IPRATROPIUM-ALBUTEROL 0.5-2.5 (3) MG/3ML SOLUTION 3 ML NEEDED INHALATION EVERY 6 HRS, NOTES: > 6 MONTHS TAKING ADVAIR HFA 230-21 MCG/ACT AEROSOL 2 PUFFS INHALATION TWICE A DAY, NOTES: 08/02 499 TAKING BUSPIRONE HCL 5 MG TABLET 1 TABLET ORALLY DAILY, NOTES: 08/02 429 TAKING TRAMADOL HCL 50 MG TABLET 1 TAB ORALLY (CODE D FOR CHRONIC PAIN ) DAILY NEEDED, NOTES: 07/31 NOT-TAKING VITAMIN D 25 MCG (1000 UT) TABLET 1 CAPSULE ORALLY ONCE DAILY, NOTES: 08/02 429 NOT-TAKING ARIPIPRAZOLE 2 MG TABLET 1 TABLET ORALLY ONCE A DAY NOT-TAKING GABAPENTIN 600 MG TABLET 1 TABLET ORALLY THREE TIMES A DAY NOT-TAKING BREO ELLIPTA 200-25 MCG/INH AEROSOL POWDER BREATH ACTIVATED 1 PUFF INHALATION ONCE A DAY NOT-TAKING BUPROPION HCL 100 MG TABLET EXTENDED RELEASE 1 TABLET ORALLY DAILY MEDICATION LIST REVIEWED AND RECONCILED WITH THE PATIENT PAST MEDICAL HISTORY PRIMARY HTN,SECONDARY RENAL HYPERPARATHYROIDISM,CRI STAGE 3,VIT D DEFICIENT,HYPOMAGNISEMIA CKD3, 01/20 RENAL US WITH INCREASED ECHOGENICITY TRAVIS MARCOS EDEMA VIT D DEF HTN HYPOTHYROIDISM ASTHMA, DR CL[place] 2008, FELL WORKING FOOT TANGLED IN PURSE HANDLES FOR CP CLINIC, WEARS BRACE 05/22 LIVER US DIFFUSE FIBROFATTY INFILTRATION OF THE LIVER 03/22 MRI L SPINE - 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 EPIGASTRIC TENDERNESS - DR JARRETT GI SYR 04/21 L WRIST FX - DR CARDOZO OBESITY PSEUDOSEIZURES - NEURO/ALI ALLERGIES IV DYE: ANAPHYLAXIS BACTRIM: ANAPHYLAXIS - ALLERGY ERYTHROMYCIN: ANAPHYLAXIS - ALLERGY PENICILLIN (FOR ALLERGIES USE ONLY): HIVES ZITHROMAX: HEADACHES - ALLERGY INDOCIN: HIVES,HEADACHE - ALLERGY TORADOL: HIVES - ALLERGY BEE STINGS: ANAPHYLAXIS - ALLERGY HARD SHELL SEAFOOD: ANAPHYLAXIS - ALLERGY BIAXIN: HALLUCINATIONS - SIDE EFFECTS MUSCLE RELAXERS: SHAKES - SIDE EFFECTS SULFA (FOR ALLERGY USE ONLY): HIVES - ALLERGY LASIX: SWELLING - SIDE EFFECTS BACTROBAN OINTMENT: CAUSES YEAST INFECTION - SIDE EFFECTS LATEX: HIVES, BLISTERS - ALLERGY SURGICAL HISTORY HYSTERECTOMY,CHOLECYSTECTOMY,INGUINAL HERNIA,RIGHT,COLONOSCOPY,POLYPECTOMYX2,TONSILLECTOMY TENDON REPAIR LEFT WRIST/L THUMB 05/04/2016 RIGHT HAND CARPAL TUNNEL SURGERY/ TENDON REPAIR RIGHT WRIST/RIGHT THUMB 2019 ARTHROSCOPY LEFT SHOULDER 02/2019 FAMILY HISTORY FATHER: 84 YRS, DIAGNOSED WITH HYPERTENSION, UNSPECIFIED HEART DISEASE, DIABETES MOTHER: 77 YRS, COPD, HYPERTENSION, DIABETES SIBLINGS: , DIABETES 1DAUGHTER(S) - HEALTHY. 1 SISTER FORM BICYCLE ACCIDENT. SOCIAL HISTORY GENERAL: TOBACCO USE ARE YOU A:NONSMOKER LATEX QUESTIONNAIRE LATEX ALLERGY : HAVE YOU EVER DEVELOPED ANY TYPE OF REACTION AFTER HANDLING LATEX PRODUCTS SUCH RUBBER GLOVES, CONDOMS, DIAPHRAGMS, BALLOONS, SOCKS, OR UNDERWEAR?YES KNOWN LATEX ALLERGY - PLEASE INDICATE : HIVES FROM LATEX LATEX ALLERGY : HAVE YOU EVER DEVELOPED ANY TYPE OF REACTION DURING OR AFTER DENTAL APPOINTMENT, VAGINAL/RECTAL EXAMINATION, SURGICAL PROCEDURE, OR ANY OTHER EXPOSURE?NO LATEX RISK : HAVE YOU EVER HAD ANY DIFFICULTY BREATHING OR HIVES AFTER EATING OR HANDLING ANY FRUITS, OR VEGETABLES; SUCH KIWI, BANANAS, STONE FRUITS, OR CHESTNUTSNO LATEX RISK : DO YOU HAVE A PREVIOUS PERSONAL HISTORY OF MORE THAN NINE SURGERIES, SPINA BIFIDA, OR REPEATED CATHERIZATIONS? NO LATEX RISK : ARE YOU FREQUENTLY EXPOSED TO LATEX PRODUCTS IN YOUR OCCUPATION?NO DATE ASKED : 11/12/2019 ALCOHOL SCREENING DID YOU HAVE A DRINK CONTAINING ALCOHOL IN THE PAST YEAR?YES HOW OFTEN DID YOU HAVE SIX OR MORE DRINKS ON ONE OCCASION IN THE PAST YEAR?NEVER (0 POINTS) HOW MANY DRINKS DID YOU HAVE ON A TYPICAL DAY WHEN YOU WERE DRINKING IN THE PAST YEAR?1 OR 2 (0 POINTS) HOW OFTEN DID YOU HAVE A DRINK CONTAINING ALCOHOL IN THE PAST YEAR?MONTHLY OR LESS (1 POINT) POINTS1 INTERPRETATIONNEGATIVE RECREATIONAL DRUG USE DRUG USE?NO CAFFEINE CAFFEINE USE?NO SEXUAL HX HAD SEX IN THE LAST 12 MONTHS (VAGINAL, ORAL, OR ANAL)?YES WITHMEN ONLY HAVE YOU EVER HAD AN STD?NO HIV / HEP-C SCREENING HIV TEST OFFERED TO PATIENT:NO HEP-C TEST OFFERED TO PATIENT:NO YAZDANISM [id number] RESTORATIONIST LANGUAGE LANGUAGES SPOKEN:OCCITAN EDUCATION LEVEL OF EDUCATION:COLLEGE LEARNING BARRIERS / SPECIAL NEEDS BARRIERS TO LEARNING?NO HEARING IMPAIRED?NO VISION IMPAIRED?YES COGNITIVELY IMPAIRED?NO :CORRECTIVE LENSES READINESS TO LEARN?YES LEARNING PREFERENCES?NO LEARNING CAPABILITIES PRESENT?YES EMOTIONAL BARRIERS?NO SPECIAL DEVICES?YES :CANE, BRACE LEFT ANLKLE BRACE SWEET POTATO DISINTEGRATOR NEEDED?NO 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 DIET: REGULAR. EXERCISE: NONE. MARITAL STATUS: . OTHERS AT HOME: SPOUSE. PAIN CLINIC PFS, CLERGY, PUBLIC HEALTH REFERRALS PFS REFERRAL NEEDED?NO CLERGY REFERRAL NEEDED?NO PUBLIC HEALTH REFERRAL NEEDED?NO WAS THE PROVIDER NOTIFIED OF ANY PERTINENT INFO?YES HAS THE PATIENT BEEN EDUCATED REGARDING HIS/HER PLAN OF CARE?YES HAS THE PATIENT BEEN EDUCATED REGARDING PAIN, THE RISK FOR PAIN, THE IMPORTANCE OF EFFECTIVE PAIN MANAGEMENT, AND THE PAIN ASSESSMENT PROCESS?YES ADVANCE DIRECTIVE ADVANCE DIRECTIVE DISCUSSED WITH PATIENT:YES PT HAS HCP FOR [facility] HOSPITALIZATION/MAJOR DIAGNOSTIC PROCEDURE SURG RELATED REVIEW OF SYSTEMS CONSTITUTIONAL: ANY RECENT FEVER NO . CHILLS NO . WEIGHT CHANGE OF UNKNOWN REASONS NO . GASTROENTEROLOGY: NEW UNEXPLAINABLE CHANGES IN BOWEL CONTROL NO . CONSTIPATION NO . GENITOURINARY: ANY NEW CHANGE IN BLADDER CONTROL? NO . NEUROLOGY: NEW ONSET DIZZINESS OR NEUROLOGICAL CHANGES NOT MENTIONED NO . NEW NUMBNESS OR PAIN PATTERNS NOT MENTIONED AND PERTINENT TO TODAY'S VISIT NO . CARDIOLOGY: NEW CHEST PRESSURE NO . NEW CHEST PAIN NO . RESPIRATORY: UNEXPLAINABLE COUGH NO . NEW SHORTNESS OF BREATH NO . VITAL SIGNS WT 235.6 LBS, HT 64 IN, BMI 40.44 INDEX, BP 127/60 MM HG, HR 54 /MIN, RR 18 /MIN, TEMP 96.1 F, OXYGEN SAT % 100%, REVIEWED BY: JASON MACHADO CMA. EXAMINATION GENERAL EXAMINATION: GENERALNO ACUTE DISTRESS, WELL NOURISHED AND HYDRATED. PSYCHAPPROPRIATE MOOD AND AFFECT . LUNGS:CLEAR TO AUSCULTATION BILATERALLY, NO WHEEZES, RHONCHI, RALES. HEART:NO MURMURS, REGULAR RATE AND RHYTHM. ASSESSMENTS SACROILIITIS, NOT ELSEWHERE CLASSIFIED - M46.1 (PRIMARY) TREATMENT SACROILIITIS, NOT ELSEWHERE CLASSIFIED INCREASE TIZANIDINE HCL TABLET, 4 MG, 1 TABLET NEEDED, ORALLY, BEFORE BEDTIME (WORKERS COMP), 30 DAYS, 30, REFILLS 0, NOTES: > 3 WEEKS REFILL VOLTAREN GEL, 1 %, 1 GRAM APPLIED TO AFFECTED AREA, EXTERNALLY, PRN 4 X DAILY NOT TO EXCEED 4 GMS IN A DAY WORKERS COMP, 30 DAYS, 1 TUBE, NOTES: 07/29 CLINICAL NOTES: 64-YEAR-OLD FEMALE IN FOR POST SIJ FOLLOW-UP. SHE DOES ADMIT TO SOME INCREASED MUSCLE SPASMS SUCH WE WILL TRIAL 4 MG TIZANIDINE WITH FOLLOW-UP IN 2 MONTHS. PATIENT HAS EXPRESSED UNDERSTANDING OF AND WAS IN AGREEMENT WITH TREATMENT PLAN. GIVEN TIME TO ASK QUESTIONS AND EXPRESS CONCERNS. , ISTOP REGISTRY REVIEWED AND DEMONSTRATES COMPLLIANCE. (REF # [id number] ) BRINGS IN MEDICATIONS WHICH IS APPROPRIATE FOR WHAT WAS DISPENSED. RECENT URINE TOXICOLOGY REVIEWED. NO UNAUTHORIZED MEDICATIONS. NO ILLICIT SUBSTANCES AND PRESCRIBED MEDICATIONS WERE PRESENT. PROCEDURES PN WORKMANS' COMP OPINION IN YOUR OPINION, WAS THE INCIDENT THAT THE PATIENT DESCRIBED THE COMPETENT MEDICAL CAUSE OF THIS INJURY/ILLNESS? YES ARE THE PATIENT'S COMPLAINTS CONSISTENT WITH HIS/HER HISTORY OF THE INJURY/ILLNESS? YES IS THE PATIENT'S HISTORY OF THE INJURY/ILLNESS CONSISTENT WITH YOUR OBJECTIVE FINDING? YES WHAT IS THE PERCENTAGE OF TEMPORARY IMPAIRMENT? MARKED = 75% IS THE PATIENT WORKING? NO DOCTOR ON SITE: TRINO BYRD MD PREVENTIVE MEDICINE PAIN CLINIC TEACHING: THE PATIENT HAS BEEN EDUCATED REGARDING PAIN, THE RISK FOR PAIN, THE IMPORTANCE OF EFFECTIVE PAIN MANAGEMENT, AND THE PAIN ASSESSMENT PROCESS. : REVIEWED MEDICATION AND PLAN OF CARE WITH PATEINT. THE PATIENT ACKNOWLEDGES UNDERSTANDING. PROCEDURE CODES [id number] ESTABILISHED PATIENT [facility] CHARGE DISPOSITION & COMMUNICATION FOLLOW UP 2 MONTHS (REASON: WORKER'S COMP. SACROILIITIS) ELECTRONICALLY SIGNED BY JERRY SARAVIA ON 11/14/2019 AT 10:16 AM EDT DISCLAIMER : THIS IS A VISIT SUMMARY EXTRACTED FROM THE [employer] CHART. IT IS NOT A COPY OF THE [employer] PROGRESS NOTE. HARRIET
== END ==
LOC: M PAIN 13:15
PROVIDERS: ATTEND Family Medicine
DX: M46.1 Sacroiliitis, not elsewhere classified (principal); I10 Essential (primary) hypertension; E55.9 Vitamin D deficiency, unspecified; J45.909 Unspecified asthma, uncomplicated; Z88.0 Allergy status to penicillin; Z88.1 Allergy status to other antibiotic agents; Z88.2 Allergy status to sulfonamides; Z88.6 Allergy status to analgesic agent; Z88.8 Allergy status to other drugs, medicaments and biological substances; Z91.013 Allergy to seafood; Z91.030 Bee allergy status; Z91.040 Latex allergy status; Z91.041 Radiographic dye allergy status; E66.01 Morbid (severe) obesity due to excess calories; Z68.41 Body mass index [BMI] 40.0-44.9, adult; Z79.82 Long term (current) use of aspirin; Z79.899 Other long term (current) drug therapy

== ENCOUNTER → 2019-11-29 | Outpatient (CLI) | payer MEDICARE, OTHER ==
--- NOTE | 2019-12-03 14:23 | ECWPNPC ---
PATIENT NAME: ROZINA HERNANDEZ : 1955 GENDER: FEMALE VISIT DATE: 11/29/2019 DISCHARGE DATE: 11/29/19 1234 VISIT LOCKED DATE TIME: PHYSICIAN: LEVON GLOVER RESOURCE: LEVON GLOVER REASON FOR APPOINTMENT 1. SHOULDERS HISTORY OF PRESENT ILLNESS GENERAL: - 64-YEAR-OLD FEMALE IN FOR CHRONIC PAIN FOLLOW-UP. SHE RATES HER PAIN CURRENTLY AT A 7 OUT OF 10 AND DESCRIBES IT STABBING. PATIENT HAS HAD TRIGGER POINT INJECTIONS IN THE PAST FOR HER SHOULDERS AND FOUND GOOD RELIEF WITH THAT WE WILL DISCUSS REPEAT PROCEDURES TODAY. FALL RISK SCREENING: SCREENING :ONE FALL WITHOUT INJURY IN THE PAST YEAR PATIENT DID NOT SEEK MEDICAL TREATMET. PATIENT FELL LAST NIGHT AND TWISTED HER LEFT ANKLE. PAIN SCREENING: PATIENT HAS A COMPLAINT OF ACUTE OR CHRONIC PAIN :YES LOCATION OF PAIN:NECK, BOTH SHOULDERS INTENSITY OF PAIN (SCALE OF 1 TO 10):7 WHAT DOES YOUR PAIN FEEL LIKE:STABBING DURATION:CONSTANT, AWAKENS FROM SLEEP PAIN IS INCREASED BY:ACTIVITIES, PROLONGED STANDING, OTHERS PROLONG SITTING INCREASES PAIN. PAIN IS DECREASED BY:OTHERS HEATING PAD HELPS TO REDUCE PAIN. NURSING NOTE: -. PAIN CENTER INTAKE QUESTIONS: DO YOU HAVE A HISTORY OF MRSA? :YES DO YOU TAKE A BLOOD THINNERS? :NO DO YOU HAVE ANY BLEEDING DISORDERS? :NO ANY NEW NUMBNESS OR WEAKNESS IN YOUR LEGS OR ARMS? :NO ANY PACEMAKER,DEFIBRILLATOR, OR DORSAL COLUMN STIMULATOR? :NO DO YOU HAVE ANY RASHES OR OPEN SORES? :NO ARE YOU ALLERGIC TO IV DYE? :YES ARE YOU DIABETIC? :NO ANY NEW PROBLEMS WITH YOUR MEDICATIONS? :NO HAVE YOU RECEIVED A VACCINE IN THE PAST 30 DAYS? :NO DO YOU PLAN TO RECEIVE A VACCINE IN THE NEXT 21 DAYS? :YES PATIENT PLANS TO GET A FLU SHOT SOON. DO YOU NEED ANY PRESCRIPTION? :NO DO YOU TAKE ANY IMMUNOSUPPRESSIVE MEDICATIONS? :NO IS THERE A CHANCE YOU COULD BE ? :NO ARE YOU BREAST FEEDING? :NO CURRENT MEDICATIONS TAKING EPIPEN 2-DUANE 0.3 MG/0.3ML SOLUTION AUTO-INJECTOR INJECTION DIRECTED, NOTES: > 1 YEAR TAKING CLONAZEPAM 0.5 MG TABLET 0.5 ORALLY 1/2 TAB IN AM AND 1/4 TAB IN PM, NOTES: 08/02 429 TAKING IMITREX 100 MG TABLET 1 TABLET NEEDED ORALLY DIRECTED PRN MIGRAINES, NOTES: > 4 MONTHS TAKING PROBIOTIC CAPSULE 1 TAB(S) ORALLY DAILY, NOTES: 08/02 429 TAKING 28-0.8 MG TABLET ORALLY DAILY, NOTES: 08/02 429 TAKING ASPIRIN EC 81 MG TABLET DELAYED RELEASE 1 TABLET ORALLY ONCE A DAY, NOTES: 08/02 429 TAKING ATORVASTATIN CALCIUM 10 MG TABLET 1 TABLET ORALLY ONCE A DAY, NOTES: 08/02 1999 TAKING LOVAZA 1 GM CAPSULE 2 CAPSULES ORALLY TWICE A DAY, NOTES: 08/02 429 TAKING PRIMIDONE 50 MG TABLET ORALLY BID, NOTES: 08/02 429 TAKING TOPIRAMATE 100 MG TABLET 1 TABLET ORALLY DAILY, NOTES: 08/02 1999 TAKING RABEPRAZOLE SODIUM 20 MG TABLET DELAYED RELEASE 1 TABLET ORALLY 2 TBS IN ,/1 TAB IN PM, NOTES: 08/01 1299 TAKING IRBESARTAN 150 MG TABLET 1 TABLET ORALLY ONCE A DAY, NOTES: 1999 TAKING SPIRONOLACTONE 25 MG TABLET 1 TABLET ORALLY DAILY, NOTES: 08/02 1299 TAKING CALCIUM + D 600-200 MG-UNIT TABLET 1 TABLET ORALLY TWICE A DAY, NOTES: 08/02 429 TAKING TORSEMIDE 20 MG TABLET DIRECTED ORALLY 1 TAB Q OTHER DAY,1/2 TAB Q OTHER DAY, NOTES: 08/02 429 TAKING VENTOLIN HFA 90 MCG/ACT AEROSOL SOLUTION 2 PUFFS NEEDED INHALATION EVERY 6 HRS, NOTES: > 2 MONTHS TAKING NYSTATIN [id number] UNIT/GM POWDER 1 APPLICATION TO AFFECTED AREA EXTERNALLY TWICE A DAY, NOTES: LAST WEEK TAKING FISH OIL DOUBLE STRENGTH 1200 MG CAPSULE 1 CAPSULE ORALLY THREE TIMES DAILY, NOTES: 08/02 429 TAKING LIDODERM 5 % PATCH DIRECTED EXTERNALLY (WORKERS COMP) APPLY 3 PATCH TO PAINFUL AREA OF LOW BACK ON 12 HRS OFF 12 HOURS PRN PAIN., NOTES: 08/01 TAKING LYRICA 100 MG CAPSULE 1 CAPSULE ORALLY BID, NOTES: 08/02 429 TAKING VITAMIN E 400 UNIT CAPSULE 1 CAPSULE ORALLY ONCE A DAY, NOTES: 08/02 429 TAKING IPRATROPIUM-ALBUTEROL 0.5-2.5 (3) MG/3ML SOLUTION 3 ML NEEDED INHALATION EVERY 6 HRS, NOTES: > 6 MONTHS TAKING ADVAIR HFA 230-21 MCG/ACT AEROSOL 2 PUFFS INHALATION TWICE A DAY, NOTES: 08/02 499 TAKING BUSPIRONE HCL 5 MG TABLET 1 TABLET ORALLY DAILY, NOTES: 08/02 429 TAKING TRAMADOL HCL 50 MG TABLET 1 TAB ORALLY (CODE D FOR CHRONIC PAIN ) DAILY NEEDED, NOTES: 07/31 TAKING TIZANIDINE HCL 4 MG TABLET 1 TABLET NEEDED ORALLY BEFORE BEDTIME (WORKERS COMP), NOTES: > 3 WEEKS TAKING VOLTAREN 1 % GEL 1 GRAM APPLIED TO AFFECTED AREA EXTERNALLY PRN 4 X DAILY NOT TO EXCEED 4 GMS IN A DAY WORKERS COMP, NOTES: 07/29 NOT-TAKING VITAMIN D 25 MCG (1000 UT) TABLET 1 CAPSULE ORALLY ONCE DAILY, NOTES: 08/02 429 NOT-TAKING ARIPIPRAZOLE 2 MG TABLET 1 TABLET ORALLY ONCE A DAY NOT-TAKING GABAPENTIN 600 MG TABLET 1 TABLET ORALLY THREE TIMES A DAY NOT-TAKING BREO ELLIPTA 200-25 MCG/INH AEROSOL POWDER BREATH ACTIVATED 1 PUFF INHALATION ONCE A DAY NOT-TAKING BUPROPION HCL 100 MG TABLET EXTENDED RELEASE 1 TABLET ORALLY DAILY MEDICATION LIST REVIEWED AND RECONCILED WITH THE PATIENT PAST MEDICAL HISTORY PRIMARY HTN,SECONDARY RENAL HYPERPARATHYROIDISM,CRI STAGE 3,VIT D DEFICIENT,HYPOMAGNISEMIA CKD3, 01/20 RENAL US WITH INCREASED ECHOGENICITY TRAVIS MARCOS EDEMA VIT D DEF HTN HYPOTHYROIDISM ASTHMA, DR [place] 2008, FELL WORKING FOOT TANGLED IN PURSE HANDLES FOR CP CLINIC, WEARS BRACE 05/22 LIVER US DIFFUSE FIBROFATTY INFILTRATION OF THE LIVER 03/22 MRI L SPINE - 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 EPIGASTRIC TENDERNESS - DR JARRETT GI SYR 04/21 L WRIST FX - FISH OBESITY PSEUDOSEIZURES - NEURO/ALI ALLERGIES IV DYE: ANAPHYLAXIS BACTRIM: ANAPHYLAXIS - ALLERGY ERYTHROMYCIN: ANAPHYLAXIS - ALLERGY PENICILLIN (FOR ALLERGIES USE ONLY): HIVES ZITHROMAX: HEADACHES - ALLERGY INDOCIN: HIVES,HEADACHE - ALLERGY TORADOL: HIVES - ALLERGY BEE STINGS: ANAPHYLAXIS - ALLERGY HARD SHELL SEAFOOD: ANAPHYLAXIS - ALLERGY BIAXIN: HALLUCINATIONS - SIDE EFFECTS MUSCLE RELAXERS: SHAKES - SIDE EFFECTS SULFA (FOR ALLERGY USE ONLY): HIVES - ALLERGY LASIX: SWELLING - SIDE EFFECTS BACTROBAN OINTMENT: CAUSES YEAST INFECTION - SIDE EFFECTS LATEX: HIVES, BLISTERS - ALLERGY SURGICAL HISTORY HYSTERECTOMY,CHOLECYSTECTOMY,INGUINAL HERNIA,RIGHT,COLONOSCOPY,POLYPECTOMYX2,TONSILLECTOMY TENDON REPAIR LEFT WRIST/L THUMB 05/04/2016 RIGHT HAND CARPAL TUNNEL SURGERY/ TENDON REPAIR RIGHT WRIST/RIGHT THUMB 2019 ARTHROSCOPY LEFT SHOULDER 02/2019 FAMILY HISTORY FATHER: 84 YRS, DIAGNOSED WITH UNSPECIFIED HEART DISEASE, HYPERTENSION, DIABETES MOTHER: 77 YRS, COPD, HYPERTENSION, DIABETES SIBLINGS: , DIABETES 1DAUGHTER(S) - HEALTHY. 1 SISTER FORM BICYCLE ACCIDENT. SOCIAL HISTORY GENERAL: TOBACCO USE ARE YOU A:NONSMOKER LATEX QUESTIONNAIRE LATEX ALLERGY : HAVE YOU EVER DEVELOPED ANY TYPE OF REACTION AFTER HANDLING LATEX PRODUCTS SUCH RUBBER GLOVES, CONDOMS, DIAPHRAGMS, BALLOONS, SOCKS, OR UNDERWEAR?YES KNOWN LATEX ALLERGY - PLEASE INDICATE : HIVES FROM LATEX LATEX ALLERGY : HAVE YOU EVER DEVELOPED ANY TYPE OF REACTION DURING OR AFTER DENTAL APPOINTMENT, VAGINAL/RECTAL EXAMINATION, SURGICAL PROCEDURE, OR ANY OTHER EXPOSURE?NO LATEX RISK : HAVE YOU EVER HAD ANY DIFFICULTY BREATHING OR HIVES AFTER EATING OR HANDLING ANY FRUITS, OR VEGETABLES; SUCH KIWI, BANANAS, STONE FRUITS, OR CHESTNUTSNO LATEX RISK : DO YOU HAVE A PREVIOUS PERSONAL HISTORY OF MORE THAN NINE SURGERIES, SPINA BIFIDA, OR REPEATED CATHERIZATIONS? NO LATEX RISK : ARE YOU FREQUENTLY EXPOSED TO LATEX PRODUCTS IN YOUR OCCUPATION?NO DATE ASKED : 11/29/2019 ALCOHOL SCREENING DID YOU HAVE A DRINK CONTAINING ALCOHOL IN THE PAST YEAR?YES HOW OFTEN DID YOU HAVE SIX OR MORE DRINKS ON ONE OCCASION IN THE PAST YEAR?NEVER (0 POINTS) HOW MANY DRINKS DID YOU HAVE ON A TYPICAL DAY WHEN YOU WERE DRINKING IN THE PAST YEAR?1 OR 2 (0 POINTS) HOW OFTEN DID YOU HAVE A DRINK CONTAINING ALCOHOL IN THE PAST YEAR?MONTHLY OR LESS (1 POINT) POINTS1 INTERPRETATIONNEGATIVE RECREATIONAL DRUG USE DRUG USE?NO CAFFEINE CAFFEINE USE?NO SEXUAL HX HAD SEX IN THE LAST 12 MONTHS (VAGINAL, ORAL, OR ANAL)?YES WITHMEN ONLY HAVE YOU EVER HAD AN STD?NO HIV / HEP-C SCREENING HIV TEST OFFERED TO PATIENT:NO HEP-C TEST OFFERED TO PATIENT:NO ORTHODOXY [id number] MANDAEISM LANGUAGE LANGUAGES SPOKEN:MALAGASY EDUCATION LEVEL OF EDUCATION:COLLEGE LEARNING BARRIERS / SPECIAL NEEDS BARRIERS TO LEARNING?NO HEARING IMPAIRED?NO VISION IMPAIRED?YES COGNITIVELY IMPAIRED?NO :CORRECTIVE LENSES READINESS TO LEARN?YES LEARNING PREFERENCES?NO LEARNING CAPABILITIES PRESENT?YES EMOTIONAL BARRIERS?NO SPECIAL DEVICES?YES :CANE, BRACE LEFT ANLKLE BRACE ADOPTION AGENT NEEDED?NO 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 DIET: REGULAR. EXERCISE: NONE. MARITAL STATUS: . OTHERS AT HOME: SPOUSE. PAIN CLINIC PFS, CLERGY, PUBLIC HEALTH REFERRALS PFS REFERRAL NEEDED?NO CLERGY REFERRAL NEEDED?NO PUBLIC HEALTH REFERRAL NEEDED?NO WAS THE PROVIDER NOTIFIED OF ANY PERTINENT INFO?YES HAS THE PATIENT BEEN EDUCATED REGARDING HIS/HER PLAN OF CARE?YES HAS THE PATIENT BEEN EDUCATED REGARDING PAIN, THE RISK FOR PAIN, THE IMPORTANCE OF EFFECTIVE PAIN MANAGEMENT, AND THE PAIN ASSESSMENT PROCESS?YES ADVANCE DIRECTIVE ADVANCE DIRECTIVE DISCUSSED WITH PATIENT:YES PT HAS HCP FOR [facility] HOSPITALIZATION/MAJOR DIAGNOSTIC PROCEDURE SURG RELATED REVIEW OF SYSTEMS CONSTITUTIONAL: ANY RECENT FEVER NO . CHILLS NO . WEIGHT CHANGE OF UNKNOWN REASONS NO . GASTROENTEROLOGY: NEW UNEXPLAINABLE CHANGES IN BOWEL CONTROL NO . CONSTIPATION NO . GENITOURINARY: ANY NEW CHANGE IN BLADDER CONTROL? NO . NEUROLOGY: NEW ONSET DIZZINESS OR NEUROLOGICAL CHANGES NOT MENTIONED NO . NEW NUMBNESS OR PAIN PATTERNS NOT MENTIONED AND PERTINENT TO TODAY'S VISIT NO . CARDIOLOGY: NEW CHEST PRESSURE NO . NEW CHEST PAIN NO . RESPIRATORY: UNEXPLAINABLE COUGH NO . NEW SHORTNESS OF BREATH NO . VITAL SIGNS WT 236.8 LBS, HT 64 IN, BMI 40.64 INDEX, BP 135/63 MM HG, HR 67 /MIN, RR 18 /MIN, TEMP 96.8 F, OXYGEN SAT % 99%, SAFE IN ENV? (Y/N) YES, NA INITIALS AW 1152, REVIEWED BY: DM. EXAMINATION GENERAL EXAMINATION: GENERALNO ACUTE DISTRESS, WELL NOURISHED AND HYDRATED. PSYCHAPPROPRIATE MOOD AND AFFECT . NECK:POINT TENDER BILATERAL NECK AND SHOULDER, SURROUNDING SKIN SHOWS NO ERYTHEMA, ECCHYMOSIS, INCREASED WARMTH, AND/OR SKIN ERUPTIONS NOTED. BANDS OF RESTRICTIVE TISSUE NOTED OVER TRIGGER POINTS. LUNGS:CLEAR TO AUSCULTATION BILATERALLY, NO WHEEZES, RHONCHI, RALES. HEART:NO MURMURS, REGULAR RATE AND RHYTHM. ASSESSMENTS MYALGIA, OTHER SITE - M79.18 (PRIMARY) TREATMENT MYALGIA, OTHER SITE NOTES: DISCUSSED PRE PROCEDURE INSTRUCTIONS, PATIENT CARE PLAN, AND TEACHING FOR: BILATERAL NECK AND SHOULDER TRIGGER POINT INJECTIONS, PATIENT VERBALIZES UNDERSTANDING. - JASON MACHADO CMA . CLINICAL NOTES: 64-YEAR-OLD FEMALE IN FOR CHRONIC PAIN FOLLOW-UP. GIVEN PRESENTING SYMPTOMS AND RESULTS OF PHYSICAL EXAMINATION RECOMMENDED TRIGGER POINT INJECTIONS OF THE NECK AND SHOULDER BILATERALLY WITH POST PROCEDURAL FOLLOW-UP. PATIENT HAS EXPRESSED UNDERSTANDING OF AND WAS IN AGREEMENT WITH TREATMENT PLAN. GIVEN TIME TO ASK QUESTIONS AND EXPRESS CONCERNS. PREVENTIVE MEDICINE PAIN CLINIC TEACHING: PROCEDURE TEACHING PRE TRIGGER POINT INJECTION INSTRUCTIONS REVIEWED WITH PT. VERBALIZED UNDERSTANDING.. PROCEDURE CODES FA211 ESTABILISHED PATIENT [facility] CHARGE DISPOSITION & COMMUNICATION FOLLOW UP POSTPROCEDURE (REASON: BILATERAL NECK AND SHOULDER TRIGGER POINT INJECTIONS) ELECTRONICALLY SIGNED BY JERRY SARAVIA ON 12/03/2019 AT 10:37 AM EDT DISCLAIMER : THIS IS A VISIT SUMMARY EXTRACTED FROM THE [email or web address] CHART. IT IS NOT A COPY OF THE [email or web address] PROGRESS NOTE. HARRIET
== END ==
LOC: M PAIN 11:30
PROVIDERS: ATTEND Family Medicine
DX: M79.18 Myalgia, other site (principal); I10 Essential (primary) hypertension; E55.9 Vitamin D deficiency, unspecified; J45.909 Unspecified asthma, uncomplicated; Z86.14 Personal history of Methicillin resistant Staphylococcus aureus infection; Z88.0 Allergy status to penicillin; Z88.1 Allergy status to other antibiotic agents; Z88.2 Allergy status to sulfonamides; Z88.6 Allergy status to analgesic agent; Z88.8 Allergy status to other drugs, medicaments and biological substances; Z91.013 Allergy to seafood; Z91.030 Bee allergy status; Z91.040 Latex allergy status; Z91.041 Radiographic dye allergy status; E66.01 Morbid (severe) obesity due to excess calories; Z68.41 Body mass index [BMI] 40.0-44.9, adult; Z79.82 Long term (current) use of aspirin; Z79.899 Other long term (current) drug therapy

== ENCOUNTER → 2019-12-07 | Outpatient (REF) | payer MEDICARE, OTHER | LOC: M SFHCWAGY 16:52 | PROVIDERS: ATTEND Nurse Practitioner Women's Health | DX: N89.8 Other specified noninflammatory disorders of vagina (principal) | CPT/HCPCS: 87070; 87077; 87186; 87210; G0463 ==

== ENCOUNTER → 2019-12-09 | Outpatient (CLI) | payer MEDICARE, OTHER | LOC: M LABSMTC 09:56 | PROVIDERS: ATTEND Anesthesiology | DX: Z01.812 Encounter for preprocedural laboratory examination (principal); Z20.828 Contact with and (suspected) exposure to other viral communicable diseases | CPT/HCPCS: C9803; U0003 ==

== ENCOUNTER → 2019-12-14 | Outpatient (CLI) | payer MEDICARE, OTHER ==
[~2019-12-14] MED LIST changes: +BUPIVACAINE HCL 0.25% 10ML VIAL As Ordered ONE; +BUPIVACAINE HCL 0.25% 30ML VIAL As Ordered ONE; +TRIAMCINOLONE ACETONIDE SUSP 40 MG/ML VIAL (J3301) As Ordered ONE; +diazePAM 5 MG TAB As Ordered ONE; +oxyCODONE 5MG TAB As Ordered ONE
--- NOTE | 2019-12-19 01:37 | ECWPNPC ---
PATIENT NAME: ROZINA HERNANDEZ : 1955 GENDER: FEMALE VISIT DATE: 12/14/2019 DISCHARGE DATE: 12/14/19 1036 VISIT LOCKED DATE TIME: PHYSICIAN: TRINO PEOPLES MD RESOURCE: TRINO PEOPLES MD REASON FOR APPOINTMENT 1. BILATERAL NECK AND SHOULDER TRIGGER POINT INJECTIONS HISTORY OF PRESENT ILLNESS GENERAL: -. FALL RISK SCREENING: SCREENING :NO FALLS REPORTED IN THE LAST YEAR PAIN SCREENING: PATIENT HAS A COMPLAINT OF ACUTE OR CHRONIC PAIN :YES LOCATION OF PAIN:BOTH SHOULDERS, UPPER BACK INTENSITY OF PAIN (SCALE OF 1 TO 10):6 WHAT DOES YOUR PAIN FEEL LIKE:OTHER "FEELS LIKE GETTING IN THE BACK" PAIN IS INCREASED BY:PROLONGED STANDING PLAN/GOALS/TREATMENT/INTERVENTION/FOLLOW UP:SEE PLAN NURSING NOTE: -. PAIN CENTER INTAKE QUESTIONS: DO YOU HAVE A HISTORY OF MRSA? :YES H/O FOUR YEARS AGO, CLEARED BY DO YOU TAKE A BLOOD THINNERS? :NO DO YOU HAVE ANY BLEEDING DISORDERS? :NO ANY NEW NUMBNESS OR WEAKNESS IN YOUR LEGS OR ARMS? :NO ANY PACEMAKER,DEFIBRILLATOR, OR DORSAL COLUMN STIMULATOR? :NO DO YOU HAVE ANY RASHES OR OPEN SORES? :NO ARE YOU ALLERGIC TO IV DYE? :YES CT DYE BUT NOT MRI DYE ARE YOU DIABETIC? :NO ANY NEW PROBLEMS WITH YOUR MEDICATIONS? :NO HAVE YOU RECEIVED A VACCINE IN THE PAST 30 DAYS? :NO DO YOU PLAN TO RECEIVE A VACCINE IN THE NEXT 21 DAYS? :YES IF SO WHAT VACCINE AND WHEN? PATIENT EDUCATED ABOUT WAITING 21 DAYS POST PROCEDURE IF USING STEROIDS. DO YOU TAKE ANY IMMUNOSUPPRESSIVE MEDICATIONS? :NO ANY HISTORY OF SEIZURES? :YES PSEUDO SEIZURES CAUSED BY NERVES IN NECK ANY HISTORY OF CARDIAC ISSUES OR EVENTS? :NO DO YOU HAVE SLEEP APNEA? :NO ANY RECENT HEAD INJURY? :NO DO YOU HAVE ANY NEW INFECTIONS? :NO IS THERE A CHANCE YOU COULD BE ? :NO ARE YOU BREAST FEEDING? :NO WHEN DID YOU LAST EAT? : 12/13/2019 1800 WHEN DID YOU LAST DRINK? : 12/14/2019 0430 WHAT DID YOU LAST DRINK? : WATER NAME OF PERSON DRIVING YOU HOME? : CHRISTOPHER () DO YOU HAVE ANY OTHER QUESTIONS OR CONCERNS? : NO CURRENT MEDICATIONS TAKING EPIPEN 2-DUANE 0.3 MG/0.3ML SOLUTION AUTO-INJECTOR INJECTION DIRECTED, NOTES: > 1 YEAR TAKING CLONAZEPAM 0.5 MG TABLET 0.5 ORALLY 1/2 TAB IN AM AND 1/4 TAB IN PM, NOTES: 0430 TAKING IMITREX 100 MG TABLET 1 TABLET NEEDED ORALLY DIRECTED PRN MIGRAINES, NOTES: NONE RECENT TAKING PROBIOTIC CAPSULE 1 TAB(S) ORALLY DAILY, NOTES: 0430 TAKING ASPIRIN EC 81 MG TABLET DELAYED RELEASE 1 TABLET ORALLY ONCE A DAY, NOTES: 0430 TAKING ATORVASTATIN CALCIUM 10 MG TABLET 1 TABLET ORALLY ONCE A DAY, NOTES: 12/13/2019 1800 TAKING LOVAZA 1 GM CAPSULE 2 CAPSULES ORALLY TWICE A DAY, NOTES: 0430 TAKING PRIMIDONE 50 MG TABLET ORALLY BID, NOTES: 0430 TAKING TOPIRAMATE 100 MG TABLET 1 TABLET ORALLY DAILY, NOTES: 12/13/2019 1800 TAKING RABEPRAZOLE SODIUM 20 MG TABLET DELAYED RELEASE 1 TABLET ORALLY 2 TBS IN ,/1 TAB IN PM, NOTES: 0430 TAKING IRBESARTAN 150 MG TABLET 1 TABLET ORALLY ONCE A DAY, NOTES: 12/13/2019 1800 TAKING SPIRONOLACTONE 25 MG TABLET 1 TABLET ORALLY DAILY, NOTES: 0430 TAKING CALCIUM + D 600-200 MG-UNIT TABLET 1 TABLET ORALLY TWICE A DAY, NOTES: 0430 TAKING TORSEMIDE 20 MG TABLET DIRECTED ORALLY 1 TAB Q OTHER DAY,1/2 TAB Q OTHER DAY, NOTES: 0430 TAKING NYSTATIN 743803 UNIT/GM POWDER 1 APPLICATION TO AFFECTED AREA EXTERNALLY TWICE A DAY, NOTES: LAST WEEK TAKING FISH OIL DOUBLE STRENGTH 1200 MG CAPSULE 1 CAPSULE ORALLY THREE TIMES DAILY, NOTES: 0430 TAKING LIDODERM 5 % PATCH DIRECTED EXTERNALLY (WORKERS COMP) APPLY 3 PATCH TO PAINFUL AREA OF LOW BACK ON 12 HRS OFF 12 HOURS PRN PAIN., NOTES: 12/13/2019 TAKING LYRICA 150 MG CAPSULE 1 CAPSULE ORALLY BID, NOTES: 0430 TAKING VITAMIN E 400 UNIT CAPSULE 1 CAPSULE ORALLY ONCE A DAY, NOTES: 0430 TAKING IPRATROPIUM-ALBUTEROL 0.5-2.5 (3) MG/3ML SOLUTION 3 ML NEEDED INHALATION EVERY 6 HRS, NOTES: NONE RECENT TAKING ADVAIR HFA 230-21 MCG/ACT AEROSOL 2 PUFFS INHALATION TWICE A DAY, NOTES: 0430 TAKING BUSPIRONE HCL 5 MG TABLET 1 TABLET ORALLY DAILY, NOTES: 0430 TAKING TRAMADOL HCL 50 MG TABLET 1 TAB ORALLY (CODE D FOR CHRONIC PAIN ) DAILY NEEDED, NOTES: 12/11/2019 TAKING TIZANIDINE HCL 4 MG TABLET 1 TABLET NEEDED ORALLY BEFORE BEDTIME (WORKERS COMP), NOTES: NONE RECENT TAKING VOLTAREN 1 % GEL 1 GRAM APPLIED TO AFFECTED AREA EXTERNALLY PRN 4 X DAILY NOT TO EXCEED 4 GMS IN A DAY WORKERS COMP, NOTES: NONE RECENT TAKING POTASSIUM CHLORIDE ER 20 MEQ TABLET EXTENDED RELEASE 1 TABLET WITH FOOD ORALLY ONCE A DAY, NOTES: 429 NOT-TAKING 28-0.8 MG TABLET ORALLY DAILY, NOTES: 08/02 429 NOT-TAKING VENTOLIN HFA 90 MCG/ACT AEROSOL SOLUTION 2 PUFFS NEEDED INHALATION EVERY 6 HRS, NOTES: > 2 MONTHS NOT-TAKING LEVOFLOXACIN 250 MG TABLET 1 TABLET ORALLY BID NOT-TAKING VITAMIN D 25 MCG (1000 UT) TABLET 1 CAPSULE ORALLY ONCE DAILY, NOTES: 08/02 429 NOT-TAKING ARIPIPRAZOLE 2 MG TABLET 1 TABLET ORALLY ONCE A DAY NOT-TAKING GABAPENTIN 600 MG TABLET 1 TABLET ORALLY THREE TIMES A DAY NOT-TAKING BREO ELLIPTA 200-25 MCG/INH AEROSOL POWDER BREATH ACTIVATED 1 PUFF INHALATION ONCE A DAY NOT-TAKING BUPROPION HCL 100 MG TABLET EXTENDED RELEASE 1 TABLET ORALLY DAILY MEDICATION LIST REVIEWED AND RECONCILED WITH THE PATIENT PAST MEDICAL HISTORY PRIMARY HTN,SECONDARY RENAL HYPERPARATHYROIDISM,CRI STAGE 3,VIT D DEFICIENT,HYPOMAGNISEMIA CKD3, 01/20 RENAL US WITH INCREASED ECHOGENICITY TRAVIS MARCOS EDEMA VIT D DEF HTN HYPOTHYROIDISM ASTHMA, DR [place] 2008, FELL WORKING FOOT TANGLED IN PURSE HANDLES FOR CP CLINIC, WEARS BRACE 05/22 LIVER US DIFFUSE FIBROFATTY INFILTRATION OF THE LIVER 03/22 MRI L SPINE - 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 EPIGASTRIC TENDERNESS - DR JARRETT GI SYR 04/21 L WRIST FX - DR CARDOZO OBESITY PSEUDOSEIZURES - NEURO/ALI ALLERGIES IV DYE: ANAPHYLAXIS BACTRIM: ANAPHYLAXIS - ALLERGY ERYTHROMYCIN: ANAPHYLAXIS - ALLERGY PENICILLIN (FOR ALLERGIES USE ONLY): HIVES ZITHROMAX: HEADACHES - ALLERGY INDOCIN: HIVES,HEADACHE - ALLERGY TORADOL: HIVES - ALLERGY BEE STINGS: ANAPHYLAXIS - ALLERGY HARD SHELL SEAFOOD: ANAPHYLAXIS - ALLERGY BIAXIN: HALLUCINATIONS - SIDE EFFECTS MUSCLE RELAXERS: SHAKES - SIDE EFFECTS SULFA (FOR ALLERGY USE ONLY): HIVES - ALLERGY LASIX: SWELLING - SIDE EFFECTS BACTROBAN OINTMENT: CAUSES YEAST INFECTION - SIDE EFFECTS LATEX: HIVES, BLISTERS - ALLERGY SURGICAL HISTORY HYSTERECTOMY,CHOLECYSTECTOMY,INGUINAL HERNIA,RIGHT,COLONOSCOPY,POLYPECTOMYX2,TONSILLECTOMY TENDON REPAIR LEFT WRIST/L THUMB 05/04/2016 RIGHT HAND CARPAL TUNNEL SURGERY/ TENDON REPAIR RIGHT WRIST/RIGHT THUMB 2019 ARTHROSCOPY LEFT SHOULDER 02/2019 FAMILY HISTORY FATHER: 84 YRS, DIAGNOSED WITH DIABETES, HYPERTENSION, UNSPECIFIED HEART DISEASE MOTHER: 77 YRS, COPD, HYPERTENSION, DIABETES SIBLINGS: , DIABETES 1DAUGHTER(S) - HEALTHY. 1 SISTER FORM BICYCLE ACCIDENT. SOCIAL HISTORY GENERAL: TOBACCO USE ARE YOU A:NONSMOKER LATEX QUESTIONNAIRE LATEX ALLERGY : HAVE YOU EVER DEVELOPED ANY TYPE OF REACTION AFTER HANDLING LATEX PRODUCTS SUCH RUBBER GLOVES, CONDOMS, DIAPHRAGMS, BALLOONS, SOCKS, OR UNDERWEAR?YES KNOWN LATEX ALLERGY LATEX ALLERGY : HAVE YOU EVER DEVELOPED ANY TYPE OF REACTION DURING OR AFTER DENTAL APPOINTMENT, VAGINAL/RECTAL EXAMINATION, SURGICAL PROCEDURE, OR ANY OTHER EXPOSURE?NO - PLEASE INDICATE : HIVES FROM LATEX DATE ASKED : 05/03/2019 LATEX RISK : HAVE YOU EVER HAD ANY DIFFICULTY BREATHING OR HIVES AFTER EATING OR HANDLING ANY FRUITS, OR VEGETABLES; SUCH KIWI, BANANAS, STONE FRUITS, OR CHESTNUTSNO LATEX RISK : DO YOU HAVE A PREVIOUS PERSONAL HISTORY OF MORE THAN NINE SURGERIES, SPINA BIFIDA, OR REPEATED CATHERIZATIONS? NO LATEX RISK : ARE YOU FREQUENTLY EXPOSED TO LATEX PRODUCTS IN YOUR OCCUPATION?NO ALCOHOL SCREENING DID YOU HAVE A DRINK CONTAINING ALCOHOL IN THE PAST YEAR?YES HOW OFTEN DID YOU HAVE SIX OR MORE DRINKS ON ONE OCCASION IN THE PAST YEAR?NEVER (0 POINTS) HOW MANY DRINKS DID YOU HAVE ON A TYPICAL DAY WHEN YOU WERE DRINKING IN THE PAST YEAR?1 OR 2 (0 POINTS) HOW OFTEN DID YOU HAVE A DRINK CONTAINING ALCOHOL IN THE PAST YEAR?MONTHLY OR LESS (1 POINT) POINTS1 INTERPRETATIONNEGATIVE RECREATIONAL DRUG USE DRUG USE?NO CAFFEINE CAFFEINE USE?NO SEXUAL HX HAD SEX IN THE LAST 12 MONTHS (VAGINAL, ORAL, OR ANAL)?YES WITHMEN ONLY HAVE YOU EVER HAD AN STD?NO HIV / HEP-C SCREENING HIV TEST OFFERED TO PATIENT:NO HEP-C TEST OFFERED TO PATIENT:NO UATSDIN [id number] LANGUAGE LANGUAGES SPOKEN:ANGUILLAN EDUCATION LEVEL OF EDUCATION:COLLEGE LEARNING BARRIERS / SPECIAL NEEDS BARRIERS TO LEARNING?NO HEARING IMPAIRED?NO VISION IMPAIRED?YES COGNITIVELY IMPAIRED?NO :CORRECTIVE LENSES READINESS TO LEARN?YES LEARNING PREFERENCES?NO LEARNING CAPABILITIES PRESENT?YES EMOTIONAL BARRIERS?NO SPECIAL DEVICES?YES :CANE, BRACE LEFT ANLKLE BRACE GEOGRAPHIC INFORMATION SYSTEMS ENGINEER NEEDED?NO 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 DIET: REGULAR. EXERCISE: NONE. MARITAL STATUS: . OTHERS AT HOME: SPOUSE. PAIN CLINIC PFS, CLERGY, PUBLIC HEALTH REFERRALS PFS REFERRAL NEEDED?NO CLERGY REFERRAL NEEDED?NO PUBLIC HEALTH REFERRAL NEEDED?NO WAS THE PROVIDER NOTIFIED OF ANY PERTINENT INFO?YES HAS THE PATIENT BEEN EDUCATED REGARDING HIS/HER PLAN OF CARE?YES HAS THE PATIENT BEEN EDUCATED REGARDING PAIN, THE RISK FOR PAIN, THE IMPORTANCE OF EFFECTIVE PAIN MANAGEMENT, AND THE PAIN ASSESSMENT PROCESS?YES ADVANCE DIRECTIVE ADVANCE DIRECTIVE DISCUSSED WITH PATIENT:YES PT HAS HCP FOR [facility] H[facility]PITALIZATION/MAJOR DIAGNOSTIC PROCEDURE SURG RELATED VITAL SIGNS WT 233.8 LBS, HT 64 IN, BMI 40.13 INDEX, BP 142/65 MM HG, HR 58 /MIN, RR 18 /MIN, TEMP 97.0 F, OXYGEN SAT % 97%, SAFE IN ENV? (Y/N) Y, NA INITIALS SC 08:27, REVIEWED BY: JSJ. SIDDHARTHA RN. EXAMINATION GENERAL EXAMINATION: THE PATIENT IS ALERT, ORIENTED TIMES THREE AND COOPERATIVE. HEART SHOWS REGULAR RHYTHM, NO MURMURS AND NO GALLOPS. LUNGS ARE CLEAR TO AUSCULTATION. ASSESSMENTS MYALGIA, OTHER SITE - M79.18 (PRIMARY) TREATMENT MYALGIA, OTHER SITE MEDICATION: VALIUM TAB 10MG ORALLY (DIAZEPAM)ERIC CARL 12/14/2019 8:59:09 AM > LOT #: [id number], EXP: 05/28 CHUCK ANNA 12/14/2019 9:00:28 AM > VERIFIED ERIC CARL 12/14/2019 9:02:17 AM > ADMINISTERED MEDICATION: OXYCODONE HCL TAB 10MG ORALLYERIC CARL 12/14/2019 8:59:53 AM > LOT #: [id number], EXP: 03/2021 CHUCK ANNA 12/14/2019 9:00:54 AM > VERIFIED ERIC CARL 12/14/2019 9:02:37 AM > ADMINISTERED OTHERS NOTES: PAT PHONE CALL ATTEMPTED-MESSAGE LEFT- 12/11/2019 0936 Isabel MORELOS RN . PROCEDURES PAIN NURSING RECORD PRE-PROCEDURE IV SITE N/A, PRE-PROCEDURE ORAL MEDICATIONS OXYCODONE 10 MG & VALIUM 10 MG PROCEDURE IN ROOM 0830, PHYSICIAN IN ROOM 0958, START 1002, FINISH 1005, PHYSICIAN OUT OF ROOM 1006, OUT OF ROOM 1033, STEROID KENALOG, O2 RA, ECG N/A, PATIENT SHIELDED NO, SAFETY STRAP NO, PREP ALCOHOL BY DR. PEOPLES, IV INFUSED N/A, DRESSING TEGADERM BY Sy CARL RN LOC: ERIC CARL 12/14/2019 10:02:37 AM > , 1. ALERT, ORIENTED RESP: ERIC CARL 12/14/2019 10:02:42 AM > , 1. REGULAR, NO DYSPNEA COLOR: ERIC CARL 12/14/2019 10:02:46 AM > , 1. PINK SKIN: ERIC CARL 12/14/2019 10:02:49 AM > , 1. WARM, DRY POSITION: ERIC CARL 12/14/2019 10:02:54 AM > , 4. OTHER VITALS: ERIC CARL 12/14/2019 10:21:31 AM > 142/65, 55, 16, 100% DISCHARGE: POST PAIN 0, DRESSING SITE DRY AND INTACT, IV N/A, GAIT STEADY, TEACHING COMPLETED, PATIENT ACKNOWLEDGES UNDERSTANDING YES, PATIENT DISCHARGED AT 1033 PN TRIGGER POINT INJECTION WITH STEROIDS PRE PROCEDURE DIAGNOSIS 1. MYALGIA 2. PAIN AT BILATERAL NECK AREA AND BILATERAL SHOULDER AREA POST PROCEDURE DIAGNOSIS 1. MYALGIA 2. PAIN AT BILATERAL NECK AREA AND BILATERAL SHOULDER AREA PROCEDURE TRIGGER POINT INJECTION AT BILATERAL NECK AREA AND BILATERAL SHOULDER AREA SURGEON DR. TRINO PEOPLES MANAGED CARE MANAGER NONE ANESTHESIA LOCAL PRE PROCEDURE NOTE THE PATIENT HAS A HISTORY OF CHRONIC PAIN AT THE RIGHT AND LEFT NECK AREA AND RIGHT AND LEFT SHOULDER AREA. I EVALUATED THE PATIENT AND REVIEWED THE CHART. THERE IS EVIDENCE OF BANDS OF TISSUE WITH RESTRICTION OF MOVEMENT AND PRESENCE OF TRIGGER POINT AT THE RIGHT AND LEFT NECK AREA AND RIGHT AND LEFT SHOULDER AREA. I WENT OVER THE RISKS, ALTERNATIVES, AND BENEFITS ASSOCIATED WITH THIS PROCEDURE. I DISCUSSED THAT THE USE OF STEROIDS MAY CONTRIBUTE TO IMMUNOSUPPRESSION OF THE PATIENT'S BODY AGAINST INFECTIONS SUCH COVID-19. THE PATIENT IS AWARE OF THE POTENTIAL COMPLICATIONS ASSOCIATED WITH THIS VIRUS, INCLUDING, BUT NOT LIMITED TO, . THE PATIENT WOULD LIKE TO PROCEED AND GIVE CONSENT TO PERFORMED THE PROCEDURE. THE PATIENT DENIES UNEXPLAINABLE WEIGHT LOSS, FEVER, CHILLS, OR NEW CHANGES IN URINARY OR BOWEL CONTROL. THE PATIENT IS COVID-19 NEGATIVE DESCRIPTION OF PROCEDURE THE PATIENT WAS BROUGHT TO THE PROCEDURE ROOM AND PLACED IN THE SITTING POSITION. THE AREA WAS CLEANED WITH ALCOHOL. THE PROCEDURE WAS DONE USING ASEPTIC STERILE TECHNIQUE. A TIMEOUT WAS PERFORMED WHERE LATERALITY AND THE SITE OF THE PROCEDURE WERE CHECKED AND CONFIRMED WITH EVERYONE IN THE ROOM. USING A 25-GAUGE NEEDLE, TRIGGER POINTS WERE INJECTED AT THE RIGHT AND LEFT NECK AREA AND RIGHT AND LEFT SHOULDER AREA WITH A TOTAL OF 40 ML OF BUPIVACAINE 0.25% AND KENALOG 40 MG. THE MEDICATIONS WERE VERIFIED WITH THE NURSE. THERE WAS NO EVIDENCE OF BLOOD OR PARESTHESIA DURING THE PROCEDURE. THE PATIENT WAS SENT TO THE RECOVERY ROOM. THE PATIENT WAS MOVING THE EXTREMITIES AND DOING WELL. THERE WERE NO COMPLICATIONS DURING THE PROCEDURE. ESTIMATED BLOOD LOSS WAS LESS THAN 5 ML POST PROCEDURE NOTE THE PROCEDURE DONE WAS DISCUSSED WITH THE PATIENT. THE PATIENT WILL BE SEEN IN A FOLLOW UP IN THE NEXT FEW WEEKS. I AM LOOKING FOR LONG LASTING PAIN RELIEF FOR THE PATIENT WITH THIS INTERVENTION. INSTRUCTIONS WERE GIVEN, QUESTIONS WERE ANSWERED, AND THE PATIENT EXPRESSED UNDERSTANDING AND AGREES WITH THE PLAN. I, ANJALI MOMIN, DOCUMENTED THE ABOVE INFORMATION ACTING A SCRIBE FOR DR. PEOPLES. I HAVE REVIEWED THE ABOVE DOCUMENT, WRITTEN BY ANJALI MOMIN, TROUBLE LOCATER, AND I VERIFY THAT IT IS ACCURATE PROCEDURE CODES FA211 ESTABILISHED PATIENT [facility] CHARGE 37003 INJECT TRIGGER POINTS 3/> DISPOSITION & COMMUNICATION FOLLOW UP FOLLOW UP WITH TEST DECK SUPERVISOR (REASON: POST TPI BILATERAL NECK AND SHOULDERS) ELECTRONICALLY SIGNED BY TRINO PEOPLES MD, MD ON 12/18/2019 AT 02:34 PM EST DISCLAIMER : THIS IS A VISIT SUMMARY EXTRACTED FROM THE [employer] CHART. IT IS NOT A COPY OF THE [employer] PROGRESS NOTE. HARRIET
== END ==
LOC: M PAIN 08:30
PROVIDERS: ATTEND Anesthesiology
DX: M79.18 Myalgia, other site (principal); I12.9 Hypertensive chronic kidney disease with stage 1 through stage 4 chronic kidney disease, or unspecified chronic kidney disease; N18.30 Chronic kidney disease, stage 3 unspecified; E55.9 Vitamin D deficiency, unspecified; I10 Essential (primary) hypertension; E03.9 Hypothyroidism, unspecified; J45.909 Unspecified asthma, uncomplicated; E66.9 Obesity, unspecified; Z68.41 Body mass index [BMI] 40.0-44.9, adult; Z79.82 Long term (current) use of aspirin; Z79.891 Long term (current) use of opiate analgesic; Z79.899 Other long term (current) drug therapy; Z88.0 Allergy status to penicillin; Z88.1 Allergy status to other antibiotic agents; Z88.2 Allergy status to sulfonamides; Z88.8 Allergy status to other drugs, medicaments and biological substances; Z91.040 Latex allergy status; Z91.030 Bee allergy status
CPT/HCPCS: 20553; G0463; J3301

== ENCOUNTER → 2019-12-27 | Outpatient (CLI) | payer MEDICARE, OTHER ==
[~2019-12-27] MED LIST changes: -BUPIVACAINE HCL 0.25% 10ML VIAL As Ordered ONE; -BUPIVACAINE HCL 0.25% 30ML VIAL As Ordered ONE; -TRIAMCINOLONE ACETONIDE SUSP 40 MG/ML VIAL (J3301) As Ordered ONE; -diazePAM 5 MG TAB As Ordered ONE; -oxyCODONE 5MG TAB As Ordered ONE
--- NOTE | 2020-01-01 03:50 | ECWPNPC ---
PATIENT NAME: ROZINA HERNANDEZ : 1955 GENDER: FEMALE VISIT DATE: 12/27/2019 DISCHARGE DATE: 12/27/19 1220 VISIT LOCKED DATE TIME: PHYSICIAN: LEVON GLOVER RESOURCE: LEVON GLOVER REASON FOR APPOINTMENT 1. POST BILATERAL NECK AND SHOULDER TRIGGER POINT INJECTIONS HISTORY OF PRESENT ILLNESS GENERAL: - 54-YEAR-OLD FEMALE IN FOR POST BILATERAL NECK AND SHOULDER TRIGGER POINT INJECTION FOLLOW-UP. SHE FEELS THE PROCEDURE WAS SUCCESSFUL OVERALL RATING HER PAIN PREPROCEDURE AT A 7 OUT OF 10 AND POSTPROCEDURE AT A 0 OUT OF 10. SHE FURTHER STATES THE PROCEDURE CONTINUES TO HELP HER TODAY RATING HER PAIN AT A 0 OUT OF 10. FALL RISK SCREENING: SCREENING :ONE FALL WITHOUT INJURY IN THE PAST YEAR PAIN SCREENING: PATIENT HAS A COMPLAINT OF ACUTE OR CHRONIC PAIN :YES INTENSITY OF PAIN (SCALE OF 1 TO 10):0 NURSING NOTE: -. PAIN CENTER INTAKE QUESTIONS: DO YOU HAVE A HISTORY OF MRSA? :YES GROIN 2015 DO YOU TAKE A BLOOD THINNERS? :NO DO YOU HAVE ANY BLEEDING DISORDERS? :NO ANY NEW NUMBNESS OR WEAKNESS IN YOUR LEGS OR ARMS? :NO ANY PACEMAKER,DEFIBRILLATOR, OR DORSAL COLUMN STIMULATOR? :NO DO YOU HAVE ANY RASHES OR OPEN SORES? :NO ARE YOU ALLERGIC TO IV DYE? :YES CT DYE ARE YOU DIABETIC? :NO ANY NEW PROBLEMS WITH YOUR MEDICATIONS? :NO HAVE YOU RECEIVED A VACCINE IN THE PAST 30 DAYS? :NO DO YOU PLAN TO RECEIVE A VACCINE IN THE NEXT 21 DAYS? :YES IF SO WHAT VACCINE AND WHEN? FLU VACCINE DO YOU NEED ANY PRESCRIPTION? :YES LIDO PATCHES DO YOU TAKE ANY IMMUNOSUPPRESSIVE MEDICATIONS? :NO IS THERE A CHANCE YOU COULD BE ? :NO ARE YOU BREAST FEEDING? :NO CURRENT MEDICATIONS TAKING EPIPEN 2-DUANE 0.3 MG/0.3ML SOLUTION AUTO-INJECTOR INJECTION DIRECTED TAKING CLONAZEPAM 0.5 MG TABLET 0.5 ORALLY 1/2 TAB IN AM AND 1/4 TAB IN PM TAKING IMITREX 100 MG TABLET 1 TABLET NEEDED ORALLY DIRECTED PRN MIGRAINES TAKING PROBIOTIC CAPSULE 1 TAB(S) ORALLY DAILY TAKING ASPIRIN EC 81 MG TABLET DELAYED RELEASE 1 TABLET ORALLY ONCE A DAY TAKING ATORVASTATIN CALCIUM 10 MG TABLET 1 TABLET ORALLY ONCE A DAY TAKING LOVAZA 1 GM CAPSULE 2 CAPSULES ORALLY TWICE A DAY TAKING PRIMIDONE 50 MG TABLET ORALLY BID TAKING TOPIRAMATE 100 MG TABLET 1 TABLET ORALLY DAILY TAKING RABEPRAZOLE SODIUM 20 MG TABLET DELAYED RELEASE 1 TABLET ORALLY 2 TBS IN ,/1 TAB IN PM TAKING IRBESARTAN 150 MG TABLET 1 TABLET ORALLY ONCE A DAY TAKING SPIRONOLACTONE 25 MG TABLET 1 TABLET ORALLY DAILY TAKING CALCIUM + D 600-200 MG-UNIT TABLET 1 TABLET ORALLY TWICE A DAY TAKING TORSEMIDE 20 MG TABLET DIRECTED ORALLY 1 TAB Q OTHER DAY,1/2 TAB Q OTHER DAY TAKING NYSTATIN 842632 UNIT/GM POWDER 1 APPLICATION TO AFFECTED AREA EXTERNALLY TWICE A DAY TAKING FISH OIL DOUBLE STRENGTH 1200 MG CAPSULE 1 CAPSULE ORALLY THREE TIMES DAILY TAKING LIDODERM 5 % PATCH DIRECTED EXTERNALLY (WORKERS COMP) APPLY 3 PATCH TO PAINFUL AREA OF LOW BACK ON 12 HRS OFF 12 HOURS PRN PAIN. TAKING LYRICA 150 MG CAPSULE 1 CAPSULE ORALLY BID TAKING VITAMIN E 400 UNIT CAPSULE 1 CAPSULE ORALLY ONCE A DAY TAKING IPRATROPIUM-ALBUTEROL 0.5-2.5 (3) MG/3ML SOLUTION 3 ML NEEDED INHALATION EVERY 6 HRS TAKING ADVAIR HFA 230-21 MCG/ACT AEROSOL 2 PUFFS INHALATION TWICE A DAY TAKING BUSPIRONE HCL 5 MG TABLET 1 TABLET ORALLY DAILY TAKING TRAMADOL HCL 50 MG TABLET 1 TAB ORALLY (CODE D FOR CHRONIC PAIN ) DAILY NEEDED TAKING TIZANIDINE HCL 4 MG TABLET 1 TABLET NEEDED ORALLY BEFORE BEDTIME (WORKERS COMP) TAKING VOLTAREN 1 % GEL 1 GRAM APPLIED TO AFFECTED AREA EXTERNALLY PRN 4 X DAILY NOT TO EXCEED 4 GMS IN A DAY WORKERS COMP TAKING POTASSIUM CHLORIDE ER 20 MEQ TABLET EXTENDED RELEASE 1 TABLET WITH FOOD ORALLY ONCE A DAY NOT-TAKING 28-0.8 MG TABLET ORALLY DAILY, NOTES: 08/02 429 NOT-TAKING VENTOLIN HFA 90 MCG/ACT AEROSOL SOLUTION 2 PUFFS NEEDED INHALATION EVERY 6 HRS, NOTES: > 2 MONTHS NOT-TAKING LEVOFLOXACIN 250 MG TABLET 1 TABLET ORALLY BID NOT-TAKING VITAMIN D 25 MCG (1000 UT) TABLET 1 CAPSULE ORALLY ONCE DAILY, NOTES: 08/02 429 NOT-TAKING ARIPIPRAZOLE 2 MG TABLET 1 TABLET ORALLY ONCE A DAY NOT-TAKING GABAPENTIN 600 MG TABLET 1 TABLET ORALLY THREE TIMES A DAY NOT-TAKING BREO ELLIPTA 200-25 MCG/INH AEROSOL POWDER BREATH ACTIVATED 1 PUFF INHALATION ONCE A DAY NOT-TAKING BUPROPION HCL 100 MG TABLET EXTENDED RELEASE 1 TABLET ORALLY DAILY PAST MEDICAL HISTORY PRIMARY HTN,SECONDARY RENAL HYPERPARATHYROIDISM,CRI STAGE 3,VIT D DEFICIENT,HYPOMAGNISEMIA CKD3, 01/20 RENAL US WITH INCREASED ECHOGENICITY TRAVIS MARCOS EDEMA VIT D DEF HTN HYPOTHYROIDISM ASTHMA, DR CL[place] 2008, FELL WORKING FOOT TANGLED IN PURSE HANDLES FOR CP CLINIC, WEARS BRACE 05/22 LIVER US DIFFUSE FIBROFATTY INFILTRATION OF THE LIVER 03/22 MRI L SPINE - 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 EPIGASTRIC TENDERNESS - DR JARRETT GI SYR 04/21 L WRIST FX - FISH OBESITY PSEUDOSEIZURES - NEURO/ALI ALLERGIES IV DYE: ANAPHYLAXIS BACTRIM: ANAPHYLAXIS - ALLERGY ERYTHROMYCIN: ANAPHYLAXIS - ALLERGY PENICILLIN (FOR ALLERGIES USE ONLY): HIVES ZITHROMAX: HEADACHES - ALLERGY INDOCIN: HIVES,HEADACHE - ALLERGY TORADOL: HIVES - ALLERGY BEE STINGS: ANAPHYLAXIS - ALLERGY HARD SHELL SEAFOOD: ANAPHYLAXIS - ALLERGY BIAXIN: HALLUCINATIONS - SIDE EFFECTS MUSCLE RELAXERS: SHAKES - SIDE EFFECTS SULFA (FOR ALLERGY USE ONLY): HIVES - ALLERGY LASIX: SWELLING - SIDE EFFECTS BACTROBAN OINTMENT: CAUSES YEAST INFECTION - SIDE EFFECTS LATEX: HIVES, BLISTERS - ALLERGY SURGICAL HISTORY HYSTERECTOMY,CHOLECYSTECTOMY,INGUINAL HERNIA,RIGHT,COLONOSCOPY,POLYPECTOMYX2,TONSILLECTOMY TENDON REPAIR LEFT WRIST/L THUMB 05/04/2016 RIGHT HAND CARPAL TUNNEL SURGERY/ TENDON REPAIR RIGHT WRIST/RIGHT THUMB 2019 ARTHROSCOPY LEFT SHOULDER 02/2019 FAMILY HISTORY FATHER: 84 YRS, DIAGNOSED WITH HYPERTENSION, UNSPECIFIED HEART DISEASE, DIABETES MOTHER: 77 YRS, COPD, HYPERTENSION, DIABETES SIBLINGS: , DIABETES 1DAUGHTER(S) - HEALTHY. 1 SISTER FORM BICYCLE ACCIDENT. SOCIAL HISTORY GENERAL: TOBACCO USE ARE YOU A:NONSMOKER LATEX QUESTIONNAIRE LATEX ALLERGY : HAVE YOU EVER DEVELOPED ANY TYPE OF REACTION AFTER HANDLING LATEX PRODUCTS SUCH RUBBER GLOVES, CONDOMS, DIAPHRAGMS, BALLOONS, SOCKS, OR UNDERWEAR?YES KNOWN LATEX ALLERGY LATEX ALLERGY : HAVE YOU EVER DEVELOPED ANY TYPE OF REACTION DURING OR AFTER DENTAL APPOINTMENT, VAGINAL/RECTAL EXAMINATION, SURGICAL PROCEDURE, OR ANY OTHER EXPOSURE?NO - PLEASE INDICATE : HIVES FROM LATEX DATE ASKED : 05/03/2019 LATEX RISK : HAVE YOU EVER HAD ANY DIFFICULTY BREATHING OR HIVES AFTER EATING OR HANDLING ANY FRUITS, OR VEGETABLES; SUCH KIWI, BANANAS, STONE FRUITS, OR CHESTNUTSNO LATEX RISK : DO YOU HAVE A PREVIOUS PERSONAL HISTORY OF MORE THAN NINE SURGERIES, SPINA BIFIDA, OR REPEATED CATHERIZATIONS? NO LATEX RISK : ARE YOU FREQUENTLY EXPOSED TO LATEX PRODUCTS IN YOUR OCCUPATION?NO ALCOHOL SCREENING DID YOU HAVE A DRINK CONTAINING ALCOHOL IN THE PAST YEAR?YES HOW OFTEN DID YOU HAVE SIX OR MORE DRINKS ON ONE OCCASION IN THE PAST YEAR?NEVER (0 POINTS) HOW MANY DRINKS DID YOU HAVE ON A TYPICAL DAY WHEN YOU WERE DRINKING IN THE PAST YEAR?1 OR 2 (0 POINTS) HOW OFTEN DID YOU HAVE A DRINK CONTAINING ALCOHOL IN THE PAST YEAR?MONTHLY OR LESS (1 POINT) POINTS1 INTERPRETATIONNEGATIVE RECREATIONAL DRUG USE DRUG USE?NO CAFFEINE CAFFEINE USE?NO SEXUAL HX HAD SEX IN THE LAST 12 MONTHS (VAGINAL, ORAL, OR ANAL)?YES WITHMEN ONLY HAVE YOU EVER HAD AN STD?NO HIV / HEP-C SCREENING HIV TEST OFFERED TO PATIENT:NO HEP-C TEST OFFERED TO PATIENT:NO CONFUCIANISM [id number] FAITH LANGUAGE LANGUAGES SPOKEN:TURKISH EDUCATION LEVEL OF EDUCATION:COLLEGE LEARNING BARRIERS / SPECIAL NEEDS BARRIERS TO LEARNING?NO HEARING IMPAIRED?NO VISION IMPAIRED?YES COGNITIVELY IMPAIRED?NO :CORRECTIVE LENSES READINESS TO LEARN?YES LEARNING PREFERENCES?NO LEARNING CAPABILITIES PRESENT?YES EMOTIONAL BARRIERS?NO SPECIAL DEVICES?YES :CANE, BRACE LEFT ANLKLE BRACE ENTRY LEVEL RECRUITER NEEDED?NO 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 DIET: REGULAR. EXERCISE: NONE. MARITAL STATUS: . OTHERS AT HOME: SPOUSE. PAIN CLINIC PFS, CLERGY, PUBLIC HEALTH REFERRALS PFS REFERRAL NEEDED?NO CLERGY REFERRAL NEEDED?NO PUBLIC HEALTH REFERRAL NEEDED?NO WAS THE PROVIDER NOTIFIED OF ANY PERTINENT INFO?YES HAS THE PATIENT BEEN EDUCATED REGARDING HIS/HER PLAN OF CARE?YES HAS THE PATIENT BEEN EDUCATED REGARDING PAIN, THE RISK FOR PAIN, THE IMPORTANCE OF EFFECTIVE PAIN MANAGEMENT, AND THE PAIN ASSESSMENT PROCESS?YES ADVANCE DIRECTIVE ADVANCE DIRECTIVE DISCUSSED WITH PATIENT:YES PT HAS HCP FOR LEV[facility] HERNANDEZ HOSPITALIZATION/MAJOR DIAGNOSTIC PROCEDURE SURG RELATED REVIEW OF SYSTEMS CONSTITUTIONAL: ANY RECENT FEVER NO . CHILLS NO . WEIGHT CHANGE OF UNKNOWN REASONS NO . GASTROENTEROLOGY: NEW UNEXPLAINABLE CHANGES IN BOWEL CONTROL NO . CONSTIPATION NO . GENITOURINARY: ANY NEW CHANGE IN BLADDER CONTROL? NO . NEUROLOGY: NEW ONSET DIZZINESS OR NEUROLOGICAL CHANGES NOT MENTIONED NO . NEW NUMBNESS OR PAIN PATTERNS NOT MENTIONED AND PERTINENT TO TODAY'S VISIT NO . CARDIOLOGY: NEW CHEST PRESSURE NO . NEW CHEST PAIN NO . RESPIRATORY: UNEXPLAINABLE COUGH NO . NEW SHORTNESS OF BREATH NO . VITAL SIGNS WT 241.2 LBS, HT 64 IN, BMI 41.40 INDEX, BP 136/59 MM HG, HR 71 /MIN, RR 18 /MIN, TEMP 96.9 F, OXYGEN SAT % 96%, NA INITIALS AW 1144. EXAMINATION GENERAL EXAMINATION: GENERALNO ACUTE DISTRESS, WELL NOURISHED AND HYDRATED. PSYCHAPPROPRIATE MOOD AND AFFECT . LUNGS:CLEAR TO AUSCULTATION BILATERALLY, NO WHEEZES, RHONCHI, RALES. HEART:NO MURMURS, REGULAR RATE AND RHYTHM. ASSESSMENTS OTHER CHRONIC PAIN - G89.29 (PRIMARY) MYALGIA, OTHER SITE - M79.18 TREATMENT OTHER CHRONIC PAIN REFILL LIDODERM PATCH, 5 %, DIRECTED, EXTERNALLY (WORKERS COMP), APPLY 3 PATCH TO PAINFUL AREA OF LOW BACK ON 12 HRS OFF 12 HOURS PRN PAIN., 30 DAYS, 90, REFILLS 2 PAIN PROCEDURE LOGDATE OF BUXOWRRBP12/6/20PROCEDURE:TRIGGER POINT INJECTIONS BILAT NECK, SHOULDERSAMOUNT OF PRE SEDATEVALIUM 10MG, OXY 10MGRESULT:PRE 7/10 POST 0/10 NOTES: 64-YEAR-OLD FEMALE IN FOR POST BILATERAL NECK AND SHOULDER TRIGGER POINT INJECTION FOLLOW-UP. GIVEN PRESENTING SYMPTOMS RECOMMEND FOLLOW-UP IN 2 MONTHS. PATIENT HAS EXPRESSED UNDERSTANDING OF AND WAS IN AGREEMENT WITH TREATMENT PLAN. GIVEN TIME TO ASK QUESTIONS AND EXPRESS CONCERNS. OTHERS NOTES: PAT PHONE CALL ATTEMPTED-MESSAGE LEFT- 12/11/2019 Vida MORELOS RN . PROCEDURE CODES FA211 ESTABILISHED PATIENT [facility]AC[facility] CHARGE DISPOSITION & COMMUNICATION FOLLOW UP 2 MONTHS (REASON: MYALGIA) ELECTRONICALLY SIGNED BY JERRY SARAVIA ON 12/31/2019 AT 08:56 AM EST DISCLAIMER : THIS IS A VISIT SUMMARY EXTRACTED FROM THE [employer] CHART. IT IS NOT A COPY OF THE [employer] PROGRESS NOTE. MTDD
== END ==
LOC: M PAIN 11:30
PROVIDERS: ATTEND Family Medicine
DX: M79.18 Myalgia, other site (principal); E55.9 Vitamin D deficiency, unspecified; I10 Essential (primary) hypertension; J45.909 Unspecified asthma, uncomplicated; Z86.14 Personal history of Methicillin resistant Staphylococcus aureus infection; Z88.0 Allergy status to penicillin; Z88.1 Allergy status to other antibiotic agents; Z88.2 Allergy status to sulfonamides; Z88.6 Allergy status to analgesic agent; Z88.8 Allergy status to other drugs, medicaments and biological substances; Z91.013 Allergy to seafood; Z91.030 Bee allergy status; Z91.040 Latex allergy status; Z91.041 Radiographic dye allergy status; E66.01 Morbid (severe) obesity due to excess calories; Z68.41 Body mass index [BMI] 40.0-44.9, adult; Z79.82 Long term (current) use of aspirin; Z79.899 Other long term (current) drug therapy

== ENCOUNTER → 2020-02-26 | Outpatient (CLI) | payer MEDICARE, OTHER ==
[~2020-02-26] MED LIST changes: -BUPR150T3 PO; +BUPR150T4 PO; -RABE1TAB PO; +RABE1TAB4 PO
--- NOTE | 2020-02-28 05:05 | ECWPNPC ---
PATIENT NAME: ROZINA HERNANDEZ : 1955 GENDER: FEMALE VISIT DATE: 02/26/2020 DISCHARGE DATE: 02/26/20 1231 VISIT LOCKED DATE TIME: PHYSICIAN: LEVON GLOVER RESOURCE: LEVON GLOVER REASON FOR APPOINTMENT 1. MYALGIA - MEDICARE AB HISTORY OF PRESENT ILLNESS PAIN CENTER INTAKE QUESTIONS: 64-YEAR-OLD FEMALE IN FOR CHRONIC PAIN FOLLOW-UP. SHE RATES HER PAIN CURRENTLY AT A 6 OUT OF 10 AND DESCRIBES IT ACHING, SHARP, AND DULL. GENERAL: - -. FALL RISK SCREENING: SCREENING :NO FALLS REPORTED IN THE LAST YEAR PAIN SCREENING: PATIENT HAS A COMPLAINT OF ACUTE OR CHRONIC PAIN :YES LOCATION OF PAIN:LOW BACK, ANKLE(S) LEFT ANKLE, LEFT KNEE, SHOULDERS, NECK INTENSITY OF PAIN (SCALE OF 1 TO 10):6 WHAT DOES YOUR PAIN FEEL LIKE:ACHING, SHARP, OTHER DULL DURATION:CONTINOUS, CONSTANT, AWAKENS FROM SLEEP PAIN IS INCREASED BY:ACTIVITIES PAIN IS DECREASED BY:USE OF PAIN MEDICATIONS, OTHERS HEAT, TRAMADOL, TYLENOL TREATMENT/MEDICATIONS USED TO MANAGE PAIN:OTC PAIN RELIEVERS TRAMADOL, TYLENOL NURSING NOTE: - -. CURRENT MEDICATIONS TAKING MAGNESIUM OXIDE -MG SUPPLEMENT 400 MG CAPSULE 1 CAPSULE NEEDED ORALLY TID TAKING FAMOTIDINE 40 MG TABLET DIRECTED ORALLY BID TAKING ONDANSETRON 4 MG TABLET DISINTEGRATING 1 TABLET ON THE TONGUE AND ALLOW TO DISSOLVE ORALLY EVERY 6 HOURS NEEDED TAKING VITAMIN E 400 UNIT CAPSULE 1 CAPSULE ORALLY ONCE A DAY TAKING TAMSULOSIN HCL 0.4 MG CAPSULE 1 CAPSULE ORALLY ONCE A DAY TAKING AIMOVIG 140 DOSE 1 INJECTION MONTHLY TAKING PAROXETINE HCL 10 MG TABLET 1 TABLET IN THE MORNING ORALLY ONCE A DAY TAKING TYLENOL EXTRA STRENGTH 500 MG TABLET 1 TABLET NEEDED ORALLY EVERY 6 HRS TAKING EPIPEN 2-DUANE 0.3 MG/0.3ML SOLUTION AUTO-INJECTOR INJECTION DIRECTED TAKING CLONAZEPAM 0.5 MG TABLET 0.5 ORALLY 1/2 TAB IN AM AND 1/4 TAB IN PM TAKING IMITREX 100 MG TABLET 1 TABLET NEEDED ORALLY DIRECTED PRN MIGRAINES TAKING PROBIOTIC CAPSULE 1 TAB(S) ORALLY DAILY TAKING ASPIRIN EC 81 MG TABLET DELAYED RELEASE 1 TABLET ORALLY ONCE A DAY TAKING ATORVASTATIN CALCIUM 10 MG TABLET 1 TABLET ORALLY ONCE A DAY TAKING PRIMIDONE 50 MG TABLET ORALLY BID TAKING TOPIRAMATE 100 MG TABLET 1 TABLET ORALLY DAILY TAKING SPIRONOLACTONE 25 MG TABLET 1 TABLET ORALLY DAILY TAKING CALCIUM + D 600-200 MG-UNIT TABLET 1 TABLET ORALLY TWICE A DAY TAKING TORSEMIDE 20 MG TABLET DIRECTED ORALLY 1 TAB Q OTHER DAY,1/2 TAB Q OTHER DAY TAKING NYSTATIN [id number] UNIT/GM POWDER 1 APPLICATION TO AFFECTED AREA EXTERNALLY TWICE A DAY TAKING FISH OIL DOUBLE STRENGTH 1200 MG CAPSULE 1 CAPSULE ORALLY THREE TIMES DAILY TAKING VITAMIN E 400 UNIT CAPSULE 1 CAPSULE ORALLY ONCE A DAY TAKING IPRATROPIUM-ALBUTEROL 0.5-2.5 (3) MG/3ML SOLUTION 3 ML NEEDED INHALATION EVERY 6 HRS TAKING ADVAIR HFA 230-21 MCG/ACT AEROSOL 2 PUFFS INHALATION TWICE A DAY TAKING BUSPIRONE HCL 5 MG TABLET 1 TABLET ORALLY DAILY TAKING TRAMADOL HCL 50 MG TABLET 1 TAB ORALLY (CODE D FOR CHRONIC PAIN ) DAILY NEEDED TAKING TIZANIDINE HCL 4 MG TABLET 1 TABLET NEEDED ORALLY BEFORE BEDTIME (WORKERS COMP) TAKING POTASSIUM CHLORIDE ER 20 MEQ TABLET EXTENDED RELEASE 1 TABLET WITH FOOD ORALLY ONCE A DAY TAKING LIDODERM 5 % PATCH DIRECTED EXTERNALLY (WORKERS COMP) APPLY 3 PATCH TO PAINFUL AREA OF LOW BACK ON 12 HRS OFF 12 HOURS PRN PAIN. TAKING VENTOLIN HFA 90 MCG/ACT AEROSOL SOLUTION 2 PUFFS NEEDED INHALATION EVERY 6 HRS, NOTES: > 2 MONTHS TAKING BUPROPION HCL 100 MG TABLET EXTENDED RELEASE 1 TABLET ORALLY DAILY NOT-TAKING LOVAZA 1 GM CAPSULE 2 CAPSULES ORALLY TWICE A DAY NOT-TAKING RABEPRAZOLE SODIUM 20 MG TABLET DELAYED RELEASE 1 TABLET ORALLY 2 TBS IN ,/1 TAB IN PM NOT-TAKING IRBESARTAN 150 MG TABLET 1 TABLET ORALLY ONCE A DAY NOT-TAKING LYRICA 150 MG CAPSULE 1 CAPSULE ORALLY BID NOT-TAKING 28-0.8 MG TABLET ORALLY DAILY, NOTES: 08/02 429 NOT-TAKING LEVOFLOXACIN 250 MG TABLET 1 TABLET ORALLY BID NOT-TAKING VITAMIN D 25 MCG (1000 UT) TABLET 1 CAPSULE ORALLY ONCE DAILY, NOTES: 08/02 429 NOT-TAKING ARIPIPRAZOLE 2 MG TABLET 1 TABLET ORALLY ONCE A DAY NOT-TAKING GABAPENTIN 600 MG TABLET 1 TABLET ORALLY THREE TIMES A DAY NOT-TAKING BREO ELLIPTA 200-25 MCG/INH AEROSOL POWDER BREATH ACTIVATED 1 PUFF INHALATION ONCE A DAY UNKNOWN VOLTAREN 1 % GEL 1 GRAM APPLIED TO AFFECTED AREA EXTERNALLY PRN 4 X DAILY NOT TO EXCEED 4 GMS IN A DAY WORKERS COMP MEDICATION LIST REVIEWED AND RECONCILED WITH THE PATIENT PAST MEDICAL HISTORY PRIMARY HTN,SECONDARY RENAL HYPERPARATHYROIDISM,CRI STAGE 3,VIT D DEFICIENT,HYPOMAGNISEMIA CKD3, 01/20 RENAL US WITH INCREASED ECHOGENICITY TRAVIS MARCOS EDEMA VIT D DEF HTN HYPOTHYROIDISM ASTHMA, DR CL[place] 2008, FELL WORKING FOOT TANGLED IN PURSE HANDLES FOR CP CLINIC, WEARS BRACE 05/22 LIVER US DIFFUSE FIBROFATTY INFILTRATION OF THE LIVER 03/22 MRI L SPINE - 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 EPIGASTRIC TENDERNESS - DR JARRETT GI SYR 04/21 L WRIST FX - FISH OBESITY PSEUDOSEIZURES - NEURO/ALI ALLERGIES IV DYE: ANAPHYLAXIS BACTRIM: ANAPHYLAXIS - ALLERGY ERYTHROMYCIN: ANAPHYLAXIS - ALLERGY PENICILLIN (FOR ALLERGIES USE ONLY): HIVES ZITHROMAX: HEADACHES - ALLERGY INDOCIN: HIVES,HEADACHE - ALLERGY TORADOL: HIVES - ALLERGY BEE STINGS: ANAPHYLAXIS - ALLERGY HARD SHELL SEAFOOD: ANAPHYLAXIS - ALLERGY BIAXIN: HALLUCINATIONS - SIDE EFFECTS MUSCLE RELAXERS: SHAKES - SIDE EFFECTS SULFA (FOR ALLERGY USE ONLY): HIVES - ALLERGY LASIX: SWELLING - SIDE EFFECTS BACTROBAN OINTMENT: CAUSES YEAST INFECTION - SIDE EFFECTS LATEX: HIVES, BLISTERS - ALLERGY SOCIAL HISTORY GENERAL: TOBACCO USE ARE YOU A:NONSMOKER LATEX QUESTIONNAIRE LATEX ALLERGY : HAVE YOU EVER DEVELOPED ANY TYPE OF REACTION AFTER HANDLING LATEX PRODUCTS SUCH RUBBER GLOVES, CONDOMS, DIAPHRAGMS, BALLOONS, SOCKS, OR UNDERWEAR?YES KNOWN LATEX ALLERGY - PLEASE INDICATE : HIVES FROM LATEX LATEX ALLERGY : HAVE YOU EVER DEVELOPED ANY TYPE OF REACTION DURING OR AFTER DENTAL APPOINTMENT, VAGINAL/RECTAL EXAMINATION, SURGICAL PROCEDURE, OR ANY OTHER EXPOSURE?NO LATEX RISK : HAVE YOU EVER HAD ANY DIFFICULTY BREATHING OR HIVES AFTER EATING OR HANDLING ANY FRUITS, OR VEGETABLES; SUCH KIWI, BANANAS, STONE FRUITS, OR CHESTNUTSNO LATEX RISK : DO YOU HAVE A PREVIOUS PERSONAL HISTORY OF MORE THAN NINE SURGERIES, SPINA BIFIDA, OR REPEATED CATHERIZATIONS? NO LATEX RISK : ARE YOU FREQUENTLY EXPOSED TO LATEX PRODUCTS IN YOUR OCCUPATION?NO DATE ASKED : 02/26/2020 ALCOHOL SCREENING DID YOU HAVE A DRINK CONTAINING ALCOHOL IN THE PAST YEAR?YES HOW OFTEN DID YOU HAVE SIX OR MORE DRINKS ON ONE OCCASION IN THE PAST YEAR?NEVER (0 POINTS) HOW MANY DRINKS DID YOU HAVE ON A TYPICAL DAY WHEN YOU WERE DRINKING IN THE PAST YEAR?1 OR 2 (0 POINTS) HOW OFTEN DID YOU HAVE A DRINK CONTAINING ALCOHOL IN THE PAST YEAR?MONTHLY OR LESS (1 POINT) POINTS1 INTERPRETATIONNEGATIVE RECREATIONAL DRUG USE DRUG USE?NO CAFFEINE CAFFEINE USE?NO SEXUAL HX HAD SEX IN THE LAST 12 MONTHS (VAGINAL, ORAL, OR ANAL)?YES WITHMEN ONLY HAVE YOU EVER HAD AN STD?NO HIV / HEP-C SCREENING HIV TEST OFFERED TO PATIENT:NO HEP-C TEST OFFERED TO PATIENT:NO VOODOO [id number] PENTECOSTAL LANGUAGE LANGUAGES SPOKEN:GUINEAN EDUCATION LEVEL OF EDUCATION:COLLEGE LEARNING BARRIERS / SPECIAL NEEDS CHANGE FROM LAST VISIT?NO BARRIERS TO LEARNING?NO HEARING IMPAIRED?NO VISION IMPAIRED?YES :CORRECTIVE LENSES COGNITIVELY IMPAIRED?NO READINESS TO LEARN?YES LEARNING PREFERENCES?NO LEARNING CAPABILITIES PRESENT?YES EMOTIONAL BARRIERS?NO SPECIAL DEVICES?YES :CANE, BRACE LEFT ANLKLE BRACE COSTUME MISTRESS NEEDED?NO 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 DIET: REGULAR. EXERCISE: NONE. MARITAL STATUS: . OTHERS AT HOME: SPOUSE. PAIN CLINIC PFS, CLERGY, PUBLIC HEALTH REFERRALS PFS REFERRAL NEEDED?NO CLERGY REFERRAL NEEDED?NO PUBLIC HEALTH REFERRAL NEEDED?NO WAS THE PROVIDER NOTIFIED OF ANY PERTINENT INFO?YES HAS THE PATIENT BEEN EDUCATED REGARDING HIS/HER PLAN OF CARE?YES HAS THE PATIENT BEEN EDUCATED REGARDING PAIN, THE RISK FOR PAIN, THE IMPORTANCE OF EFFECTIVE PAIN MANAGEMENT, AND THE PAIN ASSESSMENT PROCESS?YES ADVANCE DIRECTIVE ADVANCE DIRECTIVE DISCUSSED WITH PATIENT:YES PT HAS HCP FOR LEVON HERNANDEZ REVIEW OF SYSTEMS CONSTITUTIONAL: ANY RECENT FEVER NO . CHILLS NO . WEIGHT CHANGE OF UNKNOWN REASONS NO . GASTROENTEROLOGY: NEW UNEXPLAINABLE CHANGES IN BOWEL CONTROL NO . CONSTIPATION NO . GENITOURINARY: ANY NEW CHANGE IN BLADDER CONTROL? NO . NEUROLOGY: NEW ONSET DIZZINESS OR NEUROLOGICAL CHANGES NOT MENTIONED NO . NEW NUMBNESS OR PAIN PATTERNS NOT MENTIONED AND PERTINENT TO TODAY'S VISIT NO . CARDIOLOGY: NEW CHEST PRESSURE NO . NEW CHEST PAIN NO . RESPIRATORY: UNEXPLAINABLE COUGH NO . NEW SHORTNESS OF BREATH NO . VITAL SIGNS WT 222.6 LBS, HT 64 IN, BMI 38.21 INDEX, BP 132/60 MM HG, HR 59 /MIN, TEMP 96.6 F, OXYGEN SAT % 99%, SAFE IN ENV? (Y/N) YES, REVIEWED BY: ANA MILLER MA. EXAMINATION GENERAL EXAMINATION: GENERALNO ACUTE DISTRESS, WELL NOURISHED AND HYDRATED. PSYCHAPPROPRIATE MOOD AND AFFECT . NECK:POINT TENDER BILATERAL NECK AND SHOULDERS, SURROUNDING SKIN SHOWS NO ERYTHEMA, ECCHYMOSIS, INCREASED WARMTH, AND/OR SKIN ERUPTIONS NOTED. BANDS OF RESTRICTIVE TISSUE NOTED OVER TRIGGER POINTS . LUNGS:CLEAR TO AUSCULTATION BILATERALLY, NO WHEEZES, RHONCHI, RALES. HEART:NO MURMURS, REGULAR RATE AND RHYTHM. ASSESSMENTS MYALGIA, OTHER SITE - M79.18 (PRIMARY) TREATMENT MYALGIA, OTHER SITE NOTES: 64-YEAR-OLD FEMALE IN FOR CHRONIC PAIN FOLLOW-UP. GIVEN PRESENTING SYMPTOMS AND RESULTS PHYSICAL EXAMINATION RECOMMENDED TRIGGER POINT INJECTIONS TO THE NECK AND SHOULDERS BILATERALLY WITH POST PROCEDURAL FOLLOW-UP. PATIENT EXPRESSED UNDERSTANDING OF AND WAS IN AGREEMENT WITH TREATMENT PLAN. GIVEN TIME TO ASK QUESTIONS AND EXPRESS CONCERNS. OTHERS NOTES: PAT PHONE CALL ATTEMPTED-MESSAGE LEFT- 12/11/2019 0923 Isabel MORELOS RN . PROCEDURE CODES FA211 ESTABILISHED PATIENT [facility] FACILITY CHARGE DISPOSITION & COMMUNICATION FOLLOW UP POST PROCEDURE (REASON: TRIGGER POINT INJECTION BILATERAL NECK AND SHOULDERS ) ELECTRONICALLY SIGNED BY JERRY SARAVIA ON 02/27/2020 AT 09:17 AM EST DISCLAIMER : THIS IS A VISIT SUMMARY EXTRACTED FROM THE [employer] CHART. IT IS NOT A COPY OF THE [employer] PROGRESS NOTE. HARRIET
== END ==
LOC: M PAIN 11:30
PROVIDERS: ATTEND Family Medicine
DX: M79.18 Myalgia, other site (principal); E55.9 Vitamin D deficiency, unspecified; J45.909 Unspecified asthma, uncomplicated; Z88.0 Allergy status to penicillin; Z88.1 Allergy status to other antibiotic agents; Z88.2 Allergy status to sulfonamides; Z88.6 Allergy status to analgesic agent; Z88.8 Allergy status to other drugs, medicaments and biological substances; Z91.013 Allergy to seafood; Z91.030 Bee allergy status; Z91.040 Latex allergy status; Z91.041 Radiographic dye allergy status; Z79.82 Long term (current) use of aspirin; Z79.899 Other long term (current) drug therapy

== ENCOUNTER → 2020-03-15 | Outpatient (CLI) | payer MEDICARE, OTHER | LOC: M LABSMTC 10:25 | PROVIDERS: ATTEND Anesthesiology | DX: Z01.812 Encounter for preprocedural laboratory examination (principal); Z20.822 Contact with and (suspected) exposure to COVID-19 ==

== ENCOUNTER → 2020-03-20 | Outpatient (CLI) | payer MEDICARE, OTHER ==
[~2020-03-20] MED LIST changes: +BUPIVACAINE HCL 0.25% 10ML VIAL As Ordered ONE; +BUPIVACAINE HCL 0.25% 30ML VIAL As Ordered ONE; +TRIAMCINOLONE ACETONIDE SUSP 40 MG/ML VIAL (J3301) As Ordered ONE; +diazePAM 5MG TABLET As Ordered ONE; +oxyCODONE 5MG TAB As Ordered ONE
--- NOTE | 2020-03-21 03:42 | ECWPNPC ---
PATIENT NAME: ROZINA HERNANDEZ : 1955 GENDER: FEMALE VISIT DATE: 03/20/2020 DISCHARGE DATE: 03/20/20 1042 VISIT LOCKED DATE TIME: PHYSICIAN: TRINO PEOPLES MD RESOURCE: TRINO PEOPLES MD REASON FOR APPOINTMENT 1. TRIGGER POINT INJECTIONS BILATERAL NECK AND BILATERAL SHOULDER HISTORY OF PRESENT ILLNESS GENERAL: -. FALL RISK SCREENING: SCREENING :ONE FALL WITHOUT INJURY IN THE PAST YEAR RECENT FALL OFF ROOF WHILE SHOVELING SNOW. PAIN SCREENING: PATIENT HAS A COMPLAINT OF ACUTE OR CHRONIC PAIN :YES LOCATION OF PAIN: NECK, BILATERAL SHOULDERS INTENSITY OF PAIN (SCALE OF 1 TO 10):7 WHAT DOES YOUR PAIN FEEL LIKE:OTHER "LIKE SOMEONE PUNCHING YOU." DURATION:CONTINOUS, AWAKENS FROM SLEEP PAIN IS INCREASED BY:ACTIVITIES PAIN IS DECREASED BY:OTHERS HEATING PAD PLAN/GOALS/TREATMENT/INTERVENTION/FOLLOW UP:SEE PLAN NURSING NOTE: -. PAIN CENTER INTAKE QUESTIONS: DO YOU HAVE A HISTORY OF MRSA? :YES H/O FOUR YEARS AGO, CLEARED BY DO YOU TAKE A BLOOD THINNERS? :NO DO YOU HAVE ANY BLEEDING DISORDERS? :NO ANY NEW NUMBNESS OR WEAKNESS IN YOUR LEGS OR ARMS? :NO ANY PACEMAKER,DEFIBRILLATOR, OR DORSAL COLUMN STIMULATOR? :NO DO YOU HAVE ANY RASHES OR OPEN SORES? :NO ARE YOU ALLERGIC TO IV DYE? :YES CT DYE BUT NOT MRI DYE ARE YOU DIABETIC? :NO ANY NEW PROBLEMS WITH YOUR MEDICATIONS? :NO HAVE YOU RECEIVED A VACCINE IN THE PAST 30 DAYS? :NO DO YOU PLAN TO RECEIVE A VACCINE IN THE NEXT 21 DAYS? :NO DO YOU TAKE ANY IMMUNOSUPPRESSIVE MEDICATIONS? :NO ANY HISTORY OF SEIZURES? 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 ANY HISTORY OF CARDIAC ISSUES OR EVENTS? :NO DO YOU HAVE SLEEP APNEA? :YES DO YOU WEAR A CPAP?YES ANY RECENT HEAD INJURY? :NO DO YOU HAVE ANY NEW INFECTIONS? :NO IS THERE A CHANCE YOU COULD BE ? :NO ARE YOU BREAST FEEDING? :NO WHEN DID YOU LAST EAT? : 03/19/20` WHEN DID YOU LAST DRINK? : 03/20/20 WHAT DID YOU LAST DRINK? : -----WATER NAME OF PERSON DRIVING YOU HOME? : JALILABIDATHIAGO () DO YOU HAVE ANY OTHER QUESTIONS OR CONCERNS? : NO CURRENT MEDICATIONS TAKING MAGNESIUM OXIDE -MG SUPPLEMENT 400 MG CAPSULE 1 CAPSULE NEEDED ORALLY TID TAKING FAMOTIDINE 40 MG TABLET DIRECTED ORALLY BID TAKING TAMSULOSIN HCL 0.4 MG CAPSULE 1 CAPSULE ORALLY ONCE A DAY TAKING AIMOVIG 140 DOSE 1 INJECTION MONTHLY TAKING PAROXETINE HCL 10 MG TABLET 1 TABLET IN THE MORNING ORALLY ONCE A DAY TAKING TYLENOL EXTRA STRENGTH 500 MG TABLET 1 TABLET NEEDED ORALLY EVERY 6 HRS TAKING EPIPEN 2-DUANE 0.3 MG/0.3ML SOLUTION AUTO-INJECTOR INJECTION DIRECTED TAKING CLONAZEPAM 0.5 MG TABLET 0.5 ORALLY 1/2 TAB IN AM AND 1/4 TAB IN PM TAKING IMITREX 100 MG TABLET 1 TABLET NEEDED ORALLY DIRECTED PRN MIGRAINES TAKING PROBIOTIC CAPSULE 1 TAB(S) ORALLY DAILY, NOTES: ALIGN TAKING ASPIRIN EC 81 MG TABLET DELAYED RELEASE 1 TABLET ORALLY ONCE A DAY TAKING ATORVASTATIN CALCIUM 10 MG TABLET 1 TABLET ORALLY ONCE A DAY TAKING PRIMIDONE 50 MG TABLET ORALLY BID TAKING TOPIRAMATE 100 MG TABLET 1 TABLET ORALLY DAILY TAKING SPIRONOLACTONE 25 MG TABLET 1 TABLET ORALLY DAILY TAKING CALCIUM + D 600-200 MG-UNIT TABLET 1 TABLET ORALLY TWICE A DAY TAKING TORSEMIDE 20 MG TABLET DIRECTED ORALLY 1 TAB Q OTHER DAY,1/2 TAB Q OTHER DAY TAKING NYSTATIN 174375 UNIT/GM POWDER 1 APPLICATION TO AFFECTED AREA EXTERNALLY TWICE A DAY TAKING VITAMIN E 400 UNIT CAPSULE 1 CAPSULE ORALLY ONCE A DAY TAKING IPRATROPIUM-ALBUTEROL 0.5-2.5 (3) MG/3ML SOLUTION 3 ML NEEDED INHALATION EVERY 6 HRS TAKING ADVAIR HFA 230-21 MCG/ACT AEROSOL 2 PUFFS INHALATION TWICE A DAY TAKING BUSPIRONE HCL 5 MG TABLET 1 TABLET ORALLY DAILY TAKING TRAMADOL HCL 50 MG TABLET 1 TAB ORALLY (CODE D FOR CHRONIC PAIN ) DAILY NEEDED, NOTES: 03/18/20 TAKING POTASSIUM CHLORIDE ER 20 MEQ TABLET EXTENDED RELEASE 1 TABLET WITH FOOD ORALLY ONCE A DAY TAKING LIDODERM 5 % PATCH DIRECTED EXTERNALLY (WORKERS COMP) APPLY 3 PATCH TO PAINFUL AREA OF LOW BACK ON 12 HRS OFF 12 HOURS PRN PAIN. TAKING VENTOLIN HFA 90 MCG/ACT AEROSOL SOLUTION 2 PUFFS NEEDED INHALATION EVERY 6 HRS TAKING BUPROPION HCL 100 MG TABLET EXTENDED RELEASE 1 TABLET ORALLY DAILY TAKING GAVISCON EXTRA STRENGTH 160-105 MG TABLET CHEWABLE 2 TABLETS AFTER MEALS AND AT BEDTIME NEEDED ORALLY FOUR TIMES A DAY TAKING SUCRALFATE 1 GM TABLET 1 TABLET ON AN EMPTY STOMACH ORALLY TWICE A DAY TAKING NYSTATIN - POWDER DIRECTED TAKING NYSTATIN 546257 UNIT/ML SUSPENSION 5 ML ORALLY SWISH AND SWALLOW 4 TIMES A DAY TAKING IRBESARTAN 150 MG TABLET 1 TABLET ORALLY ONCE A DAY TAKING VOLTAREN 1 % GEL 1 GRAM APPLIED TO AFFECTED AREA EXTERNALLY PRN 4 X DAILY NOT TO EXCEED 4 GMS IN A DAY WORKERS COMP NOT-TAKING ONDANSETRON 4 MG TABLET DISINTEGRATING 1 TABLET ON THE TONGUE AND ALLOW TO DISSOLVE ORALLY EVERY 6 HOURS NEEDED NOT-TAKING VITAMIN E 400 UNIT CAPSULE 1 CAPSULE ORALLY ONCE A DAY NOT-TAKING FISH OIL DOUBLE STRENGTH 1200 MG CAPSULE 1 CAPSULE ORALLY THREE TIMES DAILY NOT-TAKING TIZANIDINE HCL 4 MG TABLET 1 TABLET NEEDED ORALLY BEFORE BEDTIME (WORKERS COMP) NOT-TAKING 28-0.8 MG TABLET ORALLY DAILY NOT-TAKING LOVAZA 1 GM CAPSULE 2 CAPSULES ORALLY TWICE A DAY NOT-TAKING RABEPRAZOLE SODIUM 20 MG TABLET DELAYED RELEASE 1 TABLET ORALLY 2 TBS IN ,/1 TAB IN PM NOT-TAKING LYRICA 150 MG CAPSULE 1 CAPSULE ORALLY BID NOT-TAKING LEVOFLOXACIN 250 MG TABLET 1 TABLET ORALLY BID NOT-TAKING VITAMIN D 25 MCG (1000 UT) TABLET 1 CAPSULE ORALLY ONCE DAILY, NOTES: 08/02 0430 NOT-TAKING ARIPIPRAZOLE 2 MG TABLET 1 TABLET ORALLY ONCE A DAY NOT-TAKING GABAPENTIN 600 MG TABLET 1 TABLET ORALLY THREE TIMES A DAY NOT-TAKING BREO ELLIPTA 200-25 MCG/INH AEROSOL POWDER BREATH ACTIVATED 1 PUFF INHALATION ONCE A DAY MEDICATION LIST REVIEWED AND RECONCILED WITH THE PATIENT PAST MEDICAL HISTORY PRIMARY HTN,SECONDARY RENAL HYPERPARATHYROIDISM,CRI STAGE 3,VIT D DEFICIENT,HYPOMAGNISEMIA CKD3, 01/20 RENAL US WITH INCREASED ECHOGENICITY TRAVIS MARCOS EDEMA VIT D DEF HTN HYPOTHYROIDISM ASTHMA, DR [place] 2008, FELL WORKING FOOT TANGLED IN PURSE HANDLES FOR CP CLINIC, WEARS BRACE 05/22 LIVER US DIFFUSE FIBROFATTY INFILTRATION OF THE LIVER 03/22 MRI L SPINE - 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 EPIGASTRIC TENDERNESS - DR JARRETT GI SYR 04/21 L WRIST FX - FISH OBESITY PSEUDOSEIZURES - NEURO/ALI ALLERGIES IV DYE: ANAPHYLAXIS - ALLERGY BACTRIM: ANAPHYLAXIS - ALLERGY ERYTHROMYCIN: ANAPHYLAXIS - ALLERGY PENICILLIN (FOR ALLERGIES USE ONLY): HIVES - ALLERGY ZITHROMAX: HEADACHES - ALLERGY INDOCIN: HIVES,HEADACHE - ALLERGY TORADOL: HIVES - ALLERGY BEE STINGS: ANAPHYLAXIS - ALLERGY HARD SHELL SEAFOOD: ANAPHYLAXIS - ALLERGY BIAXIN: HALLUCINATIONS - SIDE EFFECTS MUSCLE RELAXERS: SHAKES - SIDE EFFECTS SULFA (FOR ALLERGY USE ONLY): HIVES - ALLERGY LASIX: SWELLING - SIDE EFFECTS BACTROBAN OINTMENT: CAUSES YEAST INFECTION - SIDE EFFECTS LATEX: HIVES, BLISTERS - ALLERGY SOCIAL HISTORY GENERAL: TOBACCO USE ARE YOU A:NONSMOKER LATEX QUESTIONNAIRE LATEX ALLERGY : HAVE YOU EVER DEVELOPED ANY TYPE OF REACTION AFTER HANDLING LATEX PRODUCTS SUCH RUBBER GLOVES, CONDOMS, DIAPHRAGMS, BALLOONS, SOCKS, OR UNDERWEAR?YES KNOWN LATEX ALLERGY - PLEASE INDICATE : HIVES FROM LATEX LATEX ALLERGY : HAVE YOU EVER DEVELOPED ANY TYPE OF REACTION DURING OR AFTER DENTAL APPOINTMENT, VAGINAL/RECTAL EXAMINATION, SURGICAL PROCEDURE, OR ANY OTHER EXPOSURE?NO LATEX RISK : HAVE YOU EVER HAD ANY DIFFICULTY BREATHING OR HIVES AFTER EATING OR HANDLING ANY FRUITS, OR VEGETABLES; SUCH KIWI, BANANAS, STONE FRUITS, OR CHESTNUTSNO LATEX RISK : DO YOU HAVE A PREVIOUS PERSONAL HISTORY OF MORE THAN NINE SURGERIES, SPINA BIFIDA, OR REPEATED CATHERIZATIONS? NO LATEX RISK : ARE YOU FREQUENTLY EXPOSED TO LATEX PRODUCTS IN YOUR OCCUPATION?NO DATE ASKED : 03/19/2020 ALCOHOL SCREENING DID YOU HAVE A DRINK CONTAINING ALCOHOL IN THE PAST YEAR?YES HOW OFTEN DID YOU HAVE SIX OR MORE DRINKS ON ONE OCCASION IN THE PAST YEAR?NEVER (0 POINTS) HOW MANY DRINKS DID YOU HAVE ON A TYPICAL DAY WHEN YOU WERE DRINKING IN THE PAST YEAR?1 OR 2 (0 POINTS) HOW OFTEN DID YOU HAVE A DRINK CONTAINING ALCOHOL IN THE PAST YEAR?MONTHLY OR LESS (1 POINT) POINTS1 INTERPRETATIONNEGATIVE RECREATIONAL DRUG USE DRUG USE?NO CAFFEINE CAFFEINE USE?NO SEXUAL HX HAD SEX IN THE LAST 12 MONTHS (VAGINAL, ORAL, OR ANAL)?YES WITHMEN ONLY HAVE YOU EVER HAD AN STD?NO HIV / HEP-C SCREENING HIV TEST OFFERED TO PATIENT:NO HEP-C TEST OFFERED TO PATIENT:NO MORMONISM [id number] MOSQUE LANGUAGE LANGUAGES SPOKEN:BRITISH EDUCATION LEVEL OF EDUCATION:COLLEGE LEARNING BARRIERS / SPECIAL NEEDS BARRIERS TO LEARNING?NO HEARING IMPAIRED?NO VISION IMPAIRED?YES COGNITIVELY IMPAIRED?NO :CORRECTIVE LENSES READINESS TO LEARN?YES LEARNING PREFERENCES?NO LEARNING CAPABILITIES PRESENT?YES EMOTIONAL BARRIERS?NO SPECIAL DEVICES?YES :CANE, BRACE LEFT ANLKLE BRACE TREE CHIPPER NEEDED?NO 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 DIET: REGULAR. EXERCISE: NONE. MARITAL STATUS: . OTHERS AT HOME: SPOUSE. - PFS REFERRAL NEEDED?NO CLERGY REFERRAL NEEDED?NO PUBLIC HEALTH REFERRAL NEEDED?NO WAS THE PROVIDER NOTIFIED OF ANY PERTINENT INFO?YES HAS THE PATIENT BEEN EDUCATED REGARDING HIS/HER PLAN OF CARE?YES HAS THE PATIENT BEEN EDUCATED REGARDING PAIN, THE RISK FOR PAIN, THE IMPORTANCE OF EFFECTIVE PAIN MANAGEMENT, AND THE PAIN ASSESSMENT PROCESS?YES ADVANCE DIRECTIVE ADVANCE DIRECTIVE DISCUSSED WITH PATIENT:YES PT HAS HCP FOR LEVON HERNANDEZ VITAL SIGNS WT 217.0 LBS, HT 64 IN, BMI 37.24 INDEX, BP 131/60 MM HG, HR 65 /MIN, RR 18 /MIN, TEMP 97.3 F, OXYGEN SAT % 97%, SAFE IN ENV? (Y/N) Y, NA INITIALS AW 0833, REVIEWED BY: HUSSEIN. EXAMINATION GENERAL EXAMINATION: THE PATIENT IS ALERT, ORIENTED TIMES THREE AND COOPERATIVE. LUNGS ARE CLEAR TO AUSCULTATION. HEART SHOWS REGULAR RHYTHM, NO MURMURS AND NO GALLOPS. ASSESSMENTS MYALGIA - M79.10 (PRIMARY) TREATMENT MYALGIA MEDICATION: VALIUM TAB 10MG ORALLY (DIAZEPAM)CHUCK ANNA 03/20/2020 9:26:12 AM > VERIFIED OMKAR SALAMANCA 03/20/2020 9:29:18 AM > ADMINISTERED MEDICATION: OXYCODONE HCL TAB 10MG ORALLYCHUCK ANNA 03/20/2020 9:26:55 AM > VERIFIED OMKAR SALAMANCA 03/20/2020 9:29:59 AM > ADMINISTERED COMPLETION OF PROCEDURAL VISIT WHEN MEETS CRITERIAOMKAR SALAMANCA 03/20/2020 10:41:36 AM > CRITERIA MET OTHERS NOTES: 03/19/20 1242 PAT COMPLETED. ABDIAS MORILLO BSN. PROCEDURES PAIN NURSING RECORD PROCEDURE IN ROOM 0818, PHYSICIAN IN ROOM 1013, START 1016, FINISH 1020, PHYSICIAN OUT OF ROOM 1021, OUT OF ROOM 1037, ECG N/A, PATIENT SHIELDED N/A, SAFETY STRAP N/A, PREP ALCOHOL BY DR PEOPLES, DRESSING TEGADERM BY Brandon BANERJEE LOC: 1. ALERT, [facility], [facility] 1016 AM > RESP: 1. REGULAR, NO DYSPNEA, [facility] 03/20/2020 1016 AM > COLOR: 1. PINK, [facility] 03/20/2020 1016AM > SKIN: 1. WARM, DRY, [facility] 03/20/2020 1016 AM > POSITION: 5. SITTING, [facility] 03/20/2020 1016 AM > NOTES Marisa SALAMANCA RN COMPLETION OF PROCEDURE APPOINTMENT: POST PAIN 0, DRESSING SITE DRY AND INTACT, IV N/A, GAIT STEADY, TEACHING COMPLETED, PATIENT ACKNOWLEDGES UNDERSTANDING YES PATIENT STATES UNDERSTANDING, PROCEDURE APPOINTMENT COMPLETED AT 1037 BY: Marisa SALAMANCA RN : EXIT VITALS 121/61, HR 57, 96%, 16R PN TRIGGER POINT INJECTION WITH STEROIDS PRE PROCEDURE DIAGNOSIS 1. MYALGIA 2. PAIN AT BILATERAL NECK AREA AND BILATERAL SHOULDER AREA POST PROCEDURE DIAGNOSIS 1. MYALGIA 2. PAIN AT BILATERAL NECK AREA AND BILATERAL SHOULDER AREA PROCEDURE TRIGGER POINT INJECTION AT BILATERAL NECK AREA AND BILATERAL SHOULDER AREA SURGEON DR. 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 I EVALUATED THE PATIENT AND REVIEWED THE CHART. THERE IS EVIDENCE OF BANDS OF TISSUE WITH RESTRICTION OF MOVEMENT AND PRESENCE OF TRIGGER POINT AT THE RIGHT AND LEFT NECK AREA AND RIGHT AND LEFT SHOULDER AREA. I WENT OVER THE RISKS, ALTERNATIVES, AND BENEFITS ASSOCIATED WITH THIS PROCEDURE. THE PATIENT WOULD LIKE TO PROCEED AND GIVE CONSENT TO PERFORMED THE PROCEDURE. THE PATIENT DENIES UNEXPLAINABLE WEIGHT LOSS, FEVER, CHILLS, OR NEW CHANGES IN URINARY OR BOWEL CONTROL. THE PATIENT HAS TESTED NEGATIVE FOR COVID-19. DESCRIPTION OF PROCEDURE THE PATIENT WAS BROUGHT TO THE PROCEDURE ROOM AND PLACED IN THE SITTING POSITION. THE AREA WAS CLEANED WITH ALCOHOL. THE PROCEDURE WAS DONE USING ASEPTIC STERILE TECHNIQUE. A TIMEOUT WAS PERFORMED WHERE THE CONSENTED SITE WAS VERIFIED WITH EVERYONE IN THE ROOM. USING A 25-GAUGE NEEDLE, TRIGGER POINTS WERE INJECTED AT THE RIGHT AND LEFT NECK AREA AND RIGHT AND LEFT SHOULDER AREA WITH A TOTAL OF 40 ML OF BUPIVACAINE 0.25% AND KENALOG 40 MG. THE MEDICATIONS WERE VERIFIED WITH THE NURSE. THERE WAS NO EVIDENCE OF BLOOD OR PARESTHESIA DURING THE PROCEDURE. THE PATIENT WAS SENT TO THE RECOVERY ROOM. THE PATIENT WAS MOVING THE EXTREMITIES AND DOING WELL. THERE WERE NO COMPLICATIONS DURING THE PROCEDURE. ESTIMATED BLOOD LOSS WAS LESS THAN 5 ML POST PROCEDURE NOTE THE PROCEDURE DONE WAS DISCUSSED WITH THE PATIENT. THE PATIENT WILL BE SEEN IN A FOLLOW UP IN THE NEXT FEW WEEKS. I AM LOOKING FOR LONG LASTING PAIN RELIEF FOR THE PATIENT WITH THIS INTERVENTION. INSTRUCTIONS WERE GIVEN, QUESTIONS WERE ANSWERED, AND THE PATIENT EXPRESSED UNDERSTANDING AND AGREES WITH THE PLAN. I, JACKSON SANDOVAL, DOCUMENTED THE ABOVE INFORMATION ACTING A SCRIBE FOR DR. PEOPLES. I HAVE REVIEWED THE ABOVE DOCUMENT, WRITTEN BY JACKSON SANDOVAL, NETWORK TECHNICIAN, AND I VERIFY THAT IT IS ACCURATE PROCEDURE CODES 57944 INJECT TRIGGER POINTS 3/> DISPOSITION & COMMUNICATION FOLLOW UP FOLLOW UP WITH [facility] (REASON: POST TRIGGER POINT INJECTIONS BILATERAL NECK AND SHOULDER AREA) ELECTRONICALLY SIGNED BY TRINO PEOPLES MD, MD ON 03/20/2020 AT 12:56 PM EST DISCLAIMER : THIS IS A VISIT SUMMARY EXTRACTED FROM THE [employer] CHART. IT IS NOT A COPY OF THE [employer] PROGRESS NOTE. HARRIET
== END ==
LOC: M PAIN 08:30
PROVIDERS: ATTEND Anesthesiology
DX: M79.10 Myalgia, unspecified site (principal); G47.30 Sleep apnea, unspecified; E55.9 Vitamin D deficiency, unspecified; J45.909 Unspecified asthma, uncomplicated; Z88.0 Allergy status to penicillin; Z88.1 Allergy status to other antibiotic agents; Z88.2 Allergy status to sulfonamides; Z88.6 Allergy status to analgesic agent; Z88.8 Allergy status to other drugs, medicaments and biological substances; Z91.013 Allergy to seafood; Z91.030 Bee allergy status; Z91.040 Latex allergy status; Z79.82 Long term (current) use of aspirin; Z79.899 Other long term (current) drug therapy
CPT/HCPCS: 20553; J3301

== ENCOUNTER → 2020-03-24 | Outpatient (REF) | payer MEDICARE, OTHER ==
[~2020-03-24] MED LIST changes: -BUPIVACAINE HCL 0.25% 10ML VIAL As Ordered ONE; -BUPIVACAINE HCL 0.25% 30ML VIAL As Ordered ONE; -TRIAMCINOLONE ACETONIDE SUSP 40 MG/ML VIAL (J3301) As Ordered ONE; -diazePAM 5MG TABLET As Ordered ONE; -oxyCODONE 5MG TAB As Ordered ONE
[2020-03-24 17:38] LABS: BASO % 0.5 % (0.0-1.0); EOS % 0.3 % (0.0-3.0); HEMATOCRIT 42.1 % (36.0-47.0); HEMOGLOBIN 13.8 g/dl (12.0-15.5); LYMPH # 1.4 10^3/uL (1.5-5.0); LYMPH % 24.5 % (24.0-44.0); MEAN CORPUSCULAR HEMOGLOBIN 31.9 pg (27.0-33.0); MEAN CORPUSCULAR HGB CONC 32.8 g/dl (32.0-36.5); MEAN CORPUSCULAR VOLUME 97.2 fl (80.0-96.0); MONO # 0.5 10^3/uL (0.0-0.8); MONO % 9.1 % (0.0-8.0); NEUTROPHILS # 3.8 10^3/uL (1.5-8.5); NEUTROPHILS % 65.3 % (36.0-66.0); PLATELET COUNT, AUTOMATED 198 10^3/uL (150-450); RED BLOOD COUNT 4.33 10^6/uL (4.00-5.40); WHITE BLOOD COUNT 5.8 10^3/uL (4.0-10.0)
== END ==
LOC: M LAB REF 17:00
PROVIDERS: ATTEND Nurse Practitioner Adult Health
DX: J45.40 Moderate persistent asthma, uncomplicated (principal)

== ENCOUNTER → 2020-04-02 | Outpatient (CLI) | payer MEDICARE, OTHER ==
[~2020-04-02] MED LIST changes: +ADVA230A; +AIMO70IN2; +AMIT-253 PO; +BUSP5TA PO; +DULE200A; +FAMO40TA3; +GAVICHW5 PO; +MAGN400T3; +OMEP-221; +OYST500T12 PO; +PARO10TA3; +POTA20TA6; +PREN27TA3; +SUCR1TAB56; +TYLE650T38 PO; +VENTAER; +VITA-157
== END ==
LOC: M LABSMTC 09:42
PROVIDERS: ATTEND Anesthesiology
DX: Z01.812 Encounter for preprocedural laboratory examination (principal); Z20.822 Contact with and (suspected) exposure to COVID-19

== ENCOUNTER 2020-04-07 08:17 | Day surgery (SDC) | payer MEDICARE, OTHER ==
[~2020-04-07] VITALS: Ht 162.6 cm; Wt 97.0 kg
[~2020-04-07 08:17] MED LIST changes: +BUPR150T12 PO; -BUPR150T4 PO; +LIDOCAINE 2% 100MG/5ML SDV (FOR ANES.) As Ordered ONE; +NS 1,000 ML IV ONE; -VITA-157; +VITAE40CA; +propofoL 200 MG/20 ML VIAL As Ordered ONE
--- NOTE | 2020-04-07 10:24 | ROOR ---
Patient Name: Kelli Black Procedure Date: 04/07/2020 10:07 AM Date of : 1955 Age: 64 Room: [facility] Gender: Female Note Status: Finalized Procedure: Upper Endoscopy + Biopsies Indications: Epigastric abdominal pain, Heartburn, Failure to respond to medical treatment, Follow-up of Day's esophagus Providers: Karri Grayson MD Referring MD: GEORGI GLOVER MD Requesting Provider: Medicines: Monitored Anesthesia Care Complications: No immediate complications. Procedure: Pre-Anesthesia Assessment: - The heart rate, respiratory rate, oxygen saturations, blood pressure, adequacy of pulmonary ventilation, and response to care were monitored throughout the procedure. The Endoscope was introduced through the mouth, and advanced to the second part of duodenum. The upper GI endoscopy was accomplished without difficulty. The patient tolerated the procedure well. Findings: The Z-line was regular and was found 40 cm from the incisors. Multiple biopsies were obtained with cold forceps for evaluation to rule out Day's Esophagus randomly at the gastroesophageal junction. Patchy, white plaques were found in the upper third of the esophagus. Biopsies were taken with a cold forceps for histology. Localized minimal inflammation characterized by congestion (edema) and aphthous ulcerations was found in the gastric antrum. Biopsies were taken with a cold forceps for Helicobacter pylori testing. The exam was otherwise without abnormality. Impression: - Z-line regular, 40 cm from the incisors. - Esophageal plaques were found, suspicious for candidiasis. Biopsied. - Mucosal changes suspicious for gastritis. Biopsied. - The examination was otherwise normal. - Multiple biopsies were obtained at the gastroesophageal junction. Recommendation: - Patient has a contact number available for emergencies. The signs and symptoms of potential delayed complications were discussed with the patient. Return to normal activities tomorrow. Written discharge instructions were provided to the patient. - High fiber diet. - Discharge patient to home. - Follow an antireflux regimen. - Continue present medications. - Await pathology results. - Telephone GI clinic for pathology results in 1 week. - Return to referring physician. - The findings and recommendations were discussed with the patient. Procedure Code(s): --- Professional --- 99198, Esophagogastroduodenoscopy, flexible, transoral; with biopsy, single or multiple Diagnosis Code(s): --- Professional --- K22.70, Day's esophagus without dysplasia K22.9, Disease of esophagus, unspecified K31.89, Other diseases of stomach and duodenum R10.13, Epigastric pain R12, Heartburn CPT copyright 2019 [employer]. All rights reserved. The codes documented in this report are preliminary and upon treasury management sales consultant review may be revised to meet current compliance requirements. Karri Grayson MD Karri Grayson MD 04/07/2020 10:24:30 AM Electronically signed by Karri Grayson MD Number of Addenda: 0 Note Initiated On: 04/07/2020 10:07 AM Estimated Blood Loss: Estimated blood loss: none.
[2020-04-07 10:50] VITALS: BP 146/67
== END 2020-04-07 10:56 | disposition home or self-care (01) ==
LOC: M OPP 08:17
PROVIDERS: ATTEND Internal Medicine Gastroenterology
DX: K22.70 Barrett's esophagus without dysplasia (principal); K31.89 Other diseases of stomach and duodenum; R10.13 Epigastric pain; Z79.82 Long term (current) use of aspirin; Z79.899 Other long term (current) drug therapy; D68.51 Activated protein C resistance; Z88.0 Allergy status to penicillin; Z88.2 Allergy status to sulfonamides; Z88.5 Allergy status to narcotic agent; Z91.040 Latex allergy status; Z91.041 Radiographic dye allergy status; Z91.013 Allergy to seafood

== ENCOUNTER → 2020-04-14 | Outpatient (CLI) | payer MEDICARE, OTHER ==
[~2020-04-14] MED LIST changes: -LIDOCAINE 2% 100MG/5ML SDV (FOR ANES.) As Ordered ONE; -NS 1,000 ML IV ONE; -propofoL 200 MG/20 ML VIAL As Ordered ONE
--- NOTE | 2020-04-17 04:44 | ECWPNPC ---
PATIENT NAME: ROZINA HERNANDEZ : 1955 GENDER: FEMALE VISIT DATE: 04/14/2020 DISCHARGE DATE: 04/14/20 1057 VISIT LOCKED DATE TIME: PHYSICIAN: LEVON GLOVER RESOURCE: LEVON GLOVER REASON FOR APPOINTMENT 1. MED. AB-POST TRIGGER POINT INJECTION BILATERAL NECK AND SHOULDERS HISTORY OF PRESENT ILLNESS DEPRESSION SCREENING: PHQ-2 (2015 EDITION) LITTLE INTEREST OR PLEASURE IN DOING THINGS?NOT AT ALL FEELING DOWN, DEPRESSED, OR HOPELESS?NOT AT ALL TOTAL SCORE0 64-YEAR-OLD FEMALE IN FOR POST TRIGGER POINT INJECTION FOLLOW-UP. PATIENT FEELS PROCEDURE WAS SUCCESSFUL OVERALL RATING HER PAIN PREPROCEDURE AT A 7 OUT OF 10 AND POSTPROCEDURE AT A 0 OUT OF 10. SHE FURTHER STATES THE PROCEDURE CONTINUES TO HELP HER TODAY. GENERAL: -. FALL RISK SCREENING: SCREENING : NO FALLS REPORTED IN THE LAST YEAR. PAIN SCREENING: PATIENT HAS A COMPLAINT OF ACUTE OR CHRONIC PAIN :YES LOCATION OF PAIN:BOTH SHOULDERS, UPPER BACK INTENSITY OF PAIN (SCALE OF 1 TO 10):0 WHAT DOES YOUR PAIN FEEL LIKE:OTHER NO PAIN NURSING NOTE: -. PAIN CENTER INTAKE QUESTIONS: DO YOU HAVE A HISTORY OF MRSA? :YES IN 2018 DO YOU TAKE A BLOOD THINNERS? :NO 81MG BABY ASPIRIN DO YOU HAVE ANY BLEEDING DISORDERS? :NO ANY NEW NUMBNESS OR WEAKNESS IN YOUR LEGS OR ARMS? :NO ANY PACEMAKER,DEFIBRILLATOR, OR DORSAL COLUMN STIMULATOR? :NO DO YOU HAVE ANY RASHES OR OPEN SORES? :NO ARE YOU ALLERGIC TO IV DYE? :NO ARE YOU DIABETIC? :NO ANY NEW PROBLEMS WITH YOUR MEDICATIONS? :NO HAVE YOU RECEIVED A VACCINE IN THE PAST 30 DAYS? :NO DO YOU PLAN TO RECEIVE A VACCINE IN THE NEXT 21 DAYS? :YES IF SO WHAT VACCINE AND WHEN? COVID VACCINATION FIRST INJECTION ON 04/18/20 DO YOU NEED ANY PRESCRIPTION? :NO DO YOU TAKE ANY IMMUNOSUPPRESSIVE MEDICATIONS? :NO DO YOU HAVE ANY KIDNEY OR LIVER DISEASE? :YES KIDNEY FAILURE IS THERE A CHANCE YOU COULD BE ? :NO ARE YOU BREAST FEEDING? :NO CURRENT MEDICATIONS TAKING AMITRIPTYLINE HCL 10 MG TABLET 1 TABLET AT BEDTIME ORALLY ONCE A DAY TAKING MAGNESIUM OXIDE -MG SUPPLEMENT 400 MG CAPSULE 1 CAPSULE NEEDED ORALLY TID TAKING FAMOTIDINE 40 MG TABLET DIRECTED ORALLY BID TAKING AIMOVIG 140 DOSE 1 INJECTION MONTHLY TAKING PAROXETINE HCL 10 MG TABLET 1 TABLET IN THE MORNING ORALLY ONCE A DAY TAKING TYLENOL EXTRA STRENGTH 500 MG TABLET 1 TABLET NEEDED ORALLY EVERY 6 HRS TAKING EPIPEN 2-DUANE 0.3 MG/0.3ML SOLUTION AUTO-INJECTOR INJECTION DIRECTED TAKING CLONAZEPAM 0.5 MG TABLET 0.5 ORALLY 1/2 TAB IN AM AND 1/4 TAB IN PM TAKING PROBIOTIC CAPSULE 1 TAB(S) ORALLY DAILY, NOTES: ALIGN TAKING ASPIRIN EC 81 MG TABLET DELAYED RELEASE 1 TABLET ORALLY ONCE A DAY TAKING ATORVASTATIN CALCIUM 10 MG TABLET 1 TABLET ORALLY ONCE A DAY TAKING PRIMIDONE 50 MG TABLET ORALLY BID TAKING TOPIRAMATE 100 MG TABLET 1 TABLET ORALLY DAILY TAKING SPIRONOLACTONE 25 MG TABLET 1 TABLET ORALLY DAILY TAKING CALCIUM + D 600-200 MG-UNIT TABLET 1 TABLET ORALLY TWICE A DAY TAKING TORSEMIDE 20 MG TABLET DIRECTED ORALLY 1 TAB Q OTHER DAY,1/2 TAB Q OTHER DAY TAKING NYSTATIN [id number] UNIT/GM POWDER 1 APPLICATION TO AFFECTED AREA EXTERNALLY TWICE A DAY TAKING VITAMIN E 400 UNIT CAPSULE 1 CAPSULE ORALLY ONCE A DAY TAKING IPRATROPIUM-ALBUTEROL 0.5-2.5 (3) MG/3ML SOLUTION 3 ML NEEDED INHALATION EVERY 6 HRS TAKING ADVAIR HFA 230-21 MCG/ACT AEROSOL 2 PUFFS INHALATION TWICE A DAY TAKING BUSPIRONE HCL 5 MG TABLET 1 TABLET ORALLY DAILY TAKING TRAMADOL HCL 50 MG TABLET 1 TAB ORALLY (CODE D FOR CHRONIC PAIN ) DAILY NEEDED, NOTES: 03/18/20 TAKING POTASSIUM CHLORIDE ER 20 MEQ TABLET EXTENDED RELEASE 1 TABLET WITH FOOD ORALLY ONCE A DAY TAKING LIDODERM 5 % PATCH DIRECTED EXTERNALLY (WORKERS COMP) APPLY 3 PATCH TO PAINFUL AREA OF LOW BACK ON 12 HRS OFF 12 HOURS PRN PAIN. TAKING VENTOLIN HFA 90 MCG/ACT AEROSOL SOLUTION 2 PUFFS NEEDED INHALATION EVERY 6 HRS TAKING BUPROPION HCL 100 MG TABLET EXTENDED RELEASE 1 TABLET ORALLY DAILY TAKING GAVISCON EXTRA STRENGTH 160-105 MG TABLET CHEWABLE 2 TABLETS AFTER MEALS AND AT BEDTIME NEEDED ORALLY FOUR TIMES A DAY TAKING SUCRALFATE 1 GM TABLET 1 TABLET ON AN EMPTY STOMACH ORALLY TWICE A DAY TAKING NYSTATIN - POWDER DIRECTED TAKING NYSTATIN [id number] UNIT/ML SUSPENSION 5 ML ORALLY SWISH AND SWALLOW 4 TIMES A DAY TAKING IRBESARTAN 150 MG TABLET 1 TABLET ORALLY ONCE A DAY TAKING VOLTAREN 1 % GEL 1 GRAM APPLIED TO AFFECTED AREA EXTERNALLY PRN 4 X DAILY NOT TO EXCEED 4 GMS IN A DAY WORKERS COMP TAKING ONDANSETRON 4 MG TABLET DISINTEGRATING 1 TABLET ON THE TONGUE AND ALLOW TO DISSOLVE ORALLY EVERY 6 HOURS NEEDED TAKING VITAMIN E 400 UNIT CAPSULE 1 CAPSULE ORALLY ONCE A DAY TAKING FISH OIL DOUBLE STRENGTH 1200 MG CAPSULE 1 CAPSULE ORALLY THREE TIMES DAILY TAKING TIZANIDINE HCL 4 MG TABLET 1 TABLET NEEDED ORALLY BEFORE BEDTIME (WORKERS COMP) TAKING 28-0.8 MG TABLET ORALLY DAILY TAKING LOVAZA 1 GM CAPSULE 2 CAPSULES ORALLY TWICE A DAY TAKING VITAMIN D 25 MCG (1000 UT) TABLET 1 CAPSULE ORALLY ONCE DAILY, NOTES: 08/02 0430 TAKING ARIPIPRAZOLE 2 MG TABLET 1 TABLET ORALLY ONCE A DAY NOT-TAKING TAMSULOSIN HCL 0.4 MG CAPSULE 1 CAPSULE ORALLY ONCE A DAY NOT-TAKING IMITREX 100 MG TABLET 1 TABLET NEEDED ORALLY DIRECTED PRN MIGRAINES NOT-TAKING RABEPRAZOLE SODIUM 20 MG TABLET DELAYED RELEASE 1 TABLET ORALLY 2 TBS IN ,/1 TAB IN PM NOT-TAKING LYRICA 150 MG CAPSULE 1 CAPSULE ORALLY BID NOT-TAKING LEVOFLOXACIN 250 MG TABLET 1 TABLET ORALLY BID NOT-TAKING GABAPENTIN 600 MG TABLET 1 TABLET ORALLY THREE TIMES A DAY NOT-TAKING BREO ELLIPTA 200-25 MCG/INH AEROSOL POWDER BREATH ACTIVATED 1 PUFF INHALATION ONCE A DAY MEDICATION LIST REVIEWED AND RECONCILED WITH THE PATIENT PAST MEDICAL HISTORY PRIMARY HTN,SECONDARY RENAL HYPERPARATHYROIDISM,CRI STAGE 3,VIT D DEFICIENT,HYPOMAGNISEMIA CKD3, 01/20 RENAL US WITH INCREASED ECHOGENICITY TRAVIS MARCOS EDEMA VIT D DEF HTN HYPOTHYROIDISM ASTHMA, DR [place] 2008, FELL WORKING FOOT TANGLED IN PURSE HANDLES FOR CP CLINIC, WEARS BRACE 05/22 LIVER US DIFFUSE FIBROFATTY INFILTRATION OF THE LIVER 03/22 MRI L SPINE - 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 EPIGASTRIC TENDERNESS - DR JARRETT GI SYR 04/21 L WRIST FX - DR CARDOZO OBESITY PSEUDOSEIZURES - NEURO/ALI ENDOSCOPY 04/07/20 ALLERGIES IV DYE: ANAPHYLAXIS - ALLERGY BACTRIM: ANAPHYLAXIS - ALLERGY ERYTHROMYCIN: ANAPHYLAXIS - ALLERGY PENICILLIN (FOR ALLERGIES USE ONLY): HIVES - ALLERGY ZITHROMAX: HEADACHES - ALLERGY INDOCIN: HIVES,HEADACHE - ALLERGY TORADOL: HIVES - ALLERGY BEE STINGS: ANAPHYLAXIS - ALLERGY HARD SHELL SEAFOOD: ANAPHYLAXIS - ALLERGY BIAXIN: HALLUCINATIONS - SIDE EFFECTS MUSCLE RELAXERS: SHAKES - SIDE EFFECTS SULFA (FOR ALLERGY USE ONLY): HIVES - ALLERGY LASIX: SWELLING - SIDE EFFECTS BACTROBAN OINTMENT: CAUSES YEAST INFECTION - SIDE EFFECTS LATEX: HIVES, BLISTERS - ALLERGY SURGICAL HISTORY HYSTERECTOMY,CHOLECYSTECTOMY,INGUINAL HERNIA,RIGHT,COLONOSCOPY,POLYPECTOMYX2,TONSILLECTOMY TENDON REPAIR LEFT WRIST/L THUMB 05/04/2016 RIGHT HAND CARPAL TUNNEL SURGERY/ TENDON REPAIR RIGHT WRIST/RIGHT THUMB 2019 ARTHROSCOPY LEFT SHOULDER 02/2019 SOCIAL HISTORY GENERAL: TOBACCO USE ARE YOU A:NONSMOKER LATEX QUESTIONNAIRE LATEX ALLERGY : HAVE YOU EVER DEVELOPED ANY TYPE OF REACTION AFTER HANDLING LATEX PRODUCTS SUCH RUBBER GLOVES, CONDOMS, DIAPHRAGMS, BALLOONS, SOCKS, OR UNDERWEAR?YES KNOWN LATEX ALLERGY - PLEASE INDICATE : HIVES FROM LATEX LATEX ALLERGY : HAVE YOU EVER DEVELOPED ANY TYPE OF REACTION DURING OR AFTER DENTAL APPOINTMENT, VAGINAL/RECTAL EXAMINATION, SURGICAL PROCEDURE, OR ANY OTHER EXPOSURE?NO LATEX RISK : HAVE YOU EVER HAD ANY DIFFICULTY BREATHING OR HIVES AFTER EATING OR HANDLING ANY FRUITS, OR VEGETABLES; SUCH KIWI, BANANAS, STONE FRUITS, OR CHESTNUTSNO LATEX RISK : DO YOU HAVE A PREVIOUS PERSONAL HISTORY OF MORE THAN NINE SURGERIES, SPINA BIFIDA, OR REPEATED CATHERIZATIONS? NO LATEX RISK : ARE YOU FREQUENTLY EXPOSED TO LATEX PRODUCTS IN YOUR OCCUPATION?NO DATE ASKED : 04/14/2020 ALCOHOL USE: NO. ALCOHOL SCREENING DID YOU HAVE A DRINK CONTAINING ALCOHOL IN THE PAST YEAR?YES HOW OFTEN DID YOU HAVE SIX OR MORE DRINKS ON ONE OCCASION IN THE PAST YEAR?NEVER (0 POINTS) HOW MANY DRINKS DID YOU HAVE ON A TYPICAL DAY WHEN YOU WERE DRINKING IN THE PAST YEAR?1 OR 2 (0 POINTS) HOW OFTEN DID YOU HAVE A DRINK CONTAINING ALCOHOL IN THE PAST YEAR?MONTHLY OR LESS (1 POINT) POINTS1 INTERPRETATIONNEGATIVE RECREATIONAL DRUG USE DRUG USE?NO CAFFEINE CAFFEINE USE?NO SEXUAL HX HAD SEX IN THE LAST 12 MONTHS (VAGINAL, ORAL, OR ANAL)?YES WITHMEN ONLY HAVE YOU EVER HAD AN STD?NO HIV / HEP-C SCREENING HIV TEST OFFERED TO PATIENT:NO HEP-C TEST OFFERED TO PATIENT:NO LATTER DAY TICENONU07 [employer]AP[employer]ISM LANGUAGE LANGUAGES SPOKEN:MALIAN EDUCATION LEVEL OF EDUCATION:COLLEGE LEARNING BARRIERS / SPECIAL NEEDS CHANGE FROM LAST VISIT?NO BARRIERS TO LEARNING?NO HEARING IMPAIRED?NO VISION IMPAIRED?YES :CORRECTIVE LENSES COGNITIVELY IMPAIRED?NO READINESS TO LEARN?YES LEARNING PREFERENCES?NO LEARNING CAPABILITIES PRESENT?YES EMOTIONAL BARRIERS?NO SPECIAL DEVICES?YES :CANE, BRACE LEFT ANLKLE BRACE PULMONARY SPECIALIST NEEDED?NO 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 DIET: REGULAR. EXERCISE: NONE. MARITAL STATUS: . OTHERS AT HOME: SPOUSE. - PFS REFERRAL NEEDED?NO CLERGY REFERRAL NEEDED?NO PUBLIC HEALTH REFERRAL NEEDED?NO WAS THE PROVIDER NOTIFIED OF ANY PERTINENT INFO?YES HAS THE PATIENT BEEN EDUCATED REGARDING HIS/HER PLAN OF CARE?YES HAS THE PATIENT BEEN EDUCATED REGARDING PAIN, THE RISK FOR PAIN, THE IMPORTANCE OF EFFECTIVE PAIN MANAGEMENT, AND THE PAIN ASSESSMENT PROCESS?YES ADVANCE DIRECTIVE ADVANCE DIRECTIVE DISCUSSED WITH PATIENT:YES PT HAS HCP FOR [facility] HOSPITALIZATION/MAJOR DIAGNOSTIC PROCEDURE SURG RELATED REVIEW OF SYSTEMS CONSTITUTIONAL: ANY RECENT FEVER NO . CHILLS NO . WEIGHT CHANGE OF UNKNOWN REASONS NO . GASTROENTEROLOGY: NEW UNEXPLAINABLE CHANGES IN BOWEL CONTROL NO . CONSTIPATION NO . GENITOURINARY: ANY NEW CHANGE IN BLADDER CONTROL? NO . NEUROLOGY: NEW ONSET DIZZINESS OR NEUROLOGICAL CHANGES NOT MENTIONED NO . NEW NUMBNESS OR PAIN PATTERNS NOT MENTIONED AND PERTINENT TO TODAY'S VISIT NO . CARDIOLOGY: NEW CHEST PRESSURE NO . PATIENT DENIES NO . RESPIRATORY: UNEXPLAINABLE COUGH NO . NEW SHORTNESS OF BREATH NO . VITAL SIGNS WT 213.0 LBS, HT 64 IN, BMI 36.56 INDEX, BP 111/56 MM HG, HR 80 /MIN, RR 18 /MIN, TEMP 98.2 F, OXYGEN SAT % 97%, SAFE IN ENV? (Y/N) YES, NA INITIALS AW 1012, REVIEWED BY: ANA MILLER MA. EXAMINATION GENERAL EXAMINATION: GENERALNO ACUTE DISTRESS, WELL NOURISHED AND HYDRATED. PSYCHAPPROPRIATE MOOD AND AFFECT . LUNGS:CLEAR TO AUSCULTATION BILATERALLY, NO WHEEZES, RHONCHI, RALES. HEART:NO MURMURS, REGULAR RATE AND RHYTHM. ASSESSMENTS OTHER CHRONIC PAIN - G89.29 (PRIMARY) MYALGIA, OTHER SITE - M79.18 TREATMENT OTHER CHRONIC PAIN PAIN PROCEDURE LOGDATE OF CTZGRDHAP00/11/2021PROCEDURE:TRIGGER POINT INJECTIONS BILATERAL NECK AND BILATERAL SHOULDERAMOUNT OF PRE SEDATEPRESEDATE: VALIUM 10MG; OXYCODONE 10MGRESULT:PREPROCEDURE 7 OUT OF 10 POST PROCEDURE 0 OUT OF 10. CONTINUES TO HELP TODAY. NOTES: 64-YEAR-OLD FEMALE IN FOR POST TRIGGER POINT INJECTION FOLLOW-UP. GIVEN PRESENTING SYMPTOMS RECOMMEND FOLLOW-UP IN 2 MONTHS. PATIENT HAS EXPRESSED UNDER STANDING OF AND WAS IN AGREEMENT WITH TREATMENT PLAN. GIVEN TIME TO ASK QUESTIONS AND EXPRESS CONCERNS. PROCEDURE CODES FA211 ESTABILISHED PATIENT [facility] CHARGE DISPOSITION & COMMUNICATION FOLLOW UP 2 MONTHS (REASON: NECK AND SHOULDER PAIN ) ELECTRONICALLY SIGNED BY JERRY SARAVIA ON 04/16/2020 AT 01:07 PM EST DISCLAIMER : THIS IS A VISIT SUMMARY EXTRACTED FROM THE [employer] CHART. IT IS NOT A COPY OF THE [employer] PROGRESS NOTE. HARRIET
== END ==
LOC: M PAIN 10:00
PROVIDERS: ATTEND Family Medicine
DX: G89.29 Other chronic pain (principal); M79.18 Myalgia, other site; Z86.14 Personal history of Methicillin resistant Staphylococcus aureus infection; E55.9 Vitamin D deficiency, unspecified; J45.909 Unspecified asthma, uncomplicated; Z88.0 Allergy status to penicillin; Z88.1 Allergy status to other antibiotic agents; Z88.2 Allergy status to sulfonamides; Z88.6 Allergy status to analgesic agent; Z88.8 Allergy status to other drugs, medicaments and biological substances; Z91.013 Allergy to seafood; Z91.030 Bee allergy status; Z91.040 Latex allergy status; Z91.041 Radiographic dye allergy status; Z79.82 Long term (current) use of aspirin; Z79.899 Other long term (current) drug therapy

== ENCOUNTER → 2020-05-07 | Outpatient (CLI) | payer OTHER ==
--- NOTE | 2020-05-09 03:56 | ECWPNPC ---
PATIENT NAME: ROZINA HERNANDEZ : 1955 GENDER: FEMALE VISIT DATE: 05/07/2020 DISCHARGE DATE: 05/07/20 1212 VISIT LOCKED DATE TIME: PHYSICIAN: LEVON GLOVER RESOURCE: LEVON GLOVER REASON FOR APPOINTMENT 1. W/C LOW BACK HISTORY OF PRESENT ILLNESS GENERAL: - 64-YEAR-OLD FEMALE IN FOR CHRONIC PAIN FOLLOW-UP. SHE RATES HER PAIN CURRENTLY AT A 6 OUT OF 10 AND DESCRIBES IT SHARP, AND SHOOTING. PATIENT HAS HAD BILATERAL SACROILLIAC JOINT INJECTIONS IN THE PAST WITH GOOD RESULTS. RESULTS OBTAINED INCLUDE DECREASED PAIN AND INCREASED FUNCTIONALITY. WE WILL DISCUSS REPEAT PROCEDURES TODAY WITH THOSE SAME GOALS. 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 THE PATIENT SAYS WHEN SHE STOOD UP, SHE TRIPPED DUE TO HER FOOT BEING CAUGHT IN PURSE HANDLE THAT RESULTED IN HER BACK INJURY AND A BROKEN ANKLE. FALL RISK SCREENING: SCREENING : NO FALLS REPORTED IN THE LAST YEAR. PAIN SCREENING: PATIENT HAS A COMPLAINT OF ACUTE OR CHRONIC PAIN :YES LOCATION OF PAIN:MID BACK, LOW BACK, LEG(S) INTENSITY OF PAIN (SCALE OF 1 TO 10):6 WHAT DOES YOUR PAIN FEEL LIKE:SHARP, SHOOTING DURATION:INTERMITTENT PAIN IS INCREASED BY:ACTIVITIES PAIN IS DECREASED BY:USE OF PAIN MEDICATIONS NURSING NOTE: -. PAIN CENTER INTAKE QUESTIONS: DO YOU HAVE A HISTORY OF MRSA? :YES IN GROIN 3-4 YEARS AGO DO YOU TAKE A BLOOD THINNERS? :NO DO YOU HAVE ANY BLEEDING DISORDERS? :NO ANY NEW NUMBNESS OR WEAKNESS IN YOUR LEGS OR ARMS? :NO ANY PACEMAKER,DEFIBRILLATOR, OR DORSAL COLUMN STIMULATOR? :NO DO YOU HAVE ANY RASHES OR OPEN SORES? :NO ARE YOU ALLERGIC TO IV DYE? :YES ARE YOU DIABETIC? :NO ANY NEW PROBLEMS WITH YOUR MEDICATIONS? :NO HAVE YOU RECEIVED A VACCINE IN THE PAST 30 DAYS? :NO DO YOU PLAN TO RECEIVE A VACCINE IN THE NEXT 21 DAYS? :YES IF SO WHAT VACCINE AND WHEN? COVID #2 05/08/20 DO YOU NEED ANY PRESCRIPTION? :YES TRAMADOL TO [facility] IN [place] DO YOU TAKE ANY IMMUNOSUPPRESSIVE MEDICATIONS? :NO DO YOU HAVE ANY KIDNEY OR LIVER DISEASE? :YES 2ND STAGE KIDNEY FAILURE IS THERE A CHANCE YOU COULD BE ? :NO ARE YOU BREAST FEEDING? :NO CURRENT MEDICATIONS TAKING AMITRIPTYLINE HCL 10 MG TABLET 1 TABLET AT BEDTIME ORALLY ONCE A DAY TAKING MAGNESIUM OXIDE -MG SUPPLEMENT 400 MG CAPSULE 1 CAPSULE NEEDED ORALLY TID TAKING FAMOTIDINE 40 MG TABLET DIRECTED ORALLY BID TAKING AIMOVIG 140 DOSE 1 INJECTION MONTHLY TAKING PAROXETINE HCL 10 MG TABLET 1 TABLET IN THE MORNING ORALLY ONCE A DAY TAKING TYLENOL EXTRA STRENGTH 500 MG TABLET 1 TABLET NEEDED ORALLY EVERY 6 HRS TAKING EPIPEN 2-DUANE 0.3 MG/0.3ML SOLUTION AUTO-INJECTOR INJECTION DIRECTED TAKING CLONAZEPAM 0.5 MG TABLET 0.5 ORALLY 1/2 TAB IN AM AND 1/4 TAB IN PM TAKING PROBIOTIC CAPSULE 1 TAB(S) ORALLY DAILY, NOTES: ALIGN TAKING ASPIRIN EC 81 MG TABLET DELAYED RELEASE 1 TABLET ORALLY ONCE A DAY TAKING ATORVASTATIN CALCIUM 10 MG TABLET 1 TABLET ORALLY ONCE A DAY TAKING PRIMIDONE 50 MG TABLET ORALLY BID TAKING TOPIRAMATE 100 MG TABLET 1 TABLET ORALLY DAILY TAKING SPIRONOLACTONE 25 MG TABLET 1 TABLET ORALLY DAILY TAKING CALCIUM + D 600-200 MG-UNIT TABLET 1 TABLET ORALLY TWICE A DAY TAKING TORSEMIDE 20 MG TABLET DIRECTED ORALLY 1 TAB Q OTHER DAY,1/2 TAB Q OTHER DAY TAKING NYSTATIN 332290 UNIT/GM POWDER 1 APPLICATION TO AFFECTED AREA EXTERNALLY TWICE A DAY TAKING VITAMIN E 400 UNIT CAPSULE 1 CAPSULE ORALLY ONCE A DAY TAKING IPRATROPIUM-ALBUTEROL 0.5-2.5 (3) MG/3ML SOLUTION 3 ML NEEDED INHALATION EVERY 6 HRS TAKING ADVAIR HFA 230-21 MCG/ACT AEROSOL 2 PUFFS INHALATION TWICE A DAY TAKING BUSPIRONE HCL 5 MG TABLET 1 TABLET ORALLY DAILY TAKING TRAMADOL HCL 50 MG TABLET 1 TAB ORALLY (CODE D FOR CHRONIC PAIN ) DAILY NEEDED TAKING POTASSIUM CHLORIDE ER 20 MEQ TABLET EXTENDED RELEASE 1 TABLET WITH FOOD ORALLY ONCE A DAY TAKING LIDODERM 5 % PATCH DIRECTED EXTERNALLY (WORKERS COMP) APPLY 3 PATCH TO PAINFUL AREA OF LOW BACK ON 12 HRS OFF 12 HOURS PRN PAIN. TAKING VENTOLIN HFA 90 MCG/ACT AEROSOL SOLUTION 2 PUFFS NEEDED INHALATION EVERY 6 HRS TAKING BUPROPION HCL 100 MG TABLET EXTENDED RELEASE 1 TABLET ORALLY DAILY TAKING GAVISCON EXTRA STRENGTH 160-105 MG TABLET CHEWABLE 2 TABLETS AFTER MEALS AND AT BEDTIME NEEDED ORALLY FOUR TIMES A DAY TAKING SUCRALFATE 1 GM TABLET 1 TABLET ON AN EMPTY STOMACH ORALLY TWICE A DAY TAKING NYSTATIN - POWDER DIRECTED TAKING NYSTATIN 883981 UNIT/ML SUSPENSION 5 ML ORALLY SWISH AND SWALLOW 4 TIMES A DAY TAKING IRBESARTAN 150 MG TABLET 1 TABLET ORALLY ONCE A DAY TAKING VOLTAREN 1 % GEL 1 GRAM APPLIED TO AFFECTED AREA EXTERNALLY PRN 4 X DAILY NOT TO EXCEED 4 GMS IN A DAY WORKERS COMP TAKING ONDANSETRON 4 MG TABLET DISINTEGRATING 1 TABLET ON THE TONGUE AND ALLOW TO DISSOLVE ORALLY EVERY 6 HOURS NEEDED TAKING VITAMIN E 400 UNIT CAPSULE 1 CAPSULE ORALLY ONCE A DAY TAKING FISH OIL DOUBLE STRENGTH 1200 MG CAPSULE 1 CAPSULE ORALLY THREE TIMES DAILY TAKING TIZANIDINE HCL 4 MG TABLET 1 TABLET NEEDED ORALLY BEFORE BEDTIME (WORKERS COMP) TAKING 28-0.8 MG TABLET ORALLY DAILY TAKING LOVAZA 1 GM CAPSULE 2 CAPSULES ORALLY TWICE A DAY TAKING VITAMIN D 25 MCG (1000 UT) TABLET 1 CAPSULE ORALLY ONCE DAILY TAKING ARIPIPRAZOLE 2 MG TABLET 1 TABLET ORALLY ONCE A DAY TAKING DULERA 200-5 MCG/ACT AEROSOL 2 PUFFS INHALATION TWICE A DAY TAKING OMEPRAZOLE 40 MG CAPSULE DELAYED RELEASE 1 CAPSULE 30 MINUTES BEFORE MORNING MEAL ORALLY ONCE A DAY TAKING SUMATRIPTAN SUCCINATE 100 MG TABLET 1 TABLET AT LEAST 2 HOURS BETWEEN DOSES NEEDED ORALLY TWICE A DAY NOT-TAKING TAMSULOSIN HCL 0.4 MG CAPSULE 1 CAPSULE ORALLY ONCE A DAY NOT-TAKING IMITREX 100 MG TABLET 1 TABLET NEEDED ORALLY DIRECTED PRN MIGRAINES NOT-TAKING RABEPRAZOLE SODIUM 20 MG TABLET DELAYED RELEASE 1 TABLET ORALLY 2 TBS IN ,/1 TAB IN PM NOT-TAKING LYRICA 150 MG CAPSULE 1 CAPSULE ORALLY BID NOT-TAKING LEVOFLOXACIN 250 MG TABLET 1 TABLET ORALLY BID NOT-TAKING GABAPENTIN 600 MG TABLET 1 TABLET ORALLY THREE TIMES A DAY NOT-TAKING BREO ELLIPTA 200-25 MCG/INH AEROSOL POWDER BREATH ACTIVATED 1 PUFF INHALATION ONCE A DAY MEDICATION LIST REVIEWED AND RECONCILED WITH THE PATIENT PAST MEDICAL HISTORY PRIMARY HTN,SECONDARY RENAL HYPERPARATHYROIDISM,CRI STAGE 3,VIT D DEFICIENT,HYPOMAGNISEMIA CKD3, 01/20 RENAL US WITH INCREASED ECHOGENICITY TRAVIS MARCOS EDEMA VIT D DEF HTN HYPOTHYROIDISM ASTHMA, DR [place] 2008, FELL WORKING FOOT TANGLED IN PURSE HANDLES FOR CP CLINIC, WEARS BRACE 05/22 LIVER US DIFFUSE FIBROFATTY INFILTRATION OF THE LIVER 03/22 MRI L SPINE - 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 EPIGASTRIC TENDERNESS - DR JARRETT GI SYR 04/21 L WRIST FX - FISH OBESITY PSEUDOSEIZURES - NEURO/ALI ENDOSCOPY 04/07/20 ALLERGIES IV DYE: ANAPHYLAXIS - ALLERGY BACTRIM: ANAPHYLAXIS - ALLERGY ERYTHROMYCIN: ANAPHYLAXIS - ALLERGY PENICILLIN (FOR ALLERGIES USE ONLY): HIVES - ALLERGY ZITHROMAX: HEADACHES - ALLERGY INDOCIN: HIVES,HEADACHE - ALLERGY TORADOL: HIVES - ALLERGY BEE STINGS: ANAPHYLAXIS - ALLERGY HARD SHELL SEAFOOD: ANAPHYLAXIS - ALLERGY BIAXIN: HALLUCINATIONS - SIDE EFFECTS MUSCLE RELAXERS: SHAKES - SIDE EFFECTS SULFA (FOR ALLERGY USE ONLY): HIVES - ALLERGY LASIX: SWELLING - SIDE EFFECTS BACTROBAN OINTMENT: CAUSES YEAST INFECTION - SIDE EFFECTS LATEX: HIVES, BLISTERS - ALLERGY SOCIAL HISTORY GENERAL: TOBACCO USE ARE YOU A:NONSMOKER LATEX QUESTIONNAIRE LATEX ALLERGY : HAVE YOU EVER DEVELOPED ANY TYPE OF REACTION AFTER HANDLING LATEX PRODUCTS SUCH RUBBER GLOVES, CONDOMS, DIAPHRAGMS, BALLOONS, SOCKS, OR UNDERWEAR?YES KNOWN LATEX ALLERGY LATEX ALLERGY : HAVE YOU EVER DEVELOPED ANY TYPE OF REACTION DURING OR AFTER DENTAL APPOINTMENT, VAGINAL/RECTAL EXAMINATION, SURGICAL PROCEDURE, OR ANY OTHER EXPOSURE?NO - PLEASE INDICATE : HIVES FROM LATEX DATE ASKED : 05/03/2019 LATEX RISK : HAVE YOU EVER HAD ANY DIFFICULTY BREATHING OR HIVES AFTER EATING OR HANDLING ANY FRUITS, OR VEGETABLES; SUCH KIWI, BANANAS, STONE FRUITS, OR CHESTNUTSNO LATEX RISK : DO YOU HAVE A PREVIOUS PERSONAL HISTORY OF MORE THAN NINE SURGERIES, SPINA BIFIDA, OR REPEATED CATHERIZATIONS? NO LATEX RISK : ARE YOU FREQUENTLY EXPOSED TO LATEX PRODUCTS IN YOUR OCCUPATION?NO ALCOHOL USE: NO. ALCOHOL SCREENING DID YOU HAVE A DRINK CONTAINING ALCOHOL IN THE PAST YEAR?YES HOW OFTEN DID YOU HAVE SIX OR MORE DRINKS ON ONE OCCASION IN THE PAST YEAR?NEVER (0 POINTS) HOW MANY DRINKS DID YOU HAVE ON A TYPICAL DAY WHEN YOU WERE DRINKING IN THE PAST YEAR?1 OR 2 (0 POINTS) HOW OFTEN DID YOU HAVE A DRINK CONTAINING ALCOHOL IN THE PAST YEAR?MONTHLY OR LESS (1 POINT) POINTS1 INTERPRETATIONNEGATIVE RECREATIONAL DRUG USE DRUG USE?NO CAFFEINE CAFFEINE USE?NO SEXUAL HX HAD SEX IN THE LAST 12 MONTHS (VAGINAL, ORAL, OR ANAL)?YES WITHMEN ONLY HAVE YOU EVER HAD AN STD?NO HIV / HEP-C SCREENING HIV TEST OFFERED TO PATIENT:NO HEP-C TEST OFFERED TO PATIENT:NO MORMON [id number] [employer] LANGUAGE LANGUAGES SPOKEN:FRISIAN EDUCATION LEVEL OF EDUCATION:COLLEGE LEARNING BARRIERS / SPECIAL NEEDS BARRIERS TO LEARNING?NO HEARING IMPAIRED?NO VISION IMPAIRED?YES COGNITIVELY IMPAIRED?NO :CORRECTIVE LENSES READINESS TO LEARN?YES LEARNING PREFERENCES?NO LEARNING CAPABILITIES PRESENT?YES EMOTIONAL BARRIERS?NO SPECIAL DEVICES?YES :CANE, BRACE LEFT 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 DIET: REGULAR. EXERCISE: NONE. MARITAL STATUS: . OTHERS AT HOME: SPOUSE. - PFS REFERRAL NEEDED?NO CLERGY REFERRAL NEEDED?NO PUBLIC HEALTH REFERRAL NEEDED?NO WAS THE PROVIDER NOTIFIED OF ANY PERTINENT INFO?YES HAS THE PATIENT BEEN EDUCATED REGARDING HIS/HER PLAN OF CARE?YES HAS THE PATIENT BEEN EDUCATED REGARDING PAIN, THE RISK FOR PAIN, THE IMPORTANCE OF EFFECTIVE PAIN MANAGEMENT, AND THE PAIN ASSESSMENT PROCESS?YES ADVANCE DIRECTIVE ADVANCE DIRECTIVE DISCUSSED WITH PATIENT:YES PT HAS HCP FOR LEVON HERNANDEZ REVIEW OF SYSTEMS CONSTITUTIONAL: ANY RECENT FEVER NO . CHILLS NO . WEIGHT CHANGE OF UNKNOWN REASONS NO . GASTROENTEROLOGY: NEW UNEXPLAINABLE CHANGES IN BOWEL CONTROL NO . CONSTIPATION NO . GENITOURINARY: ANY NEW CHANGE IN BLADDER CONTROL? NO . NEUROLOGY: NEW ONSET DIZZINESS OR NEUROLOGICAL CHANGES NOT MENTIONED NO . NEW NUMBNESS OR PAIN PATTERNS NOT MENTIONED AND PERTINENT TO TODAY'S VISIT NO . CARDIOLOGY: NEW CHEST PRESSURE NO . PATIENT DENIES NO . RESPIRATORY: UNEXPLAINABLE COUGH NO . NEW SHORTNESS OF BREATH NO . VITAL SIGNS WT 212.8 LBS, HT 64 IN, BMI 36.52 INDEX, BP 120/63 MM HG, HR 64 /MIN, RR 18 /MIN, TEMP 97.0 F, OXYGEN SAT % 99%, SAFE IN ENV? (Y/N) Y, NA INITIALS AW 1117, REVIEWED BY: EM. EXAMINATION GENERAL EXAMINATION: GENERALNO ACUTE DISTRESS, WELL NOURISHED AND HYDRATED. PSYCHAPPROPRIATE MOOD AND AFFECT . LUNGS:CLEAR TO AUSCULTATION BILATERALLY, NO WHEEZES, RHONCHI, RALES. HEART:NO MURMURS, REGULAR RATE AND RHYTHM. 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 CHRONIC PAIN FOLLOW-UP. GIVEN PRESENTING SYMPTOMS AND RESULTS OF PHYSICAL EXAMINATION RECOMMEND BILATERAL SACROILIAC JOINT BLOCK WITH POST PROCEDURAL FOLLOW-UP. PATIENT HAS EXPRESSED UNDERSTANDING OF AND WAS IN AGREEMENT WITH TREATMENT PLAN. GIVEN TIME TO ASK QUESTIONS AND EXPRESS CONCERNS. , ISTOP REGISTRY REVIEWED AND DEMONSTRATES COMPLLIANCE. (REF # [id number] ) BRINGS IN MEDICATIONS WHICH IS APPROPRIATE FOR WHAT WAS DISPENSED. RECENT URINE TOXICOLOGY REVIEWED. NO UNAUTHORIZED MEDICATIONS. NO ILLICIT SUBSTANCES AND PRESCRIBED MEDICATIONS WERE PRESENT. CLINICAL NOTES: PREPROCEDURE AND PROCEDURE INFORMATION PRINTED AND PROVIDED TO PATIENT. PATIENT VERBALIZED UNDERSTANDING. NIKO MILLER MA. PROCEDURES PN WORKMANS' COMP OPINION IN YOUR OPINION, WAS THE INCIDENT THAT THE PATIENT DESCRIBED THE COMPETENT MEDICAL CAUSE OF THIS INJURY/ILLNESS? YES ARE THE PATIENT'S COMPLAINTS CONSISTENT WITH HIS/HER HISTORY OF THE INJURY/ILLNESS? YES IS THE PATIENT'S HISTORY OF THE INJURY/ILLNESS CONSISTENT WITH YOUR OBJECTIVE FINDING? YES WHAT IS THE PERCENTAGE OF TEMPORARY IMPAIRMENT? MARKED = 75% IS THE PATIENT WORKING? NO DOCTOR ON SITE: TRINO BYRD MD DISPOSITION & COMMUNICATION FOLLOW UP POST PROCEDURE (REASON: BILATERAL SACROILIAC JOINT BLOCK ) ELECTRONICALLY SIGNED BY JERRY SARAVIA ON 05/08/2020 AT 08:50 AM EDT DISCLAIMER : THIS IS A VISIT SUMMARY EXTRACTED FROM THE [employer] CHART. IT IS NOT A COPY OF THE [employer] PROGRESS NOTE. HARRIET
== END ==
LOC: M PAIN 11:30
PROVIDERS: ATTEND Family Medicine
DX: M46.1 Sacroiliitis, not elsewhere classified (principal); G89.29 Other chronic pain; E55.9 Vitamin D deficiency, unspecified; J45.909 Unspecified asthma, uncomplicated; Z86.14 Personal history of Methicillin resistant Staphylococcus aureus infection; Z88.0 Allergy status to penicillin; Z88.1 Allergy status to other antibiotic agents; Z88.2 Allergy status to sulfonamides; Z88.6 Allergy status to analgesic agent; Z88.8 Allergy status to other drugs, medicaments and biological substances; Z91.013 Allergy to seafood; Z91.030 Bee allergy status; Z91.040 Latex allergy status; Z91.041 Radiographic dye allergy status; Z79.82 Long term (current) use of aspirin; Z79.899 Other long term (current) drug therapy

== ENCOUNTER → 2020-06-02 | Outpatient (REF) | payer MEDICARE, OTHER | LOC: M LAB REF 10:29 | PROVIDERS: ATTEND Otolaryngology | DX: B37.81 Candidal esophagitis (principal); J37.0 Chronic laryngitis; K21.9 Gastro-esophageal reflux disease without esophagitis ==

== ENCOUNTER → 2020-06-13 | Outpatient (CLI) | payer MEDICARE, OTHER ==
--- NOTE | 2020-06-19 05:39 | ECWPNPC ---
PATIENT NAME: ROZINA HERNANDEZ : 1955 GENDER: FEMALE VISIT DATE: 06/13/2020 DISCHARGE DATE: 06/13/20 1015 VISIT LOCKED DATE TIME: PHYSICIAN: LEVON GLOVER RESOURCE: LEVON GLOVER REASON FOR APPOINTMENT 1. NECK AND SHOULDER PAIN HISTORY OF PRESENT ILLNESS GENERAL: HPI 65-YEAR-OLD FEMALE IN FOR CHRONIC PAIN FOLLOW-UP.SHE RATES HER PAIN CURRENTLY AT AN 8 OUT OF 10 AND DESCRIBES IT BURNING, AND INTERMITTENT. PATIENT HAS HAD TRIGGER POINT INJECTIONS TO THE NECK AND SHOULDERS PREVIOUSLY WITH GOOD RESULTS EVIDENCED BY DECREASED PAIN AND INCREASED FUNCTIONALITY. GIVEN INCREASED PAIN TODAY AND RESTRICTED MOVEMENT WE WILL DISCUSS REPEAT PROCEDURES TODAY.. -. FALL RISK SCREENING: SCREENING : NO FALLS REPORTED IN THE LAST YEAR. PAIN SCREENING: PATIENT HAS A COMPLAINT OF ACUTE OR CHRONIC PAIN :YES LOCATION OF PAIN:HEAD, NECK, BOTH SHOULDERS INTENSITY OF PAIN (SCALE OF 1 TO 10):8 WHAT DOES YOUR PAIN FEEL LIKE:BURNING, INTERMITTENT, SHARP PAIN IS INCREASED BY:ACTIVITIES, PROLONGED STANDING LIFTING ARMS ABOVE HEAD MAKES THE PATIENT FEEL LIKE SHE IS GOING TO PASS OUT FROM THE PAIN. PAIN IS DECREASED BY:USE OF PAIN MEDICATIONS, SITTING SHOULDER INJECTIONS, POSITIONAL CHANGES, HEAT NURSING NOTE: -. PAIN CENTER INTAKE QUESTIONS: DO YOU HAVE A HISTORY OF MRSA? :YES FOUR YEARS CLEARED UP PER DR. REHMAN DO YOU TAKE A BLOOD THINNERS? :NO 81 MG ASPIRIN DO YOU HAVE ANY BLEEDING DISORDERS? :NO ANY NEW NUMBNESS OR WEAKNESS IN YOUR LEGS OR ARMS? :NO ANY PACEMAKER,DEFIBRILLATOR, OR DORSAL COLUMN STIMULATOR? :NO DO YOU HAVE ANY RASHES OR OPEN SORES? :NO ARE YOU ALLERGIC TO IV DYE? :YES MRI DYE AND BETADINE ARE YOU DIABETIC? :NO ANY NEW PROBLEMS WITH YOUR MEDICATIONS? :NO HAVE YOU RECEIVED A VACCINE IN THE PAST 30 DAYS? :NO DO YOU PLAN TO RECEIVE A VACCINE IN THE NEXT 21 DAYS? :NO DO YOU NEED ANY PRESCRIPTION? :NO DO YOU TAKE ANY IMMUNOSUPPRESSIVE MEDICATIONS? :NO DO YOU HAVE ANY KIDNEY OR LIVER DISEASE? :YES STAGE TWO KIDNEY FAILURE IS THERE A CHANCE YOU COULD BE ? :NO ARE YOU BREAST FEEDING? :NO CURRENT MEDICATIONS TAKING AMITRIPTYLINE HCL 10 MG TABLET 1 TABLET AT BEDTIME ORALLY ONCE A DAY TAKING MAGNESIUM OXIDE -MG SUPPLEMENT 400 MG CAPSULE 1 CAPSULE NEEDED ORALLY TID TAKING FAMOTIDINE 40 MG TABLET DIRECTED ORALLY BID TAKING AIMOVIG 140 DOSE 1 INJECTION MONTHLY TAKING PAROXETINE HCL 10 MG TABLET 1 TABLET IN THE MORNING ORALLY ONCE A DAY TAKING TYLENOL EXTRA STRENGTH 500 MG TABLET 1 TABLET NEEDED ORALLY EVERY 6 HRS TAKING EPIPEN 2-DUANE 0.3 MG/0.3ML SOLUTION AUTO-INJECTOR INJECTION DIRECTED TAKING CLONAZEPAM 0.5 MG TABLET 0.5 ORALLY 1/2 TAB IN AM AND 1/4 TAB IN PM TAKING PROBIOTIC CAPSULE 1 TAB(S) ORALLY DAILY, NOTES: ALIGN TAKING ASPIRIN EC 81 MG TABLET DELAYED RELEASE 1 TABLET ORALLY ONCE A DAY TAKING ATORVASTATIN CALCIUM 10 MG TABLET 1 TABLET ORALLY ONCE A DAY TAKING PRIMIDONE 50 MG TABLET ORALLY BID TAKING TOPIRAMATE 100 MG TABLET 1 TABLET ORALLY DAILY TAKING SPIRONOLACTONE 25 MG TABLET 1 TABLET ORALLY DAILY TAKING CALCIUM + D 600-200 MG-UNIT TABLET 1 TABLET ORALLY TWICE A DAY TAKING TORSEMIDE 20 MG TABLET DIRECTED ORALLY 1 TAB Q OTHER DAY,1/2 TAB Q OTHER DAY TAKING NYSTATIN 265155 UNIT/GM POWDER 1 APPLICATION TO AFFECTED AREA EXTERNALLY TWICE A DAY TAKING VITAMIN E 400 UNIT CAPSULE 1 CAPSULE ORALLY ONCE A DAY TAKING IPRATROPIUM-ALBUTEROL 0.5-2.5 (3) MG/3ML SOLUTION 3 ML NEEDED INHALATION EVERY 6 HRS TAKING ADVAIR HFA 230-21 MCG/ACT AEROSOL 2 PUFFS INHALATION TWICE A DAY TAKING BUSPIRONE HCL 5 MG TABLET 1 TABLET ORALLY DAILY TAKING POTASSIUM CHLORIDE ER 20 MEQ TABLET EXTENDED RELEASE 1 TABLET WITH FOOD ORALLY ONCE A DAY TAKING LIDODERM 5 % PATCH DIRECTED EXTERNALLY (WORKERS COMP) APPLY 3 PATCH TO PAINFUL AREA OF LOW BACK ON 12 HRS OFF 12 HOURS PRN PAIN. TAKING VENTOLIN HFA 90 MCG/ACT AEROSOL SOLUTION 2 PUFFS NEEDED INHALATION EVERY 6 HRS TAKING BUPROPION HCL 100 MG TABLET EXTENDED RELEASE 1 TABLET ORALLY DAILY TAKING GAVISCON EXTRA STRENGTH 160-105 MG TABLET CHEWABLE 2 TABLETS AFTER MEALS AND AT BEDTIME NEEDED ORALLY FOUR TIMES A DAY TAKING SUCRALFATE 1 GM TABLET 1 TABLET ON AN EMPTY STOMACH ORALLY TWICE A DAY TAKING NYSTATIN - POWDER DIRECTED TAKING NYSTATIN 347368 UNIT/ML SUSPENSION 5 ML ORALLY SWISH AND SWALLOW 4 TIMES A DAY TAKING IRBESARTAN 150 MG TABLET 1 TABLET ORALLY ONCE A DAY TAKING VOLTAREN 1 % GEL 1 GRAM APPLIED TO AFFECTED AREA EXTERNALLY PRN 4 X DAILY NOT TO EXCEED 4 GMS IN A DAY WORKERS COMP TAKING ONDANSETRON 4 MG TABLET DISINTEGRATING 1 TABLET ON THE TONGUE AND ALLOW TO DISSOLVE ORALLY EVERY 6 HOURS NEEDED TAKING VITAMIN E 400 UNIT CAPSULE 1 CAPSULE ORALLY ONCE A DAY TAKING FISH OIL DOUBLE STRENGTH 1200 MG CAPSULE 1 CAPSULE ORALLY THREE TIMES DAILY TAKING TIZANIDINE HCL 4 MG TABLET 1 TABLET NEEDED ORALLY BEFORE BEDTIME (WORKERS COMP) TAKING 28-0.8 MG TABLET ORALLY DAILY TAKING LOVAZA 1 GM CAPSULE 2 CAPSULES ORALLY TWICE A DAY TAKING VITAMIN D 25 MCG (1000 UT) TABLET 1 CAPSULE ORALLY ONCE DAILY TAKING ARIPIPRAZOLE 2 MG TABLET 1 TABLET ORALLY ONCE A DAY TAKING DULERA 200-5 MCG/ACT AEROSOL 2 PUFFS INHALATION TWICE A DAY TAKING OMEPRAZOLE 40 MG CAPSULE DELAYED RELEASE 1 CAPSULE 30 MINUTES BEFORE MORNING MEAL ORALLY ONCE A DAY TAKING SUMATRIPTAN SUCCINATE 100 MG TABLET 1 TABLET AT LEAST 2 HOURS BETWEEN DOSES NEEDED ORALLY TWICE A DAY TAKING TRAMADOL HCL 50 MG TABLET 1 TAB ORALLY (CODE D FOR CHRONIC PAIN ) DAILY NEEDED TAKING NYSTATIN [id number] UNIT/ML SUSPENSION 4 ML MOUTH/THROAT FOUR TIMES A DAY TAKING LIDOCAINE & ADHESIVE SHEET 5 % KIT DIRECTED EXTERNALLY NOT-TAKING TAMSULOSIN HCL 0.4 MG CAPSULE 1 CAPSULE ORALLY ONCE A DAY NOT-TAKING IMITREX 100 MG TABLET 1 TABLET NEEDED ORALLY DIRECTED PRN MIGRAINES NOT-TAKING RABEPRAZOLE SODIUM 20 MG TABLET DELAYED RELEASE 1 TABLET ORALLY 2 TBS IN ,/1 TAB IN PM NOT-TAKING LYRICA 150 MG CAPSULE 1 CAPSULE ORALLY BID NOT-TAKING LEVOFLOXACIN 250 MG TABLET 1 TABLET ORALLY BID NOT-TAKING GABAPENTIN 600 MG TABLET 1 TABLET ORALLY THREE TIMES A DAY NOT-TAKING BREO ELLIPTA 200-25 MCG/INH AEROSOL POWDER BREATH ACTIVATED 1 PUFF INHALATION ONCE A DAY MEDICATION LIST REVIEWED AND RECONCILED WITH THE PATIENT PAST MEDICAL HISTORY PRIMARY HTN,SECONDARY RENAL HYPERPARATHYROIDISM,CRI STAGE 3,VIT D DEFICIENT,HYPOMAGNISEMIA CKD3, 01/20 RENAL US WITH INCREASED ECHOGENICITY TRAVIS MARCOS EDEMA VIT D DEF HTN HYPOTHYROIDISM ASTHMA, DR [place] 2008, FELL WORKING FOOT TANGLED IN PURSE HANDLES FOR CP CLINIC, WEARS BRACE 05/22 LIVER US DIFFUSE FIBROFATTY INFILTRATION OF THE LIVER 03/22 MRI L SPINE - 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 EPIGASTRIC TENDERNESS - DR JARRETT GI SYR 04/21 L WRIST FX - FISH OBESITY PSEUDOSEIZURES - NEURO/ALI ENDOSCOPY 04/07/20 ALLERGIES IV DYE: ANAPHYLAXIS - ALLERGY BACTRIM: ANAPHYLAXIS - ALLERGY ERYTHROMYCIN: ANAPHYLAXIS - ALLERGY PENICILLIN (FOR ALLERGIES USE ONLY): HIVES - ALLERGY ZITHROMAX: HEADACHES - ALLERGY INDOCIN: HIVES,HEADACHE - ALLERGY TORADOL: HIVES - ALLERGY BEE STINGS: ANAPHYLAXIS - ALLERGY HARD SHELL SEAFOOD: ANAPHYLAXIS - ALLERGY BIAXIN: HALLUCINATIONS - SIDE EFFECTS MUSCLE RELAXERS: SHAKES - SIDE EFFECTS SULFA (FOR ALLERGY USE ONLY): HIVES - ALLERGY LASIX: SWELLING - SIDE EFFECTS BACTROBAN OINTMENT: CAUSES YEAST INFECTION - SIDE EFFECTS LATEX: HIVES, BLISTERS - ALLERGY BETADINE: ANAPHYLAXIS - ALLERGY SOCIAL HISTORY GENERAL: TOBACCO USE ARE YOU A:NONSMOKER LATEX QUESTIONNAIRE LATEX ALLERGY : HAVE YOU EVER DEVELOPED ANY TYPE OF REACTION AFTER HANDLING LATEX PRODUCTS SUCH RUBBER GLOVES, CONDOMS, DIAPHRAGMS, BALLOONS, SOCKS, OR UNDERWEAR?YES KNOWN LATEX ALLERGY - PLEASE INDICATE : HIVES FROM LATEX LATEX ALLERGY : HAVE YOU EVER DEVELOPED ANY TYPE OF REACTION DURING OR AFTER DENTAL APPOINTMENT, VAGINAL/RECTAL EXAMINATION, SURGICAL PROCEDURE, OR ANY OTHER EXPOSURE?NO LATEX RISK : HAVE YOU EVER HAD ANY DIFFICULTY BREATHING OR HIVES AFTER EATING OR HANDLING ANY FRUITS, OR VEGETABLES; SUCH KIWI, BANANAS, STONE FRUITS, OR CHESTNUTSNO LATEX RISK : DO YOU HAVE A PREVIOUS PERSONAL HISTORY OF MORE THAN NINE SURGERIES, SPINA BIFIDA, OR REPEATED CATHERIZATIONS? NO LATEX RISK : ARE YOU FREQUENTLY EXPOSED TO LATEX PRODUCTS IN YOUR OCCUPATION?NO DATE ASKED : 06/13/2020 ALCOHOL USE: NO. ALCOHOL SCREENING DID YOU HAVE A DRINK CONTAINING ALCOHOL IN THE PAST YEAR?YES HOW OFTEN DID YOU HAVE SIX OR MORE DRINKS ON ONE OCCASION IN THE PAST YEAR?NEVER (0 POINTS) HOW MANY DRINKS DID YOU HAVE ON A TYPICAL DAY WHEN YOU WERE DRINKING IN THE PAST YEAR?1 OR 2 (0 POINTS) HOW OFTEN DID YOU HAVE A DRINK CONTAINING ALCOHOL IN THE PAST YEAR?MONTHLY OR LESS (1 POINT) POINTS1 INTERPRETATIONNEGATIVE RECREATIONAL DRUG USE DRUG USE?NO CAFFEINE CAFFEINE USE?NO SEXUAL HX HAD SEX IN THE LAST 12 MONTHS (VAGINAL, ORAL, OR ANAL)?YES WITHMEN ONLY HAVE YOU EVER HAD AN STD?NO HIV / HEP-C SCREENING HIV TEST OFFERED TO PATIENT:NO HEP-C TEST OFFERED TO PATIENT:NO SPIRITISM [id number] DENOMINATIONAL LANGUAGE LANGUAGES SPOKEN:FAROESE EDUCATION LEVEL OF EDUCATION:COLLEGE LEARNING BARRIERS / SPECIAL NEEDS CHANGE FROM LAST VISIT?NO BARRIERS TO LEARNING?NO HEARING IMPAIRED?NO VISION IMPAIRED?YES :CORRECTIVE LENSES COGNITIVELY IMPAIRED?NO READINESS TO LEARN?YES LEARNING PREFERENCES?NO LEARNING CAPABILITIES PRESENT?YES EMOTIONAL BARRIERS?NO SPECIAL DEVICES?YES :CANE, BRACE LEFT ANLKLE BRACE ORDER PACKER OR PACKAGER NEEDED?NO 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 DIET: REGULAR. EXERCISE: NONE. MARITAL STATUS: . OTHERS AT HOME: SPOUSE. - PFS REFERRAL NEEDED?NO CLERGY REFERRAL NEEDED?NO PUBLIC HEALTH REFERRAL NEEDED?NO WAS THE PROVIDER NOTIFIED OF ANY PERTINENT INFO?YES HAS THE PATIENT BEEN EDUCATED REGARDING HIS/HER PLAN OF CARE?YES HAS THE PATIENT BEEN EDUCATED REGARDING PAIN, THE RISK FOR PAIN, THE IMPORTANCE OF EFFECTIVE PAIN MANAGEMENT, AND THE PAIN ASSESSMENT PROCESS?YES ADVANCE DIRECTIVE ADVANCE DIRECTIVE DISCUSSED WITH PATIENT:YES PT HAS HCP FOR LEVON HERNANDEZ REVIEW OF SYSTEMS CONSTITUTIONAL: ANY RECENT FEVER NO . CHILLS NO . WEIGHT CHANGE OF UNKNOWN REASONS NO . GASTROENTEROLOGY: NEW UNEXPLAINABLE CHANGES IN BOWEL CONTROL NO . CONSTIPATION NO . GENITOURINARY: ANY NEW CHANGE IN BLADDER CONTROL? NO . NEUROLOGY: NEW ONSET DIZZINESS OR NEUROLOGICAL CHANGES NOT MENTIONED NO . NEW NUMBNESS OR PAIN PATTERNS NOT MENTIONED AND PERTINENT TO TODAY'S VISIT NO . CARDIOLOGY: NEW CHEST PRESSURE NO . PATIENT DENIES NO . RESPIRATORY: UNEXPLAINABLE COUGH NO . NEW SHORTNESS OF BREATH NO . VITAL SIGNS WT 208.4 LBS, HT 64 IN, BMI 35.77 INDEX, BP 129/58 MM HG, HR 68 /MIN, RR 18 /MIN, TEMP 97.3 F, OXYGEN SAT % 100%, SAFE IN ENV? (Y/N) YES, REVIEWED BY: ANA MILLER MA. EXAMINATION GENERAL EXAMINATION: GENERALNO ACUTE DISTRESS, WELL NOURISHED AND HYDRATED. PSYCHAPPROPRIATE MOOD AND AFFECT . NECK:POINT TENDER BILATERAL NECK AND SHOULDERS, SURROUNDING SKIN SHOWS NO ERYTHEMA, ECCHYMOSIS, INCREASED WARMTH, AND/OR SKIN ERUPTIONS NOTED. BANDS OF RESTRICTIVE TISSUE NOTED OVER TRIGGER POINTS. LUNGS:CLEAR TO AUSCULTATION BILATERALLY, NO WHEEZES, RHONCHI, RALES. HEART:NO MURMURS, REGULAR RATE AND RHYTHM. ASSESSMENTS MYALGIA, OTHER SITE - M79.18 (PRIMARY) RECEPTIONIST AIRLINE LOUNGE (CURRENT) USE OF OPIATE ANALGESIC - Z79.891 TREATMENT MYALGIA, OTHER SITE MEDICATION: VALIUM TAB 10MG ORALLY (DIAZEPAM) (ORDERED FOR 06/25/2020) MEDICATION: OXYCODONE HCL TAB 10MG ORALLY (ORDERED FOR 06/25/2020) NOTES: 65-YEAR-OLD FEMALE IN FOR CHRONIC PAIN FOLLOW-UP. GIVEN PRESENTING SYMPTOMS AND RESULTS OF PHYSICAL EXAMINATION RECOMMEND BILATERAL SHOULDER AND NECK TRIGGER POINT INJECTIONS WITH POST PROCEDURAL FOLLOW-UP.PATIENT HAS EXPRESSED UNDERSTANDING OF AND WAS IN AGREEMENT WITH TREATMENT PLAN. GIVEN TIME TO ASK QUESTIONS AND EXPRESS CONCERNS. ISTOP REGISTRY REVIEWED AND DEMONSTRATES COMPLLIANCE. (REF #[id number] ) BRINGS IN MEDICATIONS WHICH IS APPROPRIATE FOR WHAT WAS DISPENSED. RECENT URINE TOXICOLOGY REVIEWED. NO UNAUTHORIZED MEDICATIONS. NO ILLICIT SUBSTANCES AND PRESCRIBED MEDICATIONS WERE PRESENT. CLINICAL NOTES: PREPROCEDURE AND PROCEDURE INFORMATION PRINTED AND PROVIDED TO PATIENT. PATIENT VERBALIZED AN UNDERSTANDING. NIKO MILLER MA. [facility] (CURRENT) USE OF OPIATE ANALGESIC LAB: URINE TEST GROUP NIKO MILLER 06/13/2020 10:10:36 AM > TIZANIDINE 06/12/2020 AT 4 PM DISPOSITION & COMMUNICATION FOLLOW UP POST PROCEDURE (REASON: BILATERAL NECK AND BILATERAL SHOULDERS TRIGGER POINT INJECTIONS ) ELECTRONICALLY SIGNED BY JERRY SARAVIA ON 06/18/2020 AT 08:24 AM EDT DISCLAIMER : THIS IS A VISIT SUMMARY EXTRACTED FROM THE [employer] CHART. IT IS NOT A COPY OF THE [employer] PROGRESS NOTE. MTDD
== END ==
LOC: M PAIN 09:00
PROVIDERS: ATTEND Family Medicine
DX: M79.18 Myalgia, other site (principal); E55.9 Vitamin D deficiency, unspecified; J45.909 Unspecified asthma, uncomplicated; Z86.14 Personal history of Methicillin resistant Staphylococcus aureus infection; Z88.0 Allergy status to penicillin; Z88.1 Allergy status to other antibiotic agents; Z88.2 Allergy status to sulfonamides; Z88.6 Allergy status to analgesic agent; Z88.8 Allergy status to other drugs, medicaments and biological substances; Z91.013 Allergy to seafood; Z91.030 Bee allergy status; Z91.040 Latex allergy status; Z91.041 Radiographic dye allergy status; Z79.82 Long term (current) use of aspirin; Z79.899 Other long term (current) drug therapy

== ENCOUNTER → 2020-06-18 | Outpatient (CLI) | payer MEDICARE, OTHER | LOC: M LABSMTC 12:38 | PROVIDERS: ATTEND Anesthesiology | DX: Z01.818 Encounter for other preprocedural examination (principal) ==

== ENCOUNTER → 2020-06-23 | Outpatient (CLI) | payer MEDICARE, OTHER ==
[~2020-06-23] MED LIST changes: +BUPIVACAINE HCL 0.25% 10ML VIAL As Ordered ONE; +BUPIVACAINE HCL 0.25% 30ML VIAL As Ordered ONE; +TRIAMCINOLONE ACETONIDE SUSP 40 MG/ML VIAL (J3301) As Ordered ONE; +diazePAM 5MG TABLET As Ordered ONE; +oxyCODONE 5MG TAB As Ordered ONE
--- NOTE | 2020-06-26 01:06 | ECWPNPC ---
PATIENT NAME: ROZINA HERNANDEZ : 1955 GENDER: FEMALE VISIT DATE: 06/23/2020 DISCHARGE DATE: 06/23/20 1018 VISIT LOCKED DATE TIME: PHYSICIAN: TRINO PEOPLES MD RESOURCE: TRINO PEOPLES MD REASON FOR APPOINTMENT 1. TRIGGER POINT INJECTIONS BILATERAL NECK AND BILATERAL SHOULDERS HISTORY OF PRESENT ILLNESS GENERAL: -. FALL RISK SCREENING: SCREENING : NO FALLS REPORTED IN THE LAST YEAR. PAIN SCREENING: PATIENT HAS A COMPLAINT OF ACUTE OR CHRONIC PAIN :YES LOCATION OF PAIN:NECK, LEFT SHOULDER, RIGHT SHOULDER INTENSITY OF PAIN (SCALE OF 1 TO 10):7 WHAT DOES YOUR PAIN FEEL LIKE:ACHING, BURNING, CONTINOUS, STABBING, TENDER, THROBBING, SORE DURATION:CONTINOUS PAIN IS INCREASED BY:OTHERS RAISING ARMS ABOVE HER HEAD PAIN IS DECREASED BY:USE OF PAIN MEDICATIONS, OTHERS TYLENOL, HEAT NURSING NOTE: -. PAIN CENTER INTAKE QUESTIONS: DO YOU HAVE A HISTORY OF MRSA? :YES STATES SHE HAD APPOXIAMTELY 3 YEARS AGO, HAS SONCHELE HAD 3 NEGATIVE CULTURES DO YOU TAKE A BLOOD THINNERS? :NO DO YOU HAVE ANY BLEEDING DISORDERS? :NO ANY NEW NUMBNESS OR WEAKNESS IN YOUR LEGS OR ARMS? :NO ANY PACEMAKER,DEFIBRILLATOR, OR DORSAL COLUMN STIMULATOR? :NO DO YOU HAVE ANY RASHES OR OPEN SORES? :NO ARE YOU ALLERGIC TO IV DYE? :YES IV DYE ARE YOU DIABETIC? :NO ANY NEW PROBLEMS WITH YOUR MEDICATIONS? :NO HAVE YOU RECEIVED A VACCINE IN THE PAST 30 DAYS? :NO DO YOU PLAN TO RECEIVE A VACCINE IN THE NEXT 21 DAYS? :NO DO YOU TAKE ANY IMMUNOSUPPRESSIVE MEDICATIONS? :NO ANY HISTORY OF SEIZURES? :YES STATES SHE HAS A HISTOTY OF PSEUDO SEIZURES, HAS NOT HAD ONE IN OVER 2 YEARS, TAKES NO MEDS FOR THEM ANY HISTORY OF CARDIAC ISSUES OR EVENTS? :NO DO YOU HAVE ANY KIDNEY OR LIVER DISEASE? :YES STAGE 3 KIDNEY DISEASE DO YOU HAVE SLEEP APNEA? :YES DO YOU WEAR A CPAP?YES ANY RECENT HEAD INJURY? :NO DO YOU HAVE ANY NEW INFECTIONS? :NO IS THERE A CHANCE YOU COULD BE ? :NO ARE YOU BREAST FEEDING? :NO WHEN DID YOU LAST EAT? : 06/22/2020 1700 WHEN DID YOU LAST DRINK? : 06/23/2020 0600 WHAT DID YOU LAST DRINK? : WATER NAME OF PERSON DRIVING YOU HOME? : BROTHER- BILL DO YOU HAVE ANY OTHER QUESTIONS OR CONCERNS? : NO CURRENT MEDICATIONS TAKING AMITRIPTYLINE HCL 10 MG TABLET 1 TABLET AT BEDTIME ORALLY ONCE A DAY TAKING MAGNESIUM OXIDE -MG SUPPLEMENT 400 MG CAPSULE 1 CAPSULE NEEDED ORALLY TID TAKING FAMOTIDINE 40 MG TABLET DIRECTED ORALLY BID TAKING AIMOVIG 140 DOSE 1 INJECTION MONTHLY TAKING PAROXETINE HCL 10 MG TABLET 1 TABLET IN THE MORNING ORALLY ONCE A DAY TAKING TYLENOL EXTRA STRENGTH 500 MG TABLET 1 TABLET NEEDED ORALLY EVERY 6 HRS TAKING EPIPEN 2-DUANE 0.3 MG/0.3ML SOLUTION AUTO-INJECTOR INJECTION DIRECTED TAKING CLONAZEPAM 0.5 MG TABLET 0.5 ORALLY 1/2 TAB IN AM AND 1/4 TAB IN PM TAKING PROBIOTIC CAPSULE 1 TAB(S) ORALLY DAILY, NOTES: ALIGN TAKING ASPIRIN EC 81 MG TABLET DELAYED RELEASE 1 TABLET ORALLY ONCE A DAY TAKING ATORVASTATIN CALCIUM 10 MG TABLET 1 TABLET ORALLY ONCE A DAY TAKING PRIMIDONE 50 MG TABLET ORALLY BID TAKING TOPIRAMATE 100 MG TABLET 1 TABLET ORALLY DAILY TAKING SPIRONOLACTONE 25 MG TABLET 1 TABLET ORALLY DAILY TAKING CALCIUM + D 600-200 MG-UNIT TABLET 1 TABLET ORALLY TWICE A DAY TAKING TORSEMIDE 20 MG TABLET DIRECTED ORALLY 1 TAB Q OTHER DAY,1/2 TAB Q OTHER DAY TAKING NYSTATIN 879569 UNIT/GM POWDER 1 APPLICATION TO AFFECTED AREA EXTERNALLY TWICE A DAY TAKING VITAMIN E 400 UNIT CAPSULE 1 CAPSULE ORALLY ONCE A DAY TAKING IPRATROPIUM-ALBUTEROL 0.5-2.5 (3) MG/3ML SOLUTION 3 ML NEEDED INHALATION EVERY 6 HRS TAKING BUSPIRONE HCL 5 MG TABLET 1 TABLET ORALLY DAILY TAKING POTASSIUM CHLORIDE ER 20 MEQ TABLET EXTENDED RELEASE 1 TABLET WITH FOOD ORALLY ONCE A DAY TAKING LIDODERM 5 % PATCH DIRECTED EXTERNALLY (WORKERS COMP) APPLY 3 PATCH TO PAINFUL AREA OF LOW BACK ON 12 HRS OFF 12 HOURS PRN PAIN. TAKING VENTOLIN HFA 90 MCG/ACT AEROSOL SOLUTION 2 PUFFS NEEDED INHALATION EVERY 6 HRS TAKING BUPROPION HCL 100 MG TABLET EXTENDED RELEASE 1 TABLET ORALLY DAILY TAKING GAVISCON EXTRA STRENGTH 160-105 MG TABLET CHEWABLE 2 TABLETS AFTER MEALS AND AT BEDTIME NEEDED ORALLY FOUR TIMES A DAY TAKING SUCRALFATE 1 GM TABLET 1 TABLET ON AN EMPTY STOMACH ORALLY TWICE A DAY TAKING NYSTATIN [id number] UNIT/ML SUSPENSION 5 ML ORALLY SWISH AND SWALLOW 4 TIMES A DAY, NOTES: PRN TAKING IRBESARTAN 150 MG TABLET 1 TABLET ORALLY ONCE A DAY TAKING VOLTAREN 1 % GEL 1 GRAM APPLIED TO AFFECTED AREA EXTERNALLY PRN 4 X DAILY NOT TO EXCEED 4 GMS IN A DAY WORKERS COMP TAKING ONDANSETRON 4 MG TABLET DISINTEGRATING 1 TABLET ON THE TONGUE AND ALLOW TO DISSOLVE ORALLY EVERY 6 HOURS NEEDED, NOTES: TAKES DAILY TAKING FISH OIL DOUBLE STRENGTH 1200 MG CAPSULE 1 CAPSULE ORALLY THREE TIMES DAILY TAKING TIZANIDINE HCL 4 MG TABLET 1 TABLET NEEDED ORALLY BEFORE BEDTIME (WORKERS COMP) TAKING VITAMIN D 25 MCG (1000 UT) TABLET 1 CAPSULE ORALLY ONCE DAILY TAKING ARIPIPRAZOLE 2 MG TABLET 1 TABLET ORALLY ONCE A DAY TAKING DULERA 200-5 MCG/ACT AEROSOL 2 PUFFS INHALATION TWICE A DAY TAKING OMEPRAZOLE 40 MG CAPSULE DELAYED RELEASE 1 CAPSULE 30 MINUTES BEFORE MORNING MEAL ORALLY ONCE A DAY TAKING SUMATRIPTAN SUCCINATE 100 MG TABLET 1 TABLET AT LEAST 2 HOURS BETWEEN DOSES NEEDED ORALLY TWICE A DAY TAKING TRAMADOL HCL 50 MG TABLET 1 TAB ORALLY (CODE D FOR CHRONIC PAIN ) DAILY NEEDED TAKING LIDOCAINE & ADHESIVE SHEET 5 % KIT DIRECTED EXTERNALLY NOT-TAKING ADVAIR HFA 230-21 MCG/ACT AEROSOL 2 PUFFS INHALATION TWICE A DAY NOT-TAKING 28-0.8 MG TABLET ORALLY DAILY NOT-TAKING LOVAZA 1 GM CAPSULE 2 CAPSULES ORALLY TWICE A DAY NOT-TAKING NYSTATIN [id number] UNIT/ML SUSPENSION 4 ML MOUTH/THROAT FOUR TIMES A DAY NOT-TAKING TAMSULOSIN HCL 0.4 MG CAPSULE 1 CAPSULE ORALLY ONCE A DAY NOT-TAKING IMITREX 100 MG TABLET 1 TABLET NEEDED ORALLY DIRECTED PRN MIGRAINES NOT-TAKING RABEPRAZOLE SODIUM 20 MG TABLET DELAYED RELEASE 1 TABLET ORALLY 2 TBS IN ,/1 TAB IN PM NOT-TAKING LYRICA 150 MG CAPSULE 1 CAPSULE ORALLY BID NOT-TAKING LEVOFLOXACIN 250 MG TABLET 1 TABLET ORALLY BID NOT-TAKING GABAPENTIN 600 MG TABLET 1 TABLET ORALLY THREE TIMES A DAY NOT-TAKING BREO ELLIPTA 200-25 MCG/INH AEROSOL POWDER BREATH ACTIVATED 1 PUFF INHALATION ONCE A DAY MEDICATION LIST REVIEWED AND RECONCILED WITH THE PATIENT PAST MEDICAL HISTORY PRIMARY HTN,SECONDARY RENAL HYPERPARATHYROIDISM,CRI STAGE 3,VIT D DEFICIENT,HYPOMAGNISEMIA CKD3, 01/20 RENAL US WITH INCREASED ECHOGENICITY TRAVIS MARCOS EDEMA VIT D DEF HTN HYPOTHYROIDISM ASTHMA, DR [place] 2008, FELL WORKING FOOT TANGLED IN PURSE HANDLES FOR CP CLINIC, WEARS BRACE 05/22 LIVER US DIFFUSE FIBROFATTY INFILTRATION OF THE LIVER 03/22 MRI L SPINE - 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 EPIGASTRIC TENDERNESS - DR JARRETT GI SYR 04/21 L WRIST FX - FISH OBESITY PSEUDOSEIZURES - NEURO/ALI ENDOSCOPY 04/07/20 ALLERGIES IV DYE: ANAPHYLAXIS - ALLERGY BACTRIM: ANAPHYLAXIS - ALLERGY ERYTHROMYCIN: ANAPHYLAXIS - ALLERGY PENICILLIN (FOR ALLERGIES USE ONLY): HIVES - ALLERGY ZITHROMAX: HEADACHES - ALLERGY INDOCIN: HIVES,HEADACHE - ALLERGY TORADOL: HIVES - ALLERGY BEE STINGS: ANAPHYLAXIS - ALLERGY HARD SHELL SEAFOOD: ANAPHYLAXIS - ALLERGY BIAXIN: HALLUCINATIONS - SIDE EFFECTS MUSCLE RELAXERS: SHAKES - SIDE EFFECTS SULFA (FOR ALLERGY USE ONLY): HIVES - ALLERGY LASIX: SWELLING - SIDE EFFECTS BACTROBAN OINTMENT: CAUSES YEAST INFECTION - SIDE EFFECTS LATEX: HIVES, BLISTERS - ALLERGY BETADINE: ANAPHYLAXIS - ALLERGY SOCIAL HISTORY GENERAL: TOBACCO USE ARE YOU A:NONSMOKER LATEX QUESTIONNAIRE LATEX ALLERGY : HAVE YOU EVER DEVELOPED ANY TYPE OF REACTION AFTER HANDLING LATEX PRODUCTS SUCH RUBBER GLOVES, CONDOMS, DIAPHRAGMS, BALLOONS, SOCKS, OR UNDERWEAR?YES KNOWN LATEX ALLERGY - PLEASE INDICATE : HIVES FROM LATEX LATEX ALLERGY : HAVE YOU EVER DEVELOPED ANY TYPE OF REACTION DURING OR AFTER DENTAL APPOINTMENT, VAGINAL/RECTAL EXAMINATION, SURGICAL PROCEDURE, OR ANY OTHER EXPOSURE?NO LATEX RISK : HAVE YOU EVER HAD ANY DIFFICULTY BREATHING OR HIVES AFTER EATING OR HANDLING ANY FRUITS, OR VEGETABLES; SUCH KIWI, BANANAS, STONE FRUITS, OR CHESTNUTSNO LATEX RISK : DO YOU HAVE A PREVIOUS PERSONAL HISTORY OF MORE THAN NINE SURGERIES, SPINA BIFIDA, OR REPEATED CATHERIZATIONS? NO LATEX RISK : ARE YOU FREQUENTLY EXPOSED TO LATEX PRODUCTS IN YOUR OCCUPATION?NO DATE ASKED : 06/20/2020 ALCOHOL USE: NO. ALCOHOL SCREENING DID YOU HAVE A DRINK CONTAINING ALCOHOL IN THE PAST YEAR?YES HOW OFTEN DID YOU HAVE SIX OR MORE DRINKS ON ONE OCCASION IN THE PAST YEAR?NEVER (0 POINTS) HOW MANY DRINKS DID YOU HAVE ON A TYPICAL DAY WHEN YOU WERE DRINKING IN THE PAST YEAR?1 OR 2 (0 POINTS) HOW OFTEN DID YOU HAVE A DRINK CONTAINING ALCOHOL IN THE PAST YEAR?MONTHLY OR LESS (1 POINT) POINTS1 INTERPRETATIONNEGATIVE RECREATIONAL DRUG USE DRUG USE?NO CAFFEINE CAFFEINE USE?NO SEXUAL HX HAD SEX IN THE LAST 12 MONTHS (VAGINAL, ORAL, OR ANAL)?YES WITHMEN ONLY HAVE YOU EVER HAD AN STD?NO HIV / HEP-C SCREENING HIV TEST OFFERED TO PATIENT:NO HEP-C TEST OFFERED TO PATIENT:NO RESTORATIONISM [id number] QUAKER LANGUAGE LANGUAGES SPOKEN:MALIAN EDUCATION LEVEL OF EDUCATION:COLLEGE LEARNING BARRIERS / SPECIAL NEEDS BARRIERS TO LEARNING?NO HEARING IMPAIRED?NO VISION IMPAIRED?YES COGNITIVELY IMPAIRED?NO :CORRECTIVE LENSES READINESS TO LEARN?YES LEARNING PREFERENCES?NO LEARNING CAPABILITIES PRESENT?YES EMOTIONAL BARRIERS?NO SPECIAL DEVICES?YES :CANE, BRACE LEFT ANLKLE BRACE TAX COMPLIANCE AGENT NEEDED?NO 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 DIET: REGULAR. EXERCISE: NONE. MARITAL STATUS: . OTHERS AT HOME: SPOUSE. - PFS REFERRAL NEEDED?NO CLERGY REFERRAL NEEDED?NO PUBLIC HEALTH REFERRAL NEEDED?NO WAS THE PROVIDER NOTIFIED OF ANY PERTINENT INFO?YES HAS THE PATIENT BEEN EDUCATED REGARDING HIS/HER PLAN OF CARE?YES HAS THE PATIENT BEEN EDUCATED REGARDING PAIN, THE RISK FOR PAIN, THE IMPORTANCE OF EFFECTIVE PAIN MANAGEMENT, AND THE PAIN ASSESSMENT PROCESS?YES ADVANCE DIRECTIVE ADVANCE DIRECTIVE DISCUSSED WITH PATIENT:YES PT HAS HCP FOR LEVON HERNANDEZ VITAL SIGNS WT 208.8 LBS, HT 64 IN, BMI 35.84 INDEX, BP 116/75 MM HG, HR 71 /MIN, RR 18 /MIN, TEMP 98.4 F, OXYGEN SAT % 100%, SAFE IN ENV? (Y/N) YES, REVIEWED BY: Isabel MORELOS RN. EXAMINATION GENERAL: A HISTORY AND PHYSICAL EXAM ON THE PATIENT WAS DONE ON 06/13/2020(DATE OF ORIGINAL ASSESSMENT) IN PREPARATION OF SURGERY/PROCEDURE. I HAVE NOW REASSESSED THIS PATIENT'S HEALTH STATUS AND PERFORMED AN UPDATED EXAM TODAY. ALL CHANGES IN THE PATIENT'S HISTORY, PHYSICAL EXAM, PRE-EXISTING CONDITONS, AND INDICATIONS/CONTRAINDICATIONS TO THE PLANNED PROCEDURE AND ANESTHESIA ARE DOCUMENTED AND EVALUATED BELOW. I ATTEST TO THE ADEQUACY AND APPROPRIATENESS OF MY ASSESSMENT, AND CONFIRM THE NECESSITY FOR THE PLANNED PROCEDURE. THE PATIENT IS ALERT, ORIENTED TIMES THREE AND COOPERATIVE. LUNGS ARE CLEAR TO AUSCULTATION. HEART SHOWS REGULAR RHYTHM, NO MURMURS AND NO GALLOPS. ASSESSMENTS MYALGIA, OTHER SITE - M79.18 (PRIMARY) TREATMENT MYALGIA, OTHER SITE COMPLETION OF PROCEDURAL VISIT WHEN MEETS CRITERIACHUCK ANNA 06/23/2020 10:13:46 AM > 1005 CRITEREIA MET MEDICATION: VALIUM TAB 10MG ORALLY (DIAZEPAM)ERIC CARL 06/23/2020 8:51:03 AM > VERIFIED. CHUCK ANNA 06/23/2020 9:04:37 AM > ADMINISTERED MEDICATION: OXYCODONE HCL TAB 10MG ORALLYERIC CARL 06/23/2020 8:51:26 AM > VERIFIED. FRANDY ANNALE 06/23/2020 9:04:58 AM > ADMINISTERED OTHERS NOTES: 06/20/2020 0945 PRE PROCEDURE PHONE CALL COMPLETED WITH PATIENT Isabel MORELOS RN. PROCEDURES PAIN NURSING RECORD PROCEDURE IN ROOM 0820, PHYSICIAN IN ROOM 0943, START 0951, FINISH 0955, PHYSICIAN OUT OF ROOM 0956, OUT OF ROOM 1007, ECG N/A, PATIENT SHIELDED N/A, SAFETY STRAP N/A, PREP ALCOHOL DR. PEOPLES, DRESSING TEGADERM Imer MORELOS RN LOC: CHUCK ANNA 06/23/2020 08:30:21 AM > , 1. ALERT, ORIENTED RESP: CHUCK ANNA 06/23/2020 08:30:21 AM , 1. REGULAR, NO DYSPNEA COLOR: FRANDY ANNALE 06/23/2020 08:30:21 AM, 1. PINK SKIN: FRANDY ANNALE 06/23/2020 08:30:21 AM, 1. WARM, DRY POSITION: FRANDY ANNALE 06/23/2020 08:30:21 AM, 5. SITTING VITALS: 0915 P 58 02 99 BP 109/61 AW 1005 134/46-39-29-100% NOTES Imer MORELOS RN COMPLETION OF PROCEDURE APPOINTMENT: POST PAIN 0, DRESSING SITE DRY AND INTACT MID THORACIC BACK, BILATERAL SHOULDERS, BILATERAL NECK, IV N/A, GAIT STEADY, TEACHING COMPLETED, PATIENT ACKNOWLEDGES UNDERSTANDING YES PATIENT VERBALIZES UNDERSTANDING OF POST PROCEDURE INSTRUCTIONS REVIEWED, PROCEDURE APPOINTMENT COMPLETED AT 1007 BY: Imer MORELOS RN PN TRIGGER POINT INJECTION WITH STEROIDS PRE PROCEDURE DIAGNOSIS 1. MYALGIA 2. PAIN AT BILATERAL NECK AREA AND BILATERAL SHOULDER AREA POST PROCEDURE DIAGNOSIS 1. MYALGIA 2. PAIN AT BILATERAL NECK AREA AND BILATERAL SHOULDER AREA PROCEDURE TRIGGER POINT INJECTION AT BILATERAL NECK AREA AND BILATERAL SHOULDER AREA SURGEON DR. TRINO PEOPLES CLINICAL RESEARCH SCIENTIST NONE ANESTHESIA LOCAL PRE PROCEDURE NOTE THE PATIENT HAS A HISTORY OF CHRONIC PAIN AT THE RIGHT AND LEFT NECK AREA AND RIGHT AND LEFT SHOULDER AREA. I EVALUATED THE PATIENT AND REVIEWED THE CHART. THERE IS EVIDENCE OF BANDS OF TISSUE WITH RESTRICTION OF MOVEMENT AND PRESENCE OF TRIGGER POINT AT THE RIGHT AND LEFT NECK AREA AND RIGHT AND LEFT SHOULDER AREA. I WENT OVER THE RISKS, ALTERNATIVES, AND BENEFITS ASSOCIATED WITH THIS PROCEDURE. THE PATIENT WOULD LIKE TO PROCEED AND GIVE CONSENT TO PERFORMED THE PROCEDURE. THE PATIENT DENIES UNEXPLAINABLE WEIGHT LOSS, FEVER, CHILLS, OR NEW CHANGES IN URINARY OR BOWEL CONTROL. THE PATIENT IS COVID-19 NEGATIVE DESCRIPTION OF PROCEDURE THE PATIENT WAS BROUGHT TO THE PROCEDURE ROOM AND PLACED IN THE SITTING POSITION. THE AREA WAS CLEANED WITH ALCOHOL. THE PROCEDURE WAS DONE USING ASEPTIC STERILE TECHNIQUE. A TIMEOUT WAS PERFORMED WHERE THE CONSENTED SITE WAS VERIFIED WITH EVERYONE IN THE ROOM. USING A 25-GAUGE NEEDLE, TRIGGER POINTS WERE INJECTED AT THE RIGHT AND LEFT NECK AREA AND RIGHT AND LEFT SHOULDER AREA WITH A TOTAL OF 40 ML OF BUPIVACAINE 0.25% AND KENALOG 40 MG. THE MEDICATIONS WERE VERIFIED WITH THE NURSE. THERE WAS NO EVIDENCE OF BLOOD OR PARESTHESIA DURING THE PROCEDURE. THE PATIENT WAS SENT TO THE RECOVERY ROOM. THE PATIENT WAS MOVING THE EXTREMITIES AND DOING WELL. THERE WERE NO COMPLICATIONS DURING THE PROCEDURE. ESTIMATED BLOOD LOSS WAS LESS THAN 5 ML POST PROCEDURE NOTE THE PATIENT IS ALSO HAVING PAIN OVER HER THORACIC AREA. IN THE FUTURE, WE SHOULD REQUEST AUTHORIZATION FOR THE THORACIC AREA. THE PROCEDURE DONE WAS DISCUSSED WITH THE PATIENT. THE PATIENT IS ALSO HAVING SIGNIFICANT PAIN IN HER RIGHT SHOULDER. I DISCUSSED BRIEFLY WITH HER ABOUT DOING AN MRI. THIS SHOULD BE DISCUSSED FURTHER WITH HER AT HER FOLLOW UP. THE PATIENT WILL BE SEEN IN A FOLLOW UP IN THE NEXT FEW WEEKS. I AM LOOKING FOR LONG LASTING PAIN RELIEF FOR THE PATIENT WITH THIS INTERVENTION. INSTRUCTIONS WERE GIVEN, QUESTIONS WERE ANSWERED, AND THE PATIENT EXPRESSED UNDERSTANDING AND AGREES WITH THE PLAN. I, ANJALI MOMIN, DOCUMENTED THE ABOVE INFORMATION ACTING A SCRIBE FOR DR. PEOPLES. I HAVE REVIEWED THE ABOVE DOCUMENT, WRITTEN BY ANJALI MOMIN, FOOD PRODUCT INSPECTOR, AND I VERIFY THAT IT IS ACCURATE PROCEDURE CODES [id number] INJECT TRIGGER POINTS 3/> DISPOSITION & COMMUNICATION FOLLOW UP FOLLOW UP WITH REFRIGERATION SERVICE INSPECTOR (REASON: POST TRIGGER POINT INJECTIONS BILATERAL NECK AND BILATERAL SHOULDER) ELECTRONICALLY SIGNED BY TRINO PEOPLES MD, MD ON 06/25/2020 AT 04:31 PM EDT DISCLAIMER : THIS IS A VISIT SUMMARY EXTRACTED FROM THE [employer] CHART. IT IS NOT A COPY OF THE [employer] PROGRESS NOTE. HARRIET
== END ==
LOC: M PAIN 08:30
PROVIDERS: ATTEND Anesthesiology
DX: M79.18 Myalgia, other site (principal); G47.30 Sleep apnea, unspecified; E55.9 Vitamin D deficiency, unspecified; J45.909 Unspecified asthma, uncomplicated; Z86.14 Personal history of Methicillin resistant Staphylococcus aureus infection; Z88.0 Allergy status to penicillin; Z88.1 Allergy status to other antibiotic agents; Z88.2 Allergy status to sulfonamides; Z88.3 Allergy status to other anti-infective agents; Z88.6 Allergy status to analgesic agent; Z88.8 Allergy status to other drugs, medicaments and biological substances; Z91.013 Allergy to seafood; Z91.030 Bee allergy status; Z91.040 Latex allergy status; Z91.041 Radiographic dye allergy status; Z79.82 Long term (current) use of aspirin; Z79.899 Other long term (current) drug therapy
CPT/HCPCS: 20553; J3301

== ENCOUNTER → 2020-07-08 | Outpatient (CLI) | payer MEDICARE, OTHER ==
[~2020-07-08] MED LIST changes: -BUPIVACAINE HCL 0.25% 10ML VIAL As Ordered ONE; -BUPIVACAINE HCL 0.25% 30ML VIAL As Ordered ONE; -TRIAMCINOLONE ACETONIDE SUSP 40 MG/ML VIAL (J3301) As Ordered ONE; -diazePAM 5MG TABLET As Ordered ONE; -oxyCODONE 5MG TAB As Ordered ONE
[2020-07-09 12:08] LABS: SSA SJOGRENS A <0.2 AI (0.0-0.9); SSB SJOGRENS B <0.2 AI (0.0-0.9)
== END ==
LOC: M LAB 09:38
PROVIDERS: ATTEND Otolaryngology
DX: M35.00 Sjogren syndrome, unspecified (principal)

== ENCOUNTER → 2020-07-09 | Outpatient (CLI) | payer MEDICARE, OTHER ==
--- NOTE | 2020-07-11 02:34 | ECWPNPC ---
PATIENT NAME: ROZINA HERNANDEZ : 1955 GENDER: FEMALE VISIT DATE: 07/09/2020 DISCHARGE DATE: 07/09/20 1029 VISIT LOCKED DATE TIME: PHYSICIAN: LEVON GLOVER RESOURCE: LEVON GLOVER REASON FOR APPOINTMENT 1. POST BILATERAL NECK AND BILATERAL SHOULDERS TRIGGER POINT INJECTIONS HISTORY OF PRESENT ILLNESS GENERAL: HPI 65 OLD FEMALE IN FOR POST BILATERAL NECK AND BILATERAL SHOULDER TRIGGER POINT INJECTION FOLLOW-UP. PATIENT FEELS THE PROCEDURE WAS SUCCESSFUL OVERALL RATING HER PAIN PREPROCEDURE AT A 10 OUT OF 10 AND POSTPROCEDURE AT A 0 OUT OF 10. SHE FURTHER STATES THE PROCEDURE CONTINUES TO HELP HER TODAY RATING HER PAIN CURRENTLY AT A 0 OUT OF 10.. -. FALL RISK SCREENING: SCREENING : NO FALLS REPORTED IN THE LAST YEAR. PAIN SCREENING: PATIENT HAS A COMPLAINT OF ACUTE OR CHRONIC PAIN :NO PATIENT DENIES PAIN AT THSI TIME. NURSING NOTE: -. PAIN CENTER INTAKE QUESTIONS: DO YOU HAVE A HISTORY OF MRSA? :YES FOUR YEARS CLEARED UP PER DR. REHMAN DO YOU TAKE A BLOOD THINNERS? :NO 81 MG ASPIRIN DO YOU HAVE ANY BLEEDING DISORDERS? :NO ANY NEW NUMBNESS OR WEAKNESS IN YOUR LEGS OR ARMS? :NO ANY PACEMAKER,DEFIBRILLATOR, OR DORSAL COLUMN STIMULATOR? :NO DO YOU HAVE ANY RASHES OR OPEN SORES? :NO ARE YOU ALLERGIC TO IV DYE? :YES MRI DYE AND BETADINE ARE YOU DIABETIC? :NO ANY NEW PROBLEMS WITH YOUR MEDICATIONS? :NO HAVE YOU RECEIVED A VACCINE IN THE PAST 30 DAYS? :NO DO YOU PLAN TO RECEIVE A VACCINE IN THE NEXT 21 DAYS? :NO DO YOU NEED ANY PRESCRIPTION? :NO DO YOU TAKE ANY IMMUNOSUPPRESSIVE MEDICATIONS? :NO DO YOU HAVE ANY KIDNEY OR LIVER DISEASE? :YES STAGE TWO KIDNEY FAILURE IS THERE A CHANCE YOU COULD BE ? :NO ARE YOU BREAST FEEDING? :NO CURRENT MEDICATIONS TAKING AMITRIPTYLINE HCL 10 MG TABLET 1 TABLET AT BEDTIME ORALLY ONCE A DAY TAKING MAGNESIUM OXIDE -MG SUPPLEMENT 400 MG CAPSULE 1 CAPSULE NEEDED ORALLY TID TAKING FAMOTIDINE 40 MG TABLET DIRECTED ORALLY BID TAKING AIMOVIG 140 DOSE 1 INJECTION MONTHLY TAKING PAROXETINE HCL 10 MG TABLET 1 TABLET IN THE MORNING ORALLY ONCE A DAY TAKING TYLENOL EXTRA STRENGTH 500 MG TABLET 1 TABLET NEEDED ORALLY EVERY 6 HRS TAKING EPIPEN 2-DUANE 0.3 MG/0.3ML SOLUTION AUTO-INJECTOR INJECTION DIRECTED TAKING CLONAZEPAM 0.5 MG TABLET 0.5 ORALLY 1/2 TAB IN AM AND 1/4 TAB IN PM TAKING PROBIOTIC CAPSULE 1 TAB(S) ORALLY DAILY, NOTES: ALIGN TAKING ASPIRIN EC 81 MG TABLET DELAYED RELEASE 1 TABLET ORALLY ONCE A DAY TAKING ATORVASTATIN CALCIUM 10 MG TABLET 1 TABLET ORALLY ONCE A DAY TAKING PRIMIDONE 50 MG TABLET ORALLY BID TAKING TOPIRAMATE 100 MG TABLET 1 TABLET ORALLY DAILY TAKING SPIRONOLACTONE 25 MG TABLET 1 TABLET ORALLY DAILY TAKING CALCIUM + D 600-200 MG-UNIT TABLET 1 TABLET ORALLY TWICE A DAY TAKING TORSEMIDE 20 MG TABLET DIRECTED ORALLY 1 TAB Q OTHER DAY,1/2 TAB Q OTHER DAY TAKING NYSTATIN 594772 UNIT/GM POWDER 1 APPLICATION TO AFFECTED AREA EXTERNALLY TWICE A DAY TAKING VITAMIN E 400 UNIT CAPSULE 1 CAPSULE ORALLY ONCE A DAY TAKING IPRATROPIUM-ALBUTEROL 0.5-2.5 (3) MG/3ML SOLUTION 3 ML NEEDED INHALATION EVERY 6 HRS TAKING BUSPIRONE HCL 5 MG TABLET 1 TABLET ORALLY DAILY TAKING POTASSIUM CHLORIDE ER 20 MEQ TABLET EXTENDED RELEASE 1 TABLET WITH FOOD ORALLY ONCE A DAY TAKING VENTOLIN HFA 90 MCG/ACT AEROSOL SOLUTION 2 PUFFS NEEDED INHALATION EVERY 6 HRS TAKING BUPROPION HCL 100 MG TABLET EXTENDED RELEASE 1 TABLET ORALLY DAILY TAKING GAVISCON EXTRA STRENGTH 160-105 MG TABLET CHEWABLE 2 TABLETS AFTER MEALS AND AT BEDTIME NEEDED ORALLY FOUR TIMES A DAY TAKING SUCRALFATE 1 GM TABLET 1 TABLET ON AN EMPTY STOMACH ORALLY TWICE A DAY TAKING NYSTATIN 655143 UNIT/ML SUSPENSION 5 ML ORALLY SWISH AND SWALLOW 4 TIMES A DAY, NOTES: PRN TAKING IRBESARTAN 150 MG TABLET 1 TABLET ORALLY ONCE A DAY TAKING ONDANSETRON 4 MG TABLET DISINTEGRATING 1 TABLET ON THE TONGUE AND ALLOW TO DISSOLVE ORALLY EVERY 6 HOURS NEEDED, NOTES: TAKES DAILY TAKING TIZANIDINE HCL 4 MG TABLET 1 TABLET NEEDED ORALLY BEFORE BEDTIME (WORKERS COMP) TAKING VITAMIN D 25 MCG (1000 UT) TABLET 1 CAPSULE ORALLY ONCE DAILY TAKING ARIPIPRAZOLE 2 MG TABLET 1 TABLET ORALLY ONCE A DAY TAKING DULERA 200-5 MCG/ACT AEROSOL 2 PUFFS INHALATION TWICE A DAY TAKING OMEPRAZOLE 40 MG CAPSULE DELAYED RELEASE 1 CAPSULE 30 MINUTES BEFORE MORNING MEAL ORALLY ONCE A DAY TAKING SUMATRIPTAN SUCCINATE 100 MG TABLET 1 TABLET AT LEAST 2 HOURS BETWEEN DOSES NEEDED ORALLY TWICE A DAY TAKING TRAMADOL HCL 50 MG TABLET 1 TAB ORALLY (CODE D FOR CHRONIC PAIN ) DAILY NEEDED TAKING LIDOCAINE & ADHESIVE SHEET 5 % KIT DIRECTED EXTERNALLY TAKING LIDODERM 5 % PATCH DIRECTED EXTERNALLY (WORKERS COMP) APPLY 3 PATCH TO PAINFUL AREA OF LOW BACK ON 12 HRS OFF 12 HOURS PRN PAIN. TAKING VOLTAREN 1 % GEL 1 GRAM APPLIED TO AFFECTED AREA EXTERNALLY PRN 4 X DAILY NOT TO EXCEED 4 GMS IN A DAY WORKERS COMP NOT-TAKING FISH OIL DOUBLE STRENGTH 1200 MG CAPSULE 1 CAPSULE ORALLY THREE TIMES DAILY NOT-TAKING ADVAIR HFA 230-21 MCG/ACT AEROSOL 2 PUFFS INHALATION TWICE A DAY NOT-TAKING 28-0.8 MG TABLET ORALLY DAILY NOT-TAKING LOVAZA 1 GM CAPSULE 2 CAPSULES ORALLY TWICE A DAY NOT-TAKING NYSTATIN 178426 UNIT/ML SUSPENSION 4 ML MOUTH/THROAT FOUR TIMES A DAY NOT-TAKING TAMSULOSIN HCL 0.4 MG CAPSULE 1 CAPSULE ORALLY ONCE A DAY NOT-TAKING IMITREX 100 MG TABLET 1 TABLET NEEDED ORALLY DIRECTED PRN MIGRAINES NOT-TAKING RABEPRAZOLE SODIUM 20 MG TABLET DELAYED RELEASE 1 TABLET ORALLY 2 TBS IN ,/1 TAB IN PM NOT-TAKING LYRICA 150 MG CAPSULE 1 CAPSULE ORALLY BID NOT-TAKING LEVOFLOXACIN 250 MG TABLET 1 TABLET ORALLY BID NOT-TAKING GABAPENTIN 600 MG TABLET 1 TABLET ORALLY THREE TIMES A DAY NOT-TAKING BREO ELLIPTA 200-25 MCG/INH AEROSOL POWDER BREATH ACTIVATED 1 PUFF INHALATION ONCE A DAY MEDICATION LIST REVIEWED AND RECONCILED WITH THE PATIENT PAST MEDICAL HISTORY PRIMARY HTN,SECONDARY RENAL HYPERPARATHYROIDISM,CRI STAGE 3,VIT D DEFICIENT,HYPOMAGNISEMIA CKD3, 01/20 RENAL US WITH INCREASED ECHOGENICITY TRAVIS MARCOS EDEMA VIT D DEF HTN HYPOTHYROIDISM ASTHMA, DR [place] 2008, FELL WORKING FOOT TANGLED IN PURSE HANDLES FOR CP CLINIC, WEARS BRACE 05/22 LIVER US DIFFUSE FIBROFATTY INFILTRATION OF THE LIVER 03/22 MRI L SPINE - 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 EPIGASTRIC TENDERNESS - DR JARRETT GI SYR 04/21 L WRIST FX - DR CARDOZO OBESITY PSEUDOSEIZURES - NEURO/ALI ENDOSCOPY 04/07/20 ALLERGIES IV DYE: ANAPHYLAXIS - ALLERGY BACTRIM: ANAPHYLAXIS - ALLERGY ERYTHROMYCIN: ANAPHYLAXIS - ALLERGY PENICILLIN (FOR ALLERGIES USE ONLY): HIVES - ALLERGY ZITHROMAX: HEADACHES - ALLERGY INDOCIN: HIVES,HEADACHE - ALLERGY TORADOL: HIVES - ALLERGY BEE STINGS: ANAPHYLAXIS - ALLERGY HARD SHELL SEAFOOD: ANAPHYLAXIS - ALLERGY BIAXIN: HALLUCINATIONS - SIDE EFFECTS MUSCLE RELAXERS: SHAKES - SIDE EFFECTS SULFA (FOR ALLERGY USE ONLY): HIVES - ALLERGY LASIX: SWELLING - SIDE EFFECTS BACTROBAN OINTMENT: CAUSES YEAST INFECTION - SIDE EFFECTS LATEX: HIVES, BLISTERS - ALLERGY BETADINE: ANAPHYLAXIS - ALLERGY SOCIAL HISTORY GENERAL: TOBACCO USE ARE YOU A:NONSMOKER LATEX QUESTIONNAIRE LATEX ALLERGY : HAVE YOU EVER DEVELOPED ANY TYPE OF REACTION AFTER HANDLING LATEX PRODUCTS SUCH RUBBER GLOVES, CONDOMS, DIAPHRAGMS, BALLOONS, SOCKS, OR UNDERWEAR?YES KNOWN LATEX ALLERGY - PLEASE INDICATE : HIVES FROM LATEX LATEX ALLERGY : HAVE YOU EVER DEVELOPED ANY TYPE OF REACTION DURING OR AFTER DENTAL APPOINTMENT, VAGINAL/RECTAL EXAMINATION, SURGICAL PROCEDURE, OR ANY OTHER EXPOSURE?NO LATEX RISK : HAVE YOU EVER HAD ANY DIFFICULTY BREATHING OR HIVES AFTER EATING OR HANDLING ANY FRUITS, OR VEGETABLES; SUCH KIWI, BANANAS, STONE FRUITS, OR CHESTNUTSNO LATEX RISK : DO YOU HAVE A PREVIOUS PERSONAL HISTORY OF MORE THAN NINE SURGERIES, SPINA BIFIDA, OR REPEATED CATHERIZATIONS? NO LATEX RISK : ARE YOU FREQUENTLY EXPOSED TO LATEX PRODUCTS IN YOUR OCCUPATION?NO DATE ASKED : 07/09/2020 ALCOHOL USE: NO. ALCOHOL SCREENING DID YOU HAVE A DRINK CONTAINING ALCOHOL IN THE PAST YEAR?YES HOW OFTEN DID YOU HAVE SIX OR MORE DRINKS ON ONE OCCASION IN THE PAST YEAR?NEVER (0 POINTS) HOW MANY DRINKS DID YOU HAVE ON A TYPICAL DAY WHEN YOU WERE DRINKING IN THE PAST YEAR?1 OR 2 (0 POINTS) HOW OFTEN DID YOU HAVE A DRINK CONTAINING ALCOHOL IN THE PAST YEAR?MONTHLY OR LESS (1 POINT) POINTS1 INTERPRETATIONNEGATIVE RECREATIONAL DRUG USE DRUG USE?NO CAFFEINE CAFFEINE USE?NO SEXUAL HX HAD SEX IN THE LAST 12 MONTHS (VAGINAL, ORAL, OR ANAL)?YES WITHMEN ONLY HAVE YOU EVER HAD AN STD?NO HIV / HEP-C SCREENING HIV TEST OFFERED TO PATIENT:NO HEP-C TEST OFFERED TO PATIENT:NO BUDDHIST [id number] CHRISTIAN LANGUAGE LANGUAGES SPOKEN:SRI LANKAN EDUCATION LEVEL OF EDUCATION:COLLEGE LEARNING BARRIERS / SPECIAL NEEDS CHANGE FROM LAST VISIT?NO BARRIERS TO LEARNING?NO HEARING IMPAIRED?NO VISION IMPAIRED?YES :CORRECTIVE LENSES COGNITIVELY IMPAIRED?NO READINESS TO LEARN?YES LEARNING PREFERENCES?NO LEARNING CAPABILITIES PRESENT?YES EMOTIONAL BARRIERS?NO SPECIAL DEVICES?YES :CANE, BRACE LEFT ANKLE BRACE DRUG ABUSE SOCIAL WORKER NEEDED?NO 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 DIET: REGULAR. EXERCISE: NONE. MARITAL STATUS: . OTHERS AT HOME: SPOUSE. - PFS REFERRAL NEEDED?NO CLERGY REFERRAL NEEDED?NO PUBLIC HEALTH REFERRAL NEEDED?NO WAS THE PROVIDER NOTIFIED OF ANY PERTINENT INFO?YES HAS THE PATIENT BEEN EDUCATED REGARDING HIS/HER PLAN OF CARE?YES HAS THE PATIENT BEEN EDUCATED REGARDING PAIN, THE RISK FOR PAIN, THE IMPORTANCE OF EFFECTIVE PAIN MANAGEMENT, AND THE PAIN ASSESSMENT PROCESS?YES ADVANCE DIRECTIVE ADVANCE DIRECTIVE DISCUSSED WITH PATIENT:YES PT HAS HCP FOR LEVON HERNANDEZ REVIEW OF SYSTEMS CONSTITUTIONAL: ANY RECENT FEVER NO . CHILLS NO . WEIGHT CHANGE OF UNKNOWN REASONS NO . GASTROENTEROLOGY: NEW UNEXPLAINABLE CHANGES IN BOWEL CONTROL NO . CONSTIPATION NO . GENITOURINARY: ANY NEW CHANGE IN BLADDER CONTROL? NO . NEUROLOGY: NEW ONSET DIZZINESS OR NEUROLOGICAL CHANGES NOT MENTIONED NO . NEW NUMBNESS OR PAIN PATTERNS NOT MENTIONED AND PERTINENT TO TODAY'S VISIT NO . CARDIOLOGY: NEW CHEST PRESSURE NO . PATIENT DENIES NO . RESPIRATORY: UNEXPLAINABLE COUGH NO . NEW SHORTNESS OF BREATH NO . VITAL SIGNS WT 203.8 LBS, HT 64 IN, BMI 34.98 INDEX, BP 142/67 MM HG, HR 57 /MIN, RR 18 /MIN, TEMP 97.3 F, OXYGEN SAT % 98%, SAFE IN ENV? (Y/N) YES, NA INITIALS CT 09:58, REVIEWED BY: NAA MILLER MA. EXAMINATION GENERAL EXAMINATION: GENERALNO ACUTE DISTRESS, WELL NOURISHED AND HYDRATED. PSYCHAPPROPRIATE MOOD AND AFFECT . LUNGS:CLEAR TO AUSCULTATION BILATERALLY, NO WHEEZES, RHONCHI, RALES. HEART:NO MURMURS, REGULAR RATE AND RHYTHM. ASSESSMENTS OTHER CHRONIC PAIN - G89.29 (PRIMARY) MYALGIA, OTHER SITE - M79.18 TREATMENT OTHER CHRONIC PAIN PAIN PROCEDURE LOGDATE OF LYXTKACRY31/17/2021PROCEDURE:TRIGGER POINT INJECTIONS BILATERAL NECK AND BILATERAL SHOULDERSAMOUNT OF PRE SEDATEVALIUM 10MG; OXYCODONE 10MGRESULT:PRE 10/10 POST 0/10 CONTINUES TO HELP TODAY NOTES: 65-YEAR-OLD FEMALE IN FOR POST BILATERAL TRIGGER POINT INJECTION FOLLOW-UP. GIVEN PRESENTING SYMPTOMS RECOMMEND FOLLOW-UP IN 2 MONTHS. PATIENT HAS EXPRESSED UNDERSTANDING OF AND WAS IN AGREEMENT WITH TREATMENT PLAN. GIVEN TIME TO ASK QUESTIONS AND EXPRESS CONCERNS. [employer]STOP REGISTRY REVIEWED AND DEMONSTRATES COMPLLIANCE. (REF # [id number] ) BRINGS IN MEDICATIONS WHICH IS APPROPRIATE FOR WHAT WAS DISPENSED. RECENT URINE TOXICOLOGY REVIEWED. NO UNAUTHORIZED MEDICATIONS. NO ILLICIT SUBSTANCES AND PRESCRIBED MEDICATIONS WERE PRESENT. PROCEDURE CODES [id number] ESTABILISHED PATIENT [facility] CHARGE DISPOSITION & COMMUNICATION FOLLOW UP 2 MONTHS (REASON: NECK AND SHOULDER PAIN ) ELECTRONICALLY SIGNED BY JERRY SARAVIA ON 07/10/2020 AT 08:33 AM EDT DISCLAIMER : THIS IS A VISIT SUMMARY EXTRACTED FROM THE [employer] CHART. IT IS NOT A COPY OF THE [email or web address] PROGRESS NOTE. HARRIET
== END ==
LOC: M PAIN 09:45
PROVIDERS: ATTEND Family Medicine
DX: M79.18 Myalgia, other site (principal); E55.9 Vitamin D deficiency, unspecified; J45.909 Unspecified asthma, uncomplicated; Z86.14 Personal history of Methicillin resistant Staphylococcus aureus infection; Z88.0 Allergy status to penicillin; Z88.1 Allergy status to other antibiotic agents; Z88.2 Allergy status to sulfonamides; Z88.3 Allergy status to other anti-infective agents; Z88.6 Allergy status to analgesic agent; Z88.8 Allergy status to other drugs, medicaments and biological substances; Z91.013 Allergy to seafood; Z91.030 Bee allergy status; Z91.040 Latex allergy status; Z91.041 Radiographic dye allergy status; Z79.82 Long term (current) use of aspirin; Z79.899 Other long term (current) drug therapy

== ENCOUNTER → 2020-08-07 | Outpatient (CLI) | payer OTHER ==
--- NOTE | 2020-08-09 04:08 | ECWPNPC ---
PATIENT NAME: ROZINA HERNANDEZ : 1955 GENDER: FEMALE VISIT DATE: 08/07/2020 DISCHARGE DATE: 08/07/20 1142 VISIT LOCKED DATE TIME: PHYSICIAN: LEVON GLOVER RESOURCE: LEVON GLOVER REASON FOR APPOINTMENT 1. W/C LOW BACK HISTORY OF PRESENT ILLNESS GENERAL: HPI 65-YEAR-OLD FEMALE IN FOR CHRONIC PAIN FOLLOW-UP. SHE RATES HER PAIN CURRENTLY AT A 5 OUT OF 10 DESCRIBES IT ACHING, BURNING, AND CONTINUOUS. PATIENT FEELS HER MEDICATIONS ARE HELPFUL AND DENIES MED SIDE EFFECTS AT THIS TIME. DOI: 07/27/2007. -. FALL RISK SCREENING: SCREENING : NO FALLS REPORTED IN THE LAST YEAR. PAIN SCREENING: PATIENT HAS A COMPLAINT OF ACUTE OR CHRONIC PAIN :YES LOCATION OF PAIN:LOW BACK INTENSITY OF PAIN (SCALE OF 1 TO 10):5 MOVEMENT INCREASES THE PAIN TO ABOUT AN 8 OR 9. WHAT DOES YOUR PAIN FEEL LIKE:ACHING, BURNING, CONTINOUS, SHARP, STABBING, TENDER, THROBBING, SORE, SHOOTING DURATION:CONTINOUS, CONSTANT, MAINLY DURING THE NIGHT, ONLY WITH SPECIFIC ACTIVITIES, AWAKENS FROM SLEEP PAIN IS INCREASED BY:ACTIVITIES, PROLONGED STANDING PAIN IS DECREASED BY:USE OF PAIN MEDICATIONS HEATING PAD NURSING NOTE: -. PAIN CENTER INTAKE QUESTIONS: DO YOU HAVE A HISTORY OF MRSA? :YES FOUR YEARS CLEARED UP PER DR. REHMAN DO YOU TAKE A BLOOD THINNERS? :NO 81 MG ASPIRIN DO YOU HAVE ANY BLEEDING DISORDERS? :NO ANY NEW NUMBNESS OR WEAKNESS IN YOUR LEGS OR ARMS? :NO ANY PACEMAKER,DEFIBRILLATOR, OR DORSAL COLUMN STIMULATOR? :NO DO YOU HAVE ANY RASHES OR OPEN SORES? :NO ARE YOU ALLERGIC TO IV DYE? :YES MRI DYE AND BETADINE ARE YOU DIABETIC? :NO ANY NEW PROBLEMS WITH YOUR MEDICATIONS? :NO HAVE YOU RECEIVED A VACCINE IN THE PAST 30 DAYS? :NO DO YOU PLAN TO RECEIVE A VACCINE IN THE NEXT 21 DAYS? :NO DO YOU NEED ANY PRESCRIPTION? :NO DO YOU TAKE ANY IMMUNOSUPPRESSIVE MEDICATIONS? :NO DO YOU HAVE ANY KIDNEY OR LIVER DISEASE? :YES STAGE TWO KIDNEY FAILURE IS THERE A CHANCE YOU COULD BE ? :NO ARE YOU BREAST FEEDING? :NO CURRENT MEDICATIONS TAKING AMITRIPTYLINE HCL 10 MG TABLET 1 TABLET AT BEDTIME ORALLY ONCE A DAY TAKING MAGNESIUM OXIDE -MG SUPPLEMENT 400 MG CAPSULE 1 CAPSULE NEEDED ORALLY TID TAKING FAMOTIDINE 40 MG TABLET DIRECTED ORALLY BID TAKING AIMOVIG 140 DOSE 1 INJECTION MONTHLY TAKING PAROXETINE HCL 10 MG TABLET 1 TABLET IN THE MORNING ORALLY ONCE A DAY TAKING TYLENOL EXTRA STRENGTH 500 MG TABLET 1 TABLET NEEDED ORALLY EVERY 6 HRS TAKING EPIPEN 2-DUNAE 0.3 MG/0.3ML SOLUTION AUTO-INJECTOR INJECTION DIRECTED TAKING CLONAZEPAM 0.5 MG TABLET 0.5 ORALLY 1/2 TAB IN AM AND 1/4 TAB IN PM TAKING PROBIOTIC CAPSULE 1 TAB(S) ORALLY DAILY, NOTES: ALIGN TAKING ASPIRIN EC 81 MG TABLET DELAYED RELEASE 1 TABLET ORALLY ONCE A DAY TAKING ATORVASTATIN CALCIUM 10 MG TABLET 1 TABLET ORALLY ONCE A DAY TAKING PRIMIDONE 50 MG TABLET ORALLY BID TAKING TOPIRAMATE 100 MG TABLET 1 TABLET ORALLY DAILY TAKING SPIRONOLACTONE 25 MG TABLET 1 TABLET ORALLY DAILY TAKING CALCIUM + D 600-200 MG-UNIT TABLET 1 TABLET ORALLY TWICE A DAY TAKING TORSEMIDE 20 MG TABLET DIRECTED ORALLY 1 TAB Q OTHER DAY,1/2 TAB Q OTHER DAY TAKING NYSTATIN 144481 UNIT/GM POWDER 1 APPLICATION TO AFFECTED AREA EXTERNALLY TWICE A DAY TAKING VITAMIN E 400 UNIT CAPSULE 1 CAPSULE ORALLY ONCE A DAY TAKING IPRATROPIUM-ALBUTEROL 0.5-2.5 (3) MG/3ML SOLUTION 3 ML NEEDED INHALATION EVERY 6 HRS TAKING BUSPIRONE HCL 5 MG TABLET 1 TABLET ORALLY DAILY TAKING POTASSIUM CHLORIDE ER 20 MEQ TABLET EXTENDED RELEASE 1 TABLET WITH FOOD ORALLY ONCE A DAY TAKING VENTOLIN HFA 90 MCG/ACT AEROSOL SOLUTION 2 PUFFS NEEDED INHALATION EVERY 6 HRS TAKING BUPROPION HCL 100 MG TABLET EXTENDED RELEASE 1 TABLET ORALLY DAILY TAKING GAVISCON EXTRA STRENGTH 160-105 MG TABLET CHEWABLE 2 TABLETS AFTER MEALS AND AT BEDTIME NEEDED ORALLY FOUR TIMES A DAY TAKING SUCRALFATE 1 GM TABLET 1 TABLET ON AN EMPTY STOMACH ORALLY TWICE A DAY TAKING NYSTATIN 529142 UNIT/ML SUSPENSION 5 ML ORALLY SWISH AND SWALLOW 4 TIMES A DAY, NOTES: PRN TAKING IRBESARTAN 150 MG TABLET 1 TABLET ORALLY ONCE A DAY TAKING ONDANSETRON 4 MG TABLET DISINTEGRATING 1 TABLET ON THE TONGUE AND ALLOW TO DISSOLVE ORALLY EVERY 6 HOURS NEEDED, NOTES: TAKES DAILY TAKING TIZANIDINE HCL 4 MG TABLET 1 TABLET NEEDED ORALLY BEFORE BEDTIME (WORKERS COMP) TAKING VITAMIN D 25 MCG (1000 UT) TABLET 1 CAPSULE ORALLY ONCE DAILY TAKING ARIPIPRAZOLE 2 MG TABLET 1 TABLET ORALLY ONCE A DAY TAKING DULERA 200-5 MCG/ACT AEROSOL 2 PUFFS INHALATION TWICE A DAY TAKING OMEPRAZOLE 40 MG CAPSULE DELAYED RELEASE 1 CAPSULE 30 MINUTES BEFORE MORNING MEAL ORALLY ONCE A DAY TAKING SUMATRIPTAN SUCCINATE 100 MG TABLET 1 TABLET AT LEAST 2 HOURS BETWEEN DOSES NEEDED ORALLY TWICE A DAY TAKING TRAMADOL HCL 50 MG TABLET 1 TAB ORALLY (CODE D FOR CHRONIC PAIN ) DAILY NEEDED TAKING LIDOCAINE & ADHESIVE SHEET 5 % KIT DIRECTED EXTERNALLY TAKING LIDODERM 5 % PATCH DIRECTED EXTERNALLY (WORKERS COMP) APPLY 3 PATCH TO PAINFUL AREA OF LOW BACK ON 12 HRS OFF 12 HOURS PRN PAIN. TAKING VOLTAREN 1 % GEL 1 GRAM APPLIED TO AFFECTED AREA EXTERNALLY PRN 4 X DAILY NOT TO EXCEED 4 GMS IN A DAY WORKERS COMP NOT-TAKING FISH OIL DOUBLE STRENGTH 1200 MG CAPSULE 1 CAPSULE ORALLY THREE TIMES DAILY NOT-TAKING ADVAIR HFA 230-21 MCG/ACT AEROSOL 2 PUFFS INHALATION TWICE A DAY NOT-TAKING 28-0.8 MG TABLET ORALLY DAILY NOT-TAKING LOVAZA 1 GM CAPSULE 2 CAPSULES ORALLY TWICE A DAY NOT-TAKING NYSTATIN 197235 UNIT/ML SUSPENSION 4 ML MOUTH/THROAT FOUR TIMES A DAY NOT-TAKING TAMSULOSIN HCL 0.4 MG CAPSULE 1 CAPSULE ORALLY ONCE A DAY NOT-TAKING IMITREX 100 MG TABLET 1 TABLET NEEDED ORALLY DIRECTED PRN MIGRAINES NOT-TAKING RABEPRAZOLE SODIUM 20 MG TABLET DELAYED RELEASE 1 TABLET ORALLY 2 TBS IN ,/1 TAB IN PM NOT-TAKING LYRICA 150 MG CAPSULE 1 CAPSULE ORALLY BID NOT-TAKING LEVOFLOXACIN 250 MG TABLET 1 TABLET ORALLY BID NOT-TAKING GABAPENTIN 600 MG TABLET 1 TABLET ORALLY THREE TIMES A DAY NOT-TAKING BREO ELLIPTA 200-25 MCG/INH AEROSOL POWDER BREATH ACTIVATED 1 PUFF INHALATION ONCE A DAY MEDICATION LIST REVIEWED AND RECONCILED WITH THE PATIENT PAST MEDICAL HISTORY PRIMARY HTN,SECONDARY RENAL HYPERPARATHYROIDISM,CRI STAGE 3,VIT D DEFICIENT,HYPOMAGNISEMIA CKD3, 01/20 RENAL US WITH INCREASED ECHOGENICITY TRAVIS MARCOS EDEMA VIT D DEF HTN HYPOTHYROIDISM ASTHMA, DR [place] 2008, FELL WORKING FOOT TANGLED IN PURSE HANDLES FOR CP CLINIC, WEARS BRACE 05/22 LIVER US DIFFUSE FIBROFATTY INFILTRATION OF THE LIVER 03/22 MRI L SPINE - 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 EPIGASTRIC TENDERNESS - DR JARRETT GI SYR 04/21 L WRIST FX - FISH OBESITY PSEUDOSEIZURES - NEURO/ALI ENDOSCOPY 04/07/20 ALLERGIES IV DYE: ANAPHYLAXIS - ALLERGY BACTRIM: ANAPHYLAXIS - ALLERGY ERYTHROMYCIN: ANAPHYLAXIS - ALLERGY PENICILLIN (FOR ALLERGIES USE ONLY): HIVES - ALLERGY ZITHROMAX: HEADACHES - ALLERGY INDOCIN: HIVES,HEADACHE - ALLERGY TORADOL: HIVES - ALLERGY BEE STINGS: ANAPHYLAXIS - ALLERGY HARD SHELL SEAFOOD: ANAPHYLAXIS - ALLERGY BIAXIN: HALLUCINATIONS - SIDE EFFECTS MUSCLE RELAXERS: SHAKES - SIDE EFFECTS SULFA (FOR ALLERGY USE ONLY): HIVES - ALLERGY LASIX: SWELLING - SIDE EFFECTS BACTROBAN OINTMENT: CAUSES YEAST INFECTION - SIDE EFFECTS LATEX: HIVES, BLISTERS - ALLERGY BETADINE: ANAPHYLAXIS - ALLERGY SOCIAL HISTORY GENERAL: TOBACCO USE ARE YOU A:NONSMOKER LATEX QUESTIONNAIRE LATEX ALLERGY : HAVE YOU EVER DEVELOPED ANY TYPE OF REACTION AFTER HANDLING LATEX PRODUCTS SUCH RUBBER GLOVES, CONDOMS, DIAPHRAGMS, BALLOONS, SOCKS, OR UNDERWEAR?YES KNOWN LATEX ALLERGY - PLEASE INDICATE : HIVES FROM LATEX LATEX ALLERGY : HAVE YOU EVER DEVELOPED ANY TYPE OF REACTION DURING OR AFTER DENTAL APPOINTMENT, VAGINAL/RECTAL EXAMINATION, SURGICAL PROCEDURE, OR ANY OTHER EXPOSURE?NO LATEX RISK : HAVE YOU EVER HAD ANY DIFFICULTY BREATHING OR HIVES AFTER EATING OR HANDLING ANY FRUITS, OR VEGETABLES; SUCH KIWI, BANANAS, STONE FRUITS, OR CHESTNUTSNO LATEX RISK : DO YOU HAVE A PREVIOUS PERSONAL HISTORY OF MORE THAN NINE SURGERIES, SPINA BIFIDA, OR REPEATED CATHERIZATIONS? NO LATEX RISK : ARE YOU FREQUENTLY EXPOSED TO LATEX PRODUCTS IN YOUR OCCUPATION?NO DATE ASKED : 08/07/2020 ALCOHOL USE: NO. ALCOHOL SCREENING DID YOU HAVE A DRINK CONTAINING ALCOHOL IN THE PAST YEAR?YES HOW OFTEN DID YOU HAVE SIX OR MORE DRINKS ON ONE OCCASION IN THE PAST YEAR?NEVER (0 POINTS) HOW MANY DRINKS DID YOU HAVE ON A TYPICAL DAY WHEN YOU WERE DRINKING IN THE PAST YEAR?1 OR 2 (0 POINTS) HOW OFTEN DID YOU HAVE A DRINK CONTAINING ALCOHOL IN THE PAST YEAR?MONTHLY OR LESS (1 POINT) POINTS1 INTERPRETATIONNEGATIVE RECREATIONAL DRUG USE DRUG USE?NO CAFFEINE CAFFEINE USE?NO SEXUAL HX HAD SEX IN THE LAST 12 MONTHS (VAGINAL, ORAL, OR ANAL)?YES WITHMEN ONLY HAVE YOU EVER HAD AN STD?NO HIV / HEP-C SCREENING HIV TEST OFFERED TO PATIENT:NO HEP-C TEST OFFERED TO PATIENT:NO JAINISM [id number] CAODAISM LANGUAGE LANGUAGES SPOKEN:DIVEHI EDUCATION LEVEL OF EDUCATION:COLLEGE LEARNING BARRIERS / SPECIAL NEEDS CHANGE FROM LAST VISIT?NO BARRIERS TO LEARNING?NO HEARING IMPAIRED?NO VISION IMPAIRED?YES :CORRECTIVE LENSES COGNITIVELY IMPAIRED?NO READINESS TO LEARN?YES LEARNING PREFERENCES?NO LEARNING CAPABILITIES PRESENT?YES EMOTIONAL BARRIERS?NO SPECIAL DEVICES?YES :CANE, BRACE LEFT ANKLE BRACE PONY WORKER NEEDED?NO 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 DIET: REGULAR. EXERCISE: NONE. MARITAL STATUS: . OTHERS AT HOME: SPOUSE. - PFS REFERRAL NEEDED?NO CLERGY REFERRAL NEEDED?NO PUBLIC HEALTH REFERRAL NEEDED?NO WAS THE PROVIDER NOTIFIED OF ANY PERTINENT INFO?YES HAS THE PATIENT BEEN EDUCATED REGARDING HIS/HER PLAN OF CARE?YES HAS THE PATIENT BEEN EDUCATED REGARDING PAIN, THE RISK FOR PAIN, THE IMPORTANCE OF EFFECTIVE PAIN MANAGEMENT, AND THE PAIN ASSESSMENT PROCESS?YES ADVANCE DIRECTIVE ADVANCE DIRECTIVE DISCUSSED WITH PATIENT:YES PT HAS HCP FOR LEVON HERNANDEZ REVIEW OF SYSTEMS CONSTITUTIONAL: ANY RECENT FEVER NO . CHILLS NO . WEIGHT CHANGE OF UNKNOWN REASONS NO . GASTROENTEROLOGY: NEW UNEXPLAINABLE CHANGES IN BOWEL CONTROL NO . CONSTIPATION NO . GENITOURINARY: ANY NEW CHANGE IN BLADDER CONTROL? NO . NEUROLOGY: NEW ONSET DIZZINESS OR NEUROLOGICAL CHANGES NOT MENTIONED NO . NEW NUMBNESS OR PAIN PATTERNS NOT MENTIONED AND PERTINENT TO TODAY'S VISIT NO . CARDIOLOGY: NEW CHEST PRESSURE NO . PATIENT DENIES NO . RESPIRATORY: UNEXPLAINABLE COUGH NO . NEW SHORTNESS OF BREATH NO . VITAL SIGNS WT 201.8 LBS, HT 64 IN, BMI 34.64 INDEX, BP 106/84 MANUAL, HR 60 /MIN, RR 18 /MIN, TEMP 97.6 F, SAFE IN ENV? (Y/N) YES, REVIEWED BY: ANA MILLER MA. EXAMINATION GENERAL EXAMINATION: GENERALNO ACUTE DISTRESS, WELL NOURISHED AND HYDRATED. PSYCHAPPROPRIATE MOOD AND AFFECT . LUNGS:CLEAR TO AUSCULTATION BILATERALLY, NO WHEEZES, RHONCHI, RALES. HEART:NO MURMURS, REGULAR RATE AND RHYTHM. ASSESSMENTS SACROILIITIS, NOT ELSEWHERE CLASSIFIED - M46.1 (PRIMARY) TREATMENT SACROILIITIS, NOT ELSEWHERE CLASSIFIED NOTES: 65-YEAR-OLD FEMALE IN FOR WORKER'S COMP. CHRONIC PAIN FOLLOW-UP. GIVEN PRESENTING SYMPTOMS RECOMMEND FOLLOW-UP AFTER PATIENT'S NEXT PROCEDURE. PATIENT HAS EXPRESSED UNDERSTANDING OF AND WAS IN AGREEMENT WITH TREATMENT PLAN. GIVEN TIME ASKED QUESTIONS AND EXPRESS CONCERNS. ISTOP REGISTRY REVIEWED AND DEMONSTRATES COMPLLIANCE. (REF # [id number] ) BRINGS IN MEDICATIONS WHICH IS APPROPRIATE FOR WHAT WAS DISPENSED. RECENT URINE TOXICOLOGY REVIEWED. NO UNAUTHORIZED MEDICATIONS. NO ILLICIT SUBSTANCES AND PRESCRIBED MEDICATIONS WERE PRESENT. PROCEDURES PN WORKMANS' COMP OPINION IN YOUR OPINION, WAS THE INCIDENT THAT THE PATIENT DESCRIBED THE COMPETENT MEDICAL CAUSE OF THIS INJURY/ILLNESS? YES ARE THE PATIENT'S COMPLAINTS CONSISTENT WITH HIS/HER HISTORY OF THE INJURY/ILLNESS? YES IS THE PATIENT'S HISTORY OF THE INJURY/ILLNESS CONSISTENT WITH YOUR OBJECTIVE FINDING? YES WHAT IS THE PERCENTAGE OF TEMPORARY IMPAIRMENT? MARKED = 75% IS THE PATIENT WORKING? NO DOCTOR ON SITE: RTINO BYRD MD PROCEDURE CODES FA211 ESTABILISHED PATIENT [facility] CHARGE DISPOSITION & COMMUNICATION FOLLOW UP POST PROCEDURE (REASON: SACROILIITIS) ELECTRONICALLY SIGNED BY JERRY SARAVIA ON 08/08/2020 AT 08:30 AM EDT DISCLAIMER : THIS IS A VISIT SUMMARY EXTRACTED FROM THE [employer] CHART. IT IS NOT A COPY OF THE [employer] PROGRESS NOTE. HARRIET
== END ==
LOC: M PAIN 11:15
PROVIDERS: ATTEND Family Medicine
DX: M46.1 Sacroiliitis, not elsewhere classified (principal); G89.29 Other chronic pain; E55.9 Vitamin D deficiency, unspecified; J45.909 Unspecified asthma, uncomplicated; Z86.14 Personal history of Methicillin resistant Staphylococcus aureus infection; Z88.0 Allergy status to penicillin; Z88.1 Allergy status to other antibiotic agents; Z88.2 Allergy status to sulfonamides; Z88.3 Allergy status to other anti-infective agents; Z88.6 Allergy status to analgesic agent; Z88.8 Allergy status to other drugs, medicaments and biological substances; Z91.013 Allergy to seafood; Z91.040 Latex allergy status; Z91.041 Radiographic dye allergy status; Z79.82 Long term (current) use of aspirin; Z79.899 Other long term (current) drug therapy

== ENCOUNTER → 2020-08-15 | Outpatient (CLI) | payer MEDICARE, OTHER ==
[~2020-08-15] MED LIST changes: -MAGN400T3; +MAGN400T33; -OMEP-221; +OMEP40CA5; +POTA-151; -POTA20TA6
== END ==
LOC: M LABSMTC 10:07
PROVIDERS: ATTEND Anesthesiology
DX: Z20.822 Contact with and (suspected) exposure to COVID-19 (principal)

== ENCOUNTER → 2020-08-18 | Outpatient (REF) | payer MEDICARE, OTHER ==
[~2020-08-18] MED LIST changes: +MAGN400T3; -MAGN400T33; +OMEP-221; -OMEP40CA5; -POTA-151; +POTA20TA6
== END ==
LOC: M LAB REF 16:33
PROVIDERS: ATTEND Otolaryngology
DX: M35.00 Sjogren syndrome, unspecified (principal)

== ENCOUNTER → 2020-08-19 | Outpatient (REF) | payer MEDICARE, OTHER | LOC: M LAB REF 16:56 | PROVIDERS: ATTEND Internal Medicine Nephrology | DX: N18.31 Chronic kidney disease, stage 3a (principal) ==

== ENCOUNTER → 2020-08-20 | Outpatient (CLI) | payer OTHER ==
[~2020-08-20] MED LIST changes: +BUPIVACAINE HCL 0.25% 30ML VIAL As Ordered ONE; +ISOVUE-M 300 61% 15ML VIAL As Ordered ONE; +LIDOCAINE 1% SDV 30ML VIAL As Ordered ONE; +TRIAMCINOLONE ACETONIDE SUSP 40 MG/ML VIAL (J3301) As Ordered ONE; +diazePAM 5MG TABLET As Ordered ONE; +oxyCODONE 5MG TAB As Ordered ONE
--- NOTE | 2020-08-20 15:14 | REP ---
INDICATION: BILAT SIJ. COMPARISON: None. TECHNIQUE: Four views. 40 seconds of fluoroscopy time is reported. FINDINGS: A sequence of 4 last image hold fluoroscopically obtained spot radiographs the SI joints document bilateral needle position and contrast injection associated with injection procedure. IMPRESSION: The procedural imaging. <Electronically signed by Phil Oseguera > 08/20/20 4635
--- NOTE | 2020-08-23 04:37 | ECWPNPC ---
PATIENT NAME: ROZINA HERNANDEZ : 1955 GENDER: FEMALE VISIT DATE: 08/20/2020 DISCHARGE DATE: 08/20/20 1308 VISIT LOCKED DATE TIME: PHYSICIAN: TRINO PEOPLES MD RESOURCE: TRINO PEOPLES MD REASON FOR APPOINTMENT 1. BILATERAL SACROILIAC JOINT BLOCK HISTORY OF PRESENT ILLNESS GENERAL: -. FALL RISK SCREENING: SCREENING : NO FALLS REPORTED IN THE LAST YEAR. PAIN SCREENING: PATIENT HAS A COMPLAINT OF ACUTE OR CHRONIC PAIN :YES LOCATION OF PAIN:MID BACK, LOW BACK INTENSITY OF PAIN (SCALE OF 1 TO 10):8 WHAT DOES YOUR PAIN FEEL LIKE:BURNING, SHARP, STABBING DURATION:CONTINOUS, CONSTANT PAIN IS INCREASED BY:ACTIVITIES PAIN IS DECREASED BY:USE OF PAIN MEDICATIONS HEATING PAD, LYING DOWN NURSING NOTE: -. PAIN CENTER INTAKE QUESTIONS: DO YOU HAVE A HISTORY OF MRSA? :YES 4 YEARS AGO TO RIGHT GROIN DO YOU TAKE A BLOOD THINNERS? :NO DO YOU HAVE ANY BLEEDING DISORDERS? :NO ANY NEW NUMBNESS OR WEAKNESS IN YOUR LEGS OR ARMS? :NO ANY PACEMAKER,DEFIBRILLATOR, OR DORSAL COLUMN STIMULATOR? :NO DO YOU HAVE ANY RASHES OR OPEN SORES? :NO ARE YOU ALLERGIC TO IV DYE? :YES MRI DYE ARE YOU DIABETIC? :NO ANY NEW PROBLEMS WITH YOUR MEDICATIONS? :NO HAVE YOU RECEIVED A VACCINE IN THE PAST 30 DAYS? :NO DO YOU PLAN TO RECEIVE A VACCINE IN THE NEXT 21 DAYS? :NO DO YOU TAKE ANY IMMUNOSUPPRESSIVE MEDICATIONS? :NO ANY HISTORY OF SEIZURES? :YES PSEUDO SEIZURES ANY HISTORY OF CARDIAC ISSUES OR EVENTS? :NO DO YOU HAVE ANY KIDNEY OR LIVER DISEASE? :YES CKD STAGE III DO YOU HAVE SLEEP APNEA? :YES DO YOU WEAR A CPAP?YES SOMETIMES ANY RECENT HEAD INJURY? :NO DO YOU HAVE ANY NEW INFECTIONS? :NO IS THERE A CHANCE YOU COULD BE ? :NO ARE YOU BREAST FEEDING? :NO WHEN DID YOU LAST EAT? : 08/19/20 WHEN DID YOU LAST DRINK? : 08/20/20 0400 WHAT DID YOU LAST DRINK? : WATER NAME OF PERSON DRIVING YOU HOME? : BROTHER BILL DO YOU HAVE ANY OTHER QUESTIONS OR CONCERNS? : - CURRENT MEDICATIONS TAKING AMITRIPTYLINE HCL 10 MG TABLET 1 TABLET AT BEDTIME ORALLY ONCE A DAY TAKING MAGNESIUM OXIDE -MG SUPPLEMENT 400 MG CAPSULE 1 CAPSULE NEEDED ORALLY TID TAKING FAMOTIDINE 40 MG TABLET DIRECTED ORALLY BID TAKING AIMOVIG 140 DOSE 1 INJECTION MONTHLY TAKING PAROXETINE HCL 10 MG TABLET 1 TABLET IN THE MORNING ORALLY ONCE A DAY TAKING TYLENOL EXTRA STRENGTH 500 MG TABLET 1 TABLET NEEDED ORALLY EVERY 6 HRS TAKING EPIPEN 2-DUANE 0.3 MG/0.3ML SOLUTION AUTO-INJECTOR INJECTION DIRECTED TAKING CLONAZEPAM 0.5 MG TABLET 0.5 ORALLY 1/2 TAB IN AM AND 1/4 TAB IN PM TAKING PROBIOTIC CAPSULE 1 TAB(S) ORALLY DAILY, NOTES: ALIGN TAKING ASPIRIN EC 81 MG TABLET DELAYED RELEASE 1 TABLET ORALLY ONCE A DAY TAKING ATORVASTATIN CALCIUM 10 MG TABLET 1 TABLET ORALLY ONCE A DAY TAKING PRIMIDONE 50 MG TABLET ORALLY BID TAKING TOPIRAMATE 100 MG TABLET 1 TABLET ORALLY DAILY TAKING SPIRONOLACTONE 25 MG TABLET 1 TABLET ORALLY DAILY TAKING CALCIUM + D 600-200 MG-UNIT TABLET 1 TABLET ORALLY TWICE A DAY TAKING TORSEMIDE 20 MG TABLET DIRECTED ORALLY 1 TAB Q OTHER DAY,1/2 TAB Q OTHER DAY TAKING NYSTATIN 558418 UNIT/GM POWDER 1 APPLICATION TO AFFECTED AREA EXTERNALLY TWICE A DAY TAKING VITAMIN E 400 UNIT CAPSULE 1 CAPSULE ORALLY ONCE A DAY TAKING IPRATROPIUM-ALBUTEROL 0.5-2.5 (3) MG/3ML SOLUTION 3 ML NEEDED INHALATION EVERY 6 HRS TAKING BUSPIRONE HCL 5 MG TABLET 1 TABLET ORALLY DAILY TAKING POTASSIUM CHLORIDE ER 20 MEQ TABLET EXTENDED RELEASE 1 TABLET WITH FOOD ORALLY ONCE A DAY TAKING VENTOLIN HFA 90 MCG/ACT AEROSOL SOLUTION 2 PUFFS NEEDED INHALATION EVERY 6 HRS TAKING GAVISCON EXTRA STRENGTH 160-105 MG TABLET CHEWABLE 2 TABLETS AFTER MEALS AND AT BEDTIME NEEDED ORALLY FOUR TIMES A DAY TAKING SUCRALFATE 1 GM TABLET 1 TABLET ON AN EMPTY STOMACH ORALLY TWICE A DAY TAKING NYSTATIN 337342 UNIT/ML SUSPENSION 5 ML ORALLY SWISH AND SWALLOW 4 TIMES A DAY, NOTES: PRN TAKING IRBESARTAN 150 MG TABLET 1 TABLET ORALLY ONCE A DAY TAKING ONDANSETRON 4 MG TABLET DISINTEGRATING 1 TABLET ON THE TONGUE AND ALLOW TO DISSOLVE ORALLY EVERY 6 HOURS NEEDED, NOTES: TAKES DAILY TAKING DULERA 200-5 MCG/ACT AEROSOL 2 PUFFS INHALATION TWICE A DAY TAKING OMEPRAZOLE 40 MG CAPSULE DELAYED RELEASE 1 CAPSULE 30 MINUTES BEFORE MORNING MEAL ORALLY ONCE A DAY TAKING SUMATRIPTAN SUCCINATE 100 MG TABLET 1 TABLET AT LEAST 2 HOURS BETWEEN DOSES NEEDED ORALLY TWICE A DAY TAKING TRAMADOL HCL 50 MG TABLET 1 TAB ORALLY (CODE D FOR CHRONIC PAIN ) DAILY NEEDED TAKING LIDODERM 5 % PATCH DIRECTED EXTERNALLY (WORKERS COMP) APPLY 3 PATCH TO PAINFUL AREA OF LOW BACK ON 12 HRS OFF 12 HOURS PRN PAIN. TAKING VOLTAREN 1 % GEL 1 GRAM APPLIED TO AFFECTED AREA EXTERNALLY PRN 4 X DAILY NOT TO EXCEED 4 GMS IN A DAY WORKERS COMP NOT-TAKING TIZANIDINE HCL 4 MG TABLET 1 TABLET NEEDED ORALLY BEFORE BEDTIME (WORKERS COMP) NOT-TAKING VITAMIN D 25 MCG (1000 UT) TABLET 1 CAPSULE ORALLY ONCE DAILY NOT-TAKING ARIPIPRAZOLE 2 MG TABLET 1 TABLET ORALLY ONCE A DAY NOT-TAKING LIDOCAINE & ADHESIVE SHEET 5 % KIT DIRECTED EXTERNALLY NOT-TAKING BUPROPION HCL 100 MG TABLET EXTENDED RELEASE 1 TABLET ORALLY DAILY NOT-TAKING FISH OIL DOUBLE STRENGTH 1200 MG CAPSULE 1 CAPSULE ORALLY THREE TIMES DAILY NOT-TAKING ADVAIR HFA 230-21 MCG/ACT AEROSOL 2 PUFFS INHALATION TWICE A DAY NOT-TAKING 28-0.8 MG TABLET ORALLY DAILY NOT-TAKING LOVAZA 1 GM CAPSULE 2 CAPSULES ORALLY TWICE A DAY NOT-TAKING NYSTATIN [id number] UNIT/ML SUSPENSION 4 ML MOUTH/THROAT FOUR TIMES A DAY NOT-TAKING TAMSULOSIN HCL 0.4 MG CAPSULE 1 CAPSULE ORALLY ONCE A DAY NOT-TAKING IMITREX 100 MG TABLET 1 TABLET NEEDED ORALLY DIRECTED PRN MIGRAINES NOT-TAKING RABEPRAZOLE SODIUM 20 MG TABLET DELAYED RELEASE 1 TABLET ORALLY 2 TBS IN ,/1 TAB IN PM NOT-TAKING LYRICA 150 MG CAPSULE 1 CAPSULE ORALLY BID NOT-TAKING LEVOFLOXACIN 250 MG TABLET 1 TABLET ORALLY BID NOT-TAKING GABAPENTIN 600 MG TABLET 1 TABLET ORALLY THREE TIMES A DAY NOT-TAKING BREO ELLIPTA 200-25 MCG/INH AEROSOL POWDER BREATH ACTIVATED 1 PUFF INHALATION ONCE A DAY MEDICATION LIST REVIEWED AND RECONCILED WITH THE PATIENT PAST MEDICAL HISTORY PRIMARY HTN,SECONDARY RENAL HYPERPARATHYROIDISM,CRI STAGE 3,VIT D DEFICIENT,HYPOMAGNISEMIA CKD3, 01/20 RENAL US WITH INCREASED ECHOGENICITY TRAVIS MARCOS EDEMA VIT D DEF HTN HYPOTHYROIDISM ASTHMA, DR [place] 2008, FELL WORKING FOOT TANGLED IN PURSE HANDLES FOR CP CLINIC, WEARS BRACE 05/22 LIVER US DIFFUSE FIBROFATTY INFILTRATION OF THE LIVER 03/22 MRI L SPINE - 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 EPIGASTRIC TENDERNESS - DR JARRETT GI SYR 04/21 L WRIST FX - FISH OBESITY PSEUDOSEIZURES - NEURO/ALI ENDOSCOPY 04/07/20 ALLERGIES IV DYE: ANAPHYLAXIS - ALLERGY BACTRIM: ANAPHYLAXIS - ALLERGY ERYTHROMYCIN: ANAPHYLAXIS - ALLERGY PENICILLIN (FOR ALLERGIES USE ONLY): HIVES - ALLERGY ZITHROMAX: HEADACHES - ALLERGY INDOCIN: HIVES,HEADACHE - ALLERGY TORADOL: HIVES - ALLERGY BEE STINGS: ANAPHYLAXIS - ALLERGY HARD SHELL SEAFOOD: ANAPHYLAXIS - ALLERGY BIAXIN: HALLUCINATIONS - SIDE EFFECTS MUSCLE RELAXERS: SHAKES - SIDE EFFECTS SULFA (FOR ALLERGY USE ONLY): HIVES - ALLERGY LASIX: SWELLING - SIDE EFFECTS BACTROBAN OINTMENT: CAUSES YEAST INFECTION - SIDE EFFECTS LATEX: HIVES, BLISTERS - ALLERGY BETADINE: ANAPHYLAXIS - ALLERGY SOCIAL HISTORY GENERAL: TOBACCO USE ARE YOU A:NONSMOKER LATEX QUESTIONNAIRE LATEX ALLERGY : HAVE YOU EVER DEVELOPED ANY TYPE OF REACTION AFTER HANDLING LATEX PRODUCTS SUCH RUBBER GLOVES, CONDOMS, DIAPHRAGMS, BALLOONS, SOCKS, OR UNDERWEAR?YES KNOWN LATEX ALLERGY LATEX ALLERGY : HAVE YOU EVER DEVELOPED ANY TYPE OF REACTION DURING OR AFTER DENTAL APPOINTMENT, VAGINAL/RECTAL EXAMINATION, SURGICAL PROCEDURE, OR ANY OTHER EXPOSURE?NO - PLEASE INDICATE : HIVES FROM LATEX DATE ASKED : 08/07/2020 LATEX RISK : HAVE YOU EVER HAD ANY DIFFICULTY BREATHING OR HIVES AFTER EATING OR HANDLING ANY FRUITS, OR VEGETABLES; SUCH KIWI, BANANAS, STONE FRUITS, OR CHESTNUTSNO LATEX RISK : DO YOU HAVE A PREVIOUS PERSONAL HISTORY OF MORE THAN NINE SURGERIES, SPINA BIFIDA, OR REPEATED CATHERIZATIONS? NO LATEX RISK : ARE YOU FREQUENTLY EXPOSED TO LATEX PRODUCTS IN YOUR OCCUPATION?NO ALCOHOL USE: NO. ALCOHOL SCREENING DID YOU HAVE A DRINK CONTAINING ALCOHOL IN THE PAST YEAR?YES HOW OFTEN DID YOU HAVE SIX OR MORE DRINKS ON ONE OCCASION IN THE PAST YEAR?NEVER (0 POINTS) HOW MANY DRINKS DID YOU HAVE ON A TYPICAL DAY WHEN YOU WERE DRINKING IN THE PAST YEAR?1 OR 2 (0 POINTS) HOW OFTEN DID YOU HAVE A DRINK CONTAINING ALCOHOL IN THE PAST YEAR?MONTHLY OR LESS (1 POINT) POINTS1 INTERPRETATIONNEGATIVE RECREATIONAL DRUG USE DRUG USE?NO CAFFEINE CAFFEINE USE?NO SEXUAL HX HAD SEX IN THE LAST 12 MONTHS (VAGINAL, ORAL, OR ANAL)?YES WITHMEN ONLY HAVE YOU EVER HAD AN STD?NO HIV / HEP-C SCREENING HIV TEST OFFERED TO PATIENT:NO HEP-C TEST OFFERED TO PATIENT:NO YAZIDI [id number] GNOSTICISM LANGUAGE LANGUAGES SPOKEN:DIVEHI EDUCATION LEVEL OF EDUCATION:COLLEGE LEARNING BARRIERS / SPECIAL NEEDS CHANGE FROM LAST VISIT?NO BARRIERS TO LEARNING?NO HEARING IMPAIRED?NO VISION IMPAIRED?YES COGNITIVELY IMPAIRED?NO :CORRECTIVE LENSES READINESS TO LEARN?YES LEARNING PREFERENCES?NO LEARNING CAPABILITIES PRESENT?YES EMOTIONAL BARRIERS?NO SPECIAL DEVICES?YES :CANE, BRACE LEFT ANKLE BRACE SENIOR PRINCIPAL ARCHITECT NEEDED?NO 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 DIET: REGULAR. EXERCISE: NONE. MARITAL STATUS: . OTHERS AT HOME: SPOUSE. - PFS REFERRAL NEEDED?NO CLERGY REFERRAL NEEDED?NO PUBLIC HEALTH REFERRAL NEEDED?NO WAS THE PROVIDER NOTIFIED OF ANY PERTINENT INFO?YES HAS THE PATIENT BEEN EDUCATED REGARDING HIS/HER PLAN OF CARE?YES HAS THE PATIENT BEEN EDUCATED REGARDING PAIN, THE RISK FOR PAIN, THE IMPORTANCE OF EFFECTIVE PAIN MANAGEMENT, AND THE PAIN ASSESSMENT PROCESS?YES ADVANCE DIRECTIVE ADVANCE DIRECTIVE DISCUSSED WITH PATIENT:YES PT HAS HCP FOR LEVON HERNANDEZ VITAL SIGNS WT 201.6 LBS, HT 64 IN, BMI 34.60 INDEX, BP 128/73 MM HG, HR 65 /MIN, RR 18 /MIN, TEMP 97.6 F, OXYGEN SAT % 100%, SAFE IN ENV? (Y/N) Y, NA INITIALS AW 1018, REVIEWED BY: EM. EXAMINATION GENERAL: THE PATIENT IS ALERT, ORIENTED TIMES THREE AND COOPERATIVE. LUNGS ARE CLEAR TO AUSCULTATION. HEART SHOWS REGULAR RHYTHM, NO MURMURS AND NO GALLOPS. ASSESSMENTS SACROILIITIS, NOT ELSEWHERE CLASSIFIED - M46.1 (PRIMARY) TREATMENT SACROILIITIS, NOT ELSEWHERE CLASSIFIED [facility] FLUORO GUIDANCE (PAIN)[id number] MEDICATION: PAIN VALIUM TAB 10MG ORALLY (DIAZEPAM)ERIC CARL 08/20/2020 11:21:48 AM > VERIFIED. ZAHIDA RAMIREZ 08/20/2020 11:25:14 AM > ADMINISTERED MEDICATION: PAIN OXYCODONE HCL TAB 10MG ORALLYERIC CARL L 08/20/2020 11:22:02 AM > VERIFIED. ZAHIDA RAMIREZ 08/20/2020 11:25:31 AM > ADMINISTERED COMPLETION OF PROCEDURAL VISIT WHEN MEETS CRITERIAZAHIDA RAMIREZ 08/20/2020 12:59:37 PM > CRITERIA MET PROCEDURES PAIN NURSING RECORD PROCEDURE IN ROOM 1210, PHYSICIAN IN ROOM 1232, START 1235, FINISH 1240, PHYSICIAN OUT OF ROOM 1241, OUT OF ROOM 1250, ECG NORMAL SINUS, PATIENT SHIELDED YES, SAFETY STRAP YES, PREP CHLOROPREP Alysa RAMIREZ RN, DRESSING TEGADERM DR. PEOPLES LOC: 1. ALERT, ORIENTED, ZAHIDA RAMIREZ 08/20/2020 12:35:57 PM > RESP: 1. REGULAR, NO DYSPNEA, ZAHIDA RAMIREZ 08/20/2020 12:36:03 PM > COLOR: 1. PINK, ZAHIDA RAMIREZ 08/20/2020 12:36:06 PM > SKIN: 1. WARM, DRY, ZAHIDA RAMIREZ 08/20/2020 12:36:11 PM > POSITION: 1. PRONE, ZAHIDA RAMIREZ 08/20/2020 12:14:42 PM > VITALS: 1145 P63 82252 BP 119/70 R18 AW 1200 P60 R18 50917 BP131/78 AW 133/77, 52, 18, 99%, ZAHIDA RAMIREZ 08/20/2020 12:15:01 PM > 152/69, 52, 16, 98%, ZAHIDA RAMIREZ 08/20/2020 12:36:30 PM > 140/76, 52, 16, 98%, ZAHIDA RAMIREZ 08/20/2020 12:39:59 PM > 138/74, 59, 16, 99%, ZAHIDA RAMIREZ 08/20/2020 12:45:15 PM > NOTES Alysa RAMIREZ RN COMPLETION OF PROCEDURE APPOINTMENT: POST PAIN 0, DRESSING SITE DRY AND INTACT, IV N/A, GAIT STEADY, TEACHING COMPLETED, PATIENT ACKNOWLEDGES UNDERSTANDING YES, PROCEDURE APPOINTMENT COMPLETED AT 1258 PN WORKMANS' COMP OPINION IN YOUR OPINION, WAS THE INCIDENT THAT THE PATIENT DESCRIBED THE COMPETENT MEDICAL CAUSE OF THIS INJURY/ILLNESS? YES ARE THE PATIENT'S COMPLAINTS CONSISTENT WITH HIS/HER HISTORY OF THE INJURY/ILLNESS? YES IS THE PATIENT'S HISTORY OF THE INJURY/ILLNESS CONSISTENT WITH YOUR OBJECTIVE FINDING? YES WHAT IS THE PERCENTAGE OF TEMPORARY IMPAIRMENT? MARKED = 75% IS THE PATIENT WORKING? NO DOCTOR ON SITE: TRINO BYRD MD PN SI PRE PROCEDURE DIAGNOSIS SACROILIITIS, SACROILIAC JOINT DYSFUNCTION POST PROCEDURE DIAGNOSIS SACROILIITIS, SACROILIAC JOINT DYSFUNCTION PROCEDURE BILATERAL SACROILIAC JOINT BLOCK SURGEON DR. TRINO PEOPLES PICKLING MACHINE OPERATOR NONE ANESTHESIA LOCAL PRE PROCEDURE NOTE THE PATIENT WITH HISTORY OF CHRONIC LOW BACK PAIN. I EVALUATED THE PATIENT AND REVIEWED THE CHART. I WENT OVER THE RISKS, ALTERNATIVES, AND BENEFITS ASSOCIATED WITH THIS PROCEDURE. THE PATIENT WOULD LIKE TO PROCEED AND GAVE CONSENT TO PERFORM THE PROCEDURE. THE PATIENT DENIES UNEXPLAINABLE WEIGHT LOSS, FEVER, CHILLS, OR NEW CHANGES IN URINARY OR BOWEL CONTROL. THE PATIENT IS COVID-19 NEGATIVE DESCRIPTION OF PROCEDURE THE PATIENT WAS BROUGHT TO THE PROCEDURE ROOM AND PLACED IN THE PRONE POSITION. THE LUMBOSACRAL AREA WAS CLEANED WITH CHLORAPREP SOLUTION AND DRAPED ASEPTICALLY. THE PROCEDURE WAS DONE UNDER STERILE CONDITIONS. A TIMEOUT WAS PERFORMED WHERE THE CONSENTED SITE WAS VERIFIED WITH EVERYONE IN THE ROOM. UNDER FLUOROSCOPIC GUIDANCE, THE TARGET POINT WAS SELECTED AT THE LOWER BORDER OF THE RIGHT AND LEFT SACROILIAC JOINT. TARGET POINT WAS SELECTED AFTER MEDIAL ROTATION AND TILT OF THE MAGNIFIER OR THE C-ARM. I CONFIRMED AGAIN THE SITE OF TARGET. LIDOCAINE 0.5% WAS USED TO NUMB THE SKIN AND THE SUBCUTANEOUS TISSUE BELOW IT. SPINAL NEEDLES, 22-GAUGE, WERE ADVANCED UNDER FLUOROSCOPIC GUIDANCE AND FOLLOWING PATIENT FEEDBACK UNTIL THE TARGETS WERE TOUCHED. THE POSITION OF THE NEEDLES WAS VERIFIED WITH AP AND OBLIQUE VIEWS. AFTER PROPER POSITION OF THE NEEDLES WAS ACHIEVED, ISOVUE-M DYE 30%, 0.1 ML, WAS INJECTED SHOWING ADEQUATE SPREAD OF THE DYE. KENALOG 20 MG WAS INJECTED AT EACH SITE. THEN, A SOLUTION OF 3.0 ML OF BUPIVACAINE 0.125% WAS USED TO FLUSH EACH NEEDLE. THE MEDICATIONS WERE VERIFIED WITH THE NURSE. THERE WAS NO EVIDENCE OF BLOOD, PARESTHESIA OR CEREBROSPINAL FLUID DURING THE PROCEDURE. THE PATIENT WAS SENT TO THE RECOVERY ROOM. THE PATIENT WAS MOVING THE EXTREMITIES AND DOING WELL. THERE WERE NO COMPLICATIONS DURING THE PROCEDURE. ESTIMATED BLOOD LOSS WAS LESS THAN 5 ML. FLUOROSCOPIC TIME WAS 40 SECONDS. POST PROCEDURE NOTE THE PROCEDURE DONE WAS DISCUSSED WITH THE PATIENT. THE PATIENT WILL BE SEEN IN A FOLLOW UP IN THE NEXT FEW WEEKS. I AM LOOKING FOR LONG LASTING PAIN RELIEF FOR THE PATIENT WITH THIS INTERVENTION. INSTRUCTIONS WERE GIVEN, QUESTIONS WERE ANSWERED, AND THE PATIENT EXPRESSED UNDERSTANDING AND AGREES WITH THE PLAN. I, ANJALI MOMIN, DOCUMENTED THE ABOVE INFORMATION ACTING A SCRIBE FOR DR. PEOPLES. I HAVE REVIEWED THE ABOVE DOCUMENT, WRITTEN BY ANJALI MOMIN, OFFICE ASSISTANT, AND I VERIFY THAT IT IS ACCURATE PROCEDURE CODES 66829 INJECT SACROILIAC JOINT, MODIFIERS: 50 DISPOSITION & COMMUNICATION FOLLOW UP FOLLOW UP WITH GRAPE GROWER (REASON: POST BILATERAL SACROILIAC JOINT BLOCK) ELECTRONICALLY SIGNED BY TRINO PEOPLES MD, MD ON 08/22/2020 AT 09:55 AM EDT DISCLAIMER : THIS IS A VISIT SUMMARY EXTRACTED FROM THE [employer] CHART. IT IS NOT A COPY OF THE [employer] PROGRESS NOTE. HARRIET
== END ==
LOC: M PAIN 10:20
PROVIDERS: ATTEND Anesthesiology
DX: M46.1 Sacroiliitis, not elsewhere classified (principal); G47.30 Sleep apnea, unspecified; E55.9 Vitamin D deficiency, unspecified; J45.909 Unspecified asthma, uncomplicated; Z86.14 Personal history of Methicillin resistant Staphylococcus aureus infection; Z88.0 Allergy status to penicillin; Z88.1 Allergy status to other antibiotic agents; Z88.2 Allergy status to sulfonamides; Z88.3 Allergy status to other anti-infective agents; Z88.6 Allergy status to analgesic agent; Z88.8 Allergy status to other drugs, medicaments and biological substances; Z91.013 Allergy to seafood; Z91.030 Bee allergy status; Z91.040 Latex allergy status; Z91.041 Radiographic dye allergy status; Z79.82 Long term (current) use of aspirin; Z79.899 Other long term (current) drug therapy
CPT/HCPCS: G0260; J3301; Q9967

== ENCOUNTER → 2020-09-05 | Outpatient (CLI) | payer OTHER ==
[~2020-09-05] MED LIST changes: -BUPIVACAINE HCL 0.25% 30ML VIAL As Ordered ONE; -ISOVUE-M 300 61% 15ML VIAL As Ordered ONE; -LIDOCAINE 1% SDV 30ML VIAL As Ordered ONE; -TRIAMCINOLONE ACETONIDE SUSP 40 MG/ML VIAL (J3301) As Ordered ONE; -diazePAM 5MG TABLET As Ordered ONE; -oxyCODONE 5MG TAB As Ordered ONE
--- NOTE | 2020-09-09 01:18 | ECWPNPC ---
PATIENT NAME: ROZINA HERNANDEZ : 1955 GENDER: FEMALE VISIT DATE: 09/05/2020 DISCHARGE DATE: 09/05/20 1112 VISIT LOCKED DATE TIME: PHYSICIAN: LEVON GLOVER RESOURCE: LEVON GLOVER REASON FOR APPOINTMENT 1. POST BILATERAL SACROILIAC JOINT BLOCK HISTORY OF PRESENT ILLNESS GENERAL: HPI 65-YEAR-OLD FEMALE IN FOR POST BILATERAL SACROILIAC JOINT BLOCK FOLLOW-UP. SHE RATES HER PAIN PREPROCEDURE AT A 7-8 OUT OF 10 AND POST PROCEDURE AT A 0 OUT OF 10. SHE FURTHER STATES THE PROCEDURE CONTINUES TO HELP HER TODAY. DOI: 07/27/2007. -. FALL RISK SCREENING: SCREENING : NO FALLS REPORTED IN THE LAST YEAR. PAIN SCREENING: PATIENT HAS A COMPLAINT OF ACUTE OR CHRONIC PAIN :YES INTENSITY OF PAIN (SCALE OF 1 TO 10):0 NURSING NOTE: -. PAIN CENTER INTAKE QUESTIONS: DO YOU HAVE A HISTORY OF MRSA? :YES GROIN 4 YEARS AGO DO YOU TAKE A BLOOD THINNERS? :NO DO YOU HAVE ANY BLEEDING DISORDERS? :NO ANY NEW NUMBNESS OR WEAKNESS IN YOUR LEGS OR ARMS? :NO ANY PACEMAKER,DEFIBRILLATOR, OR DORSAL COLUMN STIMULATOR? :NO DO YOU HAVE ANY RASHES OR OPEN SORES? :NO ARE YOU ALLERGIC TO IV DYE? :YES ARE YOU DIABETIC? :NO ANY NEW PROBLEMS WITH YOUR MEDICATIONS? :NO HAVE YOU RECEIVED A VACCINE IN THE PAST 30 DAYS? :NO DO YOU PLAN TO RECEIVE A VACCINE IN THE NEXT 21 DAYS? :NO DO YOU NEED ANY PRESCRIPTION? :NO DO YOU TAKE ANY IMMUNOSUPPRESSIVE MEDICATIONS? :NO DO YOU HAVE ANY KIDNEY OR LIVER DISEASE? 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 :NO ARE YOU BREAST FEEDING? :NO CURRENT MEDICATIONS TAKING AMITRIPTYLINE HCL 10 MG TABLET 1 TABLET AT BEDTIME ORALLY ONCE A DAY TAKING MAGNESIUM OXIDE -MG SUPPLEMENT 400 MG CAPSULE 1 CAPSULE NEEDED ORALLY TID TAKING FAMOTIDINE 40 MG TABLET DIRECTED ORALLY BID TAKING AIMOVIG 140 DOSE 1 INJECTION MONTHLY TAKING PAROXETINE HCL 10 MG TABLET 1 TABLET IN THE MORNING ORALLY ONCE A DAY TAKING TYLENOL EXTRA STRENGTH 500 MG TABLET 1 TABLET NEEDED ORALLY EVERY 6 HRS TAKING EPIPEN 2-DUANE 0.3 MG/0.3ML SOLUTION AUTO-INJECTOR INJECTION DIRECTED TAKING CLONAZEPAM 0.5 MG TABLET 0.5 ORALLY 1/2 TAB IN AM AND 1/4 TAB IN PM TAKING PROBIOTIC CAPSULE 1 TAB(S) ORALLY DAILY, NOTES: ALIGN TAKING ASPIRIN EC 81 MG TABLET DELAYED RELEASE 1 TABLET ORALLY ONCE A DAY TAKING ATORVASTATIN CALCIUM 10 MG TABLET 1 TABLET ORALLY ONCE A DAY TAKING PRIMIDONE 50 MG TABLET ORALLY BID TAKING TOPIRAMATE 100 MG TABLET 1 TABLET ORALLY DAILY TAKING SPIRONOLACTONE 25 MG TABLET 1 TABLET ORALLY DAILY TAKING CALCIUM + D 600-200 MG-UNIT TABLET 1 TABLET ORALLY TWICE A DAY TAKING TORSEMIDE 20 MG TABLET DIRECTED ORALLY 1 TAB Q OTHER DAY,1/2 TAB Q OTHER DAY TAKING NYSTATIN 228409 UNIT/GM POWDER 1 APPLICATION TO AFFECTED AREA EXTERNALLY TWICE A DAY TAKING VITAMIN E 400 UNIT CAPSULE 1 CAPSULE ORALLY ONCE A DAY TAKING IPRATROPIUM-ALBUTEROL 0.5-2.5 (3) MG/3ML SOLUTION 3 ML NEEDED INHALATION EVERY 6 HRS TAKING BUSPIRONE HCL 5 MG TABLET 1 TABLET ORALLY DAILY TAKING POTASSIUM CHLORIDE ER 20 MEQ TABLET EXTENDED RELEASE 1 TABLET WITH FOOD ORALLY ONCE A DAY TAKING VENTOLIN HFA 90 MCG/ACT AEROSOL SOLUTION 2 PUFFS NEEDED INHALATION EVERY 6 HRS TAKING GAVISCON EXTRA STRENGTH 160-105 MG TABLET CHEWABLE 2 TABLETS AFTER MEALS AND AT BEDTIME NEEDED ORALLY FOUR TIMES A DAY TAKING SUCRALFATE 1 GM TABLET 1 TABLET ON AN EMPTY STOMACH ORALLY TWICE A DAY TAKING NYSTATIN [id number] UNIT/ML SUSPENSION 5 ML ORALLY SWISH AND SWALLOW 4 TIMES A DAY, NOTES: PRN TAKING IRBESARTAN 150 MG TABLET 1 TABLET ORALLY ONCE A DAY TAKING ONDANSETRON 4 MG TABLET DISINTEGRATING 1 TABLET ON THE TONGUE AND ALLOW TO DISSOLVE ORALLY EVERY 6 HOURS NEEDED, NOTES: TAKES DAILY TAKING DULERA 200-5 MCG/ACT AEROSOL 2 PUFFS INHALATION TWICE A DAY TAKING OMEPRAZOLE 40 MG CAPSULE DELAYED RELEASE 1 CAPSULE 30 MINUTES BEFORE MORNING MEAL ORALLY ONCE A DAY TAKING SUMATRIPTAN SUCCINATE 100 MG TABLET 1 TABLET AT LEAST 2 HOURS BETWEEN DOSES NEEDED ORALLY TWICE A DAY TAKING TRAMADOL HCL 50 MG TABLET 1 TAB ORALLY (CODE D FOR CHRONIC PAIN ) DAILY NEEDED TAKING LIDODERM 5 % PATCH DIRECTED EXTERNALLY (WORKERS COMP) APPLY 3 PATCH TO PAINFUL AREA OF LOW BACK ON 12 HRS OFF 12 HOURS PRN PAIN. TAKING VOLTAREN 1 % GEL 1 GRAM APPLIED TO AFFECTED AREA EXTERNALLY PRN 4 X DAILY NOT TO EXCEED 4 GMS IN A DAY WORKERS COMP TAKING PILOCARPINE HCL 5 MG TABLET 1 TABLET ORALLY THREE TIMES A DAY TAKING MECLIZINE HCL 25 MG CAPSULE DIRECTED ORALLY NOT-TAKING TIZANIDINE HCL 4 MG TABLET 1 TABLET NEEDED ORALLY BEFORE BEDTIME (WORKERS COMP) NOT-TAKING VITAMIN D 25 MCG (1000 UT) TABLET 1 CAPSULE ORALLY ONCE DAILY NOT-TAKING ARIPIPRAZOLE 2 MG TABLET 1 TABLET ORALLY ONCE A DAY NOT-TAKING LIDOCAINE & ADHESIVE SHEET 5 % KIT DIRECTED EXTERNALLY NOT-TAKING BUPROPION HCL 100 MG TABLET EXTENDED RELEASE 1 TABLET ORALLY DAILY NOT-TAKING FISH OIL DOUBLE STRENGTH 1200 MG CAPSULE 1 CAPSULE ORALLY THREE TIMES DAILY NOT-TAKING ADVAIR HFA 230-21 MCG/ACT AEROSOL 2 PUFFS INHALATION TWICE A DAY NOT-TAKING 28-0.8 MG TABLET ORALLY DAILY NOT-TAKING LOVAZA 1 GM CAPSULE 2 CAPSULES ORALLY TWICE A DAY NOT-TAKING NYSTATIN [id number] UNIT/ML SUSPENSION 4 ML MOUTH/THROAT FOUR TIMES A DAY NOT-TAKING TAMSULOSIN HCL 0.4 MG CAPSULE 1 CAPSULE ORALLY ONCE A DAY NOT-TAKING IMITREX 100 MG TABLET 1 TABLET NEEDED ORALLY DIRECTED PRN MIGRAINES NOT-TAKING RABEPRAZOLE SODIUM 20 MG TABLET DELAYED RELEASE 1 TABLET ORALLY 2 TBS IN ,/1 TAB IN PM NOT-TAKING LYRICA 150 MG CAPSULE 1 CAPSULE ORALLY BID NOT-TAKING LEVOFLOXACIN 250 MG TABLET 1 TABLET ORALLY BID NOT-TAKING GABAPENTIN 600 MG TABLET 1 TABLET ORALLY THREE TIMES A DAY NOT-TAKING BREO ELLIPTA 200-25 MCG/INH AEROSOL POWDER BREATH ACTIVATED 1 PUFF INHALATION ONCE A DAY MEDICATION LIST REVIEWED AND RECONCILED WITH THE PATIENT PAST MEDICAL HISTORY PRIMARY HTN,SECONDARY RENAL HYPERPARATHYROIDISM,CRI STAGE 3,VIT D DEFICIENT,HYPOMAGNISEMIA CKD3, 01/20 RENAL US WITH INCREASED ECHOGENICITY TRAVIS MARCOS EDEMA VIT D DEF HTN HYPOTHYROIDISM ASTHMA, DR [place] 2008, FELL WORKING FOOT TANGLED IN PURSE HANDLES FOR CP CLINIC, WEARS BRACE 05/22 LIVER US DIFFUSE FIBROFATTY INFILTRATION OF THE LIVER 03/22 MRI L SPINE - 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 EPIGASTRIC TENDERNESS - DR JARRETT GI SYR 04/21 L WRIST FX - DR CARDOZO OBESITY PSEUDOSEIZURES - NEURO/ALI ENDOSCOPY 04/07/20 ALLERGIES IV DYE: ANAPHYLAXIS - ALLERGY BACTRIM: ANAPHYLAXIS - ALLERGY ERYTHROMYCIN: ANAPHYLAXIS - ALLERGY PENICILLIN (FOR ALLERGIES USE ONLY): HIVES - ALLERGY ZITHROMAX: HEADACHES - ALLERGY INDOCIN: HIVES,HEADACHE - ALLERGY TORADOL: HIVES - ALLERGY BEE STINGS: ANAPHYLAXIS - ALLERGY HARD SHELL SEAFOOD: ANAPHYLAXIS - ALLERGY BIAXIN: HALLUCINATIONS - SIDE EFFECTS MUSCLE RELAXERS: SHAKES - SIDE EFFECTS SULFA (FOR ALLERGY USE ONLY): HIVES - ALLERGY LASIX: SWELLING - SIDE EFFECTS BACTROBAN OINTMENT: CAUSES YEAST INFECTION - SIDE EFFECTS LATEX: HIVES, BLISTERS - ALLERGY BETADINE: ANAPHYLAXIS - ALLERGY SOCIAL HISTORY GENERAL: TOBACCO USE ARE YOU A:NONSMOKER LATEX QUESTIONNAIRE LATEX ALLERGY : HAVE YOU EVER DEVELOPED ANY TYPE OF REACTION AFTER HANDLING LATEX PRODUCTS SUCH RUBBER GLOVES, CONDOMS, DIAPHRAGMS, BALLOONS, SOCKS, OR UNDERWEAR?YES KNOWN LATEX ALLERGY LATEX ALLERGY : HAVE YOU EVER DEVELOPED ANY TYPE OF REACTION DURING OR AFTER DENTAL APPOINTMENT, VAGINAL/RECTAL EXAMINATION, SURGICAL PROCEDURE, OR ANY OTHER EXPOSURE?NO - PLEASE INDICATE : HIVES FROM LATEX DATE ASKED : 05/03/2019 LATEX RISK : HAVE YOU EVER HAD ANY DIFFICULTY BREATHING OR HIVES AFTER EATING OR HANDLING ANY FRUITS, OR VEGETABLES; SUCH KIWI, BANANAS, STONE FRUITS, OR CHESTNUTSNO LATEX RISK : DO YOU HAVE A PREVIOUS PERSONAL HISTORY OF MORE THAN NINE SURGERIES, SPINA BIFIDA, OR REPEATED CATHERIZATIONS? NO LATEX RISK : ARE YOU FREQUENTLY EXPOSED TO LATEX PRODUCTS IN YOUR OCCUPATION?NO ALCOHOL USE: NO. ALCOHOL SCREENING DID YOU HAVE A DRINK CONTAINING ALCOHOL IN THE PAST YEAR?YES HOW OFTEN DID YOU HAVE SIX OR MORE DRINKS ON ONE OCCASION IN THE PAST YEAR?NEVER (0 POINTS) HOW MANY DRINKS DID YOU HAVE ON A TYPICAL DAY WHEN YOU WERE DRINKING IN THE PAST YEAR?1 OR 2 (0 POINTS) HOW OFTEN DID YOU HAVE A DRINK CONTAINING ALCOHOL IN THE PAST YEAR?MONTHLY OR LESS (1 POINT) POINTS1 INTERPRETATIONNEGATIVE RECREATIONAL DRUG USE DRUG USE?NO CAFFEINE CAFFEINE USE?NO SEXUAL HX HAD SEX IN THE LAST 12 MONTHS (VAGINAL, ORAL, OR ANAL)?YES WITHMEN ONLY HAVE YOU EVER HAD AN STD?NO HIV / HEP-C SCREENING HIV TEST OFFERED TO PATIENT:NO HEP-C TEST OFFERED TO PATIENT:NO [employer]ITAN [id number] WORSHIP LANGUAGE LANGUAGES SPOKEN:SRI LANKAN EDUCATION LEVEL OF EDUCATION:COLLEGE LEARNING BARRIERS / SPECIAL NEEDS BARRIERS TO LEARNING?NO HEARING IMPAIRED?NO VISION IMPAIRED?YES COGNITIVELY IMPAIRED?NO :CORRECTIVE LENSES READINESS TO LEARN?YES LEARNING PREFERENCES?NO LEARNING CAPABILITIES PRESENT?YES EMOTIONAL BARRIERS?NO SPECIAL DEVICES?YES :CANE, BRACE LEFT [employer] NEEDED?NO 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 DIET: REGULAR. EXERCISE: NONE. MARITAL STATUS: . OTHERS AT HOME: SPOUSE. - PFS REFERRAL NEEDED?NO CLERGY REFERRAL NEEDED?NO PUBLIC HEALTH REFERRAL NEEDED?NO WAS THE PROVIDER NOTIFIED OF ANY PERTINENT INFO?YES HAS THE PATIENT BEEN EDUCATED REGARDING HIS/HER PLAN OF CARE?YES HAS THE PATIENT BEEN EDUCATED REGARDING PAIN, THE RISK FOR PAIN, THE IMPORTANCE OF EFFECTIVE PAIN MANAGEMENT, AND THE PAIN ASSESSMENT PROCESS?YES ADVANCE DIRECTIVE ADVANCE DIRECTIVE DISCUSSED WITH PATIENT:YES PT HAS HCP FOR LEVON HERNANDEZ REVIEW OF SYSTEMS CONSTITUTIONAL: ANY RECENT FEVER NO . CHILLS NO . WEIGHT CHANGE OF UNKNOWN REASONS NO . GASTROENTEROLOGY: NEW UNEXPLAINABLE CHANGES IN BOWEL CONTROL NO . CONSTIPATION NO . GENITOURINARY: ANY NEW CHANGE IN BLADDER CONTROL? NO . NEUROLOGY: NEW ONSET DIZZINESS OR NEUROLOGICAL CHANGES NOT MENTIONED NO . NEW NUMBNESS OR PAIN PATTERNS NOT MENTIONED AND PERTINENT TO TODAY'S VISIT NO . CARDIOLOGY: NEW CHEST PRESSURE NO . PATIENT DENIES NO . RESPIRATORY: UNEXPLAINABLE COUGH NO . NEW SHORTNESS OF BREATH NO . VITAL SIGNS WT 197 LBS, HT 64 IN, BMI 33.81 INDEX, BP 126/69 MM HG, HR 67 /MIN, RR 16 /MIN, TEMP 97.4 F, OXYGEN SAT % 100, SAFE IN ENV? (Y/N) Y, REVIEWED BY: [email or web address]. EXAMINATION GENERAL EXAMINATION: GENERALNO ACUTE DISTRESS, WELL NOURISHED AND HYDRATED. PSYCHAPPROPRIATE MOOD AND AFFECT . LUNGS:CLEAR TO AUSCULTATION BILATERALLY, NO WHEEZES, RHONCHI, RALES. HEART:NO MURMURS, REGULAR RATE AND RHYTHM. ASSESSMENTS OTHER CHRONIC PAIN - G89.29 (PRIMARY) SACROILIITIS, NOT ELSEWHERE CLASSIFIED - M46.1, RISK: (NULL) TREATMENT OTHER CHRONIC PAIN PAIN PROCEDURE [id number] OF PROCEDURE7/14/2021PROCEDURE:BILATERAL SACROILLIAC JOINT BLOCKAMOUNT OF PRE SEDATEVALIUM 10MG, OXYCODONE 10MGRESULT:PREPROCEDURE 7-8 OUT OF 10 POST PROCEDURE 0 OUT OF 10. CONTINUES TO HELP TODAY. SACROILIITIS, NOT ELSEWHERE CLASSIFIED NOTES: 65-YEAR-OLD FEMALE IN FOR POST BILATERAL SACROILIAC JOINT BLOCK FOLLOW-UP. GIVEN PRESENTING SYMPTOMS RECOMMEND FOLLOW-UP IN 2 MONTHS. PATIENT HAS EXPRESSED UNDERSTANDING OF AND WAS IN AGREEMENT WITH TREATMENT PLAN. GIVEN TIME TO ASK QUESTIONS AND EXPRESS CONCERNS. ISTOP REGISTRY REVIEWED AND DEMONSTRATES COMPLLIANCE. (REF # [id number] ) BRINGS IN MEDICATIONS WHICH IS APPROPRIATE FOR WHAT WAS DISPENSED. RECENT URINE TOXICOLOGY REVIEWED. NO UNAUTHORIZED MEDICATIONS. NO ILLICIT SUBSTANCES AND PRESCRIBED MEDICATIONS WERE PRESENT. PROCEDURE CODES [id number] ESTABILISHED PATIENT [facility] FACILITY CHARGE DISPOSITION & COMMUNICATION FOLLOW UP 2 MONTHS (REASON: SACROILLITIS ) ELECTRONICALLY SIGNED BY JERRY SARAVIA ON 09/08/2020 AT 08:16 AM EDT DISCLAIMER : THIS IS A VISIT SUMMARY EXTRACTED FROM THE [employer] CHART. IT IS NOT A COPY OF THE [employer] PROGRESS NOTE. HARRIET
== END ==
LOC: M PAIN 10:45
PROVIDERS: ATTEND Family Medicine
DX: G89.29 Other chronic pain (principal); M46.1 Sacroiliitis, not elsewhere classified; E55.9 Vitamin D deficiency, unspecified; J45.909 Unspecified asthma, uncomplicated; Z86.14 Personal history of Methicillin resistant Staphylococcus aureus infection; Z88.0 Allergy status to penicillin; Z88.1 Allergy status to other antibiotic agents; Z88.2 Allergy status to sulfonamides; Z88.6 Allergy status to analgesic agent; Z88.8 Allergy status to other drugs, medicaments and biological substances; Z91.013 Allergy to seafood; Z91.030 Bee allergy status; Z91.040 Latex allergy status; Z91.041 Radiographic dye allergy status; Z79.82 Long term (current) use of aspirin; Z79.899 Other long term (current) drug therapy

== ENCOUNTER → 2020-09-08 | Outpatient (CLI) | payer MEDICARE, OTHER ==
--- NOTE | 2020-09-10 02:41 | ECWPNPC ---
PATIENT NAME: ROZINA HERNANDEZ : 1955 GENDER: FEMALE VISIT DATE: 09/08/2020 DISCHARGE DATE: 09/08/20950 VISIT LOCKED DATE TIME: PHYSICIAN: LEVON GLOVER RESOURCE: LEVON GLOVER REASON FOR APPOINTMENT 1. NECK AND SHOULDER PAIN HISTORY OF PRESENT ILLNESS GENERAL: HPI 65-YEAR-OLD FEMALE IN FOR CHRONIC PAIN FOLLOW-UP. SHE FEELS HER MEDICATIONS ARE HELPFUL AND DENIES MED SIDE EFFECTS AT THIS TIME. PATIENT DOES ENDORSE INCREASED PAIN IN THE THORACIC BACK AREA.. -. FALL RISK SCREENING: SCREENING : NO FALLS REPORTED IN THE LAST YEAR. PAIN SCREENING: PATIENT HAS A COMPLAINT OF ACUTE OR CHRONIC PAIN :YES LOCATION OF PAIN:BOTH SHOULDERS, UPPER BACK INTENSITY OF PAIN (SCALE OF 1 TO 10):7 WHAT DOES YOUR PAIN FEEL LIKE:ACHING, BURNING, CONTINOUS, STABBING DURATION:CONTINOUS, CONSTANT, AWAKENS FROM SLEEP PAIN IS INCREASED BY:ACTIVITIES, PROLONGED STANDING PAIN IS DECREASED BY:USE OF PAIN MEDICATIONS, SITTING, OTHERS REPOSITIONING, HEATING PAD NURSING NOTE: -. PAIN CENTER INTAKE QUESTIONS: DO YOU HAVE A HISTORY OF MRSA? :YES GROIN 4 YEARS AGO DO YOU TAKE A BLOOD THINNERS? :NO DO YOU HAVE ANY BLEEDING DISORDERS? :NO ANY NEW NUMBNESS OR WEAKNESS IN YOUR LEGS OR ARMS? :NO ANY PACEMAKER,DEFIBRILLATOR, OR DORSAL COLUMN STIMULATOR? :NO DO YOU HAVE ANY RASHES OR OPEN SORES? :NO ARE YOU ALLERGIC TO IV DYE? :YES ARE YOU DIABETIC? :NO ANY NEW PROBLEMS WITH YOUR MEDICATIONS? :NO HAVE YOU RECEIVED A VACCINE IN THE PAST 30 DAYS? :NO DO YOU PLAN TO RECEIVE A VACCINE IN THE NEXT 21 DAYS? :NO DO YOU NEED ANY PRESCRIPTION? :NO DO YOU TAKE ANY IMMUNOSUPPRESSIVE MEDICATIONS? :NO DO YOU HAVE ANY KIDNEY OR LIVER DISEASE? 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 :NO ARE YOU BREAST FEEDING? :NO CURRENT MEDICATIONS TAKING AMITRIPTYLINE HCL 10 MG TABLET 1 TABLET AT BEDTIME ORALLY ONCE A DAY TAKING MAGNESIUM OXIDE -MG SUPPLEMENT 400 MG CAPSULE 1 CAPSULE NEEDED ORALLY TID TAKING FAMOTIDINE 40 MG TABLET DIRECTED ORALLY BID TAKING AIMOVIG 140 DOSE 1 INJECTION MONTHLY TAKING PAROXETINE HCL 10 MG TABLET 1 TABLET IN THE MORNING ORALLY ONCE A DAY TAKING TYLENOL EXTRA STRENGTH 500 MG TABLET 1 TABLET NEEDED ORALLY EVERY 6 HRS TAKING EPIPEN 2-DUANE 0.3 MG/0.3ML SOLUTION AUTO-INJECTOR INJECTION DIRECTED TAKING CLONAZEPAM 0.5 MG TABLET 0.5 ORALLY 1/2 TAB IN AM AND 1/4 TAB IN PM TAKING PROBIOTIC CAPSULE 1 TAB(S) ORALLY DAILY, NOTES: ALIGN TAKING ASPIRIN EC 81 MG TABLET DELAYED RELEASE 1 TABLET ORALLY ONCE A DAY TAKING ATORVASTATIN CALCIUM 10 MG TABLET 1 TABLET ORALLY ONCE A DAY TAKING PRIMIDONE 50 MG TABLET ORALLY BID TAKING TOPIRAMATE 100 MG TABLET 1 TABLET ORALLY DAILY TAKING SPIRONOLACTONE 25 MG TABLET 1 TABLET ORALLY DAILY TAKING CALCIUM + D 600-200 MG-UNIT TABLET 1 TABLET ORALLY TWICE A DAY TAKING TORSEMIDE 20 MG TABLET DIRECTED ORALLY 1 TAB Q OTHER DAY,1/2 TAB Q OTHER DAY TAKING NYSTATIN [id number] UNIT/GM POWDER 1 APPLICATION TO AFFECTED AREA EXTERNALLY TWICE A DAY TAKING VITAMIN E 400 UNIT CAPSULE 1 CAPSULE ORALLY ONCE A DAY TAKING IPRATROPIUM-ALBUTEROL 0.5-2.5 (3) MG/3ML SOLUTION 3 ML NEEDED INHALATION EVERY 6 HRS TAKING BUSPIRONE HCL 5 MG TABLET 1 TABLET ORALLY DAILY TAKING POTASSIUM CHLORIDE ER 20 MEQ TABLET EXTENDED RELEASE 1 TABLET WITH FOOD ORALLY ONCE A DAY TAKING VENTOLIN HFA 90 MCG/ACT AEROSOL SOLUTION 2 PUFFS NEEDED INHALATION EVERY 6 HRS TAKING GAVISCON EXTRA STRENGTH 160-105 MG TABLET CHEWABLE 2 TABLETS AFTER MEALS AND AT BEDTIME NEEDED ORALLY FOUR TIMES A DAY TAKING SUCRALFATE 1 GM TABLET 1 TABLET ON AN EMPTY STOMACH ORALLY TWICE A DAY TAKING NYSTATIN 977808 UNIT/ML SUSPENSION 5 ML ORALLY SWISH AND SWALLOW 4 TIMES A DAY, NOTES: PRN TAKING IRBESARTAN 150 MG TABLET 1 TABLET ORALLY ONCE A DAY TAKING ONDANSETRON 4 MG TABLET DISINTEGRATING 1 TABLET ON THE TONGUE AND ALLOW TO DISSOLVE ORALLY EVERY 6 HOURS NEEDED, NOTES: TAKES DAILY TAKING DULERA 200-5 MCG/ACT AEROSOL 2 PUFFS INHALATION TWICE A DAY TAKING OMEPRAZOLE 40 MG CAPSULE DELAYED RELEASE 1 CAPSULE 30 MINUTES BEFORE MORNING MEAL ORALLY ONCE A DAY TAKING SUMATRIPTAN SUCCINATE 100 MG TABLET 1 TABLET AT LEAST 2 HOURS BETWEEN DOSES NEEDED ORALLY TWICE A DAY TAKING TRAMADOL HCL 50 MG TABLET 1 TAB ORALLY (CODE D FOR CHRONIC PAIN ) DAILY NEEDED TAKING LIDODERM 5 % PATCH DIRECTED EXTERNALLY (WORKERS COMP) APPLY 3 PATCH TO PAINFUL AREA OF LOW BACK ON 12 HRS OFF 12 HOURS PRN PAIN. TAKING VOLTAREN 1 % GEL 1 GRAM APPLIED TO AFFECTED AREA EXTERNALLY PRN 4 X DAILY NOT TO EXCEED 4 GMS IN A DAY WORKERS COMP TAKING PILOCARPINE HCL 5 MG TABLET 1 TABLET ORALLY THREE TIMES A DAY TAKING MECLIZINE HCL 25 MG CAPSULE DIRECTED ORALLY NOT-TAKING TIZANIDINE HCL 4 MG TABLET 1 TABLET NEEDED ORALLY BEFORE BEDTIME (WORKERS COMP) NOT-TAKING VITAMIN D 25 MCG (1000 UT) TABLET 1 CAPSULE ORALLY ONCE DAILY NOT-TAKING ARIPIPRAZOLE 2 MG TABLET 1 TABLET ORALLY ONCE A DAY NOT-TAKING LIDOCAINE & ADHESIVE SHEET 5 % KIT DIRECTED EXTERNALLY NOT-TAKING BUPROPION HCL 100 MG TABLET EXTENDED RELEASE 1 TABLET ORALLY DAILY NOT-TAKING FISH OIL DOUBLE STRENGTH 1200 MG CAPSULE 1 CAPSULE ORALLY THREE TIMES DAILY NOT-TAKING ADVAIR HFA 230-21 MCG/ACT AEROSOL 2 PUFFS INHALATION TWICE A DAY NOT-TAKING 28-0.8 MG TABLET ORALLY DAILY NOT-TAKING LOVAZA 1 GM CAPSULE 2 CAPSULES ORALLY TWICE A DAY NOT-TAKING NYSTATIN [id number] UNIT/ML SUSPENSION 4 ML MOUTH/THROAT FOUR TIMES A DAY NOT-TAKING TAMSULOSIN HCL 0.4 MG CAPSULE 1 CAPSULE ORALLY ONCE A DAY NOT-TAKING IMITREX 100 MG TABLET 1 TABLET NEEDED ORALLY DIRECTED PRN MIGRAINES NOT-TAKING RABEPRAZOLE SODIUM 20 MG TABLET DELAYED RELEASE 1 TABLET ORALLY 2 TBS IN ,/1 TAB IN PM NOT-TAKING LYRICA 150 MG CAPSULE 1 CAPSULE ORALLY BID NOT-TAKING LEVOFLOXACIN 250 MG TABLET 1 TABLET ORALLY BID NOT-TAKING GABAPENTIN 600 MG TABLET 1 TABLET ORALLY THREE TIMES A DAY NOT-TAKING BREO ELLIPTA 200-25 MCG/INH AEROSOL POWDER BREATH ACTIVATED 1 PUFF INHALATION ONCE A DAY MEDICATION LIST REVIEWED AND RECONCILED WITH THE PATIENT PAST MEDICAL HISTORY PRIMARY HTN,SECONDARY RENAL HYPERPARATHYROIDISM,CRI STAGE 3,VIT D DEFICIENT,HYPOMAGNISEMIA CKD3, 01/20 RENAL US WITH INCREASED ECHOGENICITY TRAVIS MARCOS EDEMA VIT D DEF HTN HYPOTHYROIDISM ASTHMA, DR [place] 2008, FELL WORKING FOOT TANGLED IN PURSE HANDLES FOR CP CLINIC, WEARS BRACE 05/22 LIVER US DIFFUSE FIBROFATTY INFILTRATION OF THE LIVER 03/22 MRI L SPINE - 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 EPIGASTRIC TENDERNESS - DR JARRETT GI SYR 04/21 L WRIST FX - FISH OBESITY PSEUDOSEIZURES - NEURO/ALI ENDOSCOPY 04/07/20 ALLERGIES IV DYE: ANAPHYLAXIS - ALLERGY BACTRIM: ANAPHYLAXIS - ALLERGY ERYTHROMYCIN: ANAPHYLAXIS - ALLERGY PENICILLIN (FOR ALLERGIES USE ONLY): HIVES - ALLERGY ZITHROMAX: HEADACHES - ALLERGY INDOCIN: HIVES,HEADACHE - ALLERGY TORADOL: HIVES - ALLERGY BEE STINGS: ANAPHYLAXIS - ALLERGY HARD SHELL SEAFOOD: ANAPHYLAXIS - ALLERGY BIAXIN: HALLUCINATIONS - SIDE EFFECTS MUSCLE RELAXERS: SHAKES - SIDE EFFECTS SULFA (FOR ALLERGY USE ONLY): HIVES - ALLERGY LASIX: SWELLING - SIDE EFFECTS BACTROBAN OINTMENT: CAUSES YEAST INFECTION - SIDE EFFECTS LATEX: HIVES, BLISTERS - ALLERGY BETADINE: ANAPHYLAXIS - ALLERGY SOCIAL HISTORY GENERAL: TOBACCO USE ARE YOU A:NONSMOKER LATEX QUESTIONNAIRE LATEX ALLERGY : HAVE YOU EVER DEVELOPED ANY TYPE OF REACTION AFTER HANDLING LATEX PRODUCTS SUCH RUBBER GLOVES, CONDOMS, DIAPHRAGMS, BALLOONS, SOCKS, OR UNDERWEAR?YES KNOWN LATEX ALLERGY - PLEASE INDICATE : HIVES FROM LATEX LATEX ALLERGY : HAVE YOU EVER DEVELOPED ANY TYPE OF REACTION DURING OR AFTER DENTAL APPOINTMENT, VAGINAL/RECTAL EXAMINATION, SURGICAL PROCEDURE, OR ANY OTHER EXPOSURE?NO LATEX RISK : HAVE YOU EVER HAD ANY DIFFICULTY BREATHING OR HIVES AFTER EATING OR HANDLING ANY FRUITS, OR VEGETABLES; SUCH KIWI, BANANAS, STONE FRUITS, OR CHESTNUTSNO LATEX RISK : DO YOU HAVE A PREVIOUS PERSONAL HISTORY OF MORE THAN NINE SURGERIES, SPINA BIFIDA, OR REPEATED CATHERIZATIONS? NO LATEX RISK : ARE YOU FREQUENTLY EXPOSED TO LATEX PRODUCTS IN YOUR OCCUPATION?NO DATE ASKED : 09/08/2020 ALCOHOL USE: OCCASIONAL. ALCOHOL SCREENING DID YOU HAVE A DRINK CONTAINING ALCOHOL IN THE PAST YEAR?YES HOW OFTEN DID YOU HAVE A DRINK CONTAINING ALCOHOL IN THE PAST YEAR?MONTHLY OR LESS (1 POINT) HOW MANY DRINKS DID YOU HAVE ON A TYPICAL DAY WHEN YOU WERE DRINKING IN THE PAST YEAR?1 OR 2 (0 POINTS) HOW OFTEN DID YOU HAVE SIX OR MORE DRINKS ON ONE OCCASION IN THE PAST YEAR?NEVER (0 POINTS) POINTS1 INTERPRETATIONNEGATIVE RECREATIONAL DRUG USE DRUG USE?NO CAFFEINE CAFFEINE USE?NO SEXUAL HX HAD SEX IN THE LAST 12 MONTHS (VAGINAL, ORAL, OR ANAL)?YES WITHMEN ONLY HAVE YOU EVER HAD AN STD?NO HIV / HEP-C SCREENING HIV TEST OFFERED TO PATIENT:NO HEP-C TEST OFFERED TO PATIENT:NO RASTAFARIAN [id number] LANGU[employer] LANGUAGES SPOKEN:BULGARIAN EDUCATION LEVEL OF EDUCATION:COLLEGE LEARNING BARRIERS / SPECIAL NEEDS CHANGE FROM LAST VISIT?NO BARRIERS TO LEARNING?NO HEARING IMPAIRED?NO VISION IMPAIRED?YES :CORRECTIVE LENSES COGNITIVELY IMPAIRED?NO READINESS TO LEARN?YES LEARNING PREFERENCES?NO LEARNING CAPABILITIES PRESENT?YES EMOTIONAL BARRIERS?NO SPECIAL DEVICES?YES :CANE, BRACE LEFT ANKLE BRACE, WALKING STICK 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 DIET: REGULAR. EXERCISE: NONE. MARITAL STATUS: . OTHERS AT HOME: SPOUSE. - PFS REFERRAL NEEDED?NO CLERGY REFERRAL NEEDED?NO PUBLIC HEALTH REFERRAL NEEDED?NO WAS THE PROVIDER NOTIFIED OF ANY PERTINENT INFO?YES HAS THE PATIENT BEEN EDUCATED REGARDING HIS/HER PLAN OF CARE?YES HAS THE PATIENT BEEN EDUCATED REGARDING PAIN, THE RISK FOR PAIN, THE IMPORTANCE OF EFFECTIVE PAIN MANAGEMENT, AND THE PAIN ASSESSMENT PROCESS?YES ADVANCE DIRECTIVE ADVANCE DIRECTIVE DISCUSSED WITH PATIENT:YES PT HAS HCP FOR LEVON HERNANDEZ REVIEW OF SYSTEMS CONSTITUTIONAL: ANY RECENT FEVER NO . CHILLS NO . WEIGHT CHANGE OF UNKNOWN REASONS NO . GASTROENTEROLOGY: NEW UNEXPLAINABLE CHANGES IN BOWEL CONTROL NO . CONSTIPATION NO . GENITOURINARY: ANY NEW CHANGE IN BLADDER CONTROL? NO . NEUROLOGY: NEW ONSET DIZZINESS OR NEUROLOGICAL CHANGES NOT MENTIONED NO . NEW NUMBNESS OR PAIN PATTERNS NOT MENTIONED AND PERTINENT TO TODAY'S VISIT NO . CARDIOLOGY: NEW CHEST PRESSURE NO . PATIENT DENIES NO . RESPIRATORY: UNEXPLAINABLE COUGH NO . NEW SHORTNESS OF BREATH NO . VITAL SIGNS WT 198.4 LBS, WT-KG 89.99 KG, HT 64 IN, BMI 34.05 INDEX, BP 120/67 MM HG, HR 73 /MIN, RR 16 /MIN, TEMP 97.2 F, OXYGEN SAT % 100%, SAFE IN ENV? (Y/N) YES, NA INITIALS VA 09:30, REVIEWED BY: ANA MILLER MA. EXAMINATION GENERAL EXAMINATION: GENERALNO ACUTE DISTRESS, WELL NOURISHED AND HYDRATED. PSYCHAPPROPRIATE MOOD AND AFFECT . LUNGS:CLEAR TO AUSCULTATION BILATERALLY, NO WHEEZES, RHONCHI, RALES. HEART:NO MURMURS, REGULAR RATE AND RHYTHM. BACK:POINT TENDER OVER THORACIC SPINE. ASSESSMENTS THORACIC BACK PAIN - M54.6 (PRIMARY) TREATMENT THORACIC BACK PAIN NOTES: 65-YEAR-OLD FEMALE IN FOR CHRONIC PAIN FOLLOW-UP. GIVEN PRESENTING SYMPTOMS RECOMMEND AN MRI OF THE THORACIC SPINE WITHOUT CONTRAST FOR FURTHER EVALUATION AND FOLLOW-UP POST IMAGING. PATIENT HAS EXPRESSED UNDERSTANDING OF AND WAS IN AGREEMENT WITH TREATMENT PLAN. GIVEN TIME TO ASK QUESTIONS AND EXPRESS CONCERNS. PROCEDURE CODES FA211 ESTABILISHED PATIENT [facility] CHARGE DISPOSITION & COMMUNICATION FOLLOW UP POST IMAGING (REASON: MRI OF THE THORACIC SPINE WITHOUT CONTRAST ) ELECTRONICALLY SIGNED BY JERRY SARAVIA ON 09/09/2020 AT 08:26 AM EDT DISCLAIMER : THIS IS A VISIT SUMMARY EXTRACTED FROM THE [facility] CHART. IT IS NOT A COPY OF THE [facility] PROGRESS NOTE. HARRIET
== END ==
LOC: M PAIN 09:30
PROVIDERS: ATTEND Family Medicine
DX: M54.6 Pain in thoracic spine (principal); G89.29 Other chronic pain; E55.9 Vitamin D deficiency, unspecified; J45.909 Unspecified asthma, uncomplicated; Z86.14 Personal history of Methicillin resistant Staphylococcus aureus infection; Z88.0 Allergy status to penicillin; Z88.1 Allergy status to other antibiotic agents; Z88.2 Allergy status to sulfonamides; Z88.3 Allergy status to other anti-infective agents; Z88.6 Allergy status to analgesic agent; Z88.8 Allergy status to other drugs, medicaments and biological substances; Z91.013 Allergy to seafood; Z91.030 Bee allergy status; Z91.040 Latex allergy status; Z91.041 Radiographic dye allergy status; Z79.82 Long term (current) use of aspirin; Z79.899 Other long term (current) drug therapy

== ENCOUNTER → 2020-11-18 | Outpatient (CLI) | payer OTHER, MEDICARE | LOC: M PAIN 13:00 | PROVIDERS: ATTEND Nurse Practitioner Family | DX: M79.18 Myalgia, other site (principal); N18.30 Chronic kidney disease, stage 3 unspecified; N25.81 Secondary hyperparathyroidism of renal origin; E55.9 Vitamin D deficiency, unspecified; I12.9 Hypertensive chronic kidney disease with stage 1 through stage 4 chronic kidney disease, or unspecified chronic kidney disease; E03.9 Hypothyroidism, unspecified; J45.909 Unspecified asthma, uncomplicated; E66.9 Obesity, unspecified; Z68.33 Body mass index [BMI] 33.0-33.9, adult; Z88.0 Allergy status to penicillin; Z88.1 Allergy status to other antibiotic agents; Z88.2 Allergy status to sulfonamides; Z88.8 Allergy status to other drugs, medicaments and biological substances; Z91.013 Allergy to seafood; Z91.030 Bee allergy status; Z91.041 Radiographic dye allergy status ==

== ENCOUNTER → 2020-12-11 | Outpatient (CLI) | payer MEDICARE, OTHER ==
[~2020-12-11] MED LIST changes: -MAGN400T3; +MAGN400T33
== END ==
LOC: M LABSMTC 09:21
PROVIDERS: ATTEND Anesthesiology
DX: Z01.818 Encounter for other preprocedural examination (principal); Z11.52 Encounter for screening for COVID-19

== ENCOUNTER → 2020-12-16 | Outpatient (CLI) | payer OTHER ==
[~2020-12-16] MED LIST changes: +BUPIVACAINE HCL 0.25% 10ML VIAL As Ordered ONE; +BUPIVACAINE HCL 0.25% 30ML VIAL As Ordered ONE; +TRIAMCINOLONE ACETONIDE SUSP 40 MG/ML VIAL (J3301) As Ordered ONE; +diazePAM 5MG TABLET As Ordered ONE; +oxyCODONE 5MG TAB As Ordered ONE
== END ==
LOC: M PAIN 14:00
PROVIDERS: ATTEND Anesthesiology
DX: M79.18 Myalgia, other site (principal); G47.30 Sleep apnea, unspecified; E55.9 Vitamin D deficiency, unspecified; J45.909 Unspecified asthma, uncomplicated; Z86.14 Personal history of Methicillin resistant Staphylococcus aureus infection; Z88.0 Allergy status to penicillin; Z88.1 Allergy status to other antibiotic agents; Z88.2 Allergy status to sulfonamides; Z88.3 Allergy status to other anti-infective agents; Z88.6 Allergy status to analgesic agent; Z88.8 Allergy status to other drugs, medicaments and biological substances; Z91.013 Allergy to seafood; Z91.030 Bee allergy status; Z91.040 Latex allergy status; Z91.041 Radiographic dye allergy status; Z79.82 Long term (current) use of aspirin; Z79.899 Other long term (current) drug therapy
CPT/HCPCS: 20553; J3301

== ENCOUNTER → 2020-12-25 | Outpatient (REF) | payer MEDICARE, OTHER ==
[~2020-12-25] MED LIST changes: -BUPIVACAINE HCL 0.25% 10ML VIAL As Ordered ONE; -BUPIVACAINE HCL 0.25% 30ML VIAL As Ordered ONE; -TRIAMCINOLONE ACETONIDE SUSP 40 MG/ML VIAL (J3301) As Ordered ONE; -diazePAM 5MG TABLET As Ordered ONE; -oxyCODONE 5MG TAB As Ordered ONE
== END ==
LOC: M LAB REF 12:54
PROVIDERS: ATTEND Nurse Practitioner Family
DX: N20.0 Calculus of kidney (principal)

== ENCOUNTER → 2021-01-19 | Outpatient (CLI) | payer OTHER ==
[~2021-01-19] MED LIST changes: -OMEP-221; +OMEP40CA5; +POTA-151; -POTA20TA6
== END ==
LOC: M PAIN 09:30
PROVIDERS: ATTEND Anesthesiology
DX: M54.50 Low back pain, unspecified (principal); M79.18 Myalgia, other site; I12.9 Hypertensive chronic kidney disease with stage 1 through stage 4 chronic kidney disease, or unspecified chronic kidney disease; N18.30 Chronic kidney disease, stage 3 unspecified; N25.81 Secondary hyperparathyroidism of renal origin; E55.9 Vitamin D deficiency, unspecified; E83.42 Hypomagnesemia; E03.9 Hypothyroidism, unspecified; J45.909 Unspecified asthma, uncomplicated; E66.9 Obesity, unspecified; Z68.33 Body mass index [BMI] 33.0-33.9, adult; Z79.82 Long term (current) use of aspirin; Z79.899 Other long term (current) drug therapy; Z88.0 Allergy status to penicillin; Z88.1 Allergy status to other antibiotic agents; Z88.2 Allergy status to sulfonamides; Z88.8 Allergy status to other drugs, medicaments and biological substances; Z91.040 Latex allergy status; Z91.041 Radiographic dye allergy status; Z91.013 Allergy to seafood; Z91.030 Bee allergy status

== ENCOUNTER → 2021-03-09 | Outpatient (CLI) | payer OTHER | LOC: M RAD 12:38 | PROVIDERS: ATTEND Anesthesiology | DX: M51.24 Other intervertebral disc displacement, thoracic region (principal); M47.814 Spondylosis without myelopathy or radiculopathy, thoracic region; M25.78 Osteophyte, vertebrae; M48.04 Spinal stenosis, thoracic region; M54.9 Dorsalgia, unspecified ==

== ENCOUNTER → 2021-03-13 | Outpatient (REF) | payer MEDICARE, OTHER | LOC: M LAB REF 12:42 | PROVIDERS: ATTEND Nurse Practitioner Family | DX: N39.0 Urinary tract infection, site not specified (principal) ==

== ENCOUNTER 2021-07-13 17:53 | Emergency (ER) | payer MEDICARE, OTHER ==
[~2021-07-13] VITALS: Ht 162.6 cm; Wt 90.9 kg
[~2021-07-13 17:53] MED LIST changes: -ZONI100C17 PO; +ZONI100C67 PO
[2021-07-13 17:54] VITALS: BP 144/68
[2021-07-13 20:28] LABS: BASO % 0.5 % (0.0-1.0); EOS # 0.1 10^3/uL (0.0-0.5); EOS % 0.8 % (0.0-3.0); HEMATOCRIT 40.6 % (36.0-47.0); HEMOGLOBIN 13.3 g/dl (12.0-15.5); LYMPH # 2.2 10^3/uL (1.5-5.0); LYMPH % 34.9 % (24.0-44.0); MEAN CORPUSCULAR HEMOGLOBIN 32.6 pg (27.0-33.0); MEAN CORPUSCULAR HGB CONC 32.8 g/dl (32.0-36.5); MEAN CORPUSCULAR VOLUME 99.5 fl (80.0-96.0); MONO # 0.5 10^3/uL (0.0-0.8); MONO % 8.4 % (2.0-8.0); NEUTROPHILS # 3.5 10^3/uL (1.5-8.5); NEUTROPHILS % 55.1 % (36.0-66.0); PLATELET COUNT, AUTOMATED 160 10^3/uL (150-450); RED BLOOD COUNT 4.08 10^6/uL (4.00-5.40); WHITE BLOOD COUNT 6.3 10^3/uL (4.0-10.0)
[2021-07-13 20:54] LABS: ALBUMIN 3.9 GM/DL (3.2-5.2); BILIRUBIN,DIRECT 0.1 MG/DL (0.0-0.2); BILIRUBIN,TOTAL 0.5 MG/DL (0.2-1.0); CALCIUM LEVEL 9.2 MG/DL (8.8-10.2); CREATININE FOR GFR 1.32 MG/DL (0.55-1.30); POTASSIUM SERUM 4.1 MEQ/L (3.5-5.1); TOTAL PROTEIN 6.9 GM/DL (6.4-8.2)
[2021-07-13] MEDS ORDERED: traMADol 50 MG TAB PO ONE (23:15)
== END 2021-07-14 01:11 | disposition home or self-care (01) ==
LOC: M ED 17:53
DX: K57.90 Diverticulosis of intestine, part unspecified, without perforation or abscess without bleeding (principal); N20.2 Calculus of kidney with calculus of ureter; I10 Essential (primary) hypertension; N18.30 Chronic kidney disease, stage 3 unspecified; G43.909 Migraine, unspecified, not intractable, without status migrainosus; Z87.442 Personal history of urinary calculi; Z79.51 Long term (current) use of inhaled steroids; Z79.899 Other long term (current) drug therapy; Z91.041 Radiographic dye allergy status; Z91.040 Latex allergy status; Z91.030 Bee allergy status; Z88.0 Allergy status to penicillin; Z88.2 Allergy status to sulfonamides; Z88.8 Allergy status to other drugs, medicaments and biological substances

== ENCOUNTER → 2021-12-22 | Outpatient (REF) | payer MEDICARE, OTHER ==
[~2021-12-22] MED LIST changes: -DULE200A; +MOME13HF7
== END ==
LOC: M PLALAB 13:13
PROVIDERS: ATTEND Advanced Practice Midwife
DX: Z12.4 Encounter for screening for malignant neoplasm of cervix (principal)
CPT/HCPCS: 87624; G0123

== ENCOUNTER → 2021-12-22 | Outpatient (CLI) | payer MEDICARE, OTHER | LOC: M WHC 11:04 | PROVIDERS: ATTEND Advanced Practice Midwife | DX: Z12.31 Encounter for screening mammogram for malignant neoplasm of breast (principal) ==

== ENCOUNTER → 2022-01-25 | Outpatient (CLI) | payer MEDICARE, OTHER | LOC: M LABSMTC 09:23 | PROVIDERS: ATTEND Anesthesiology | DX: Z01.812 Encounter for preprocedural laboratory examination (principal); Z11.52 Encounter for screening for COVID-19 ==

== ENCOUNTER → 2022-01-28 | Outpatient (CLI) | payer OTHER ==
[~2022-01-28] MED LIST changes: +BUPIVACAINE HCL 0.25% 10ML VIAL As Ordered ONE; +BUPIVACAINE HCL 0.25% 30ML VIAL As Ordered ONE; +TRIAMCINOLONE ACETONIDE SUSP 40MG/ML 1ML VIAL As Ordered ONE; +diazePAM 5MG TABLET As Ordered ONE; +oxyCODONE 5MG TAB As Ordered ONE
== END ==
LOC: M PAIN 08:15
PROVIDERS: ATTEND Anesthesiology
DX: M79.10 Myalgia, unspecified site (principal); G89.29 Other chronic pain; G47.30 Sleep apnea, unspecified; I10 Essential (primary) hypertension; E55.9 Vitamin D deficiency, unspecified; J45.909 Unspecified asthma, uncomplicated; Z88.0 Allergy status to penicillin; Z88.1 Allergy status to other antibiotic agents; Z88.2 Allergy status to sulfonamides; Z88.3 Allergy status to other anti-infective agents; Z88.6 Allergy status to analgesic agent; Z88.8 Allergy status to other drugs, medicaments and biological substances; Z91.013 Allergy to seafood; Z91.030 Bee allergy status; Z91.040 Latex allergy status; Z79.899 Other long term (current) drug therapy
CPT/HCPCS: 20552; J3301

== ENCOUNTER → 2022-03-01 | Outpatient (CLI) | payer OTHER ==
[~2022-03-01] MED LIST changes: -BUPIVACAINE HCL 0.25% 10ML VIAL As Ordered ONE; -BUPIVACAINE HCL 0.25% 30ML VIAL As Ordered ONE; -TRIAMCINOLONE ACETONIDE SUSP 40MG/ML 1ML VIAL As Ordered ONE; -diazePAM 5MG TABLET As Ordered ONE; -oxyCODONE 5MG TAB As Ordered ONE
== END ==
LOC: M PAIN 09:45
PROVIDERS: ATTEND Nurse Practitioner Family
DX: M79.10 Myalgia, unspecified site (principal); G89.29 Other chronic pain; G47.30 Sleep apnea, unspecified; I10 Essential (primary) hypertension; E55.9 Vitamin D deficiency, unspecified; J45.909 Unspecified asthma, uncomplicated; Z86.14 Personal history of Methicillin resistant Staphylococcus aureus infection; Z88.0 Allergy status to penicillin; Z88.1 Allergy status to other antibiotic agents; Z88.2 Allergy status to sulfonamides; Z88.3 Allergy status to other anti-infective agents; Z88.6 Allergy status to analgesic agent; Z88.8 Allergy status to other drugs, medicaments and biological substances; Z91.013 Allergy to seafood; Z91.030 Bee allergy status; Z91.040 Latex allergy status; Z91.041 Radiographic dye allergy status; Z79.899 Other long term (current) drug therapy

== ENCOUNTER → 2022-03-26 | Outpatient (CLI) | payer MEDICARE, OTHER | LOC: M PAIN 09:15 | PROVIDERS: ATTEND Nurse Practitioner Family | DX: M51.16 Intervertebral disc disorders with radiculopathy, lumbar region (principal); M46.1 Sacroiliitis, not elsewhere classified; G89.29 Other chronic pain; G47.30 Sleep apnea, unspecified; I10 Essential (primary) hypertension; E55.9 Vitamin D deficiency, unspecified; J45.909 Unspecified asthma, uncomplicated; Z86.14 Personal history of Methicillin resistant Staphylococcus aureus infection; Z88.0 Allergy status to penicillin; Z88.1 Allergy status to other antibiotic agents; Z88.2 Allergy status to sulfonamides; Z88.3 Allergy status to other anti-infective agents; Z88.6 Allergy status to analgesic agent; Z88.8 Allergy status to other drugs, medicaments and biological substances; Z91.030 Bee allergy status; Z91.040 Latex allergy status; Z91.041 Radiographic dye allergy status; Z79.899 Other long term (current) drug therapy ==

== ENCOUNTER → 2022-06-15 | Outpatient (CLI) | payer OTHER | LOC: M PAIN 09:45 | PROVIDERS: ATTEND Nurse Practitioner Family | DX: M46.1 Sacroiliitis, not elsewhere classified (principal); G89.29 Other chronic pain; I10 Essential (primary) hypertension; E55.9 Vitamin D deficiency, unspecified; J45.909 Unspecified asthma, uncomplicated; Z86.14 Personal history of Methicillin resistant Staphylococcus aureus infection; Z88.0 Allergy status to penicillin; Z88.1 Allergy status to other antibiotic agents; Z88.2 Allergy status to sulfonamides; Z88.3 Allergy status to other anti-infective agents; Z88.6 Allergy status to analgesic agent; Z88.8 Allergy status to other drugs, medicaments and biological substances; Z91.013 Allergy to seafood; Z91.030 Bee allergy status; Z91.040 Latex allergy status; Z91.041 Radiographic dye allergy status; Z79.899 Other long term (current) drug therapy ==

== ENCOUNTER → 2022-06-30 | Outpatient (REF) | payer MEDICARE, OTHER | LOC: M LAB REF 17:21 | PROVIDERS: ATTEND Nurse Practitioner Family | DX: D69.2 Other nonthrombocytopenic purpura (principal) ==

== ENCOUNTER → 2022-08-02 | Outpatient (CLI) | payer OTHER | LOC: M PAIN 09:00 | PROVIDERS: ATTEND Nurse Practitioner Family | DX: M46.1 Sacroiliitis, not elsewhere classified (principal); G89.29 Other chronic pain; I10 Essential (primary) hypertension; E55.9 Vitamin D deficiency, unspecified; J45.909 Unspecified asthma, uncomplicated; Z86.14 Personal history of Methicillin resistant Staphylococcus aureus infection; Z88.0 Allergy status to penicillin; Z88.1 Allergy status to other antibiotic agents; Z88.2 Allergy status to sulfonamides; Z88.3 Allergy status to other anti-infective agents; Z88.6 Allergy status to analgesic agent; Z88.8 Allergy status to other drugs, medicaments and biological substances; Z91.013 Allergy to seafood; Z91.030 Bee allergy status; Z91.040 Latex allergy status; Z91.041 Radiographic dye allergy status; Z79.51 Long term (current) use of inhaled steroids; Z79.82 Long term (current) use of aspirin; Z79.899 Other long term (current) drug therapy ==

== ENCOUNTER 2022-08-16 17:56 | Emergency (ER) | payer MEDICARE, OTHER, SELFPAY ==
[~2022-08-16] VITALS: Ht 162.6 cm; Wt 99.4 kg
[2022-08-16 17:56] VITALS: BP 160/90; TEMP 97.1; O2SAT 100
== END 2022-08-16 22:31 | disposition left against medical advice (07) ==
LOC: M ED 17:56
DX: Z53.21 Procedure and treatment not carried out due to patient leaving prior to being seen by health care provider (principal)

== ENCOUNTER → 2022-10-18 | Outpatient (REF) | payer MEDICARE, OTHER ==
[2022-10-18 13:40] LABS: AMORPHOUS SEDIMENT SMALL (NEGATIVE); APPEARANCE, URINE CLOUDY (CLEAR); BACTERIA, URINE AUTO NEGATIVE (NEGATIVE); BILIRUBIN, URINE AUTO NEGATIVE (NEGATIVE); BLOOD, URINE BLOOD NEGATIVE (NEGATIVE); COLOR, URINE YELLOW (YELLOW); GLUCOSE, URINE (UA) AUTO NEGATIVE (NEGATIVE); KETONE, URINE AUTO NEGATIVE (NEGATIVE); LEUKOCYTE ESTERASE, URINE AUTO TRACE (NEGATIVE); NITRITE, URINE AUTO NEGATIVE (NEGATIVE); PROTEIN, URINE AUTO NEGATIVE (NEGATIVE); RBC, URINE AUTO 0 /HPF (0-3); SPECIFIC GRAVITY URINE AUTO 1.012 (1.002-1.035); SQUAMOUS EPITHELIAL CELL UR AU 1 /HPF (0-6); UROBILINOGEN, URINE AUTO 0.2 mg/dL (0.0-2.0); WBC, URINE AUTO 4 /HPF (0-3)
== END ==
LOC: M SMT 13:07
PROVIDERS: ATTEND Physician Assistant
DX: R82.90 Unspecified abnormal findings in urine (principal)

== ENCOUNTER → 2022-11-09 | Outpatient (CLI) | payer MEDICARE, OTHER ==
[~2022-11-09] MED LIST changes: +LIDOCAINE 1% SDV 30ML VIAL As Ordered ONE; +TRIAMCINOLONE ACETONIDE SUSP 40MG/ML 1ML VIAL As Ordered ONE; +diazePAM 5MG TABLET As Ordered ONE; +oxyCODONE 5MG TAB As Ordered ONE
== END ==
LOC: M PAIN 12:45
PROVIDERS: ATTEND Anesthesiology
DX: M46.1 Sacroiliitis, not elsewhere classified (principal); G89.29 Other chronic pain; Z86.14 Personal history of Methicillin resistant Staphylococcus aureus infection; Z80.42 Family history of malignant neoplasm of prostate; Z80.52 Family history of malignant neoplasm of bladder; Z88.0 Allergy status to penicillin; Z88.1 Allergy status to other antibiotic agents; Z88.2 Allergy status to sulfonamides; Z88.3 Allergy status to other anti-infective agents; Z88.6 Allergy status to analgesic agent; Z88.8 Allergy status to other drugs, medicaments and biological substances; Z91.040 Latex allergy status; Z91.041 Radiographic dye allergy status; Z79.82 Long term (current) use of aspirin; Z79.899 Other long term (current) drug therapy
CPT/HCPCS: G0260; J0665; J3301

== ENCOUNTER → 2022-12-20 | Outpatient (CLI) | payer MEDICARE, OTHER ==
[~2022-12-20] MED LIST changes: -LIDOCAINE 1% SDV 30ML VIAL As Ordered ONE; -TRIAMCINOLONE ACETONIDE SUSP 40MG/ML 1ML VIAL As Ordered ONE; -diazePAM 5MG TABLET As Ordered ONE; -oxyCODONE 5MG TAB As Ordered ONE
== END ==
LOC: M WHC 10:06
PROVIDERS: ATTEND Nurse Practitioner Family
DX: Z12.31 Encounter for screening mammogram for malignant neoplasm of breast (principal)

== ENCOUNTER → 2023-03-07 | Outpatient (CLI) | payer OTHER, MEDICARE ==
[~2023-03-07] MED LIST changes: +IRBE150T27 PO; -IRBE150T7 PO
== END ==
LOC: M PAIN 11:15
PROVIDERS: ATTEND Nurse Practitioner Family
DX: M46.1 Sacroiliitis, not elsewhere classified (principal); Z79.891 Long term (current) use of opiate analgesic; G89.29 Other chronic pain; I12.9 Hypertensive chronic kidney disease with stage 1 through stage 4 chronic kidney disease, or unspecified chronic kidney disease; N18.30 Chronic kidney disease, stage 3 unspecified; E55.9 Vitamin D deficiency, unspecified; E03.9 Hypothyroidism, unspecified; J45.909 Unspecified asthma, uncomplicated; E66.9 Obesity, unspecified; Z68.41 Body mass index [BMI] 40.0-44.9, adult; Z88.2 Allergy status to sulfonamides; Z88.0 Allergy status to penicillin; Z88.1 Allergy status to other antibiotic agents; Z88.8 Allergy status to other drugs, medicaments and biological substances; Z91.041 Radiographic dye allergy status; Z91.030 Bee allergy status; Z91.013 Allergy to seafood; Z91.040 Latex allergy status

== ENCOUNTER → 2023-04-29 | Outpatient (CLI) | payer OTHER, MEDICARE ==
[~2023-04-29] MED LIST changes: -KLON0.5T PO; +KLON0.5T8 PO
== END ==
LOC: M PAIN 11:00
PROVIDERS: ATTEND Nurse Practitioner Family
DX: M46.1 Sacroiliitis, not elsewhere classified (principal); I10 Essential (primary) hypertension; E03.9 Hypothyroidism, unspecified; J45.909 Unspecified asthma, uncomplicated; G47.30 Sleep apnea, unspecified; Z99.89 Dependence on other enabling machines and devices; Z79.01 Long term (current) use of anticoagulants; Z79.02 Long term (current) use of antithrombotics/antiplatelets; Z79.1 Long term (current) use of non-steroidal anti-inflammatories (NSAID); Z79.891 Long term (current) use of opiate analgesic; Z79.899 Other long term (current) drug therapy; Z88.0 Allergy status to penicillin; Z88.1 Allergy status to other antibiotic agents; Z88.2 Allergy status to sulfonamides; Z88.8 Allergy status to other drugs, medicaments and biological substances; Z91.030 Bee allergy status; Z91.013 Allergy to seafood; Z91.040 Latex allergy status; Z91.041 Radiographic dye allergy status; Z91.048 Other nonmedicinal substance allergy status

== ENCOUNTER 2023-06-08 01:27 | Emergency (ER) | payer MEDICARE, OTHER ==
[~2023-06-08] VITALS: Ht 162.6 cm; Wt 114.1 kg
[2023-06-08 01:28] VITALS: BP 169/77; TEMP 96.5; O2SAT 98
[2023-06-08 01:59] LABS: BASO % 0.4 % (0.0-1.0); EOS # 0.1 10^3/uL (0.0-0.5); EOS % 1.1 % (0.0-3.0); HEMATOCRIT 38.6 % (36.0-47.0); LYMPH # 2.6 10^3/uL (1.5-5.0); LYMPH % 35.9 % (24.0-44.0); MEAN CORPUSCULAR HGB CONC 33.7 g/dl (32.0-36.5); MEAN CORPUSCULAR VOLUME 95.1 fl (80.0-96.0); MONO # 0.7 10^3/uL (0.0-0.8); MONO % 9.7 % (2.0-8.0); NEUTROPHILS # 3.9 10^3/uL (1.5-8.5); NEUTROPHILS % 52.6 % (36.0-66.0); PLATELET COUNT, AUTOMATED 163 10^3/uL (150-450); RED BLOOD COUNT 4.06 10^6/uL (4.00-5.40); WHITE BLOOD COUNT 7.4 10^3/uL (4.0-10.0)
[2023-06-08 02:25] LABS: ALBUMIN 3.7 G/DL (3.2-5.2); BILIRUBIN,DIRECT 0.2 MG/DL (<0.4); BILIRUBIN,TOTAL 0.6 MG/DL (0.3-1.2); CALCIUM LEVEL 9.3 MG/DL (8.3-10.6); CREATININE FOR GFR 1.09 MG/DL (0.55-1.30); GLOMERULAR FILTRATION RATE 53.3 (>45); TOTAL PROTEIN 6.3 G/DL (5.7-8.2)
[2023-06-08] MEDS: ACETAMINOPHEN *IV* 1,000 MG in IV 1 EA IV ONE (03:53)
== END 2023-06-08 05:49 | disposition home or self-care (01) ==
LOC: M ED 01:27
DX: R10.9 Unspecified abdominal pain (principal); E55.9 Vitamin D deficiency, unspecified; I10 Essential (primary) hypertension; N18.30 Chronic kidney disease, stage 3 unspecified; Z87.442 Personal history of urinary calculi; Z88.0 Allergy status to penicillin; Z88.1 Allergy status to other antibiotic agents; Z88.2 Allergy status to sulfonamides; Z88.8 Allergy status to other drugs, medicaments and biological substances; Z91.040 Latex allergy status; Z91.041 Radiographic dye allergy status; Z91.048 Other nonmedicinal substance allergy status; Z79.52 Long term (current) use of systemic steroids; Z79.82 Long term (current) use of aspirin; Z79.02 Long term (current) use of antithrombotics/antiplatelets; Z79.83 Long term (current) use of bisphosphonates; Z79.811 Long term (current) use of aromatase inhibitors; Z79.810 Long term (current) use of selective estrogen receptor modulators (SERMs); Z79.899 Other long term (current) drug therapy
CPT/HCPCS: 74176; 80048; 80076; 81001; 83690; 85025; 96365; 96366; 99282; J0131

== ENCOUNTER → 2023-06-14 | Outpatient (CLI) | payer MEDICARE, OTHER ==
[~2023-06-14] MED LIST changes: +ARIP1TAB4 PO; +BISM262O49; +CARV6.25 PO; +DILT180C38 PO; +ELIQ5TAB PO; -FAMO40TA3; +FAMO40TA3 PO; -MAGN400T33; +MAGN400T33 PO; +NITR0.4S14; -OMEP40CA5; +OMEP40CA5 PO; -PARO10TA3; +PARO10TA3 PO; +PARO30TA4 PO; -POTA-151; +POTA-151 PO; +POTA4.25 PO; -PREN27TA3; +PREN27TA3 PO; +SALA1TAB PO; -SUCR1TAB56; +SUCR1TAB56 PO; +TAMS1CAP17 PO
[2023-06-14 17:53] LABS: APPEARANCE, URINE HAZY (CLEAR); BACTERIA, URINE AUTO NEGATIVE (NEGATIVE); BILIRUBIN, URINE AUTO NEGATIVE (NEGATIVE); BLOOD, URINE BLOOD NEGATIVE (NEGATIVE); COLOR, URINE YELLOW (YELLOW); GLUCOSE, URINE (UA) AUTO NEGATIVE (NEGATIVE); KETONE, URINE AUTO NEGATIVE (NEGATIVE); LEUKOCYTE ESTERASE, URINE AUTO NEGATIVE (NEGATIVE); NITRITE, URINE AUTO NEGATIVE (NEGATIVE); PROTEIN, URINE AUTO NEGATIVE (NEGATIVE); RBC, URINE AUTO 0 /HPF (0-3); SPECIFIC GRAVITY URINE AUTO 1.011 (1.002-1.035); SQUAMOUS EPITHELIAL CELL UR AU 3 /HPF (0-6); UROBILINOGEN, URINE AUTO 0.2 mg/dL (0.0-2.0); WBC, URINE AUTO 0 /HPF (0-3)
== END ==
LOC: M PLAIMG 14:32
PROVIDERS: ATTEND Urology
DX: N20.0 Calculus of kidney (principal)

== ENCOUNTER → 2023-08-19 | Outpatient (CLI) | payer MEDICARE, OTHER ==
[~2023-08-19] MED LIST changes: -AZEL0.055; +AZEL1SPR4
== END ==
LOC: M RAD 14:04
PROVIDERS: ATTEND Physician Assistant
DX: N20.0 Calculus of kidney (principal)

== ENCOUNTER → 2023-08-19 | Outpatient (REF) | payer MEDICARE, OTHER ==
[2023-08-19 17:51] LABS: AMORPHOUS SEDIMENT SMALL (NEGATIVE); APPEARANCE, URINE CLOUDY (CLEAR); BACTERIA, URINE AUTO NEGATIVE (NEGATIVE); BILIRUBIN, URINE AUTO NEGATIVE (NEGATIVE); BLOOD, URINE BLOOD NEGATIVE (NEGATIVE); COLOR, URINE YELLOW (YELLOW); GLUCOSE, URINE (UA) AUTO NEGATIVE (NEGATIVE); KETONE, URINE AUTO NEGATIVE (NEGATIVE); LEUKOCYTE ESTERASE, URINE AUTO 1+ (NEGATIVE); NITRITE, URINE AUTO NEGATIVE (NEGATIVE); PROTEIN, URINE AUTO NEGATIVE (NEGATIVE); RBC, URINE AUTO 1 /HPF (0-3); SPECIFIC GRAVITY URINE AUTO 1.016 (1.002-1.035); SQUAMOUS EPITHELIAL CELL UR AU 6 /HPF (0-6); UROBILINOGEN, URINE AUTO 0.2 mg/dL (0.0-2.0); WBC, URINE AUTO 9 /HPF (0-3)
== END ==
LOC: M SMT 16:46
PROVIDERS: ATTEND Physician Assistant
DX: N20.0 Calculus of kidney (principal)

== ENCOUNTER 2023-08-30 16:17 | Emergency (ER) | payer MEDICARE, OTHER ==
[~2023-08-30] VITALS: Ht 162.6 cm; Wt 113.3 kg
[2023-08-30 16:55] LABS: APPEARANCE, URINE HAZY (CLEAR); BACTERIA, URINE AUTO NEGATIVE (NEGATIVE); BILIRUBIN, URINE AUTO NEGATIVE (NEGATIVE); BLOOD, URINE BLOOD NEGATIVE (NEGATIVE); COLOR, URINE AMBER (YELLOW); GLUCOSE, URINE (UA) AUTO NEGATIVE (NEGATIVE); KETONE, URINE AUTO NEGATIVE (NEGATIVE); LEUKOCYTE ESTERASE, URINE AUTO 2+ (NEGATIVE); MUCUS, URINE SMALL (NEGATIVE); NITRITE, URINE AUTO NEGATIVE (NEGATIVE); PROTEIN, URINE AUTO NEGATIVE (NEGATIVE); RBC, URINE AUTO 2 /HPF (0-3); SPECIFIC GRAVITY URINE AUTO 1.018 (1.002-1.035); SQUAMOUS EPITHELIAL CELL UR AU 1 /HPF (0-6); UROBILINOGEN, URINE AUTO 0.2 mg/dL (0.0-2.0); WBC, URINE AUTO 18 /HPF (0-3)
[2023-08-30] MEDS: ONDANSETRON 4MG 2ML VIAL IV ONE (17:39)
[2023-08-30] MEDS: NS 500 ML IV ONE (17:39)
[2023-08-30] MEDS: MORPHINE 4 MG/ML 1ML VIAL IV ONE (17:40)
[2023-08-30 17:42] LABS: BASO % 0.3 % (0.0-1.0); EOS % 0.6 % (0.0-3.0); HEMATOCRIT 39.3 % (36.0-47.0); LYMPH # 1.4 10^3/uL (1.5-5.0); LYMPH % 21.8 % (24.0-44.0); MEAN CORPUSCULAR HEMOGLOBIN 32.2 pg (27.0-33.0); MEAN CORPUSCULAR HGB CONC 33.1 g/dl (32.0-36.5); MEAN CORPUSCULAR VOLUME 97.3 fl (80.0-96.0); MONO # 0.6 10^3/uL (0.0-0.8); NEUTROPHILS # 4.4 10^3/uL (1.5-8.5); PLATELET COUNT, AUTOMATED 177 10^3/uL (150-450); RED BLOOD COUNT 4.04 10^6/uL (4.00-5.40); WHITE BLOOD COUNT 6.5 10^3/uL (4.0-10.0)
[2023-08-30 18:48] LABS: ALBUMIN 3.5 G/DL (3.2-5.2); BILIRUBIN,DIRECT 0.1 MG/DL (<0.4); BILIRUBIN,TOTAL 0.4 MG/DL (0.3-1.2); TOTAL PROTEIN 6.3 G/DL (5.7-8.2)
[2023-08-30] MEDS: ACETAMINOPHEN *IV* 1,000 MG in IV 1 EA IV ONE (19:11)
[2023-08-30 20:24] VITALS: BP 151/70; TEMP 96.6; O2SAT 94
== END 2023-08-30 20:20 | disposition home or self-care (01) ==
LOC: M ED 16:17
DX: N20.0 Calculus of kidney (principal); Z88.0 Allergy status to penicillin; Z88.1 Allergy status to other antibiotic agents; Z88.2 Allergy status to sulfonamides; Z88.8 Allergy status to other drugs, medicaments and biological substances; Z91.040 Latex allergy status; Z91.041 Radiographic dye allergy status
CPT/HCPCS: 74176; 80047; 80076; 81001; 83690; 85025; 87086; 96361; 96365; 96375; 99284; J0131; J2405

== ENCOUNTER → 2023-09-02 | Outpatient (CLI) | payer OTHER | LOC: M PAIN 09:45 | PROVIDERS: ATTEND Nurse Practitioner Family | DX: M46.1 Sacroiliitis, not elsewhere classified (principal); Z79.891 Long term (current) use of opiate analgesic; G89.29 Other chronic pain; I12.9 Hypertensive chronic kidney disease with stage 1 through stage 4 chronic kidney disease, or unspecified chronic kidney disease; N18.30 Chronic kidney disease, stage 3 unspecified; N25.81 Secondary hyperparathyroidism of renal origin; E55.9 Vitamin D deficiency, unspecified; E03.9 Hypothyroidism, unspecified; J45.909 Unspecified asthma, uncomplicated; E66.9 Obesity, unspecified; I48.91 Unspecified atrial fibrillation; Z68.41 Body mass index [BMI] 40.0-44.9, adult; Z79.01 Long term (current) use of anticoagulants; Z79.899 Other long term (current) drug therapy; Z88.2 Allergy status to sulfonamides; Z88.0 Allergy status to penicillin; Z88.1 Allergy status to other antibiotic agents; Z88.8 Allergy status to other drugs, medicaments and biological substances; Z91.013 Allergy to seafood; Z91.040 Latex allergy status; Z91.041 Radiographic dye allergy status ==

== ENCOUNTER → 2023-12-05 | Outpatient (CLI) | payer OTHER ==
[~2023-12-05] MED LIST changes: +GABA-1490 PO; -GABA600T4 PO
== END ==
LOC: M PAIN 11:30
PROVIDERS: ATTEND Nurse Practitioner Family
DX: M46.1 Sacroiliitis, not elsewhere classified (principal); G89.29 Other chronic pain; I12.9 Hypertensive chronic kidney disease with stage 1 through stage 4 chronic kidney disease, or unspecified chronic kidney disease; N18.30 Chronic kidney disease, stage 3 unspecified; E55.9 Vitamin D deficiency, unspecified; E83.42 Hypomagnesemia; N25.81 Secondary hyperparathyroidism of renal origin; E03.9 Hypothyroidism, unspecified; J45.909 Unspecified asthma, uncomplicated; I48.91 Unspecified atrial fibrillation; Z79.01 Long term (current) use of anticoagulants; Z79.899 Other long term (current) drug therapy; Z79.891 Long term (current) use of opiate analgesic

== ENCOUNTER → 2024-02-28 | Outpatient (CLI) | payer OTHER ==
[~2024-02-28] MED LIST changes: -ADV250INH INH; +ADVA1AER9 INH; -ALIG4CAP PO; +ALIG4CAP3 PO; -BISM262O49; +BISM262O49 PO; +ISOVUE-M 300 61% 15ML VIAL As Ordered ONE; +LIDOCAINE 1% SDV 30ML VIAL As Ordered ONE; -MOME13HF7; +MOME13HF7 INH; -NITR0.4S14; +NITR0.4S14 SL; +TRIAMCINOLONE ACETONIDE SUSP 40MG/ML 1ML VIAL As Ordered ONE; -VENTAER; +VENTAER INH; +diazePAM 5MG TABLET As Ordered ONE; +oxyCODONE 5MG TAB As Ordered ONE
== END ==
LOC: M PAIN 12:30
PROVIDERS: ATTEND Anesthesiology
DX: M46.1 Sacroiliitis, not elsewhere classified (principal); G89.29 Other chronic pain; N18.30 Chronic kidney disease, stage 3 unspecified; I12.9 Hypertensive chronic kidney disease with stage 1 through stage 4 chronic kidney disease, or unspecified chronic kidney disease; E03.9 Hypothyroidism, unspecified; J45.909 Unspecified asthma, uncomplicated; Z79.01 Long term (current) use of anticoagulants; Z79.899 Other long term (current) drug therapy; Z79.891 Long term (current) use of opiate analgesic; Z88.0 Allergy status to penicillin; Z88.2 Allergy status to sulfonamides; Z88.8 Allergy status to other drugs, medicaments and biological substances; Z91.041 Radiographic dye allergy status; Z91.013 Allergy to seafood; Z88.1 Allergy status to other antibiotic agents
CPT/HCPCS: G0260; J0665; J3301; Q9967

== ENCOUNTER 2024-03-12 08:01 | Day surgery (SDC) | payer MEDICARE, OTHER ==
[~2024-03-12] VITALS: Ht 162.6 cm; Wt 115.8 kg
[~2024-03-12 08:01] MED LIST changes: -ISOVUE-M 300 61% 15ML VIAL As Ordered ONE; -LIDOCAINE 1% SDV 30ML VIAL As Ordered ONE; -TRIAMCINOLONE ACETONIDE SUSP 40MG/ML 1ML VIAL As Ordered ONE; -diazePAM 5MG TABLET As Ordered ONE; -oxyCODONE 5MG TAB As Ordered ONE
[2024-03-12] MEDS ORDERED: propofoL 200 MG/20 ML VIAL As Ordered ONE (08:21)
[2024-03-12] MEDS ORDERED: LIDOCAINE 2% 100MG/5ML SDV (FOR ANES.) As Ordered ONE (08:21)
[2024-03-12 09:06] VITALS: TEMP 97.6
[2024-03-12 09:24] VITALS: BP 115/61; O2SAT 94
== END 2024-03-12 09:28 | disposition home or self-care (01) ==
LOC: M OPP 08:01
PROVIDERS: ATTEND Internal Medicine Gastroenterology
DX: Z12.11 Encounter for screening for malignant neoplasm of colon (principal); Z86.0100 Personal history of colon polyps, unspecified; K64.0 First degree hemorrhoids; K57.30 Diverticulosis of large intestine without perforation or abscess without bleeding; I48.91 Unspecified atrial fibrillation; I10 Essential (primary) hypertension; E78.00 Pure hypercholesterolemia, unspecified; K21.9 Gastro-esophageal reflux disease without esophagitis; M19.90 Unspecified osteoarthritis, unspecified site; M79.7 Fibromyalgia; F41.9 Anxiety disorder, unspecified; F32.A Depression, unspecified; G43.909 Migraine, unspecified, not intractable, without status migrainosus; J45.909 Unspecified asthma, uncomplicated; G47.33 Obstructive sleep apnea (adult) (pediatric); Z99.89 Dependence on other enabling machines and devices; Z88.0 Allergy status to penicillin; Z88.1 Allergy status to other antibiotic agents; Z88.2 Allergy status to sulfonamides; Z88.6 Allergy status to analgesic agent; Z88.8 Allergy status to other drugs, medicaments and biological substances; Z91.013 Allergy to seafood; Z91.030 Bee allergy status; Z91.040 Latex allergy status; Z91.041 Radiographic dye allergy status; Z91.048 Other nonmedicinal substance allergy status; Z79.01 Long term (current) use of anticoagulants; Z79.899 Other long term (current) drug therapy

== ENCOUNTER → 2024-03-27 | Outpatient (CLI) | payer OTHER | LOC: M PAIN 14:30 | PROVIDERS: ATTEND Nurse Practitioner Family | DX: M46.1 Sacroiliitis, not elsewhere classified (principal); G89.29 Other chronic pain; I12.9 Hypertensive chronic kidney disease with stage 1 through stage 4 chronic kidney disease, or unspecified chronic kidney disease; N18.30 Chronic kidney disease, stage 3 unspecified; N25.81 Secondary hyperparathyroidism of renal origin; E03.9 Hypothyroidism, unspecified; Z79.01 Long term (current) use of anticoagulants; Z79.899 Other long term (current) drug therapy; Z79.891 Long term (current) use of opiate analgesic; Z88.2 Allergy status to sulfonamides; Z88.1 Allergy status to other antibiotic agents; Z88.0 Allergy status to penicillin; Z88.8 Allergy status to other drugs, medicaments and biological substances; Z91.041 Radiographic dye allergy status; Z91.030 Bee allergy status; Z91.040 Latex allergy status ==

== ENCOUNTER 2024-07-19 07:35 | Day surgery (SDC) | payer MEDICARE, OTHER ==
[~2024-07-19] VITALS: Ht 162.6 cm; Wt 118.1 kg
[~2024-07-19 07:35] MED LIST changes: -ALIG10.5 PO; -BERB500C PO; -BUSP7.5T7 PO; -CIPR-249 PO; -DICL20GE TOP; -E-401CAP2 PO; -IPRA0.00 NEB; +LIDOCAINE 2% 100 MG/5 ML SDV (FOR ANES.) As Ordered ONE; +MIDAZOLAM INJ 2 MG/2 ML VIAL As Ordered ONE; +ONDANSETRON 4MG 2ML VIAL As Ordered ONE; -OXYB5TAB14 PO; -PARO40TA2 PO; -PYRI1TAB5 PO; -SUPETAB44 PO; -THERTAB52 PO; +dexAMETHasone 4 MG/ML 1 ML VIAL As Ordered ONE; +fentaNYL 100 MCG/2 ML INJECTION As Ordered ONE; +propofoL 200 MG/20 ML VIAL As Ordered ONE
[2024-07-19] MEDS: ceFAZolin SOD 2 GM IV ONCE IV ONE (09:01)
[2024-07-19] MEDS ORDERED: ACETAMINOPHEN 1000MG/100ML IV BAG As Ordered ONE (09:07)
[2024-07-19 09:45] VITALS: BP 139/70; TEMP 97.1; O2SAT 97
[2024-07-24] MEDS ORDERED: TAMS1CAP17 PO (22:27)
[2024-07-24] MEDS ORDERED: TRAM50TA2 PO (22:27)
[2024-07-26] MEDS ORDERED: DICL20GE TOP (09:51)
[2024-07-26] MEDS ORDERED: THERTAB52 PO (09:51)
[2024-07-26] MEDS ORDERED: IPRA0.00 NEB (09:51)
[2024-07-26] MEDS ORDERED: TRAM50TA2 PO (09:51)
[2024-07-26] MEDS ORDERED: ALIG10.5 PO (09:51)
[2024-07-26] MEDS ORDERED: E-401CAP2 PO (09:51)
[2024-07-26] MEDS ORDERED: BUSP7.5T7 PO (09:51)
[2024-07-26] MEDS ORDERED: BERB500C PO (09:51)
[2024-07-26] MEDS ORDERED: SUPETAB44 PO (09:51)
[2024-07-26] MEDS ORDERED: PARO40TA2 PO (09:51)
[2024-07-27] MEDS ORDERED: CIPR-249 PO (11:18)
[2024-07-27] MEDS ORDERED: OXYB5TAB14 PO (11:18)
[2024-07-27] MEDS ORDERED: PYRI1TAB5 PO (11:18)
== END 2024-07-19 10:25 | disposition home or self-care (01) ==
LOC: M SDC 07:35
PROVIDERS: ATTEND Urology
DX: N20.1 Calculus of ureter (principal); I48.91 Unspecified atrial fibrillation; I12.9 Hypertensive chronic kidney disease with stage 1 through stage 4 chronic kidney disease, or unspecified chronic kidney disease; N18.30 Chronic kidney disease, stage 3 unspecified; E78.5 Hyperlipidemia, unspecified; K21.9 Gastro-esophageal reflux disease without esophagitis; M79.7 Fibromyalgia; F41.9 Anxiety disorder, unspecified; F32.9 Major depressive disorder, single episode, unspecified; G43.909 Migraine, unspecified, not intractable, without status migrainosus; G47.33 Obstructive sleep apnea (adult) (pediatric); J45.909 Unspecified asthma, uncomplicated; Z79.01 Long term (current) use of anticoagulants; Z79.899 Other long term (current) drug therapy; Z91.040 Latex allergy status; Z91.041 Radiographic dye allergy status; Z88.0 Allergy status to penicillin; Z88.2 Allergy status to sulfonamides; Z91.030 Bee allergy status; Z91.013 Allergy to seafood; Z88.8 Allergy status to other drugs, medicaments and biological substances

== ENCOUNTER → 2024-07-19 | Outpatient (CLI) | payer MEDICARE, OTHER ==
[~2024-07-19] MED LIST changes: +ALIG10.5 PO; +BERB500C PO; +BUME1TAB3 PO; +BUSP7.5T7 PO; +CIPR-249 PO; +DICL20GE TOP; +E-401CAP2 PO; +IPRA0.00 NEB; +OXYB5TAB14 PO; +PARO40TA2 PO; +PYRI1TAB5 PO; -RABE1TAB4 PO; +RABE1TAB5 PO; +SUPETAB44 PO; +THERTAB52 PO; +TOPI-257 PO; -TOPI100T9 PO
[2024-07-19 08:43] LABS: HEMATOCRIT 40.6 % (36.0-47.0); HEMOGLOBIN 13.2 g/dl (12.0-15.5); MEAN CORPUSCULAR HEMOGLOBIN 31.7 pg (27.0-33.0); MEAN CORPUSCULAR HGB CONC 32.5 g/dl (32.0-36.5); MEAN CORPUSCULAR VOLUME 97.6 fl (80.0-96.0); PLATELET COUNT, AUTOMATED 176 10^3/uL (150-450); RED BLOOD COUNT 4.16 10^6/uL (4.00-5.40); WHITE BLOOD COUNT 10.3 10^3/uL (4.0-10.0)
[2024-07-19 09:13] LABS: CREATININE FOR GFR 0.88 MG/DL (0.55-1.30); GLOMERULAR FILTRATION RATE 71.5 (>45); POTASSIUM SERUM 4.5 MMOL/L (3.5-5.1)
== END ==
LOC: M RAD 07:18
PROVIDERS: ATTEND Physician Assistant
DX: N20.1 Calculus of ureter (principal); I48.91 Unspecified atrial fibrillation; I12.9 Hypertensive chronic kidney disease with stage 1 through stage 4 chronic kidney disease, or unspecified chronic kidney disease; N18.30 Chronic kidney disease, stage 3 unspecified; E78.5 Hyperlipidemia, unspecified; K21.9 Gastro-esophageal reflux disease without esophagitis; M79.7 Fibromyalgia; F41.9 Anxiety disorder, unspecified; F32.9 Major depressive disorder, single episode, unspecified; G43.909 Migraine, unspecified, not intractable, without status migrainosus; G47.33 Obstructive sleep apnea (adult) (pediatric); J45.909 Unspecified asthma, uncomplicated; Z79.01 Long term (current) use of anticoagulants; Z79.899 Other long term (current) drug therapy; Z91.040 Latex allergy status; Z91.041 Radiographic dye allergy status; Z88.0 Allergy status to penicillin; Z88.2 Allergy status to sulfonamides; Z91.030 Bee allergy status; Z91.013 Allergy to seafood; Z88.8 Allergy status to other drugs, medicaments and biological substances
CPT/HCPCS: 36415; 50590; 71046; 74018; 80048; 85027; J0131; J0690; J1100; J2250; J2405; J3010

== ENCOUNTER → 2024-11-01 | Outpatient (CLI) | payer MEDICARE, OTHER ==
[~2024-11-01] MED LIST changes: +ALIG10.5 PO; +BERB500C PO; +BUSP7.5T7 PO; +CIPR-249 PO; +DICL20GE TOP; +E-401CAP2 PO; +IPRA0.00 NEB; -LIDOCAINE 2% 100 MG/5 ML SDV (FOR ANES.) As Ordered ONE; -MIDAZOLAM INJ 2 MG/2 ML VIAL As Ordered ONE; -ONDANSETRON 4MG 2ML VIAL As Ordered ONE; +OXYB5TAB14 PO; +PARO40TA2 PO; +PYRI1TAB5 PO; +SUPETAB44 PO; +THERTAB52 PO; -dexAMETHasone 4 MG/ML 1 ML VIAL As Ordered ONE; -fentaNYL 100 MCG/2 ML INJECTION As Ordered ONE; -propofoL 200 MG/20 ML VIAL As Ordered ONE
== END ==
LOC: M PLAIMG 11:03
PROVIDERS: ATTEND Nurse Practitioner Family
DX: Z87.442 Personal history of urinary calculi (principal)

== ENCOUNTER → 2024-11-23 | Outpatient (CLI) | payer MEDICARE, OTHER ==
[2024-11-23 16:08] LABS: BASO # 0.0 10^3/uL (0.0-0.2); BASO % 0.3 % (0.0-1.0); EOS # 0.0 10^3/uL (0.0-0.5); EOS % 0.3 % (0.0-3.0); LYMPH # 0.8 10^3/uL (1.5-5.0); LYMPH % 9.4 % (24.0-44.0); MONO # 0.7 10^3/uL (0.0-0.8); MONO % 8.4 % (2.0-8.0); NEUTROPHILS # 7.1 10^3/uL (1.5-8.5); NEUTROPHILS % 81.3 % (36.0-66.0); PLATELET COUNT, AUTOMATED 158 10^3/uL (150-450)
[2024-11-23 16:14] LABS: ALT/SGPT 28.0 U/L (7.0-40); AST/SGOT 18.0 U/L (<34); C REACTIVE PROTEIN QUANTITATIV 1.86 MG/DL (<1.0); CALCIUM LEVEL 9.2 MG/DL (8.3-10.6); CARBON DIOXIDE LEVEL 33.0 MMOL/L (20-31); CHLORIDE LEVEL 102.0 MMOL/L (98-107); CREATININE FOR GFR 1.15 MG/DL (0.55-1.30); GLOMERULAR FILTRATION RATE 51.9 (>45); POTASSIUM SERUM 4.5 MMOL/L (3.5-5.1); SODIUM LEVEL 143.0 MMOL/L (136-145)
[2024-11-23 16:24] LABS: ERYTHROCYTE SEDIMENTATION RATE 26 mm/hr (0-30)
== END ==
LOC: M PLALAB 12:26
PROVIDERS: ATTEND Psychiatry & Neurology Neurology
DX: R51.9 Headache, unspecified (principal); Z79.899 Other long term (current) drug therapy